=== PATIENT | female | born 1935 | race Caucasian/White ===

== ENCOUNTER 2016-11-17 12:45 | Day surgery (SDC) | payer MEDICARE, BC, OTHER ==
[2016-11-15 10:10] VITALS: BMI 23.4
[~2016-11-17 12:45] MED LIST: DEXAMETHASONE SOD PHOSPHATE 10 MG/ML 1 ML VIAL IV ONE; HYDROmorphone 1 MG/ML 1 ML SYRINGE IVP PRN; LACTATED RINGERS 1,000 ML IV SCH; MIDAZOLAM 2 MG/2 ML VIAL IV PRN; ONDANSETRON 4 MG/2 ML VIAL IVP ONE; Pre Op ABX Message 1 EACH MISC MISCELLANE ONE; SCOPOLAMINE 1.5MG/72HR PATCH TRANSDERM ONE
[2016-11-17] MEDS ORDERED: LIDOCAINE 1% 20 ML VIAL (10MG/ML) FOR IV START INTRADERMA ONE (13:21)
[2016-11-17] MEDS ORDERED: SODIUM CHLORIDE 0.9% 50 ML with ceFAZolin 2,000 MG IV ONE ×2 (14:01)
[2016-11-17] MEDS ORDERED: ROPIVACAINE 5 MG/ML 30 ML VIAL ONE (15:45)
[2016-11-17] MEDS ORDERED: fentaNYL (PF) 50 MCG/ML 2 ML AMP ONE (15:45)
[2016-11-17] MEDS ORDERED: LIDOCAINE 1% INJ 10MG/ML (20 ML MDV) ONE (15:45)
[2016-11-17] MEDS ORDERED: SUCCINYLCHOLINE CHLORIDE 100 MG/5 ML SYR IV ONE (15:45)
[2016-11-17] MEDS ORDERED: PROPOFOL 10 MG/ML 20 ML VIAL IV ONE (15:45)
[2016-11-17] MEDS ORDERED: MIDAZOLAM 2 MG/2 ML VIAL ONE (15:45)
[2016-11-17] MEDS ORDERED: LIDOCAINE 2%-EPI 1:100,000 20 ML VIAL ONE (15:45)
[2016-11-17] MEDS ORDERED: ePHEDrine 50 MG/ML 1 ML AMP ONE (15:45)
[2016-11-17] MEDS ORDERED: HYDROmorphone (PF) 1 MG/ML ONE (15:45)
[2016-11-17] MEDS ORDERED: EPINEPHrine 4 MG in SODIUM CHLORIDE 0.9% IRRIGATIO 3,000 ML IRRIGATION ONE ×6 (16:28→16:31)
[2016-11-17] MEDS ORDERED: LACTATED RINGERS 1,000 ML IV ONE (17:09)
[2016-11-17 17:37] VITALS: TEMP 96.8
[2016-11-17] MEDS ORDERED: fentaNYL (PF) 50 MCG/ML 2 ML AMP IV ONE (17:45)
--- NOTE | 2016-11-17 17:55 | P.OP ---
Date of Procedure: 11/17/16 Procedure(s) Performed: PREOPERATIVE DIAGNOSES: 1. Right shoulder rotator cuff tendinopathy. 2. Chronic impingement syndrome. 3. Acromioclavicular osteoarthritis. 4. Superior labral degenerative tear. POSTOPERATIVE DIAGNOSES: 1. Right shoulder rotator cuff tear (supraspinatus, U-shaped 1.5 cm). 2. Chronic impingement syndrome. 3. Acromioclavicular osteoarthritis. 4. Labral degenerative tear. 5. Adhesive capsulitis, mild. PROCEDURES PERFORMED: 1. Right shoulder arthroscopy with rotator cuff repair (1 anchor plus 2 margin convergent sutures) 2. Arthroscopic subacromial decompression 3. Arthroscopic debridement superior labral tear 4. Arthroscopic partial distal clavicle excision 5. Arthroscopic lysis of adhesions and manipulation under anesthesia ANESTHESIA: General. ESTIMATED BLOOD LOSS: Less than 25 mL TOURNIQUET: None [employer] PORTAL DEVELOPER: Chana Malave PA-C (assistance with: Patient positioning, retraction, arm positioning, repair, closure, dressing) COMPLICATIONS: None. DISPOSITION: To postanesthesia care unit INDICATIONS: Mrs. Allen is a 80 year old female who with a history of rotator cuff difficulties. MRI was suspicious for a tear, and the patient wishes to have it repaired. I have examined the patient in the office and proposed rotator cuff repair via an arthroscopic or mini-open approach, as well as other procedures to optimize the shoulder and outcome, such as decompression of spurs and debridement of loose or degenerated tissue. I have explained the risks of this surgery as being inclusive of, but not limited to: bleeding, infection, scarring, discomfort, blood vessel and/or nerve damage, need for further surgery , stiffness, persistence or worsening of problems, , and other risks. The consent form has been completed and signed. PROCEDURE: Appropriate consent was obtained from the patient. The patient was taken to the operating room and placed in the supine position. General anesthesia was initiated and after confirmation of adequate anesthesia, the patients right shoulder was examined. Initial range of motion showed flexion to 150, abduction to 150, external rotation to 50 and internal rotation to 50. Gentle manipulation was performed using Codmans paradox maneuver such that range of motion was improved to 170 flexion, 170 abduction, 75 external rotation and 75 internal rotation. The shoulder was stable. Next, the patient was rotated into the lateral decubitus position and stabilized to the table with a meza bag and padded straps. Care was taken to make sure that all pressure points were adequately padded. Bear-hugger was used along with bilateral leg sequential compression devices. Prepping and draping was completed in the usual aseptic fashion using ChloraPrep. The patient received intravenous antibiotics prior to incision. The shoulder was suspended from traction with 15 lbs. of weight in a position of 45 degrees abduction. Landmarks were outlined with a skin marking pen. A spinal needle was inserted into the glenohumeral joint and fluid was administered to distend the joint. Some pressure was noted after 100 mL was administered. A posterior portal was created using an 11 blade and the arthroscopic canula, over a dull trocar, was carefully inserted into the joint. Arthroscopy then commenced. An anterior portal was inserted in the rotator interval area using inside-out technique. Biceps tendon was normal. Infraspinatus, subscapularis, and teres minor attachments were normal. Hyaline cartilage of the glenoid showed degenerative changes typical for age. Supraspinatus attachment showed 1.5 cm tear which was full thickness. The humeral head had severe arthritic changes, grade 4. There was no evidence of unstable cartilage and therefore no significant debridement was necessary here. No loose bodies were noted in the joint. Superior labrum showed some degenerative tearing but was well-attached. Negative peel back sign. There was also evidence of minor degenerative labral tearing in the inferior area. Loose fibers of labrum in this area were debrided away back to stable labrum. Synovitis was noted superior to the superior labrum and within the rotator interval. This was debrided and removed where the capsule appeared inflamed, using an arthroscopic shaver. Attention was then directed to the subacromial space. The camera and instruments were redirected into the subacromial space and bursoscopy was performed. The patients bursa was inflamed and thickened, indicating chronic bursitis. A lateral portal was created using outside-in technique. The supraspinatus tendon was examined particularly closely. There was an approx1.5 cm full thickness tear. The loose fibers of the tear were debrided back to stable tissue and the defect in the tendon was repaired arthroscopically after careful preparation of the supraspinatus footprint with aaron and rasp to create a good bleeding surface of bone, see below. The undersurface of the acromion had frictional changes consistent with impingement syndrome. The underside of the acromion anteriorly was cleared of soft tissue using an arthroscopic radiofrequency ablator. The frictional changes of the rotator cuff matched exactly the location of the rotator cuff tear in the critical zone. A formal subacromial decompression was performed using a aaron. Approx4-5 millimeters of material was removed from the anterior- inferior corner of the acromion. This resection was beveled upwards laterally, and carried to the AC joint. The AC joint appeared arthritic with inferior spurring. This spurring was removed with a aaron, co-planing the resection with the acromial resection. The rotator cuff tear was then repaired as follows. 2 margin convergent sutures were used using the [employer] suture passing device and tied securely , diminishing the size of the U-shaped tear. A reverse mattress suture using Fiber Tape from [employer] was deployed into the torn supraspinatus edge. A 4.75 mm Swivelock anchor was then deployed at the greater tuberosity and the suture tension was adjusted so that there was complete reduction and coverage of the footprint. Suture tails were then cut, producing a knotless repair. It was noted that there was complete closure of the cuff defect. The repair was stable. Subsequently, 4-0 Monocryl was used to close the portal holes. Steri-strips were applied as well as sterile dressing. The shoulder was then placed into a sling and the patient was transferred to recovery room in stable condition. Sponge and needle counts were correct.
[2016-11-17] MEDS ORDERED: ROPIVACAINE 5 MG/ML 30 ML VIAL MISCELLANE ONE (17:59)
[2016-11-17] MEDS ORDERED: LIDOCAINE 2%-EPI 1:100,000 20 ML VIAL INTRAARTIC ONE (18:00)
[2016-11-17 18:35] VITALS: RESP 18
--- NOTE | 2016-11-17 19:19 | XR ---
EXAMINATION TYPE: XR chest 1V portable DATE OF EXAM: 11/17/2016 7:07 PM COMPARISON: 11/12/2012 HISTORY: Chest pain TECHNIQUE: Single frontal view of the chest is obtained. FINDINGS: Heart and mediastinum appear normal. There is elevated right diaphragm. There is no heart failure. There are no hilar masses. IMPRESSION: There is elevated right diaphragm that is new compared to old exam and could relate to p aralysis. No heart failure. Normal heart.
[2016-11-17] MEDS ORDERED: HYDROcodone/APAP 5-325MG 1 EACH TAB PO ONE ×2 (19:25→20:10)
[2016-11-17 20:27] VITALS: BP 123/71; PULSE 91
== END 2016-11-17 21:01 | disposition home or self-care (01) ==
LOC: OR 12:45
PROVIDERS: ATTEND Orthopaedic Surgery
DX: M75.101 Unspecified rotator cuff tear or rupture of right shoulder, not specified as traumatic (principal); M19.011 Primary osteoarthritis, right shoulder; M75.41 Impingement syndrome of right shoulder; S43.491A Other sprain of right shoulder joint, initial encounter; M65.811 Other synovitis and tenosynovitis, right shoulder; M75.01 Adhesive capsulitis of right shoulder; I10 Essential (primary) hypertension; E03.9 Hypothyroidism, unspecified; E78.5 Hyperlipidemia, unspecified; K21.9 Gastro-esophageal reflux disease without esophagitis; Z79.899 Other long term (current) drug therapy; Z87.891 Personal history of nicotine dependence
CPT/HCPCS: 64415; 71010; 29827; 29826; C1713 ×2; J0171; J2250; J1100; J2405; J2001; J3010; J1170; J0690; J2795; J0330; J2704

== ENCOUNTER 2018-03-18 10:16 | Inpatient (IN) | payer MEDICARE, BC, OTHER ==
[2018-03-18 10:55] LABS: Basophils % (A) 1 %; Eosinophils # (A) 0.2 k/uL (0-0.7); Eosinophils % (A) 3 %; HCT 43.5 % (34.0-46.0); HGB 14.1 gm/dL (11.4-16.0); Lymphocytes # (A) 1.3 k/uL (1.0-4.8); Lymphocytes % (A) 20 %; MCH 27.1 pg (25.0-35.0); MCHC 32.4 g/dL (31.0-37.0); MCV 83.8 fL (80.0-100.0); Mean Platelet Volume 6.8; Monocytes # (A) 0.4 k/uL (0-1.0); Monocytes % (A) 6 %; Neutrophils # (A) 4.1 k/uL (1.3-7.7); Neutrophils % (A) 66 %; Platelet Count 360 k/uL (150-450); RBC 5.18 m/uL (3.80-5.40); RDW 13.2 % (11.5-15.5); WBC 6.2 k/uL (3.8-10.6)
[2018-03-18 11:02] LABS: Albumin 4.5 g/dL (3.5-5.0); Calcium 9.3 mg/dL (8.4-10.2); Potassium 4.2 mmol/L (3.5-5.1); Total Bilirubin 0.5 mg/dL (0.2-1.3); Total Protein 7.5 g/dL (6.3-8.2)
--- NOTE | 2018-03-18 11:09 | ED ---
General Adult HPI - General Chief complaint: Chest Pain Stated complaint: chest pain, dizziness Time Seen by Provider: 03/18/18 10:23 Source: patient, family, RN notes reviewed, old records reviewed Mode of arrival: wheelchair Limitations: no limitations - History of Present Illness Initial comments: 82-year-old female presents for evaluation of left-sided chest pain. Pain is been intermittent over the past several weeks describes it as a heavy pressure on the left side of her chest. Patient has baseline dyspnea secondary to vocal cord paralysis. This is unchanged from baseline with her pain. No nausea vomiting. She states she did feel clammy and dizzy with these episodes. She has been somewhat lightheaded over the past several weeks as well. No history of CAD. She is a nonsmoker. Pain is nonradiating and resolved at the time of my evaluation. - Related Data Home Medications Medication Instructions Recorded Confirmed Levothyroxine Sodium [Synthroid] 50 mcg PO DAILY 04/05/14 03/18/18 Rosuvastatin [Crestor] 20 mg PO DAILY 04/05/14 03/18/18 amLODIPine [Norvasc] 5 mg PO DAILY 04/05/14 03/18/18 Aspirin EC [Ecotrin Low Dose] 81 mg PO DAILY 03/18/18 03/18/18 Allergies Allergy/AdvReac Type Severity Reaction Status Date / Time No Known Allergies Allergy Verified 03/18/18 11:07 Review of Systems ROS Statement: Those systems with pertinent positive or pertinent negative responses have been documented in the HPI. ROS Other: All systems not noted in ROS Statement are negative. Past Medical History Past Medical History: GERD/Reflux, Hyperlipidemia, Hypertension, Osteoarthritis (OA), Thyroid Disorder Additional Past Medical History / Comment(s): STATES AT 37 YRS OLD VOCAL CORD WAS SEVERED DURING REMOVAL OF THYROID (HX OF GOITER), MULTIPLE THROAT SURGERIES AFTERWARDS. SHE HAS TO INHALE AND BLOW OUT WHEN TALKING. STATES ALSO THAT ESOPHAGUS CLOSES PREMATURELY WHEN EATING AND CAUSES HER TO INHALE FOOD AND SALIVA CAUSING HER TO COUGH ., STRESS INCONTINENCE-WEARS PAD, TORN ROTATOR CUFF. History of Any Multi-Drug Resistant Organisms: None Reported Past Surgical History: Appendectomy, Hysterectomy, Orthopedic Surgery Additional Past Surgical History / Comment(s): TOTAL RIGHT HIP, CATARACTS, THYROID REMOVED WITH SEVERED VOCAL CORD AND MULTIPLE THROAT SURGERIES AFTERWARDS , right shoulder surgery Past Anesthesia/Blood Transfusion Reactions: No Reported Reaction Past Psychological History: No Psychological Hx Reported Smoking Status: Never smoker Past Alcohol Use History: Occasional Past Drug Use History: None Reported - Past Family History Daughter(s) Family Medical History: Cancer Additional Family Medical History / Comment(s): 2 DAUGHTERS- LEUKEMIA AND LUNG CANCER General Exam Limitations: no limitations General appearance: alert, in no apparent distress Head exam: Present: atraumatic, normocephalic Eye exam: Present: normal appearance, PERRL, EOMI ENT exam: Present: normal exam Neck exam: Present: normal inspection. Absent: tenderness, meningismus Respiratory exam: Present: normal lung sounds bilaterally. Absent: respiratory distress, wheezes, stridor Cardiovascular Exam: Present: regular rate, normal rhythm GI/Abdominal exam: Present: soft. Absent: distended, tenderness, guarding Extremities exam: Present: normal inspection, full ROM, normal capillary refill. Absent: pedal edema, calf tenderness Neurological exam: Present: alert, oriented X3, CN II-XII intact, other ( no ataxia). Absent: motor sensory deficit Psychiatric exam: Present: normal affect, normal mood Skin exam: Present: warm, dry, intact. Absent: cyanosis, diaphoretic Course Vital Signs 03/18/18 03/18/18 03/18/18 10:17 11:58 12:41 Temperature 97.9 F Pulse Rate 82 67 66 Respiratory 18 17 18 Rate Blood Pressure 183/80 153/72 155/74 O2 Sat by Pulse 95 99 100 Oximetry EKG Findings - EKG Comments: EKG Findings:: EKG: Normal sinus rhythm rate of 73, NM interval 190, QRS duration 72, QTC 425, there is Q waves in the inferior leads which were present on previous EKG obtained in October 2011. There is no ST segment elevation or depression. Medical Decision Making - Medical Decision Making 82-year-old female presenting with chest pressure and tightness on and off for the past 3 weeks. EKG shows Q waves in the inferior leads which appears unchanged from previous EKG. Workup reveals a CBC which is normal white blood cell count, stable hemoglobin, normal CMP and troponin is negative. Chest x- ray does show concern for trace effusion on the left. Lungs are clear on exam, there is no pulmonary edema or airspace disease on x-ray. Patient's pain is somewhat typical, she will be admitted for serial cardiac enzymes and cardiology consultation. Case discussed with Dr. Cotto who will accept admission - Lab Data Result diagrams: 03/18/18 10:45 03/18/18 10:45 Lab Results 03/18/18 03/18/18 03/18/18 Range/Units 10:45 10:45 10:45 WBC 6.2 (3.8-10.6) k/uL RBC 5.18 (3.80-5.40) m/uL Hgb 14.1 (11.4-16.0) gm/dL Hct 43.5 (34.0-46.0) % MCV 83.8 (80.0-100.0) fL MCH 27.1 (25.0-35.0) pg MCHC 32.4 (31.0-37.0) g/dL RDW 13.2 (11.5-15.5) % Plt Count 360 (150-450) k/uL Neutrophils % 66 % Lymphocytes % 20 % Monocytes % 6 % Eosinophils % 3 % Basophils % 1 % Neutrophils # 4.1 (1.3-7.7) k/uL Lymphocytes # 1.3 (1.0-4.8) k/uL Monocytes # 0.4 (0-1.0) k/uL Eosinophils # 0.2 (0-0.7) k/uL Basophils # 0.0 (0-0.2) k/uL PT (9.0-12.0) sec INR (<1.2) APTT (22.0-30.0) sec Sodium 141 (137-145) mmol/L Potassium 4.2 (3.5-5.1) mmol/L Chloride 101 (98-107) mmol/L Carbon Dioxide 29 (22-30) mmol/L Anion Gap 11 mmol/L BUN 13 (7-17) mg/dL Creatinine 0.75 (0.52-1.04) mg/dL Est GFR (CKD-EPI)AfAm 86 (>60 ml/min/1.73 sqM) Est GFR (CKD-EPI)NonAf 75 (>60 ml/min/1.73 sqM) Glucose 89 (74-99) mg/dL Calcium 9.3 (8.4-10.2) mg/dL Magnesium 2.0 (1.6-2.3) mg/dL Total Bilirubin 0.5 (0.2-1.3) mg/dL AST 28 (14-36) U/L ALT 34 (9-52) U/L Alkaline Phosphatase 87 (38-126) U/L Total Creatine Kinase 78 (30-135) U/L CK-MB (CK-2) 1.7 (0.0-2.4) ng/mL CK-MB (CK-2) Rel Index 2.2 Troponin I <0.012 (0.000-0.034) ng/mL NT-Pro-B Natriuret Pep pg/mL Total Protein 7.5 (6.3-8.2) g/dL Albumin 4.5 (3.5-5.0) g/dL 03/18/18 03/18/18 Range/Units 10:45 10:45 WBC (3.8-10.6) k/uL RBC (3.80-5.40) m/uL Hgb (11.4-16.0) gm/dL Hct (34.0-46.0) % MCV (80.0-100.0) fL MCH (25.0-35.0) pg MCHC (31.0-37.0) g/dL RDW (11.5-15.5) % Plt Count (150-450) k/uL Neutrophils % % Lymphocytes % % Monocytes % % Eosinophils % % Basophils % % Neutrophils # (1.3-7.7) k/uL Lymphocytes # (1.0-4.8) k/uL Monocytes # (0-1.0) k/uL Eosinophils # (0-0.7) k/uL Basophils # (0-0.2) k/uL PT 9.5 (9.0-12.0) sec INR 1.0 (<1.2) APTT 22.2 (22.0-30.0) sec Sodium (137-145) mmol/L Potassium (3.5-5.1) mmol/L Chloride (98-107) mmol/L Carbon Dioxide (22-30) mmol/L Anion Gap mmol/L BUN (7-17) mg/dL Creatinine (0.52-1.04) mg/dL Est GFR (CKD-EPI)AfAm (>60 ml/min/1.73 sqM) Est GFR (CKD-EPI)NonAf (>60 ml/min/1.73 sqM) Glucose (74-99) mg/dL Calcium (8.4-10.2) mg/dL Magnesium (1.6-2.3) mg/dL Total Bilirubin (0.2-1.3) mg/dL AST (14-36) U/L ALT (9-52) U/L Alkaline Phosphatase (38-126) U/L Total Creatine Kinase (30-135) U/L CK-MB (CK-2) (0.0-2.4) ng/mL CK-MB (CK-2) Rel Index Troponin I (0.000-0.034) ng/mL NT-Pro-B Natriuret Pep 184 pg/mL Total Protein (6.3-8.2) g/dL Albumin (3.5-5.0) g/dL Disposition Clinical Impression: Chest pain Disposition: ADMITTED IP TO THIS [facility] Condition: Stable Is patient prescribed a controlled substance at d/c from ED?: No Referrals: Rafat Duong DO [Primary Care Provider] - 1-2 days Decision to Admit Reason: Admit from EC Decision Date: 03/18/18 Decision Time: 12:47
[2018-03-18 11:10] LABS: Partial Thromboplastin Time 22.2 sec (22.0-30.0); Prothrombin Time 9.5 sec (9.0-12.0)
--- NOTE | 2018-03-18 11:10 | XR ---
EXAMINATION TYPE: XR chest 2V DATE OF EXAM: 03/18/2018 COMPARISON: 11/17/2016 HISTORY: 82-year-old female with chest pain TECHNIQUE: AP and lateral views FINDINGS: Heart normal size. Aorta and pulmonary vasculature within normal limits. Eventration anterior right h emidiaphragm. There is some minimal blunting of the posterior costophrenic angle on the left on the l ateral view. Remainder of the lungs appear clear. IMPRESSION: Minimal blunting left costophrenic angle could represent a trace effusion or some minimal atelectasis /infiltrate. Similar eventration right hemidiaphragm.
[2018-03-18 11:32] LABS: Creatine Kinase 78 U/L (30-135)
[2018-03-18 11:44] LABS: Creatine Kinase MB 1.7 ng/mL (0.0-2.4); Troponin I <0.012 ng/mL (0.000-0.034)
[2018-03-18] MEDS ORDERED: NALOXONE 0.4 MG/ML 1 ML VIAL IV PRN (12:48)
[2018-03-18] MEDS ORDERED: ASPIRIN 325 MG TAB PO STA (12:50)
[2018-03-18] MEDS ORDERED: FAMOTIDINE 20 MG/2 ML VIAL IV STA (14:35)
[2018-03-18 17:42] LABS: Creatine Kinase 63 U/L (30-135)
[2018-03-18 17:51] LABS: Creatine Kinase MB 1.4 ng/mL (0.0-2.4)
[2018-03-18 18:18] LABS: Troponin I <0.012 ng/mL (0.000-0.034)
--- NOTE | 2018-03-18 18:22 | CT ---
EXAMINATION TYPE: CT brain wo con DATE OF EXAM: 03/18/2018 COMPARISON: NONE HISTORY: Dizziness for [address] DLP: 1070 mGycm Automated exposure control for dose reduction was used. FINDINGS: Ventricles of normal size. There is no mass effect nor midline shift. There is no sign of intracrania l hemorrhage. There is mild cerebral cortical atrophy. The calvarium is intact. IMPRESSION: NEGATIVE CT SCAN OF THE BRAIN. MILD ATROPHY.
[2018-03-18] MEDS: ACETAMINOPHEN TAB 325 MG TAB PO PRN (20:03)
[2018-03-18 23:29] LABS: Creatine Kinase 57 U/L (30-135)
[2018-03-18 23:41] LABS: Creatine Kinase MB 1.1 ng/mL (0.0-2.4); Troponin I <0.012 ng/mL (0.000-0.034)
--- NOTE | 2018-03-18 23:46 | P.HPIM ---
History of Present Illness H&P Date: 03/18/18 Chief Complaint: Chest pain Patient is a 82-year-old female with known history of hypertension, hyperlipidemia and hypothyroidism and GERD came to the hospital with complaints of chest pain mainly in the left retrosternal area associated with dizziness and weakness and not feeling very well. Patient is also noted to have some left shoulder pain at the time. Chest pain is associated shortness of breath. Patient has been having intermittent chest pressure and heavy feeling for the past 2 weeks. Patient has baseline dyspnea secondary to vocal cord paralysis, was severed during removal of thyroid.. This is unchanged from baseline with her pain. No nausea vomiting. She states she did feel clammy and dizzy spells with these episodes. She has been somewhat lightheaded over the past several weeks as well. No history of CAD. She is a nonsmoker. Patient says that she does have exertional short of breath. Patient denied any fever or chills. No cough is from production. Denied any recent illnesses or sick contacts. Currently denied any complaints of chest pain or shortness of breath. Patient says that she had stress test about 7 years ago. Patient is supposed to follow with neurology in next 1-[address] head negative Chest x-ray showed minimal blunting of costophrenic angle could represent a trace effusion or minimal atelectasis/infiltrate Troponin 2 negative EKG showed normal sinus rhythm and undetermined age inferior wall CO BNP not elevated Review of Systems Constitutional: Patient denies any fever or chills . No generalized weakness or weight loss. Abdomen: Patient denied nausea vomiting and diarrhea and abdominal pain. Cardiovascular: Patient denies any chest pain or short of breath no palpitations. Respiratory: patient denied any cough is from production. No shortness of breath Neurologic: Patient denied any numbness or tingling headache. Musculoskeletal: Patient denies any complaints of joint swelling or deformity. Skin: Negative Psychiatric: Negative Endocrine: No heat or cold intolerance. No recent weight gain. Genitourinary: No dysuria or hematuria. All other 14 point ROS negative except the above Past Medical History Past Medical History: GERD/Reflux, Hyperlipidemia, Hypertension, Osteoarthritis (OA), Thyroid Disorder Additional Past Medical History / Comment(s): STATES AT 37 YRS OLD VOCAL CORD WAS SEVERED DURING REMOVAL OF THYROID (HX OF GOITER), MULTIPLE THROAT SURGERIES AFTERWARDS. SHE HAS TO INHALE AND BLOW OUT WHEN TALKING. STATES ALSO THAT ESOPHAGUS CLOSES PREMATURELY WHEN EATING AND CAUSES HER TO INHALE FOOD AND SALIVA CAUSING HER TO COUGH ., STRESS INCONTINENCE-WEARS PAD, TORN ROTATOR CUFF( sx), bridges. History of Any Multi-Drug Resistant Organisms: None Reported Past Surgical History: Appendectomy, Hysterectomy, Orthopedic Surgery Additional Past Surgical History / Comment(s): TOTAL RIGHT HIP, CATARACTS, THYROID REMOVED WITH SEVERED VOCAL CORD AND MULTIPLE THROAT SURGERIES AFTERWARDS , right shoulder surgery, rt rotator cuff repair Past Anesthesia/Blood Transfusion Reactions: No Reported Reaction Smoking Status: Former smoker - Past Family History Daughter(s) Family Medical History: Cancer Additional Family Medical History / Comment(s): 2 DAUGHTERS- LEUKEMIA AND LUNG CANCER Mother Family Medical History: COPD Additional Family Medical History / Comment(s): bronchits Father Family Medical History: Cancer Additional Family Medical History / Comment(s): leukemia Medications and Allergies Home Medications Medication Instructions Recorded Confirmed Type Levothyroxine Sodium [Synthroid] 50 mcg PO DAILY 04/05/14 03/18/18 History Rosuvastatin [Crestor] 20 mg PO DAILY 04/05/14 03/18/18 History amLODIPine [Norvasc] 5 mg PO DAILY 04/05/14 03/18/18 History Aspirin EC [Ecotrin Low Dose] 81 mg PO DAILY 03/18/18 03/18/18 History Allergies Allergy/AdvReac Type Severity Reaction Status Date / Time No Known Allergies Allergy Verified 03/18/18 11:07 Physical Exam Vitals: Vital Signs Temp Pulse Pulse Resp BP BP Pulse Ox 03/18/18 16:41 97.6 F 68 16 154/107 95 03/18/18 15:59 97 F L 68 16 157/70 99 03/18/18 13:27 70 18 156/73 99 03/18/18 12:41 66 18 155/74 100 03/18/18 11:58 67 17 153/72 99 03/18/18 10:17 97.9 F 82 18 183/80 95 Intake and Output 03/18/18 03/18/18 03/18/18 06:59 14:59 22:59 Other: Weight 54.431 kg 55.4 kg PHYSICAL EXAMINATION: Patient is lying in the bed comfortably, no acute distress, awake alert and oriented.. HEENT: Normocephalic. Neck is supple. Pupils reactive. Nostrils clear. Oral cavity is moist. Ears reveal no drainage. Neck reveals no JVD, carotid bruits, or thyromegaly. CHEST EXAMINATION: Trachea is central. Symmetrical expansion. Lung dominguez clear to auscultation and percussion. CARDIAC: Normal S1, S2 with no gallops. No murmurs ABDOMEN: Soft. Bowel sounds normal. No organomegaly. No abdominal bruits. Extremities: reveal no edema. No clubbing or cyanosis Neurologically awake, alert, oriented x3 with well-coordinated movements. No focal deficits noted Skin: No rash or skin lesions. Psychiatric: Coperative. Nonsuicidal Musculoskeletal: No joint swelling or deformity. Normal range of motion. Results CBC & Chem 7: 03/18/18 10:45 03/18/18 10:45 Thrombosis Risk Factor Assmnt - DVT/VTE Prophylaxis DVT/VTE Prophylaxis: Pharmacologic Prophylaxis ordered Assessment and Plan Assessment: Chest pain and dizzy spells Generalized weakness and not feeling well for the past 2 weeks. Hypertension Hyperlipidemia GERD Hypothyroidism Osteoarthritis of multiple joints Hoarseness due to vocal cords injury during removal of thyroid. Stress incontinence History of right rotator cuff repair Previous history of smoking Plan: Patient be continued on telemetry monitoring for any arrhythmias. Will check d- dimer. Serial troponins and cardiology was consulted. Further admissions based on the clinical course. Continue the home medications and follow up closely. Time with Patient: Greater than 30
[2018-03-19] MEDS: ACETAMINOPHEN TAB 325 MG TAB PO PRN (04:03)
[2018-03-19] MEDS: LEVOTHYROXINE 50 MCG TAB PO SCH (05:55)
[2018-03-19] MEDS ORDERED: AMINOPHYLLINE 500 MG/20 ML VIAL IV PRN (07:54)
[2018-03-19] MEDS ORDERED: REGADENOSON 0.4 MG/5 ML SYRINGE IV ONE (08:00)
[2018-03-19] MEDS ORDERED: ASPIRIN 81 MG PO SCH (09:00)
--- NOTE | 2018-03-19 10:38 | P.CRDCN ---
History of Present Illness History of present illness: Mrs. Allen is a pleasant 82-year-old female past medical history significant for hypertension, dyslipidemia, gastroesophageal reflux disease, hypothyroid s/p thyroidectomy, vocal cord injury and esophageal injury from thyroidectomy. She denies history of coronary artery disease. We have been asked to see her in consultation for chest pain. She states she has been suffering with dizziness lately and has followed with Dr. Naidu for evaluation of possible inner ear issues. He has told her these symptoms of dizziness are not vertigo. Yesterday she was going about her typical day when she again became very dizzy and felt confused. She then developed a burning/ tightness in her chest that was radiating down her left arm. The symptoms resolved on their own with no specific aggravating or alleviating factors. She also states she participated in a [employer] tournament in the end of December and bowled 15 games over the course of 5 days. Since that time is when all of her symptoms of dizziness and increased fatigue started. EKG reveals sinus mechanism with no acute ST or T-wave abnormalities. Telemetry tracings have been unremarkable. Chest x-ray shows minimal blunting of the left costophrenic angle which could represent a trace effusion or some minimal atelectasis versus an infiltrate. CT of the brain negative for an acute process with mild atrophy. Laboratory data reviewed, hemoglobin 14.1, platelets 360, d-dimer 0.43, sodium 141, potassium 4.2, magnesium 2.0, creatinine 0.75, cardiac enzymes negative 3 , TSH 1.33. Current cardiac medications include amlodipine 5 mg daily, rosuvastatin 20 mg daily and aspirin 81 mg daily. She also takes levothyroxine. Most recent stress test performed in the office in 2014 with a Lexiscan stress test which was negative for reversible cardiac ischemia. Review of Systems At the time of my exam: CONSTITUTIONAL: Denies fever. Denies chills. Complains of generalized fatigue. EYES: Denies blurred vision. Denies vision changes. Denies eye pain. EARS, NOSE, MOUTH & THROAT: Denies headache. Denies sore throat. Denies ear pain. CARDIOVASCULAR: Denies chest pain. Denies shortness of breath. Denies orthopnea. Denies PND. Denies palpitations. RESPIRATORY: Denies cough. GASTROINTESTINAL: Denies abdominal pain. Denies diarrhea. Denies constipation. Denies nausea. Denies vomiting. MUSCULOSKELETAL: Denies myalgias. INTEGUMENTARY: Denies pruitis. Denies rash. NEUROLOGIC: Denies numbness. Denies tingling. Denies weakness. PSYCHIATRIC: Denies anxiety. Denies depression. ENDOCRINE: Denies fatigue. Denies weight change. Denies polydipsia. Denies polyurina. GENITOURINARY: Denies burning, hematuria or urgency with micturation. HEMATOLOGIC: Denies history of anemia. Denies bleeding. Past Medical History Past Medical History: GERD/Reflux, Hyperlipidemia, Hypertension, Osteoarthritis (OA), Thyroid Disorder Additional Past Medical History / Comment(s): STATES AT 37 YRS OLD VOCAL CORD WAS SEVERED DURING REMOVAL OF THYROID (HX OF GOITER), MULTIPLE THROAT SURGERIES AFTERWARDS. SHE HAS TO INHALE AND BLOW OUT WHEN TALKING. STATES ALSO THAT ESOPHAGUS CLOSES PREMATURELY WHEN EATING AND CAUSES HER TO INHALE FOOD AND SALIVA CAUSING HER TO COUGH ., STRESS INCONTINENCE-WEARS PAD, TORN ROTATOR CUFF( sx), bridges. History of Any Multi-Drug Resistant Organisms: None Reported Past Surgical History: Appendectomy, Hysterectomy, Orthopedic Surgery Additional Past Surgical History / Comment(s): TOTAL RIGHT HIP, CATARACTS, THYROID REMOVED WITH SEVERED VOCAL CORD AND MULTIPLE THROAT SURGERIES AFTERWARDS , right shoulder surgery, rt rotator cuff repair Past Anesthesia/Blood Transfusion Reactions: No Reported Reaction Smoking Status: Former smoker - Past Family History Daughter(s) Family Medical History: Cancer Additional Family Medical History / Comment(s): 2 DAUGHTERS- LEUKEMIA AND LUNG CANCER Mother Family Medical History: COPD Additional Family Medical History / Comment(s): bronchits Father Family Medical History: Cancer Additional Family Medical History / Comment(s): leukemia Medications and Allergies Home Medications Medication Instructions Recorded Confirmed Type Levothyroxine Sodium [Synthroid] 50 mcg PO DAILY 04/05/14 03/18/18 History Rosuvastatin [Crestor] 20 mg PO DAILY 04/05/14 03/18/18 History amLODIPine [Norvasc] 5 mg PO DAILY 04/05/14 03/18/18 History Aspirin EC [Ecotrin Low Dose] 81 mg PO DAILY 03/18/18 03/18/18 History Allergies Allergy/AdvReac Type Severity Reaction Status Date / Time No Known Allergies Allergy Verified 03/18/18 11:07 Physical Exam Vitals: Vital Signs Temp Pulse Pulse Resp BP BP Pulse Ox 03/19/18 04:00 16 03/19/18 03:49 97.5 F L 69 16 126/68 93 L 03/19/18 00:00 16 03/18/18 23:27 97.9 F 71 16 136/68 97 03/18/18 20:00 97.5 F L 74 16 154/65 96 03/18/18 17:30 154/76 03/18/18 16:45 16 03/18/18 16:41 97.6 F 68 16 154/107 95 03/18/18 15:59 97 F L 68 16 157/70 99 03/18/18 13:27 70 18 156/73 99 03/18/18 12:41 66 18 155/74 100 03/18/18 11:58 67 17 153/72 99 03/18/18 10:17 97.9 F 82 18 183/80 95 Intake and Output 03/18/18 03/19/18 03/19/18 22:59 06:59 14:59 Intake Total 420 Balance 420 Intake: Oral 420 Other: Voiding Method Toilet Toilet # Voids 1 1 Weight 55.4 kg Blood pressure 148/66 heart rate 71 afebrile maintaining oxygen saturation on room air GENERAL: This is a 82-year-old occasion female in no apparent distress at the time of my examination. HEENT: Head is atraumatic, normocephalic. Pupils are equal, round. Sclerae anicteric. Conjunctivae are clear. Mucous membranes of the mouth are moist. Neck is supple. There is no jugular venous distention. No carotid bruit is heard. LUNGS: Clear to auscultation no wheezes, rales or rhonchi. No chest wall tenderness is noted on palpation or with deep breathing. HEART: Regular rate and rhythm without murmurs, rubs or gallops. S1 and S2 heard. ABDOMEN: Soft, nontender. Bowel sounds are heard. No organomegaly noted. EXTREMITIES: No evidence of peripheral edema and no calf tenderness noted. VASCULAR: Radial and dorsalis pedis pulses palpated, no evidence of clubbing. NEUROLOGIC: Patient is awake, alert and oriented x3. Results 03/18/18 10:45 03/18/18 10:45 Cardiac Enzymes 03/18/18 03/18/1818 Range/Units 10:45 10:45 16:54 AST 28 (14-36) U/L CK-MB (CK-2) 1.7 1.4 (0.0-2.4) ng/mL Troponin I <0.012 <0.012 (0.000-0.034) ng/mL 03/18/18 Range/Units 22:33 AST (14-36) U/L CK-MB (CK-2) 1.1 (0.0-2.4) ng/mL Troponin I <0.012 (0.000-0.034) ng/mL Coagulation 03/18/18 Range/Units 10:45 PT 9.5 (9.0-12.0) sec APTT 22.2 (22.0-30.0) sec CBC 03/18/18 Range/Units 10:45 WBC 6.2 (3.8-10.6) k/uL RBC 5.18 (3.80-5.40) m/uL Hgb 14.1 (11.4-16.0) gm/dL Hct 43.5 (34.0-46.0) % Plt Count 360 (150-450) k/uL Comprehensive Metabolic Panel 03/18/18 Range/Units 10:45 Sodium 141 (137-145) mmol/L Potassium 4.2 (3.5-5.1) mmol/L Chloride 101 (98-107) mmol/L Carbon Dioxide 29 (22-30) mmol/L BUN 13 (7-17) mg/dL Creatinine 0.75 (0.52-1.04) mg/dL Glucose 89 (74-99) mg/dL Calcium 9.3 (8.4-10.2) mg/dL AST 28 (14-36) U/L ALT 34 (9-52) U/L Alkaline Phosphatase 87 (38-126) U/L Total Protein 7.5 (6.3-8.2) g/dL Albumin 4.5 (3.5-5.0) g/dL Current Medications Generic Name Dose Route Start Last Admin Trade Name Freq PRN Reason Stop Dose Admin Acetaminophen 650 mg 03/18/18 12:48 03/19/18 04:03 Tylenol Tab PO 650 mg Q6HR PRN Administration Mild Pain or Fever > 100.5 Amlodipine Besylate 5 mg 03/19/18 09:00 Norvasc PO DAILY [facility] Aspirin 81 mg 03/19/18 09:00 Aspirin PO DAILY [facility] Atorvastatin Calcium 40 mg 03/19/18 09:00 Lipitor PO DAILY DEYVI Levothyroxine Sodium 50 mcg 03/19/18 06:30 03/19/18 05:55 Synthroid PO 50 mcg DAILY@0630 DEYVI Administration Naloxone HCl 0.2 mg 03/18/18 12:48 Narcan IV Q2M PRN Opioid Reversal Intake and Output 03/18/18 03/19/18 03/19/18 22:59 06:59 14:59 Intake Total 420 Balance 420 Intake: Oral 420 Other: Voiding Method Toilet Toilet # Voids 1 1 Weight 55.4 kg 03/18/18 10:45 03/18/18 10:45 Assessment and Plan Assessment: ASSESSMENT 1. Chest pain, atypical with dizziness. An acute coronary event has been ruled out with no EKG evidence of ischemia and negative cardiac enzymes. 2. Hypertension, well controlled on amlodipine 3. Dyslipidemia, takes rosuvastatin 4. Hypothyroid PLAN Obtain 2D echocardiogram and doppler study to assess cardiac structure and function. Obtain carotid duplex study. Perform Lexiscan stress test to assess for reversible cardiac ischemia. If above diagnostic testing is normal she is stable from a cardiac perspective. Thank you kindly for this consultation. Nurse Practitioner note has been reviewed, I agree with a documented findings and plan of care. Patient was seen and examined.
--- NOTE | 2018-03-19 11:17 | NM ---
EXAMINATION TYPE: NM stress lexiscan cardiolite DATE OF EXAM: 03/19/2018 COMPARISON: NONE HISTORY: Chest pain TECHNIQUE: After the intravenous administration of 10.33 mCi Tc 99m Sestamibi - Cardiolite resting S PECT images acquired 45 minutes post injection. The patient received 0.4mg Lexiscan, 25.9 mCi Tc 99m Sestamibi - Stress images obtained [address] injection FINDINGS: There is some diminished radiotracer accumulation along the inferior lateral wall in the mi d portion. This area has normal radiotracer accumulation on the resting images. Some stress-induced i schemic change which is reversible may be present at this location. The ejection fraction of 64% is normal. There is some dyskinesia of the inferior wall at the apex on the gated wall motion. IMPRESSION: 1. Suggestion of stress-induced ischemic change on polar maps and SPECT imaging at the midportion inf erior lateral wall. 2. Normal ejection fraction of 64%. 3. Some wall motion abnormality most notably at the apex along the inferior wall is present.
[2018-03-19] MEDS: ATORVASTATIN 40 MG TAB PO SCH (11:36)
[2018-03-19] MEDS: amLODIPine 5 MG TAB PO SCH (11:36)
--- NOTE | 2018-03-19 12:05 | ECHOF ---
Referral Reason: MEASUREMENTS -------- HEIGHT: 154.9 cm WEIGHT: 55.3 kg BP: IVSd: 1.0 cm (0.6 - 1.1) LVIDd: 3.6 cm (3.9 - 5.3) LVPWd: 1.0 cm (0.6 - 1.1) IVSs: 1.4 cm LVIDs: 1.8 cm LVPWs: 1.5 cm LAESV Index (A-L): 17.27 ml/m Ao Diam: 3.1 cm (2.0 - 3.7) AV Cusp: 2.1 cm (1.5 - 2.6) LA Diam: 3.2 cm (2.7 - 3.8) MV EXCURSION: 11.844 mm (> 18.000) MV EF SLOPE: 22 mm/s (70 - 150) EPSS: 0.1 cm MV E Joshua: 0.56 m/s MV DecT: 200 ms MV A Joshua: 1.40 m/s MV E/A Ratio: 0.40 AR PHT: 291 ms RAP: 5.00 mmHg RVSP: 14.95 mmHg FINDINGS -------- Sinus rhythm. This was a technically good study. The left ventricular size is normal. Left ventricular wall thickness is normal. Overall left vent ricular systolic function is normal with, an EF between 55 - 60 %. The right ventricle is normal in size and function. The left atrium is normal in size. The right atrium is normal in size. Trace amount of aortic regurgitation. The mitral valve leaflets are mildly thickened. Mild mitral annular calcification present. Mild m itral regurgitation is present. Mild tricuspid regurgitation present. The right ventricular systolic pressure, as measured by Doppl er, is 14.95mmHg. Pulmonic valve appears structurally normal. The aortic root size is normal. Normal inferior vena cava with normal inspiratory collapse consistent with estimated right atrial pre ssure of 5 mmHg. The pericardium is normal. CONCLUSIONS -------- 1. Sinus rhythm. 2. This was a technically good study. 3. The left ventricular size is normal. 4. Left ventricular wall thickness is normal. 5. Overall left ventricular systolic function is normal with, an EF between 55 - 60 %. 6. The right ventricle is normal in size and function. 7. The left atrium is normal in size. 8. The right atrium is normal in size. 9. Trace amount of aortic regurgitation. 10. The mitral valve leaflets are mildly thickened. 11. Mild mitral annular calcification present. 12. Mild mitral regurgitation is present. 13. Mild tricuspid regurgitation present. 14. The right ventricular systolic pressure, as measured by Doppler, is 14.95mmHg. 15. Pulmonic valve appears structurally normal. 16. The aortic root size is normal. 17. Normal inferior vena cava with normal inspiratory collapse consistent with estimated right atrial pressure of 5 mmHg. 18. The pericardium is normal. GREEN BUILDING ENERGY ENGINEER: Chana Mckeon RDCS
--- NOTE | 2018-03-19 12:54 | EST ---
EXERCISE STRESS DATE OF SERVICE: 03/19/2018 AGE: 82 SEX: F HT: 5'1' WT: 122 PROTOCOL: Lexiscan Cardiolite Study HEART RATE REST: 76 BLOOD PRESSURE REST: 116/44 MAXIMUM HEART RATE ACHIEVED: 103 MAXIMUM BLOOD PRESSURE: 137/85 INDICATIONS: Chest pain. CLINICAL INFORMATION: \Pretesting physical examination showed a heart rate of 76, pressure is 116/44 mmHg, baseline EKG showed sinus mechanism. 0.4 mg of Lexiscan was given to the patient over 15 seconds per protocol the max heart rate was 91 104 beats per minute and maximum pressure was 137/85 mmHg. Clinically, the patient did not have any symptoms of chest pain or discomfort and the EKG did not show any significant ST or T-wave abnormalities concerning for ischemia. CONCLUSION: 1. Nondiagnostic electrocardiogram stress testing in response to Lexiscan. 2. Please follow up on the Cardiolite portion on separate report from Radiology Department. MMODL / IJN: [id number] /
--- NOTE | 2018-03-19 13:48 | US ---
EXAMINATION TYPE: US carotid duplex BILAT DATE OF EXAM: 03/19/2018 COMPARISON: NONE CLINICAL HISTORY: dizziness. EXAM MEASUREMENTS: RIGHT: Peak Systolic Velocity (PSV) cm/sec ----- Right CCA: 47.9 ----- Right ICA: 63.3 ----- Right ECA: 63.3 ICA/CCA ratio: 1.3 RIGHT: End Diastole cm/sec ----- Right CCA: 12.1 ----- Right ICA: 25.8 ----- Right ECA: 25.8 LEFT: Peak Systolic Velocity (PSV) cm/sec ----- Left CCA: 50.7 ----- Left ICA: 65.0 ----- Left ECA: 55.8 ICA/CCA ratio: 1.3 LEFT: End Diastole cm/sec ----- Left CCA: 12.3 ----- Left ICA: 20.9 ----- Left ECA: 5.5 VERTEBRALS (direction of flow): Right Vertebral: Antegrade Left Vertebral: Antegrade Rhythm: Normal Mild atherosclerotic changes with no significant velocity increases seen bilaterally. Some mildly hard plaque is noted at the right carotid bulb and external carotid artery. Significant t urbulent flow was not identified. Some intimal thickening and small plaque is present on the left. IMPRESSION: 1. Atheromatous plaquing without significant flow-limiting stenosis. Criteria for Assigning % of Stenosis / Diameter reduction (Estimation based on the indirect measurements of the internal carotid artery velocities (ICA PSV). 1. Normal (no stenosis)=ICA PSV < 125 cm/s: ratio < 2.0: ICA EDV<40 cm/s. 2. Less than 50% stenosis=ICA PSV < 125 cm/s: ratio < 2.0: ICA EDV<40 cm/s. 3. 50 to 69% stenosis=ICA PSV of 125 to 230 cm/s: ration 2.0 ? 4.0: ICA EDV 40-100 cm/s. 4. Greater than 70% stenosis to near occlusion= ICA PSV > 230 cm/s: ratio > 4.0: ICA EDV > 100 cm/s. 5. Near occlusion= ICA PSV velocities may be low or undetectable: variable ratio and ICA EDV. 6. Total occlusion=unable to detect flow.
[2018-03-19] MEDS ORDERED: NITROGLYCERIN SL TABS 0.4 MG TAB SUBLINGUAL PRN (14:37)
[2018-03-19] MEDS ORDERED: ALPRAZolam 0.5 MG TAB PO PRN (14:37)
[2018-03-19] MEDS ORDERED: ALPRAZolam 0.25 MG TAB PO PRN (14:37)
[2018-03-19] MEDS ORDERED: SODIUM CHLORIDE 0.9% 1,000 ML in EMPTY BAG 1 BAG IV ONE (14:37)
--- NOTE | 2018-03-19 14:42 | P.PN ---
Progress Note - Text Lexiscan stress test reveals suggestion of stress-induced ischemic changes on polar neck and SPECT imaging at the midportion of the inferior lateral wall, somewhat motion abnormality most notably at the apex along the inferior wall present. We have recommended she proceed with cardiac catheterization to further assess coronary arteries. I have discussed the risks, benefits and alternative therapies for the above-mentioned procedure and for both sedation/ analgesia as well as necessary blood product administration, if indicated, as they pertain to this patient. The patient has indicated understanding and acceptance of the risks and procedures discussed. Questions have been answered appropriately to the patient and her daughter who is at the bedside during this conversation. She is agreeable to move forward with the above stated procedure. She will be nothing by mouth after midnight tonight. Case has been brought up with the Ribbon Cleaner for tomorrow.
--- NOTE | 2018-03-19 17:38 | PN ---
PROGRESS NOTE DATE OF SERVICE: 03/19/2018 This 82-year-old woman admitted with chest pain and abnormal stress test. At this time the patient is slated for cardiac cath by Cardiology tomorrow. No chest pain. No palpitations. No fever. The carotid Doppler has also been done that showed atheromatous plaquing without any stenosis. No chest pain. No palpitations. No fever. PHYSICAL EXAM: Alert and oriented times three. Pulse 71, blood pressure 150/80. Respirations 20. Temp is normal. Pulse ox 97% on room air. HEENT: Conjunctivae normal. Neck: No jugular venous distention. CARDIOVASCULAR: S1, S2 muffled. Respiratory: Breath sounds diminished in the bases. No rhonchi and no crackles. ABDOMEN: Soft, nontender. Legs: No edema. No swelling. Central nervous system : No focal deficits. LABS: Noted. ASSESSMENT: 1. Chest pain, dizziness with abnormal stress test, possible coronary artery disease. 2. Generalized weakness, not feeling well. 3. Hypertension. 4. Hyperlipidemia. 5. Gastroesophageal reflux disease. 6. Hypothyroidism. 7. Degenerative joint disease. 8. History of hoarseness. 9. History of vocal cord injury status post thyroid surgery. 11.History of right rotator cuff surgery. 12.Previous history of smoking. RECOMMENDATIONS AND DISCUSSION: Recommend to continue current medications, management and symptomatic treatment. Otherwise, closely follow with Cardiology. Guarded prognosis. Further recommendations to follow. MMODL / IJN: [id number] / MTDD
[2018-03-20] MEDS ORDERED: ASPIRIN 325 MG TAB PO ONE (06:00)
[2018-03-20] MEDS: LEVOTHYROXINE 50 MCG TAB PO SCH (06:39)
[2018-03-20] MEDS: ATORVASTATIN 40 MG TAB PO SCH (06:40)
[2018-03-20] MEDS: amLODIPine 5 MG TAB PO SCH (06:40)
[2018-03-20 07:06] LABS: Basophils # (A) 0.1 k/uL (0-0.2); Basophils % (A) 1 %; Eosinophils # (A) 0.2 k/uL (0-0.7); Eosinophils % (A) 5 %; HCT 39.3 % (34.0-46.0); HGB 12.8 gm/dL (11.4-16.0); Lymphocytes # (A) 1.3 k/uL (1.0-4.8); Lymphocytes % (A) 28 %; MCH 27.6 pg (25.0-35.0); MCHC 32.6 g/dL (31.0-37.0); MCV 84.7 fL (80.0-100.0); Mean Platelet Volume 6.9; Monocytes # (A) 0.3 k/uL (0-1.0); Monocytes % (A) 7 %; Neutrophils # (A) 2.5 k/uL (1.3-7.7); Neutrophils % (A) 55 %; Platelet Count 307 k/uL (150-450); RBC 4.64 m/uL (3.80-5.40); RDW 13.2 % (11.5-15.5); WBC 4.6 k/uL (3.8-10.6)
[2018-03-20 07:17] LABS: Calcium 8.9 mg/dL (8.4-10.2); Potassium 4.7 mmol/L (3.5-5.1)
[2018-03-20 08:05] VITALS: RESP 14
[2018-03-20] MEDS ORDERED: VERAPAMIL 2.5 MG/ML 2 ML AMP ONE (11:05)
[2018-03-20] MEDS ORDERED: MIDAZOLAM 2 MG/2 ML VIAL ONE (11:05)
[2018-03-20] MEDS ORDERED: HEPARIN SODIUM 1,000 UN/ML (10ML VL) ONE (11:05)
[2018-03-20] MEDS ORDERED: LIDOCAINE 2% INJ 20 MG/ML (20 ML MDV) ONE (11:05)
[2018-03-20] MEDS ORDERED: IV FLUID CONTINUATION 1,000 ML IV ONE (11:08)
[2018-03-20] MEDS ORDERED: MIDAZOLAM 2 MG/2 ML VIAL IV ONE (11:23)
[2018-03-20] MEDS ORDERED: LIDOCAINE 2% INJ 20 MG/ML SQ ONE (11:24)
[2018-03-20] MEDS: VERAPAMIL SYRINGE (5 MG/10 ML) INTRAARTER ONE ×2 (11:26→11:35)
[2018-03-20] MEDS ORDERED: IOPAMIDOL-370 125ML BTL INJ ONE (11:35)
[2018-03-20] MEDS ORDERED: RX INFO: IV CONTRAST WAS GIVEN 1 EACH MISC MISCELLANE PRN (11:40)
[2018-03-20] MEDS ORDERED: SODIUM CHLORIDE 0.9% 1,000 ML IV SCH (11:45)
--- NOTE | 2018-03-20 12:22 | CC ---
CARDIAC CATHETERIZATION REPORT DATE OF SERVICE: 03/20/2018 PERFORMING PHYSICIAN: Gavin Allen MD, diesel stationary engineer. PROCEDURE PERFORMED: Selective right and left coronary angiogram. INDICATION: This is a pleasant 82-year-old female patient who presented to the hospital with chest discomfort and underwent myocardial perfusion imaging stress test that revealed ischemia. In view of that, a heart catheterization was recommended. APPROACH: Right radial artery. COMPLICATION: None. LEVEL OF SEDATION: Moderate with sedation length of 14 minutes. PROCEDURE DESCRIPTION: After obtaining an informed consent, the patient was brought to the cardiac casting house laborer. The right radial was cannulated using micropuncture technique and a micropuncture wire passed easily then I placed a 6-Ukrainian sheath in the right radial artery. After that, I did selective right and left coronary angiogram using JR4 and JL3.5 catheters. The procedure was completed without any complication. SELECTIVE CORONARY ANGIOGRAM: 1. The RCA has an inferior takeoff. It is angiographically normal. It distally bifurcates into PDA and PLV branches, both are angiographically normal. 2. The left main is angiographically normal. It bifurcates into left circumflex and left anterior descending artery. 3. The left circumflex is a large caliber vessel. It is a nondominant vessel and it is angiographically normal. 4. The LAD is a large caliber vessel as well and is angiographically normal. CONCLUSION: Normal coronary angiogram. POSTPROCEDURE MANAGEMENT: Maximize medical treatment and follow up with the patient. MMODL / IJN: [id number] /
[2018-03-20] MEDS: ACETAMINOPHEN TAB 325 MG TAB PO PRN (14:35)
[2018-03-20 16:18] VITALS: BP 123/63; PULSE 80; TEMP 97.8
--- NOTE | 2018-03-20 20:07 | DS ---
DISCHARGE SUMMARY DATE OF SERVICE: 03/20/2018. FINAL DIAGNOSES: 1. Chest pain, dizziness with abnormal stress test, but normal coronaries on cardiac cath. 2. Generalized weakness, not feeling, improved. 3. Hypertension. 4. Hyperlipidemia. 5. Gastroesophageal reflux disease. 6. Hypothyroidism. 7. History of degenerative joint disease. 8. History of hoarseness secondary to vocal cord injury, status post thyroid surgery. 9. History of right rotator cuff surgery. DISCHARGE DISPOSITION: The patient is being discharged in stable condition with guarded prognosis. Cardiology cleared the patient for discharge. HISTORY OF PRESENT ILLNESS: This 82-year-old woman with a past medical history of multiple medical problems, admitted to the hospital with chest pain and multiple symptomatology. Patient treated symptomatically. Myocardial infarction ruled out. Stress test was abnormal, but however, cardiac cath showed normal coronary arteries. On exam, vitals are stable. Cardiovascular: S1, S2. Abdomen soft. Central nervous system: No focal deficits. Cardiology cleared the patient. DISCHARGE ADVICE AND MEDICATIONS: 1. Diet is cardiac. 2. Activity limited until follow up. 3. Follow up with a cardiology as advised. 4. Follow up with Dr. Duong primary in 2-3 days. MEDICATIONS: 1. Norvasc 5 mg p.o. daily. 2. Ecotrin 81 mg a day. 3. Synthroid 50 mcg p.o. 4. Crestor 20 mg p.o. daily. Once again, the patient discharged in stable condition with guarded prognosis. MMODL / IJN: [id number] /
== END 2018-03-20 16:42 | disposition home or self-care (01) | DRG 287 ==
LOC: EC 10:16 → 3OBS 12:48 → OBSVTOIN 03-19 15:44
PROVIDERS: ADMIT Internal Medicine; ATTEND Internal Medicine
PROC: B211YZZ Fluoroscopy of Multiple Coronary Arteries using Other Contrast (ICD-10-PCS; 2018-03-20)
PROC: 4A023N7 Measurement of Cardiac Sampling and Pressure, Left Heart, Percutaneous Approach (ICD-10-PCS; principal; 2018-03-20 11:00)
DX: R07.9 Chest pain, unspecified (principal); J38.00 Paralysis of vocal cords and larynx, unspecified; R53.1 Weakness; K21.9 Gastro-esophageal reflux disease without esophagitis; E78.5 Hyperlipidemia, unspecified; I10 Essential (primary) hypertension; M19.91 Primary osteoarthritis, unspecified site; E89.0 Postprocedural hypothyroidism; N39.3 Stress incontinence (female) (male); Z79.82 Long term (current) use of aspirin; Z79.890 Hormone replacement therapy; Z79.899 Other long term (current) drug therapy; Z90.710 Acquired absence of both cervix and uterus; Z90.49 Acquired absence of other specified parts of digestive tract; Z96.641 Presence of right artificial hip joint; Z87.891 Personal history of nicotine dependence; Z98.42 Cataract extraction status, left eye; Z98.41 Cataract extraction status, right eye; Z80.6 Family history of leukemia; Z80.1 Family history of malignant neoplasm of trachea, bronchus and lung; Z82.5 Family history of asthma and other chronic lower respiratory diseases
CPT/HCPCS: 36415; 70450; 71046; 78452; 80048; 80053; 82550; 82553; 83735; 83880; 84443; 84484; 85025; 85379; 85610; 85730; 93005; 93017; 93306; 93454; 93880; 94760; 96374; 99285

== ENCOUNTER 2018-06-15 11:38 | Emergency (ER) | payer MEDICARE, BC, OTHER ==
[2018-06-15 11:49] VITALS: RESP 18
[2018-06-15] MEDS ORDERED: SODIUM CHLORIDE 0.9% 1,000 ML IV STA (11:51)
--- NOTE | 2018-06-15 12:15 | ED ---
General Adult HPI - General Chief complaint: Syncope Stated complaint: Syncope Time Seen by Provider: 06/15/18 11:50 Source: patient, family, RN notes reviewed, old records reviewed Mode of arrival: wheelchair Limitations: no limitations - History of Present Illness Initial comments: This is a 82-year-old female the ER for evaluation. She is presenting today for evaluation regards to significant shortness of breath event that occurred yesterday and a fall. Patient is syncopal event hitting her head. She may have had a minor loss of consciousness either before or during fall. She is continued to complain of headache, no blood thinners. He states she was outside without her oxygen which she normally needs and wears. He is short of breath oxygen dropped and she was passed out, she did hit her head no other complaints of injury. - Related Data Home Medications Medication Instructions Recorded Confirmed Levothyroxine Sodium [Synthroid] 50 mcg PO DAILY 04/05/14 06/15/18 Rosuvastatin [Crestor] 20 mg PO DAILY 04/05/14 06/15/18 amLODIPine [Norvasc] 5 mg PO DAILY 04/05/14 06/15/18 Aspirin EC [Ecotrin Low Dose] 81 mg PO DAILY 03/18/18 06/15/18 Allergies Allergy/AdvReac Type Severity Reaction Status Date / Time No Known Allergies Allergy Verified 06/15/18 13:07 Review of Systems ROS Statement: Those systems with pertinent positive or pertinent negative responses have been documented in the HPI. ROS Other: All systems not noted in ROS Statement are negative. Past Medical History Past Medical History: GERD/Reflux, Hyperlipidemia, Hypertension, Osteoarthritis (OA), Thyroid Disorder Additional Past Medical History / Comment(s): STATES AT 37 YRS OLD VOCAL CORD WAS SEVERED DURING REMOVAL OF THYROID (HX OF GOITER), MULTIPLE THROAT SURGERIES AFTERWARDS. SHE HAS TO INHALE AND BLOW OUT WHEN TALKING. STATES ALSO THAT ESOPHAGUS CLOSES PREMATURELY WHEN EATING AND CAUSES HER TO INHALE FOOD AND SALIVA CAUSING HER TO COUGH ., STRESS INCONTINENCE-WEARS PAD, TORN ROTATOR CUFF( sx), bridges. History of Any Multi-Drug Resistant Organisms: None Reported Past Surgical History: Appendectomy, Hysterectomy, Orthopedic Surgery Additional Past Surgical History / Comment(s): TOTAL RIGHT HIP, CATARACTS, THYROID REMOVED WITH SEVERED VOCAL CORD AND MULTIPLE THROAT SURGERIES AFTERWARDS , right shoulder surgery, rt rotator cuff repair Past Anesthesia/Blood Transfusion Reactions: No Reported Reaction Past Psychological History: No Psychological Hx Reported Smoking Status: Former smoker Past Alcohol Use History: Occasional Past Drug Use History: None Reported - Past Family History Daughter(s) Family Medical History: Cancer Additional Family Medical History / Comment(s): 2 DAUGHTERS- LEUKEMIA AND LUNG CANCER Mother Family Medical History: COPD Additional Family Medical History / Comment(s): bronchits Father Family Medical History: Cancer Additional Family Medical History / Comment(s): leukemia General Exam Limitations: no limitations General appearance: alert, in no apparent distress Head exam: Present: normocephalic, normal inspection. Absent: atraumatic ( Bruising to right eye) Eye exam: Present: normal appearance, PERRL, EOMI. Absent: scleral icterus, conjunctival injection, periorbital swelling ENT exam: Present: normal exam, mucous membranes moist Neck exam: Present: normal inspection. Absent: tenderness, meningismus, lymphadenopathy Respiratory exam: Present: normal lung sounds bilaterally. Absent: respiratory distress, wheezes, rales, rhonchi, stridor Cardiovascular Exam: Present: regular rate, normal rhythm, normal heart sounds. Absent: systolic murmur, diastolic murmur, rubs, gallop, clicks GI/Abdominal exam: Present: soft, normal bowel sounds. Absent: distended, tenderness, guarding, rebound, rigid Extremities exam: Present: normal inspection, full ROM, normal capillary refill. Absent: tenderness, pedal edema, joint swelling, calf tenderness Back exam: Present: normal inspection Neurological exam: Present: alert, oriented X3, CN II-XII intact Psychiatric exam: Present: normal affect, normal mood Skin exam: Present: warm, dry, intact, normal color. Absent: rash Course Vital Signs 06/15/18 06/15/18 11:43 13:44 Temperature 97.4 F L Pulse Rate 79 71 Respiratory 18 18 Rate Blood Pressure 135/70 142/60 O2 Sat by Pulse 96 100 Oximetry - Reevaluation(s) Reevaluation #1: 06/15/18 14:05 Patient remains in no acute distress no shortness of breath here in the ER EKG Findings - EKG Comments: EKG Findings:: EKG shows sinus rhythm rate of 70, TN 188, QRS 70, QTc 421 Medical Decision Making - Medical Decision Making 82 female the ER with head injury status post fall. Patient a fall from standing with loss of consciousness. No injury noted on fall on CAT scan. Patient is no injury noted otherwise in emergency room on exam on exam or evaluation. Labwork is normal patient's breathing and appropriately denying headache chest pain shortness breath or abdominal pain. - Lab Data Result diagrams: 06/15/18 12:10 06/15/18 12:10 Lab Results 06/15/18 06/15/18 06/15/18 Range/Units 12:10 12:10 12:10 WBC 7.5 (3.8-10.6) k/uL RBC 4.89 (3.80-5.40) m/uL Hgb 13.7 (11.4-16.0) gm/dL Hct 41.2 (34.0-46.0) % MCV 84.2 (80.0-100.0) fL MCH 27.9 (25.0-35.0) pg MCHC 33.2 (31.0-37.0) g/dL RDW 13.6 (11.5-15.5) % Plt Count 328 (150-450) k/uL Neutrophils % 76 % Lymphocytes % 15 % Monocytes % 5 % Eosinophils % 2 % Basophils % 1 % Neutrophils # 5.7 (1.3-7.7) k/uL Lymphocytes # 1.1 (1.0-4.8) k/uL Monocytes # 0.4 (0-1.0) k/uL Eosinophils # 0.1 (0-0.7) k/uL Basophils # 0.0 (0-0.2) k/uL PT (9.0-12.0) sec INR (<1.2) APTT (22.0-30.0) sec Sodium 137 (137-145) mmol/L Potassium 4.1 (3.5-5.1) mmol/L Chloride 102 (98-107) mmol/L Carbon Dioxide 27 (22-30) mmol/L Anion Gap 8 mmol/L BUN 16 (7-17) mg/dL Creatinine 0.90 (0.52-1.04) mg/dL Est GFR (CKD-EPI)AfAm 69 (>60 ml/min/1.73 sqM) Est GFR (CKD-EPI)NonAf 60 (>60 ml/min/1.73 sqM) Glucose 124 H (74-99) mg/dL Plasma Lactic Acid Fritz (0.7-2.0) mmol/L Calcium 9.2 (8.4-10.2) mg/dL Phosphorus 4.3 (2.5-4.5) mg/dL Magnesium 1.9 (1.6-2.3) mg/dL Total Bilirubin 0.6 (0.2-1.3) mg/dL AST 31 (14-36) U/L ALT 31 (9-52) U/L Alkaline Phosphatase 85 (38-126) U/L Total Creatine Kinase 74 (30-135) U/L CK-MB (CK-2) 1.9 (0.0-2.4) ng/mL CK-MB (CK-2) Rel Index 2.6 Troponin I <0.012 (0.000-0.034) ng/mL Total Protein 7.3 (6.3-8.2) g/dL Albumin 4.1 (3.5-5.0) g/dL Urine Color Urine Appearance (Clear) Urine pH (5.0-8.0) Ur Specific [place] (1.001-1.035) Urine Protein (Negative) Urine Glucose (UA) (Negative) Urine Ketones (Negative) Urine Blood (Negative) Urine Nitrite (Negative) Urine Bilirubin (Negative) Urine Urobilinogen (<2.0) mg/dL Ur Leukocyte Esterase (Negative) 06/15/18 06/15/18 06/15/18 Range/Units 12:10 12:10 13:15 WBC (3.8-10.6) k/uL RBC (3.80-5.40) m/uL Hgb (11.4-16.0) gm/dL Hct (34.0-46.0) % MCV (80.0-100.0) fL MCH (25.0-35.0) pg MCHC (31.0-37.0) g/dL RDW (11.5-15.5) % Plt Count (150-450) k/uL Neutrophils % % Lymphocytes % % Monocytes % % Eosinophils % % Basophils % % Neutrophils # (1.3-7.7) k/uL Lymphocytes # (1.0-4.8) k/uL Monocytes # (0-1.0) k/uL Eosinophils # (0-0.7) k/uL Basophils # (0-0.2) k/uL PT 9.5 (9.0-12.0) sec INR 1.0 (<1.2) APTT 21.9 L (22.0-30.0) sec Sodium (137-145) mmol/L Potassium (3.5-5.1) mmol/L Chloride (98-107) mmol/L Carbon Dioxide (22-30) mmol/L Anion Gap mmol/L BUN (7-17) mg/dL Creatinine (0.52-1.04) mg/dL Est GFR (CKD-EPI)AfAm (>60 ml/min/1.73 sqM) Est GFR (CKD-EPI)NonAf (>60 ml/min/1.73 sqM) Glucose (74-99) mg/dL Plasma Lactic Acid Fritz 0.9 (0.7-2.0) mmol/L Calcium (8.4-10.2) mg/dL Phosphorus (2.5-4.5) mg/dL Magnesium (1.6-2.3) mg/dL Total Bilirubin (0.2-1.3) mg/dL AST (14-36) U/L ALT (9-52) U/L Alkaline Phosphatase (38-126) U/L Total Creatine Kinase (30-135) U/L CK-MB (CK-2) (0.0-2.4) ng/mL CK-MB (CK-2) Rel Index Troponin I (0.000-0.034) ng/mL Total Protein (6.3-8.2) g/dL Albumin (3.5-5.0) g/dL Urine Color Yellow Urine Appearance Clear (Clear) Urine pH 5.5 (5.0-8.0) Ur Specific [place] 1.007 (1.001-1.035) Urine Protein Negative (Negative) Urine Glucose (UA) Negative (Negative) Urine Ketones Negative (Negative) Urine Blood Negative (Negative) Urine Nitrite Negative (Negative) Urine Bilirubin Negative (Negative) Urine Urobilinogen <2.0 (<2.0) mg/dL Ur Leukocyte Esterase Negative (Negative) - Radiology Data Radiology results: report reviewed (CT brain C-spine chest x-ray are negative for acute disease), image reviewed Disposition Clinical Impression: Vasovagal syncope, Fall, Head injury Disposition: ADMITTED IP TO THIS HOSP Condition: Fair Instructions: Head Injury (ED) Is patient prescribed a controlled substance at d/c from ED?: No Referrals: Rafat Duong DO [Primary Care Provider] - 1-2 days
[2018-06-15 12:29] LABS: Basophils % (A) 1 %; Eosinophils # (A) 0.1 k/uL (0-0.7); Eosinophils % (A) 2 %; HCT 41.2 % (34.0-46.0); HGB 13.7 gm/dL (11.4-16.0); Lymphocytes # (A) 1.1 k/uL (1.0-4.8); Lymphocytes % (A) 15 %; MCH 27.9 pg (25.0-35.0); MCHC 33.2 g/dL (31.0-37.0); MCV 84.2 fL (80.0-100.0); Monocytes # (A) 0.4 k/uL (0-1.0); Monocytes % (A) 5 %; Neutrophils # (A) 5.7 k/uL (1.3-7.7); Neutrophils % (A) 76 %; Platelet Count 328 k/uL (150-450); RBC 4.89 m/uL (3.80-5.40); RDW 13.6 % (11.5-15.5); WBC 7.5 k/uL (3.8-10.6)
[2018-06-15 12:32] LABS: Albumin 4.1 g/dL (3.5-5.0); Calcium 9.2 mg/dL (8.4-10.2); Magnesium 1.9 mg/dL (1.6-2.3); Phosphorus 4.3 mg/dL (2.5-4.5); Potassium 4.1 mmol/L (3.5-5.1); Total Bilirubin 0.6 mg/dL (0.2-1.3); Total Protein 7.3 g/dL (6.3-8.2)
[2018-06-15 12:38] LABS: Prothrombin Time 9.5 sec (9.0-12.0)
[2018-06-15 12:42] LABS: Partial Thromboplastin Time 21.9 sec (22.0-30.0)
[2018-06-15 12:44] LABS: Creatine Kinase 74 U/L (30-135)
[2018-06-15 12:57] LABS: Creatine Kinase MB 1.9 ng/mL (0.0-2.4); Troponin I <0.012 ng/mL (0.000-0.034)
--- NOTE | 2018-06-15 13:10 | CT ---
EXAMINATION TYPE: CT brain jackieine gabriela con DATE OF EXAM: 06/15/2018 COMPARISON: Previous study dated 03/18/2018 HISTORY: syncope and fall CT DLP: 1279.3 mGycm Automated exposure control for dose reduction was used. TECHNIQUE: CT scan of the head and cervical spine are performed without contrast. FINDINGS: BRAIN: There are mild changes of sulcal prominence and ventriculomegaly, compatible with mild atrophi c change. There is diffuse periventricular white matter lucency, compatible with chronic white matter ischemic change. There is no acute focal lesion, mass effect or midline shift identified. I do not s ee evidence of intracranial blood. Visualized portions of the paranasal sinuses and mastoids are clear. The bony calvarium is intact. IMPRESSION: 1. NO ACUTE INTRACRANIAL ABNORMALITY. 2. MILD DEGENERATIVE CHANGE. THERE IS APICAL SCARRING PRESENT BILATERALLY. CERVICAL SPINE: Is an abnormal appearance to the thyroid cartilage fracture. Comment fracture. There is asymmetry in the laryngeal soft tissues in this location with prominence on the left. Prevertebral soft tissues are otherwise unremarkable. There is a mild reversal of the normal cervical lordosis. Vertebral body heights maintained. There is a grade 1 degenerative spondylolisthesis of C4 on C5. Alignment is otherwise normal. Atlantoaxial re lationships are normal. There is degenerative disc disease and hypertrophic spondylosis at C5-6 and C 6-7. There is uncovertebral joint disease at these levels. There is mild facet arthropathy at C3-4 an d to a greater extent C4-5 on the left no fractures are seen. IMPRESSION: 1. NO ACUTE OSSEOUS LESION. 2. DEGENERATIVE CHANGE. 3. ABNORMAL APPEARANCE OF THE LARYNGEAL SOFT TISSUES AND THE THYROID CARTILAGE. DIRECT VISUALIZATION OF THE LARYNX OF THE SUGGESTED.
--- NOTE | 2018-06-15 13:19 | XR ---
EXAMINATION TYPE: XR chest 2V DATE OF EXAM: 06/15/2018 HISTORY: Weakness. REFERENCE: Previous study dated 03/18/2018. FINDINGS: There is chronic, appearing elevation of the right hemidiaphragm. The lungs are clear. Pleural space are clear. The heart is not enlarged. IMPRESSION: NO ACTIVE INTRATHORACIC DISEASE.
[2018-06-15 13:30] LABS: Appearance,Urine Clear (Clear); Bilirubin,Urine Negative (Negative); Blood,Urine Negative (Negative); Color,Urine Yellow; Glucose,Urine (UA) Negative (Negative); Ketones,Urine Negative (Negative); Leukocyte Esterase,Urine Negative (Negative); Nitrite,Urine Negative (Negative); PH, Urine 5.5 (5.0-8.0); Protein,Urine Negative (Negative); Specific Gravity,Urine 1.007 (1.001-1.035); Urobilinogen,Urine <2.0 mg/dL (<2.0)
[2018-06-15] MEDS ORDERED: KETOROLAC 30 MG/ML 1 ML VIAL IVP STA (14:05)
[2018-06-15 14:46] VITALS: BP 169/76; PULSE 75; TEMP 97.1
== END 2018-06-15 14:51 | disposition other institution (70) ==
LOC: EC 11:38
DX: S00.11XA Contusion of right eyelid and periocular area, initial encounter (principal); S09.90XA Unspecified injury of head, initial encounter; R55 Syncope and collapse; R06.02 Shortness of breath; E78.5 Hyperlipidemia, unspecified; I10 Essential (primary) hypertension; E07.9 Disorder of thyroid, unspecified; Z87.891 Personal history of nicotine dependence; Z79.82 Long term (current) use of aspirin; Z79.899 Other long term (current) drug therapy; W18.00XA Striking against unspecified object with subsequent fall, initial encounter
CPT/HCPCS: 36415; 93005; 80053; 82550; 82553; 83605; 83735; 84100; 84484; 85025; 85610; 85730; 81003; 87086; 71046; 72125; 70450; 99285; 96374; 96361; J1885

== ENCOUNTER → 2018-08-20 | Outpatient (CLI) | payer MEDICARE, BC, OTHER ==
--- NOTE | 2018-08-22 07:12 | MR ---
EXAMINATION TYPE: MR angio head wo con, MR brain/cspine wo DATE OF EXAM: 08/20/2018 COMPARISON: NONE HISTORY: Vertigo, COLLINS (accession [id number]), Cervicalgia, Vertigo, COLLINS (accession [id number]) TECHNIQUE: Time of flight images focusing on the [place] of [place] were performed without contrast for the MRA portion of the examination. Multiplanar, multisequence imaging of the brain and cervical sp ine is performed without intravenous contrast. FINDINGS: MRA: Although the posterior to indicating arteries appear diminutive the [place] of [place] is intact. The vertebral arteries are patent with left-sided dominance. There is likely tortuosity of the cephal ad aspect of the cervical portion of the right internal carotid artery at the level of C1, however di ssection flap is considered much less likely although should be confirmed with MRI neck. This is isael ed on image 4 of the axial raw data. There is an early branching of the left middle cerebral artery. Major intracranial vasculature appear s patent. No focal outpouching or aneurysm is seen. No vascular malformation is appreciated. BRAIN: There is no evidence of restricted diffusion to indicate acute infarct. No vasogenic edema is appreciated. Scattered FLAIR/T2 hyperintense foci are seen within the periventricular and subcortical white matter with the largest in the right frontal lobe measuring 8 x 8 mm on FLAIR fat sat axial im age 22. Overall this is moderate burden given the patient's age. There is mild symmetric prominence o f the peripheral sulci and ventricular system compatible with mild age-related volume loss. The dural venous sinus flow voids are maintained. Paranasal sinuses and mastoid air cells are well aerated. There is no suspicious extra-axial fluid collection. Bone marrow is overall within normal limits of s ignal other than a benign-appearing T1 and T2 hyperintense vertebral body hemangioma of the left late ral margin of T1. Midline structures are unremarkable. Orbits and globes are symmetric. CERVICAL SPINE: The cervical spine vertebral bodies maintain normal vertebral body heights and alignm ent. Multilevel degenerative disc disease is seen. Bone marrow signal is within normal limits overall . Spinal cord of the cervical spine is also of unremarkable signal. C2-C3: Disc desiccation without herniation, spinal canal stenosis nor neural foraminal narrowing. C3-C4: Small posterior disc osteophyte complex, facet arthropathy and uncovertebral hypertrophy moder ately narrowing the right neural foramen and mildly narrowing the left neural foramen. No spinal kevin l stenosis. C4-C5: Small broad-based disc bulge and facet arthropathy with no significant neural foraminal narrow ing or spinal canal stenosis. C5-C6: Small right paracentral disc herniation extending into the right lateral recess creating mild to moderate right neural foraminal narrowing. Uncovertebral hypertrophy and facet arthropathy are als o seen without left neural foraminal narrowing. There is mild resultant spinal canal stenosis as ther e is effacement of the ventral subarachnoid space. C6-C7: There is a small broad-based disc bulge, uncovertebral hypertrophy and minimal facet arthropat hy without significant spinal canal stenosis or neural foraminal narrowing. C7-T1: No significant disc disease, spinal canal stenosis nor neural foraminal narrowing. IMPRESSION: 1. Redundant tortuosity of the cephalad aspect of the cervical portion of the right internal carotid artery. This could unlikely relate to possible small chronic dissection flap as there appears to be a ssociated atheromatous change. MRA neck could confirm. 2. Moderate burden nonspecific white matter change, most commonly on the basis of chronic microangiop athy and mild age-related cerebral volume loss. 3. Small right paracentral disc herniation at C5-C6 creating moderate right neural foraminal narrowin g and mild spinal canal stenosis. 4. Moderate multilevel degenerative disc disease of the cervical spine.
== END | disposition home or self-care (01) ==
LOC: RADMRIMAIN 11:21
PROVIDERS: ATTEND Family Medicine
DX: I67.9 Cerebrovascular disease, unspecified (principal); G31.1 Senile degeneration of brain, not elsewhere classified; M99.71 Connective tissue and disc stenosis of intervertebral foramina of cervical region; M48.02 Spinal stenosis, cervical region; M50.222 Other cervical disc displacement at C5-C6 level; M50.30 Other cervical disc degeneration, unspecified cervical region
CPT/HCPCS: 70544; 70551; 72141

== ENCOUNTER → 2018-09-05 | Outpatient (CLI) | payer MEDICARE, BC, OTHER ==
--- NOTE | 2018-09-06 02:43 | MR ---
MR scan of the liver. History follow-up liver lesions. Comparison none. TECHNIQUE: Multiplanar multiecho imaging of the abdomen was performed without and with IV contrast. The contrast was gadolinium 7.5 mL. FINDINGS: There is 1.5 cm lobulated high signal focus in the anterior left lobe of the liver on the T2 images. This is not enhancing. The gallbladder appears normal. The remainder of the liver has normal signal p attern. There is a large right renal pelvis. This is also present to some extent on the old CT scan o f May 30, 2008. Lesion in the left lobe of the liver is also present and slightly smaller than old CT scan. Spleen shows no focal defect. There is no evidence of pancreatic mass. Pancreatic duct is not dilated . Bile ducts are not dilated. There is no evidence of pleural effusion. There is no sign of ascites. There is no adrenal mass. The contrast images show satisfactory excretion of contrast in the kidneys but contrast in the ureters. There is no retroperitoneal adenopathy. The remainder of the exam is unr emarkable. I see no bony destructive process. IMPRESSION: Small cyst in the left lobe of the liver slightly increased in size compared to old CT scan. Mild rig ht-sided hydronephrosis but no evidence of obstruction. No renal atrophy.
== END | disposition home or self-care (01) ==
LOC: RADMRIMAIN 13:21
PROVIDERS: ATTEND Family Medicine
DX: K76.89 Other specified diseases of liver (principal)
CPT/HCPCS: 82565; 74183; 36415; A9585

== ENCOUNTER → 2018-09-18 | Outpatient (CLI) | payer MEDICARE, BC, OTHER ==
--- NOTE | 2018-09-18 16:56 | MR ---
EXAMINATION TYPE: MR angio neck wo/w con DATE OF EXAM: 09/18/2018 COMPARISON: HISTORY: Arteriosclerosis carotid artery, dissection CONTRAST: Performed utilizing 7.5 mL intravenous Gadavist gadolinium contrast. TECHNIQUE: Multiplanar multiecho imaging is performed through the carotid neck vessels. Reconstructed images are present. There is some slab artifact. FINDINGS: There is a three-vessel arch. No flow gaps are evident. Carotid bifurcations appear unremar kable. No suspicious changes to suggest dissection are evident. Vertebral arteries are codominant. Vertebral basilar artery is normal. Source images are reviewed and unremarkable. IMPRESSIONS: 1. Normal bilateral carotid arteries. No stenosis or dissection evident. 2. Vertebral arteries appear unremarkable.
== END ==
LOC: RADMRIMAIN 14:08
PROVIDERS: ATTEND Family Medicine
DX: I65.23 Occlusion and stenosis of bilateral carotid arteries (principal); I77.71 Dissection of carotid artery
CPT/HCPCS: 70549

== ENCOUNTER 2019-04-26 16:00 | Emergency (ER) | payer MEDICARE, BC, OTHER ==
[2019-04-26 16:17] VITALS: BP 156/82; PULSE 81; RESP 18; TEMP 97.8
--- NOTE | 2019-04-26 16:46 | ED ---
General Adult HPI - General Chief complaint: Shortness of Breath Stated complaint: Trach issues Time Seen by Provider: 04/26/19 16:23 Source: patient Mode of arrival: ambulatory Limitations: no limitations - History of Present Illness Initial comments: 83-year-old female with a history of vocal cord paralysis and recent tracheostomy placement on presenting with persistent dry cough. Patient states they followed up with Dr. Morales 3 weeks after the procedure who prescribed the patient Tessalon Perles and Augmentin for her cough. They state that she completed the course of antibiotics but is having persistent dry cough which is making it difficult to complete her daily activities. Eating or drinking exacerbates the cough, as well as leaning forward. She has tried suctioning herself to relieve the cough but states it is only temporary. She denies a large amount of secretions, fevers chills, constitutional symptoms. Denies any hemoptysis. They stated that their next appointment with Dr. Morales is on May 07. They called the on-call physician who suggested they come to the emergency department if she is having respiratory distress. Patient states she's tried Tessalon Perles, saline, nebulizers, Robitussin without relief. - Related Data Home Medications Medication Instructions Recorded Confirmed Levothyroxine Sodium [Synthroid] 50 mcg PO DAILY 04/05/14 06/15/18 Rosuvastatin [Crestor] 20 mg PO DAILY 04/05/14 06/15/18 amLODIPine [Norvasc] 5 mg PO DAILY 04/05/14 06/15/18 Aspirin EC [Ecotrin Low Dose] 81 mg PO DAILY 03/18/18 06/15/18 Previous Rx's Medication Instructions Recorded Codeine Phosphate/Guaifenesin 5 ml PO Q4H PRN 3 Days #90 ml 04/26/19 [Guaifen-Codeine 100-10 mg/5 ml] Polyethylene Glycol 3350 [Miralax] 17 gm PO DAILY #30 packet 04/26/19 Allergies Allergy/AdvReac Type Severity Reaction Status Date / Time No Known Allergies Allergy Verified 04/26/19 16:16 Review of Systems ROS Statement: Those systems with pertinent positive or pertinent negative responses have been documented in the HPI. Review of Systems Constitutional: Denies fever, chills Eyes: Denies change in vision, Denies pain Ears, nose, mouth, throat: Denies headaches, Denies sore throat Cardiovascular: Denies chest pain. Denies palpitations Respiratory: Positive shortness of breath, Positive cough Gastrointestinal: Denies abdominal pain. Denies nausea, vomiting, diarrhea. Genitourinary: Denies hematuria, Denies infections Musculoskeletal: Denies pain, Denies swelling Integumentary: Denies rash Neurological: Denies headache, focal weakness, focal numbness Psychiatric: Denies anxiety, Denies depression Hematologic/Lymphatic: Denies easy bleeding or bruising ROS Other: All systems not noted in ROS Statement are negative. Past Medical History Past Medical History: GERD/Reflux, Hyperlipidemia, Hypertension, Osteoarthritis (OA), Thyroid Disorder Additional Past Medical History / Comment(s): STATES AT 37 YRS OLD VOCAL CORD WAS SEVERED DURING REMOVAL OF THYROID (HX OF GOITER), MULTIPLE THROAT SURGERIES AFTERWARDS. SHE HAS TO INHALE AND BLOW OUT WHEN TALKING. STATES ALSO THAT ESOPHAGUS CLOSES PREMATURELY WHEN EATING AND CAUSES HER TO INHALE FOOD AND SALIVA CAUSING HER TO COUGH ., STRESS INCONTINENCE-WEARS PAD, TORN ROTATOR CUFF(sx), bridges. History of Any Multi-Drug Resistant Organisms: None Reported Past Surgical History: Appendectomy, Hysterectomy, Orthopedic Surgery Additional Past Surgical History / Comment(s): TOTAL RIGHT HIP, CATARACTS, THYROID REMOVED WITH SEVERED VOCAL CORD AND MULTIPLE THROAT SURGERIES AFTERWARDS, right shoulder surgery, rt rotator cuff repair, trach insertion Past Anesthesia/Blood Transfusion Reactions: No Reported Reaction Past Psychological History: No Psychological Hx Reported Smoking Status: Former smoker Past Alcohol Use History: Occasional Past Drug Use History: None Reported - Past Family History Daughter(s) Family Medical History: Cancer Additional Family Medical History / Comment(s): 2 DAUGHTERS- LEUKEMIA AND LUNG CANCER Mother Family Medical History: COPD Additional Family Medical History / Comment(s): bronchits Father Family Medical History: Cancer Additional Family Medical History / Comment(s): leukemia General Exam - General Exam Comments Initial Comments: General: Awake, alert, No acute Distress HENT: Normocephalic. Atraumatic Eyes: PERRL. EOMI. No scleral icterus. No injected conjunctiva Neck: Full ROM. Tracheostomy present. No drainage or foul smell from site. No erythema. Chest/Lungs: Clear to auscultation bilaterally. No wheezing, rhonchi, or rales Cardiac: Regular rate, rhythm. No murmurs or rubs Abdomen/GI: Soft, nontender, nondistended. No rebound, guarding, or rigidity. Musculoskeletal: Full ROM Skin: Warm, dry, intact Neurologic: A/Ox3. Moving all 4 extremities. no abnormal gait Limitations: no limitations Course Vital Signs 04/26/19 04/26/19 04/26/19 16:11 16:37 17:51 Temperature 97.8 F 97.8 F Pulse Rate 81 81 Respiratory 18 18 18 Rate Blood Pressure 156/82 156/82 O2 Sat by Pulse 98 98 Oximetry Medical Decision Making - Medical Decision Making 83-year-old female with recent trach placement presenting with persistent cough. Initial exam the patient is awake, alert, no acute distress. Her vital signs are stable. While in the room the patient has a persistent dry cough. She is nontoxic appearing and is not hypoxic. She is not describing symptoms consistent with a tracheitis. She has no chest pain or constitutional symptoms. I spoke with the on-call for physician for Dr. Morales. He agreed with trying Codeine for the cough and recommended the patient contact the office on Sunday for a sooner follow-up appointment. He did not thing at this time the patient required transfer for further evaluation, and I agree with that as these symptoms have been ongoing and she is in no-respiratory distress. I discussed this at length with the patient and her daughter who are agreeable with the plan. They're going home with the medication. I discussed with the patient using MiraLAX as codeine can cause constipation. They verbalized understanding. No further emergent workup indicated. The patient was given return to ED instructions. They were instructed to follow up with their primary care lalito Raya for discharge at this time. Disposition Clinical Impression: Cough Disposition: HOME SELF-CARE Condition: Good Instructions (If sedation given, give patient instructions): Chronic Cough (ED) Additional Instructions: Please call Dr. Tyler's office on Sunday Prescriptions: Codeine Phosphate/Guaifenesin [Guaifen-Codeine 100-10 mg/5 ml] 5 ml PO Q4H PRN 3 Days #90 ml PRN Reason: Cough Polyethylene Glycol 3350 [Miralax] 17 gm PO DAILY #30 packet Is patient prescribed a controlled substance at d/c from ED?: Yes Referrals: Rafat Duong DO [Primary Care Provider] - 1-2 days
--- NOTE | 2019-04-26 16:54 | XR ---
EXAMINATION TYPE: XR chest 2V DATE OF EXAM: 04/26/2019 COMPARISON: NONE HISTORY: Difficulty breathing TECHNIQUE: Frontal and lateral views of the chest are obtained. FINDINGS: Right hemidiaphragm elevation is unchanged. Deep sulcus on the right is only slightly more pronounced than the prior of 2018. No discrete pneumothorax is identified. Cardiomediastinal silhoue tte is within normal limits. Median tracheostomy is seen. No acute osseous pathology. Mild degenerati ve changes of the thoracic spine. IMPRESSION: No acute cardiopulmonary process.
[2019-04-26] MEDS ORDERED: guaiFENesin-Coden 100-10MG/5ML 10 ML CUP PO STA (17:18)
== END 2019-04-26 17:54 | disposition home or self-care (01) ==
LOC: EC 16:00
DX: R05 Cough (principal); R06.02 Shortness of breath; I10 Essential (primary) hypertension; E78.5 Hyperlipidemia, unspecified; E07.9 Disorder of thyroid, unspecified; Z93.0 Tracheostomy status; Z79.890 Hormone replacement therapy; Z79.899 Other long term (current) drug therapy; Z79.82 Long term (current) use of aspirin; Z87.891 Personal history of nicotine dependence
CPT/HCPCS: 71046; 99284

== ENCOUNTER 2019-09-06 12:39 | Emergency (ER) | payer MEDICARE, BC, OTHER ==
[2019-09-06 12:48] VITALS: TEMP 97.9
[2019-09-06] MEDS ORDERED: MECLIZINE 12.5 MG TAB PO STA (13:30)
[2019-09-06] MEDS ORDERED: SODIUM CHLORIDE 0.9% 1,000 ML IV ONE (13:36)
--- NOTE | 2019-09-06 14:04 | ED ---
General Adult HPI - General Chief complaint: Neuro Symptoms/Deficit Stated complaint: LEG NUMBNESS, HEADACHE, HYPERTENSION Time Seen by Provider: 09/06/19 12:45 Source: patient, family Mode of arrival: wheelchair Limitations: no limitations - History of Present Illness Initial comments: The patient is an 83-year-old female with past history of hypertension, hyperlipidemia and vocal cord paralysis with trach who presents to the emergency department for vertiginous symptoms, dizziness and headache. She states the symptoms have been progressively getting worse over the past several days. Has a history of these symptoms in the past previous to obtaining her trach in November. States it was likely due to her respiratory issues. States she has been improved over the past several months. She followed up with Dr. Morales who is her ENT out of [facility]. This past week he placed her on Cipro drops for her trach site because of the increasing sputum production and cough. He also placed her on gabapentin. States she isn't taking the gabapentin as directed and increasing her dose. She is taking 1 pill twice a day. States that since starting the medications she has had return of her vertiginous symptoms and headache. Also reports to mild blurred vision. Denies any lateralizing symptoms. No issues with confusion or slurred speech. No history of CVA. Denies any fevers or chills. No nausea or vomiting. No ataxia or difficult these with ambulation. Also admits to paresthesias in her bilateral upper and lower extremities. She does believe these symptoms are secondary to the medications. Denies any blunt head trauma. There are no alleviating, precipitating or modifying factors - Related Data Home Medications Medication Instructions Recorded Confirmed Levothyroxine Sodium [Synthroid] 50 mcg PO DAILY 04/05/14 06/15/18 Rosuvastatin [Crestor] 20 mg PO DAILY 04/05/14 06/15/18 amLODIPine [Norvasc] 5 mg PO DAILY 04/05/14 06/15/18 Aspirin EC [Ecotrin Low Dose] 81 mg PO DAILY 03/18/18 06/15/18 Previous Rx's Medication Instructions Recorded Codeine Phosphate/Guaifenesin 5 ml PO Q4H PRN 3 Days #90 ml 04/26/19 [Guaifen-Codeine 100-10 mg/5 ml] Polyethylene Glycol 3350 [Miralax] 17 gm PO DAILY #30 packet 04/26/19 Allergies Allergy/AdvReac Type Severity Reaction Status Date / Time No Known Allergies Allergy Verified 09/06/19 12:45 Review of Systems ROS Statement: Those systems with pertinent positive or pertinent negative responses have been documented in the HPI. ROS Other: All systems not noted in ROS Statement are negative. Past Medical History Past Medical History: GERD/Reflux, Hyperlipidemia, Hypertension, Osteoarthritis (OA), Thyroid Disorder Additional Past Medical History / Comment(s): STATES AT 37 YRS OLD VOCAL CORD WAS SEVERED DURING REMOVAL OF THYROID (HX OF GOITER), MULTIPLE THROAT SURGERIES AFTERWARDS. SHE HAS TO INHALE AND BLOW OUT WHEN TALKING. STATES ALSO THAT ESOPHAGUS CLOSES PREMATURELY WHEN EATING AND CAUSES HER TO INHALE FOOD AND SALIVA CAUSING HER TO COUGH ., STRESS INCONTINENCE-WEARS PAD, TORN ROTATOR CUFF(sx), bridges. History of Any Multi-Drug Resistant Organisms: None Reported Past Surgical History: Appendectomy, Hysterectomy, Orthopedic Surgery Additional Past Surgical History / Comment(s): TOTAL RIGHT HIP, CATARACTS, THYROID REMOVED WITH SEVERED VOCAL CORD AND MULTIPLE THROAT SURGERIES AFTERWARDS, right shoulder surgery, rt rotator cuff repair, trach insertion Past Anesthesia/Blood Transfusion Reactions: No Reported Reaction Past Psychological History: No Psychological Hx Reported Smoking Status: Former smoker Past Alcohol Use History: Occasional Past Drug Use History: None Reported - Past Family History Daughter(s) Family Medical History: Cancer Additional Family Medical History / Comment(s): 2 DAUGHTERS- LEUKEMIA AND LUNG CANCER Mother Family Medical History: COPD Additional Family Medical History / Comment(s): bronchits Father Family Medical History: Cancer Additional Family Medical History / Comment(s): leukemia General Exam Limitations: no limitations Course Vital Signs 09/06/19 09/06/19 09/06/19 12:45 14:24 15:00 Temperature 97.9 F Pulse Rate 84 73 74 Respiratory 18 16 18 Rate Blood Pressure 130/74 179/81 169/89 O2 Sat by Pulse 98 97 97 Oximetry 09/06/19 09/06/19 16:00 16:48 Temperature 97.9 F Pulse Rate 82 Respiratory 24 Rate Blood Pressure 148/89 O2 Sat by Pulse 98 Oximetry EKG Findings - EKG Comments: EKG Findings:: EKG demonstrates normal sinus rhythm with ventricular rate of 78. IA interval 182. QRS 22. QTC 426. Q waves in lead 3. No acute ST segment elevations or depressions concerning for ischemic changes. Medical Decision Making - Medical Decision Making Upon arrival the patient is placed in room 7. The rest of physical exam was performed. I did recommend laboratory studies, CT of the patient's brain, chest x-ray and a CT of the patient's abdomen and pelvis because of her reported numbness and tingling in her extremities. Respiratory studies are unremarkable. Sodium is 135. Glucose 100. Lactic acid is negative at 1.1. TSH within normal limits. Troponin is negative. Urinalysis is clean. CT angiography of the patient's abdomen tenderness with mild aphthous chronic vascular disease. No evidence of hemodynamic stenosis to extend the patient's lower extremity paresthesias. Chest x-ray demonstrates no active cardiopulmonary disease. Normal heart no change. CT brain demonstrates mild atrophy with no acute intracranial normality. I discussed these results with the patient. She did have her trach suctioned she did remain on a trach collar while she was hospitalized. I discussed diagnosis, differential treatment options. The patient is reassured. I did provide her with a liter bolus of normal saline because of her CTs and a dose of meclizine. She reports that she feels improved. The patient is able to ambulate to the bathroom without difficulty. I did instruct her that she should continue using the Cipro drops in her trach site. She may discontinue the gabapentin because reported side effects. She needs to call and discuss this with Dr. Morales inform him that he is going of this medication. She felt the primary care doctor in 2-4 days. The patient has any new or worsening symptoms she should return to the emergency room. Patient was in agreement treatment plan and discharged home in stable condition - Lab Data Result diagrams: 09/06/19 13:55 09/06/19 13:55 Lab Results 09/06/19 09/06/19 09/06/19 Range/Units 13:55 13:55 13:55 WBC 8.3 (3.8-10.6) k/uL RBC 4.84 (3.80-5.40) m/uL Hgb 13.6 (11.4-16.0) gm/dL Hct 41.1 (34.0-46.0) % MCV 85.0 (80.0-100.0) fL MCH 28.2 (25.0-35.0) pg MCHC 33.2 (31.0-37.0) g/dL RDW 13.5 (11.5-15.5) % Plt Count 327 (150-450) k/uL Neutrophils % 77 % Lymphocytes % 14 % Monocytes % 6 % Eosinophils % 1 % Basophils % 1 % Neutrophils # 6.4 (1.3-7.7) k/uL Lymphocytes # 1.1 (1.0-4.8) k/uL Monocytes # 0.5 (0-1.0) k/uL Eosinophils # 0.1 (0-0.7) k/uL Basophils # 0.1 (0-0.2) k/uL PT (9.0-12.0) sec INR (<1.2) Sodium 135 L (137-145) mmol/L Potassium 4.2 (3.5-5.1) mmol/L Chloride 100 (98-107) mmol/L Carbon Dioxide 26 (22-30) mmol/L Anion Gap 9 mmol/L BUN 17 (7-17) mg/dL Creatinine 0.94 (0.52-1.04) mg/dL Est GFR (CKD-EPI)AfAm 65 (>60 ml/min/1.73 sqM) Est GFR (CKD-EPI)NonAf 56 (>60 ml/min/1.73 sqM) Glucose 100 H (74-99) mg/dL Plasma Lactic Acid Fritz 1.1 (0.7-2.0) mmol/L Calcium 9.4 (8.4-10.2) mg/dL Magnesium 2.0 (1.6-2.3) mg/dL Total Bilirubin 0.6 (0.2-1.3) mg/dL AST 27 (14-36) U/L ALT 20 (9-52) U/L Alkaline Phosphatase 87 (38-126) U/L Creatine Kinase 58 (30-135) U/L Troponin I (0.000-0.034) ng/mL Total Protein 7.5 (6.3-8.2) g/dL Albumin 4.3 (3.5-5.0) g/dL TSH 1.970 (0.465-4.680) mIU/L Urine Color Urine Appearance (Clear) Urine pH (5.0-8.0) Ur Specific [place] (1.001-1.035) Urine Protein (Negative) Urine Glucose (UA) (Negative) Urine Ketones (Negative) Urine Blood (Negative) Urine Nitrite (Negative) Urine Bilirubin (Negative) Urine Urobilinogen (<2.0) mg/dL Ur Leukocyte Esterase (Negative) 09/06/19 09/06/19 09/06/19 Range/Units 13:55 13:55 14:35 WBC (3.8-10.6) k/uL RBC (3.80-5.40) m/uL Hgb (11.4-16.0) gm/dL Hct (34.0-46.0) % MCV (80.0-100.0) fL MCH (25.0-35.0) pg MCHC (31.0-37.0) g/dL RDW (11.5-15.5) % Plt Count (150-450) k/uL Neutrophils % % Lymphocytes % % Monocytes % % Eosinophils % % Basophils % % Neutrophils # (1.3-7.7) k/uL Lymphocytes # (1.0-4.8) k/uL Monocytes # (0-1.0) k/uL Eosinophils # (0-0.7) k/uL Basophils # (0-0.2) k/uL PT 9.5 (9.0-12.0) sec INR 0.9 (<1.2) Sodium (137-145) mmol/L Potassium (3.5-5.1) mmol/L Chloride (98-107) mmol/L Carbon Dioxide (22-30) mmol/L Anion Gap mmol/L BUN (7-17) mg/dL Creatinine (0.52-1.04) mg/dL Est GFR (CKD-EPI)AfAm (>60 ml/min/1.73 sqM) Est GFR (CKD-EPI)NonAf (>60 ml/min/1.73 sqM) Glucose (74-99) mg/dL Plasma Lactic Acid Fritz (0.7-2.0) mmol/L Calcium (8.4-10.2) mg/dL Magnesium (1.6-2.3) mg/dL Total Bilirubin (0.2-1.3) mg/dL AST (14-36) U/L ALT (9-52) U/L Alkaline Phosphatase (38-126) U/L Creatine Kinase (30-135) U/L Troponin I <0.012 (0.000-0.034) ng/mL Total Protein (6.3-8.2) g/dL Albumin (3.5-5.0) g/dL TSH (0.465-4.680) mIU/L Urine Color Light Yellow Urine Appearance Clear (Clear) Urine pH 7.0 (5.0-8.0) Ur Specific [place] 1.005 (1.001-1.035) Urine Protein Negative (Negative) Urine Glucose (UA) Negative (Negative) Urine Ketones Negative (Negative) Urine Blood Negative (Negative) Urine Nitrite Negative (Negative) Urine Bilirubin Negative (Negative) Urine Urobilinogen <2.0 (<2.0) mg/dL Ur Leukocyte Esterase Negative (Negative) Disposition Clinical Impression: Vertigo, Paresthesias Disposition: HOME SELF-CARE Condition: Stable Instructions (If sedation given, give patient instructions): Dizziness (ED) Additional Instructions: Please follow-up with your primary care doctor in 2-4 days. Stop taking the gabapentin. Make Dr. Morales aware. Return to the emergency room for any new or worsening symptoms Is patient prescribed a controlled substance at d/c from ED?: No Referrals: Rafat Duong DO [Primary Care Provider] - 1-2 days Time of Disposition: 16:31
[2019-09-06 14:19] LABS: Basophils # (A) 0.1 k/uL (0-0.2); Basophils % (A) 1 %; Eosinophils # (A) 0.1 k/uL (0-0.7); Eosinophils % (A) 1 %; HCT 41.1 % (34.0-46.0); HGB 13.6 gm/dL (11.4-16.0); Lymphocytes # (A) 1.1 k/uL (1.0-4.8); Lymphocytes % (A) 14 %; MCH 28.2 pg (25.0-35.0); MCHC 33.2 g/dL (31.0-37.0); Mean Platelet Volume 6.5; Monocytes # (A) 0.5 k/uL (0-1.0); Monocytes % (A) 6 %; Neutrophils # (A) 6.4 k/uL (1.3-7.7); Neutrophils % (A) 77 %; Platelet Count 327 k/uL (150-450); RBC 4.84 m/uL (3.80-5.40); RDW 13.5 % (11.5-15.5); WBC 8.3 k/uL (3.8-10.6)
[2019-09-06 14:26] LABS: Albumin 4.3 g/dL (3.5-5.0); Calcium 9.4 mg/dL (8.4-10.2); Potassium 4.2 mmol/L (3.5-5.1); Total Bilirubin 0.6 mg/dL (0.2-1.3); Total Protein 7.5 g/dL (6.3-8.2)
[2019-09-06 14:38] LABS: INR 0.9 (<1.2); Prothrombin Time 9.5 sec (9.0-12.0)
[2019-09-06 14:56] LABS: Appearance,Urine Clear (Clear); Bilirubin,Urine Negative (Negative); Blood,Urine Negative (Negative); Color,Urine Light Yellow; Glucose,Urine (UA) Negative (Negative); Ketones,Urine Negative (Negative); Leukocyte Esterase,Urine Negative (Negative); Nitrite,Urine Negative (Negative); Protein,Urine Negative (Negative); Specific Gravity,Urine 1.005 (1.001-1.035); Urobilinogen,Urine <2.0 mg/dL (<2.0)
--- NOTE | 2019-09-06 15:34 | CT ---
EXAMINATION TYPE: CT brain wo con DATE OF EXAM: 09/06/2019 COMPARISON: 06/15/2018 HISTORY: Vision changes. Vertigo CT DLP: 1017.4 mGycm Automated exposure control for dose reduction was used. FINDINGS: There is some cerebral cortical atrophy. There is no mass effect nor midline shift. There is no sign of intracranial hemorrhage. The calvarium is intact. There is no evidence of cortical infarct. IMPRESSION: MILD ATROPHY. NO ACUTE INTRACRANIAL ABNORMALITY.
--- NOTE | 2019-09-06 15:35 | XR ---
EXAMINATION TYPE: XR chest 2V DATE OF EXAM: 09/06/2019 COMPARISON: 04/26/2019 HISTORY: Dizziness. Headache. TECHNIQUE: Frontal and lateral views of the chest are obtained. FINDINGS: There is no heart failure nor confluent pneumonic infiltrate. There is tracheostomy tube n oted. There are chest leads. Bony thorax is intact. IMPRESSION: No active cardiopulmonary disease. Normal heart. No change.
--- NOTE | 2019-09-06 15:52 | CT ---
EXAMINATION TYPE: CT angio abd aorta w/Runoff DATE OF EXAM: 09/06/2019 HISTORY: Bilateral leg numbness CT DLP: 1627mGycm Automated Exposure Control for Dose Reduction was Utilized. CONTRAST: CT scan of the abdomen and pelvis is performed with IV Contrast, patient injected with 100 mL of Isov ue 370. COMPARISON: None FINDINGS: There are 3-D post processed images. There is some atheromatous change in the abdominal aorta. There is patency of the celiac artery and s uperior mesenteric artery. There is bilateral patency of the renal arteries. I see no evidence of hem odynamic stenosis. There is no evidence of abdominal aortic aneurysm. There is bilateral arterial flow in the iliac arteries. There is some plaque formation and 30% stenos is proximal left internal iliac artery. There is bilateral arterial flow in the internal and external iliac arteries. There is some metal artifact from right hip prosthesis. There is bilateral arterial flow in the femor al arteries and profunda femoris arteries. There is bilateral arterial flow in the popliteal arteries . There is minimal plaque formation in the femoral arteries less than 25%. There is bilateral tibial artery flow. There is patency of the tibial artery trifurcation. At the ankle there is bilateral anterior and posterior tibial artery flow. I see no evidence of hemod ynamic stenosis. Peroneal arteries are within normal limits. Bladder distends smoothly. There is no sign of a pelvic mass. There is no mesenteric edema. There is no ascites or free air. There is no sign of a bowel obstruction. Kidneys have normal size. There is n o hydronephrosis. There is no evidence of a renal mass. There is a calcification along the right psoa s muscle thought to be a phlebolith. There is no adrenal mass. Spleen appears intact. Gallbladder and pancreas appear intact. There is 1.5 cm r cyst anterior left lobe of the liver. There is minimal fib rotic change at the lung bases. IMPRESSION: Mild atherosclerotic vascular disease. No evidence of hemodynamic stenosis.
[2019-09-06 16:32] VITALS: BP 148/89; PULSE 82; RESP 24
== END 2019-09-06 16:47 | disposition home or self-care (01) ==
LOC: EC 12:39
DX: R42 Dizziness and giddiness (principal); R20.2 Paresthesia of skin; R20.0 Anesthesia of skin; R51 Headache; I99.9 Unspecified disorder of circulatory system; G31.9 Degenerative disease of nervous system, unspecified; J38.00 Paralysis of vocal cords and larynx, unspecified; E07.9 Disorder of thyroid, unspecified; K21.9 Gastro-esophageal reflux disease without esophagitis; I10 Essential (primary) hypertension; E78.5 Hyperlipidemia, unspecified; Z87.891 Personal history of nicotine dependence; Z79.890 Hormone replacement therapy; Z79.82 Long term (current) use of aspirin; Z79.899 Other long term (current) drug therapy
CPT/HCPCS: 36415; 93005; 80053; 84443; 82550; 83605; 83735; 84484; 85025; 85610; 81003; 71046; 70450; 75635; 99284; 96360; Q9967

== ENCOUNTER → 2020-07-23 | Outpatient (CLI) | payer MEDICARE, BC, OTHER | END | disposition home or self-care (01) | LOC: LABWHC1 13:18 | PROVIDERS: ATTEND Otolaryngology | DX: Z01.818 Encounter for other preprocedural examination (principal) ==

== ENCOUNTER 2020-09-20 01:20 | Observation (INO) | payer MEDICARE, BC, OTHER ==
[2020-09-20] MEDS ORDERED: methylPREDNISolone SOD SUCCI 125 MG/2 ML VIAL IV STA (01:22)
[2020-09-20] MEDS ORDERED: IPRATROPIUM-ALBUTEROL 3 ML NEB INHALATION STA (01:22)
[2020-09-20] MEDS ORDERED: SODIUM CHLORIDE 0.9% 1,000 ML IV STA (01:22)
[2020-09-20] MEDS ORDERED: MORPHINE SULFATE 4 MG/ML SYRINGE IVP STA (01:45)
--- NOTE | 2020-09-20 01:45 | ED ---
SOB HPI - General Chief Complaint: Shortness of Breath Stated Complaint: BRIAN Time Seen by Provider: 09/20/20 01:21 Source: patient, EMS, RN notes reviewed, old records reviewed Mode of arrival: EMS Limitations: no limitations - History of Present Illness Initial Comments: This is an 84-year-old male female who presents today for evaluation of cough and shortness of breath. Ocular was overloaded but oxygen was noted to be low by EMS arrival at patient's house patient has admitted to shortness of breath some blood in her trach, patient had thyroid surgery gone wrong has had multiple surgeries multiple corrections multiple complications. She's had a cough for about 2 years now with this is worse as his been. No fevers no pain MD Complaint: shortness of breath, cough -: hour(s) Severity: moderate Severity scale (1-10): 4 Quality: throbbing Consistency: constant Improves With: nothing Worsens With: nothing Known History Of: other (Patient has tracheostomy secondary to complications of surgery) Context: recent URI Associated Symptoms: denies other symptoms Treatments Prior to Arrival: none - Related Data Home Medications Medication Instructions Recorded Confirmed Levothyroxine Sodium [Synthroid] 50 mcg PO DAILY 04/05/14 06/15/18 Rosuvastatin [Crestor] 20 mg PO DAILY 04/05/14 06/15/18 amLODIPine [Norvasc] 5 mg PO DAILY 04/05/14 06/15/18 Aspirin EC [Ecotrin Low Dose] 81 mg PO DAILY 03/18/18 06/15/18 Previous Rx's Medication Instructions Recorded Codeine Phosphate/Guaifenesin 5 ml PO Q4H PRN 3 Days #90 ml 04/26/19 [Guaifen-Codeine 100-10 mg/5 ml] polyethylene glycoL 3350 [Miralax] 17 gm PO DAILY #30 packet 04/26/19 Allergies Allergy/AdvReac Type Severity Reaction Status Date / Time No Known Allergies Allergy Verified 09/20/20 01:39 Review of Systems ROS Statement: Those systems with pertinent positive or pertinent negative responses have been documented in the HPI. ROS Other: All systems not noted in ROS Statement are negative. Past Medical History Past Medical History: GERD/Reflux, Hyperlipidemia, Hypertension, Osteoarthritis (OA), Thyroid Disorder Additional Past Medical History / Comment(s): STATES AT 37 YRS OLD VOCAL CORD WAS SEVERED DURING REMOVAL OF THYROID (HX OF GOITER), MULTIPLE THROAT SURGERIES AFTERWARDS. SHE HAS TO INHALE AND BLOW OUT WHEN TALKING. STATES ALSO THAT ESOPHAGUS CLOSES PREMATURELY WHEN EATING AND CAUSES HER TO INHALE FOOD AND SALIVA CAUSING HER TO COUGH ., STRESS INCONTINENCE-WEARS PAD, TORN ROTATOR CUFF(sx), bridges. History of Any Multi-Drug Resistant Organisms: None Reported Past Surgical History: Appendectomy, Hysterectomy, Orthopedic Surgery Additional Past Surgical History / Comment(s): TOTAL RIGHT HIP, CATARACTS, THYROID REMOVED WITH SEVERED VOCAL CORD AND MULTIPLE THROAT SURGERIES AFTERWARDS, right shoulder surgery, rt rotator cuff repair, trach insertion Past Anesthesia/Blood Transfusion Reactions: No Reported Reaction Past Psychological History: No Psychological Hx Reported Smoking Status: Never smoker Past Alcohol Use History: Occasional Past Drug Use History: None Reported - Past Family History Daughter(s) Family Medical History: Cancer Additional Family Medical History / Comment(s): 2 DAUGHTERS- LEUKEMIA AND LUNG CANCER Mother Family Medical History: COPD Additional Family Medical History / Comment(s): bronchits Father Family Medical History: Cancer Additional Family Medical History / Comment(s): leukemia General Exam - General Exam Comments Initial Comments: Patient has tracheostomy Limitations: no limitations General appearance: alert, in no apparent distress Head exam: Present: atraumatic, normocephalic, normal inspection Eye exam: Present: normal appearance, PERRL, EOMI. Absent: scleral icterus, conjunctival injection, periorbital swelling ENT exam: Present: normal exam, mucous membranes moist Neck exam: Present: normal inspection. Absent: tenderness, meningismus, lymphadenopathy Respiratory exam: Present: normal lung sounds bilaterally. Absent: respiratory distress, wheezes, rales, rhonchi, stridor Cardiovascular Exam: Present: regular rate, normal rhythm, normal heart sounds. Absent: systolic murmur, diastolic murmur, rubs, gallop, clicks GI/Abdominal exam: Present: soft, normal bowel sounds. Absent: distended, tenderness, guarding, rebound, rigid Extremities exam: Present: normal inspection, full ROM, normal capillary refill. Absent: tenderness, pedal edema, joint swelling, calf tenderness Back exam: Present: normal inspection Neurological exam: Present: alert, oriented X3, CN II-XII intact Psychiatric exam: Present: normal affect, normal mood Skin exam: Present: warm, dry, intact, normal color. Absent: rash Course Vital Signs 11/23/20 11/23/20 11/23/20 01:34 01:56 02:04 Temperature 98.4 F Pulse Rate 76 76 88 Respiratory 26 H Rate Blood Pressure 148/84 O2 Sat by Pulse 98 Oximetry - Reevaluation(s) Reevaluation #1: 09/20/20 03:48 Medical record is reviewed Reevaluation #2: 09/20/20 03:48 Patient still shortness of breath Reevaluation #3: 09/20/20 03:48 Patient does have occasional cough and congestion here in the ER coughing fits it did resolve hypoxia Reevaluation #4: 09/20/20 03:48 Spoke with patient regarding findings would like to see Dr. Medina - Consultations Consultation #1: Spoke with PMH were agreeable to admit the patient Medical Decision Making - Medical Decision Making 84 female DF for evaluation coughing fits, shortness of breath and occasional hypoxia, patient will be admitted for observation to see her nose and throat physician, monitoring of pulse oximetry - Lab Data Result diagrams: 09/20/20 01:45 09/20/20 01:45 Lab Results 09/20/20 09/20/20 09/20/20 Range/Units 01:45 01:45 01:45 WBC 12.1 H (3.8-10.6) k/uL RBC 4.41 (3.80-5.40) m/uL Hgb 12.1 (11.4-16.0) gm/dL Hct 38.1 (34.0-46.0) % MCV 86.4 (80.0-100.0) fL MCH 27.3 (25.0-35.0) pg MCHC 31.6 (31.0-37.0) g/dL RDW 13.5 (11.5-15.5) % Plt Count 390 (150-450) k/uL MPV 7.0 Neutrophils % 64 % Lymphocytes % 27 % Monocytes % 5 % Eosinophils % 2 % Basophils % 0 % Neutrophils # 7.7 (1.3-7.7) k/uL Lymphocytes # 3.3 (1.0-4.8) k/uL Monocytes # 0.7 (0-1.0) k/uL Eosinophils # 0.3 (0-0.7) k/uL Basophils # 0.0 (0-0.2) k/uL PT 9.4 (9.0-12.0) sec INR 0.9 (<1.2) APTT 20.4 L (22.0-30.0) sec Sodium 133 L (137-145) mmol/L Potassium 4.1 (3.5-5.1) mmol/L Chloride 97 L (98-107) mmol/L Carbon Dioxide 30 (22-30) mmol/L Anion Gap 6 mmol/L BUN 26 H (7-17) mg/dL Creatinine 0.97 (0.52-1.04) mg/dL Est GFR (CKD-EPI)AfAm 62 (>60 ml/min/1.73 sqM) Est GFR (CKD-EPI)NonAf 54 (>60 ml/min/1.73 sqM) Glucose 94 (74-99) mg/dL Plasma Lactic Acid Fritz (0.7-2.0) mmol/L Calcium 9.2 (8.4-10.2) mg/dL Magnesium 2.3 (1.6-2.3) mg/dL Total Bilirubin 0.3 (0.2-1.3) mg/dL AST 24 (14-36) U/L ALT 22 (4-34) U/L Alkaline Phosphatase 98 (38-126) U/L Lactate Dehydrogenase 539 (313-618) U/L Troponin I (0.000-0.034) ng/mL C-Reactive Protein <5.0 (<10.0) mg/L NT-Pro-B Natriuret Pep pg/mL Total Protein 6.6 (6.3-8.2) g/dL Albumin 3.8 (3.5-5.0) g/dL 09/20/20 09/20/20 09/20/20 Range/Units 01:45 01:45 01:45 WBC (3.8-10.6) k/uL RBC (3.80-5.40) m/uL Hgb (11.4-16.0) gm/dL Hct (34.0-46.0) % MCV (80.0-100.0) fL MCH (25.0-35.0) pg MCHC (31.0-37.0) g/dL RDW (11.5-15.5) % Plt Count (150-450) k/uL MPV Neutrophils % % Lymphocytes % % Monocytes % % Eosinophils % % Basophils % % Neutrophils # (1.3-7.7) k/uL Lymphocytes # (1.0-4.8) k/uL Monocytes # (0-1.0) k/uL Eosinophils # (0-0.7) k/uL Basophils # (0-0.2) k/uL PT (9.0-12.0) sec INR (<1.2) APTT (22.0-30.0) sec Sodium (137-145) mmol/L Potassium (3.5-5.1) mmol/L Chloride (98-107) mmol/L Carbon Dioxide (22-30) mmol/L Anion Gap mmol/L BUN (7-17) mg/dL Creatinine (0.52-1.04) mg/dL Est GFR (CKD-EPI)AfAm (>60 ml/min/1.73 sqM) Est GFR (CKD-EPI)NonAf (>60 ml/min/1.73 sqM) Glucose (74-99) mg/dL Plasma Lactic Acid Fritz 1.1 (0.7-2.0) mmol/L Calcium (8.4-10.2) mg/dL Magnesium (1.6-2.3) mg/dL Total Bilirubin (0.2-1.3) mg/dL AST (14-36) U/L ALT (4-34) U/L Alkaline Phosphatase (38-126) U/L Lactate Dehydrogenase (313-618) U/L Troponin I <0.012 (0.000-0.034) ng/mL C-Reactive Protein (<10.0) mg/L NT-Pro-B Natriuret Pep 536 pg/mL Total Protein (6.3-8.2) g/dL Albumin (3.5-5.0) g/dL - EKG Data -: EKG Interpreted by Me (EKG shows sinus rhythm 76 OR 178 QRS 72 QTC 407) - Radiology Data Radiology results: report reviewed (Chest x-rays negative for acute disease), image reviewed Disposition Clinical Impression: Bronchospasm, Hemoptysis, Tracheostomy complication Disposition: ADMITTED IP TO THIS [facility] Condition: Good Is patient prescribed a controlled substance at d/c from ED?: No Referrals: Rafat Duong DO [Primary Care Provider] - 1-2 days
[2020-09-20 02:06] LABS: Basophils % (A) 0 %; Eosinophils # (A) 0.3 k/uL (0-0.7); Eosinophils % (A) 2 %; HCT 38.1 % (34.0-46.0); HGB 12.1 gm/dL (11.4-16.0); Lymphocytes # (A) 3.3 k/uL (1.0-4.8); Lymphocytes % (A) 27 %; MCH 27.3 pg (25.0-35.0); MCHC 31.6 g/dL (31.0-37.0); MCV 86.4 fL (80.0-100.0); Monocytes # (A) 0.7 k/uL (0-1.0); Monocytes % (A) 5 %; Neutrophils # (A) 7.7 k/uL (1.3-7.7); Neutrophils % (A) 64 %; Platelet Count 390 k/uL (150-450); RBC 4.41 m/uL (3.80-5.40); RDW 13.5 % (11.5-15.5); WBC 12.1 k/uL (3.8-10.6)
[2020-09-20 02:22] LABS: ALT 22 U/L (4-34); AST 24 U/L (14-36); African American GFR (CKD) 62 (>60 ml/min/1.73 sqM); Albumin 3.8 g/dL (3.5-5.0); Alkaline Phosphatase 98 U/L (38-126); Anion Gap 6 mmol/L; Blood Urea Nitrogen 26 mg/dL (7-17); C Reactive Protein <5.0 mg/L (<10.0); Calcium 9.2 mg/dL (8.4-10.2); Carbon Dioxide 30 mmol/L (22-30); Chloride 97 mmol/L (98-107); Glucose 94 mg/dL (74-99); INR 0.9 (<1.2); LDH 539 U/L (313-618); Magnesium 2.3 mg/dL (1.6-2.3); Non-African American GFR(CKD) 54 (>60 ml/min/1.73 sqM); Potassium 4.1 mmol/L (3.5-5.1); Prothrombin Time 9.4 sec (9.0-12.0); Sodium 133 mmol/L (137-145); Total Bilirubin 0.3 mg/dL (0.2-1.3); Total Protein 6.6 g/dL (6.3-8.2)
[2020-09-20 02:25] LABS: Partial Thromboplastin Time 20.4 sec (22.0-30.0)
--- NOTE | 2020-09-20 02:44 | XR ---
EXAM: XR Chest, 1 View CLINICAL HISTORY: ITS.REASON XR Reason: sob TECHNIQUE: Frontal view of the chest. COMPARISON: 09/06/19 FINDINGS: Lungs: Unremarkable. No consolidation. Pleural space: Unremarkable. No pneumothorax. Heart: Unremarkable. No cardiomegaly. Mediastinum: Unremarkable. Bones/joints: Unremarkable. Tubes, lines and devices: tracheostomy tube tip is about 6.6 cm above the chaya. Upper abdomen: Elevated right hemidiaphragm is again noted IMPRESSION: No acute findings or substantial change.
[2020-09-20] MEDS ORDERED: MORPHINE SULFATE 2 MG/ML SYRINGE IVP STA (03:49)
[2020-09-20] MEDS ORDERED: MORPHINE SULFATE 2 MG/ML SYRINGE IVP PRN (03:49)
[2020-09-20] MEDS: SODIUM CHLORIDE 0.9% 1,000 ML IV SCH ×2 (05:34→16:52)
[2020-09-20] MEDS: IPRATROPIUM-ALBUTEROL 3 ML NEB INHALATION PRN (12:50)
--- NOTE | 2020-09-20 13:21 | P.HPIM ---
History of Present Illness Patient is pleasant 84-year-old female came in with comments of shortness of breath cough. Patient doesn't have any COPD lungs are clear to auscultation patient does have a history of thyroid cancer and patient had history of vocal cord paralysis. After the thyroid surgery patient had issues with alcohol, or and patient had had a tracheostomy since then. Patient feels like patient is more congested and tracheostomy and does have feeling of fullness in the tracheostomy area and unable to breathe because of that reason. ENT was consulted patient was given breathing treatments after which her symptoms of shortness of breath improved a bit. Patient is on prednisone at home which is being continued. Patient feels like her throat is free with her saliva Review of Systems REVIEW OF SYSTEMS: CONSTITUTIONAL: No fever, no malaise, no fatigue. HEENT: No recent visual problems or hearing problems. Denied any sore throat. CARDIOVASCULAR: No chest pain, orthopnea, PND, no palpitations, no syncope. PULMONARY: no cough, no hemoptysis. GASTROINTESTINAL: No diarrhea, no nausea, no vomiting, no abdominal pain. NEUROLOGICAL: No headaches, no weakness, no numbness. HEMATOLOGICAL: Denies any bleeding or petechiae. GENITOURINARY: Denies any burning micturition, frequency, or urgency. MUSCULOSKELETAL/RHEUMATOLOGICAL: Denies any joint pain, swelling, or any muscle pain. ENDOCRINE: Denies any polyuria or polydipsia. The rest of the 14-point review of systems is negative. Past Medical History Past Medical History: GERD/Reflux, Hyperlipidemia, Hypertension, Osteoarthritis (OA), Thyroid Disorder Additional Past Medical History / Comment(s): STATES AT 37 YRS OLD VOCAL CORD WAS SEVERED DURING REMOVAL OF THYROID (HX OF GOITER), MULTIPLE THROAT SURGERIES AFTERWARDS. SHE HAS TO INHALE AND BLOW OUT WHEN TALKING. STATES ALSO THAT ESOPHAGUS CLOSES PREMATURELY WHEN EATING AND CAUSES HER TO INHALE FOOD AND SALIVA CAUSING HER TO COUGH ., STRESS INCONTINENCE-WEARS PAD, TORN ROTATOR CUFF(sx), bridges. History of Any Multi-Drug Resistant Organisms: None Reported Past Surgical History: Appendectomy, Hysterectomy, Orthopedic Surgery Additional Past Surgical History / Comment(s): TOTAL RIGHT HIP, CATARACTS, THYROID REMOVED WITH SEVERED VOCAL CORD AND MULTIPLE THROAT SURGERIES AFTERWARDS, right shoulder surgery, rt rotator cuff repair, trach insertion Past Anesthesia/Blood Transfusion Reactions: No Reported Reaction Past Psychological History: No Psychological Hx Reported Smoking Status: Never smoker Past Alcohol Use History: Occasional Additional Past Alcohol Use History / Comment(s): pt stated smoked briefly in her 20's then in her 40's then in her 60's none since Past Drug Use History: None Reported - Past Family History Daughter(s) Family Medical History: Cancer Additional Family Medical History / Comment(s): 2 DAUGHTERS- LEUKEMIA AND LUNG CANCER Mother Family Medical History: COPD Additional Family Medical History / Comment(s): bronchits Father Family Medical History: Cancer Additional Family Medical History / Comment(s): leukemia Medications and Allergies Home Medications Medication Instructions Recorded Confirmed Type Levothyroxine Sodium [Synthroid] 50 mcg PO DAILY 04/05/14 09/20/20 History amLODIPine [Norvasc] 5 mg PO DAILY 04/05/14 09/20/20 History Lactose-Reduced Food [Ensure Plus] 1 can PO BID 09/20/20 09/20/20 History predniSONE 10 mg PO TID 09/20/20 09/20/20 History traMADol HCL 25 mg PO Q12H 09/20/20 09/20/20 History Allergies Allergy/AdvReac Type Severity Reaction Status Date / Time No Known Allergies Allergy Verified 09/20/20 07:43 Physical Exam Vitals: Vital Signs Temp Pulse Pulse Resp BP BP Pulse Ox 09/20/20 13:02 84 09/20/20 12:50 84 09/20/20 07:00 97.7 F 87 19 168/78 92 L 09/20/20 04:45 97.7 F 86 25 H 158/73 96 09/20/20 04:07 97.6 F 88 22 121/65 95 09/20/20 02:04 88 09/20/20 01:56 76 09/20/20 01:34 98.4 F 76 26 H 148/84 98 Intake and Output 09/19/20 09/20/20 09/20/20 22:59 06:59 14:59 Other: # Voids 1 Weight 54.431 kg PHYSICAL EXAMINATION: GENERAL: The patient is alert and oriented x3, not in any acute distress. Well developed, well nourished. HEENT: Pupils are round and equally reacting to light. EOMI. No scleral icterus. No conjunctival pallor. Normocephalic, atraumatic. No pharyngeal erythema. No thyromegaly. CARDIOVASCULAR: S1 and S2 present. No murmurs, rubs, or gallops. PULMONARY: Chest is clear to auscultation, no wheezing or crackles. Patient has a tracheostomy with trach site clean without any infection no purulent drainage patient does have some dry secretions inside the tracheostomy. ABDOMEN: Soft, nontender, nondistended, normoactive bowel sounds. No palpable organomegaly. MUSCULOSKELETAL: No joint swelling or deformity. EXTREMITIES: No cyanosis, clubbing, or pedal edema. NEUROLOGICAL: Gross neurological examination did not reveal any focal deficits. SKIN: No rashes. Results CBC & Chem 7: 09/20/20 01:45 09/20/20 01:45 Labs: Abnormal Lab Results - Last 24 Hours (Table) 09/20/20 09/20/20 09/20/20 Range/Units 01:45 01:45 01:45 WBC 12.1 H (3.8-10.6) k/uL APTT 20.4 L (22.0-30.0) sec Sodium 133 L (137-145) mmol/L Chloride 97 L (98-107) mmol/L BUN 26 H (7-17) mg/dL Thrombosis Risk Factor Assmnt - Choose All That Apply Any of the Below Risk Factors Present?: No Each Risk Factor Represents 3 Points: Age 75 years or older Thrombosis Risk Factor Assessment Total Risk Factor Score: 3 Thrombosis Risk Factor Assessment Level: Moderate Risk Assessment and Plan Plan: -Shortness of breath: Secondary to obstruction at the level of tracheostomy / trachea. 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 -DVT prophylaxis Lovenox
[2020-09-20] MEDS: traMADol 50 MG TAB PO SCH ×2 (13:25→22:05)
[2020-09-20] MEDS ORDERED: NON FORMULARY DRUG (Lactose-Reduced Food [Ensure Plus] 237 ML Liquid) PO SCH (21:00)
[2020-09-21] MEDS: SODIUM CHLORIDE 0.9% 1,000 ML IV SCH (05:01)
[2020-09-21] MEDS: LEVOTHYROXINE 50 MCG TAB PO SCH (05:41)
[2020-09-21] MEDS: amLODIPine 5 MG TAB PO SCH (08:39)
[2020-09-21] MEDS: traMADol 50 MG TAB PO SCH ×2 (08:39→21:13)
[2020-09-21] MEDS: ENOXAPARIN 40 MG/0.4 ML SYRINGE SQ SCH (08:40)
[2020-09-21] MEDS ORDERED: DEXAMETHASONE ORAL 10 MG/ML (10 ML MDV) PO SCH (13:00)
[2020-09-21] MEDS: IPRATROPIUM-ALBUTEROL 3 ML NEB INHALATION PRN (13:06)
[2020-09-21] MEDS: FAMOTIDINE 20 MG TAB PO SCH (14:26)
[2020-09-21] MEDS: dexAMETHasone 2 MG TAB PO SCH ×3 (14:26→23:17)
--- NOTE | 2020-09-21 15:29 | P.PN ---
Subjective Progress Note Date: 09/21/20 Patient is pleasant 84-year-old female came in with comments of shortness of breath cough. Patient doesn't have any COPD lungs are clear to auscultation patient does have a history of thyroid cancer and patient had history of vocal cord paralysis. After the thyroid surgery patient had issues with alcohol, or and patient had had a tracheostomy since then. Patient feels like patient is more congested and tracheostomy and does have feeling of fullness in the tracheostomy area and unable to breathe because of that reason. ENT was consulted patient was given breathing treatments after which her symptoms of shortness of breath improved a bit. Patient is on prednisone at home which is being continued. Patient feels like her throat is free with her saliva 09/21/2020 Patient is seen and evaluated in follow-up with no acute overnight issues. Patient currently awaiting for ENT consult and is pending at this time. Patient does have a tracheostomy and manages her care alone. Patient continues to have a cough and raspy voice and has been having feelings of fullness and debris trapped in the tracheostomy. Patient states she has issues with severe acid reflux and Pepcid was ordered. Patient states she normally takes Nexium at home. Patient denies any worsening shortness of breath although during coughing spells becomes winded and feels anxious and short of breath. Review of systems: Constitutional: No reports of fatigue, fever, or chills Cardiovascular: No reports of chest pain or palpitations Respiratory: Reports intermittent shortness of breath with cough GI: No reports of nausea, vomiting, or diarrhea : No reports of dysuria or retention Neurovascular: No reports of weakness or numbness All medications have been reviewed Objective - Vital Signs Vital signs: Vital Signs Temp 97.3 F L 09/21/20 07:00 Pulse 92 09/21/20 07:00 Resp 18 09/21/20 07:00 BP 167/88 09/21/20 07:00 Pulse Ox 92 L 09/21/20 07:00 Intake & Output 09/20/20 09/21/20 09/21/20 18:59 06:59 18:59 Intake Total 800 Balance 800 Intake: Intake, IV Titration 800 Amount Sodium Chloride 0.9% 1, 800 000 ml @ 100 mls/hr IV . Q10H [facility] Rx#:[id number] Other: Voiding Method Toilet Toilet # Voids 7 1 # Bowel Movements 1 - Exam GENERAL: The patient is alert and oriented x3, not in any acute distress. Slightly anxious. Well developed, well nourished. HEENT: Pupils are round and equally reacting to light. EOMI. No scleral icterus. No conjunctival pallor. Normocephalic, atraumatic. No pharyngeal erythema. No t hyromegaly. CARDIOVASCULAR: S1 and S2 present. No murmurs, rubs, or gallops. PULMONARY: Chest is clear to auscultation, no wheezing or crackles. Patient has a tracheostomy with trach site clean without any infection no purulent drainage patient does have some dry secretions inside the tracheostomy. ABDOMEN: Soft, nontender, nondistended, normoactive bowel sounds. No palpable organomegaly. MUSCULOSKELETAL: No joint swelling or deformity. EXTREMITIES: No cyanosis, clubbing, or pedal edema. NEUROLOGICAL: Gross neurological examination did not reveal any focal deficits. SKIN: No rashes. - Labs CBC & Chem 7: 09/20/20 01:45 09/20/20 01:45 Labs: Microbiology - Last 24 Hours (Table) 09/20/20 01:45 Blood Culture - Preliminary Blood No Growth after 24 hours Assessment and Plan Assessment: -Shortness of breath: Secondary to obstruction at the level of tracheostomy / trachea. 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 -DVT prophylaxis Lovenox Plan: Patient was seen and evaluated by ENT and will continue on dexamethasone taper. To continue current medications. Patient will need to follow-up outpatient with her ENT. Anticipate discharge in 24 hours.
[2020-09-21 21:45] VITALS: RESP 18
[2020-09-22] MEDS: SODIUM CHLORIDE 0.9% 1,000 ML IV SCH ×2 (00:28→05:59)
--- NOTE | 2020-09-22 01:36 | CONS ---
CONSULTATION DATE OF CONSULTATION: 09/21/2020 REASON FOR CONSULTATION: Patient with tracheostomy has shortness of breath. HISTORY OF PRESENT ILLNESS: This is a very pleasant 84-year-old female who was admitted to [facility] via the emergency room for evaluation and treatment of shortness of breath. The patient states that approximately 40 years ago she underwent a total thyroidectomy because she had a goiter. Postoperatively, it was discovered that she had bilateral true vocal cord paralysis, most likely because the nerves were severed during the surgery. Initially, the patient had a tracheostomy for several weeks, but she was eventually successfully decannulated. After decannulation(removal of her tracheostomy tube)she did quite well for many years with regards to both her voice and her airway. However, beginning two years ago she states that she started having problems with shortness of breath. Approximately 2 years ago, she was seen by Dr. Gaytan, who referred her to the [facility] for a tracheostomy. At [facility], she underwent a tracheostomy and at that time, a #6 tracheostomy tube was inserted. The patient states that she was able to breathe much better, but her voice was quite breathy. In an effort to improve her voice, various surgical procedures were carried out. One of the procedures that she underwent involved Johnny injection of one or both true vocal cords. She states that every since this procedure was performed, her laryngeal airway/breathing has deteriorated. She was advised that the Johnny would gradually disintegrate and that her symptoms should improve. She was subsequently downsized from a #6 tracheostomy tube to a #4 tube. In both cases, the type of tracheostomy tube inserted was a metal Ash-type of tracheostomy tube. These tubes are commonly used in patients in which long-term tracheostomies are going to be present and also in certain total laryngectomy patients. The benefits of the metal tube as opposed to a plastic tracheostomy tube is that there is less problems with infections, they are easier to keep clean, and the inner cannula does not diminish the airway as much as it does with a plastic trach tube. The patient states that she has become very comfortable with the care of her tracheostomy tube and with the care of the inner cannula.In fact, she states she is able to take the entire tracheostomy tube out completely, clean it and replace it. This is quite unusual for a patient, although in my past experience, I have always tried to train patient's to both remove a tracheostomy tube and reinsert it just in case it accidentally comes out completely at home or when they are not around any type of medical facility. She states that she feels quite comfortable with the tracheostomy tube and with the care of the tracheostomy tube and it does not frighten her at all. She denies any recent upper or lower respiratory tract infection. She states that she also has episodes of choking since the tracheostomy tube was inserted. I advised that this is quite common and I will give her some tips to help her to alleviate this common complication of tracheostomy tubes. PAST MEDICAL HISTORY: Past medical history reveals that she has no allergies to medications. Her current home medications include tramadol, prednisone, Norvasc, and Synthroid. REVIEW OF SYSTEMS: Cardiovascular is positive for hypertension. Respiratory is negative. Gastrointestinal is negative. Metabolic endocrine is positive for hypothyroidism. Musculoskeletal is positive for osteoarthritis. The remainder of the review of systems is unremarkable. PHYSICAL EXAMINATION: This patient is a very pleasant 84-year-old female who is alert, cooperative and well oriented to time and place. She is in no acute distress at this time. Although her voice is quite breathy, her airway appears to be adequate. HEENT: Patient is normocephalic. Tympanic membranes are normal. Middle ear spaces are free of any fluid or infection. Pupils equal, round, react to light and accommodation. Extraocular movements within normal limits. Intranasal examination reveals moderate septal deviation to the left with bilateral compensatory hypertrophy of the inferior turbinates and a moderate amount of clear mucus on the mucous membranes and draining down the posterior pharynx. Examination of oropharynx is unremarkable. Palpation of neck is negative for any neck mass. Examination of the tracheostomy site reveals that she has a #4 Ash metal tracheostomy tube in place. The inner cannula was removed and on inspection it was found to be quite clean. There was no evidence of any granulation tissue or infection around the tracheostomy site. The remainder of the head and neck exam is essentially unremarkable. CHEST/CARDIOVASCULAR: Both lung dominguez are clear to percussion and auscultation. Patient is in regular sinus rhythm. S1, S2 are present without evidence of any murmurs, S3s or S4s. Peripheral pulses are bilaterally symmetrical. ABDOMEN: There is no evident masses, megaly or tenderness. The abdomen is soft. The remainder of physical exam is unremarkable. IMPRESSION: Shortness of breath, etiology? PLAN: I suspect part of this patient's ongoing issues with shortness of breath are related to the very small size #4 tracheostomy tube that she has in place. Generally you would like to put a minimum of a #6 tracheostomy tube in a female patient and a #8 in a male based upon average size of the trachea. If this were a very sedentary patient, then certainly she could probably get away with the #4 tracheostomy tube without too much problem, however, the patient states that she is quite active. She bowls and engages in other activities which would necessitate a larger size tracheostomy tube, hence a #6 would be the bare minimum to have in place for this patient. The patient states that she has a #6 at home and that she feels comfortable removing the #4 and putting in a #6 trach tube. I advised her that if she feels that she can do this at home without incurring any significant bleeding, then certainly she should try and put a #6 in herself at home. She originally had an appointment back at [facility] and this appointment was apparently put on hold temporarily. I have advised her to contact her daughter to have that appointment rescheduled so that she may return there and they may consider placement of a larger tracheostomy tube. I also advised her that I feel that she is probably going to have to have a tracheostomy the rest of the life and that she will have to compromise between having a breathy voice versus having a good airway. Because of her age, I do not think it is worth trying injections of Johnny or any other type of procedures to improve her voice. The most important thing is her airway. The patient agrees. She states that she is more than willing to accept a breathy voice if she could simply have a better airway. I do not think the patient is having any bronchospasm. I am going to give her a trial of dexamethasone 10 mg q.8 x2 doses followed by dexamethasone 5 mg q.8 x2 doses followed by dexamethasone 2 mg x1 dose, then stop. This may reduce any inflammation that has occurred around the tracheostomy tube in the trachea due to the patient's coughing spells. I gave the patient some simple hints with regards to swallowing food stuffs to avoid choking. Generally patients in this situation with bilateral true vocal cord paralysis with permanent tracheostomy tubes find that they have less choking issues when they ingest food stuff that has more thickness/body to it. Thin liquids tend very easily slide between the paralyzed cords and cause choking. In addition to this, I have advised her to try and clear her throat after each swallow, as best she can. She states that over the past several months she has been able to figure out which food stuffs cause her the most problems and she simply avoids these food stuffs. From an ENT standpoint, once the patient finishes the course of dexamethasone, I feel it is okay to discharge her to home. Again, I emphasized to her the importance of reestablishing that appointment with [facility], so that they may further evaluate her situation and they will probably scope her from above the tracheostomy site. I do not feel this is the type of problem that could be handled at a [facility]. Certainly, we do not have any Ash metal trach tubes available. I want to take this opportunity to thank you for allowing me to assist you in the care of your patient. If I can be of any further assistance, please feel free to call my office. MMALONDRAL / ROBBIN: [id number] / TE
[2020-09-22] MEDS: LEVOTHYROXINE 50 MCG TAB PO SCH (05:19)
[2020-09-22 05:56] VITALS: BP 151/81; PULSE 79; TEMP 98.4
[2020-09-22] MEDS: dexAMETHasone 2 MG TAB PO SCH (09:02)
[2020-09-22] MEDS: ENOXAPARIN 40 MG/0.4 ML SYRINGE SQ SCH (09:02)
[2020-09-22] MEDS: amLODIPine 5 MG TAB PO SCH (09:02)
[2020-09-22] MEDS: FAMOTIDINE 20 MG TAB PO SCH (09:02)
[2020-09-22] MEDS: traMADol 50 MG TAB PO SCH (09:03)
--- NOTE | 2020-09-24 09:08 | P.DS ---
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 -DVT prophylaxis Discharge disposition Patient is being discharged in a stable condition with guarded prognosis to home. She will continue with home care in the outpatient setting. Patient will follow-up with Dr. Duong in the outpatient setting upon discharge. Patient is to continue with dexamethasone 5 mg every 8 hours 2 doses and then 2 mg 1 dose and may discontinue. Patient also instructed to follow-up with her ENT specialist in the outpatient setting. Total time taken is greater than 35 minutes. History of present illness This is a 84-year-old female who was recently admitted with shortness of breath and cough and feeling of an obstruction at the level of the tracheostomy and was being closely monitored. She was seen and evaluated by ENT and started on dexamethasone 10 mg every 8 hours 2 doses then 5 mg every 8 hours 2 doses then 2 mg 1 dose. Patient instructed to follow-up with her senior nuclear medicine technologist in the outpatient setting. Patient also recommended to switch out tracheostomy tube tip #6-Portuguese she currently has a #4 inserted which is possibly causing the feeling of fullness and trapped debris of food in the tubing. She does have home care and will follow-up with home care in the outpatient setting. Patient continues to have a cough although feels much better and would like to go home today. Currently no reports of chest pain, shortness of breath, or palpitations. Patient is afebrile. No reports of nausea or vomiting and patient is tolerating diet. Patient will be going home today. On exam vital signs are stable. Temp is 98.4F, pulse is 79, respirations are 18, blood pressure is 151/81, oxygen saturation is 99% on room air. Cardio S1, S2 are muffled. Respiratory system shows diminished breath sounds at the bases with no wheezing or rhonchi noted. Abdomen is soft and nontender. Nervous system shows no focal deficits. Please refer to medication reconciliation sheet for a list of medications. Patient Condition at Discharge: Good Plan - Discharge Summary Discharge Rx Participant: No New Discharge Prescriptions: New dexAMETHasone [Hexadrol] 5 mg PO Q8HR #5 tab Continue amLODIPine [Norvasc] 5 mg PO DAILY Levothyroxine Sodium [Synthroid] 50 mcg PO DAILY traMADol HCL 25 mg PO Q12H Lactose-Reduced Food [Ensure Plus] 1 can PO BID Discontinued predniSONE 10 mg PO TID Discharge Medication List Levothyroxine Sodium [Synthroid] 50 mcg PO DAILY 04/05/14 [History] amLODIPine [Norvasc] 5 mg PO DAILY 04/05/14 [History] Lactose-Reduced Food [Ensure Plus] 1 can PO BID 09/20/20 [History] traMADol HCL 25 mg PO Q12H 09/20/20 [History] dexAMETHasone [Hexadrol] 5 mg PO Q8HR #5 tab 09/22/20 [Rx] Follow up Appointment(s)/Referral(s): Rafat Duong DO [Primary Care Provider] - 1-2 days [facility] Visiting Nurse, [NON-STAFF] - 1-2 Days Activity/Diet/Wound Care/Special Instructions: Activity Limited until follow-up Follow-up with primary care provider upon discharge Follow-up with ear nose throat specialist in the outpatient setting Continue with Decadron 5 mg every 8 hours 2 doses, then Decadron 2 mg 1 dose and then may discontinue Continue current diet As discussed with ENT may switch to 6-Portuguese tracheostomy Discharge Disposition: HOME WITH HOME HEALTH SERVICES
== END 2020-09-22 14:05 | disposition home health service (06) ==
LOC: EC 01:20 → 5NMEDONC 03:47 → INTOOBSV 03:47
PROVIDERS: ADMIT Hospitalist; ATTEND Hospitalist
DX: J95.03 Malfunction of tracheostomy stoma (principal); I10 Essential (primary) hypertension; K21.9 Gastro-esophageal reflux disease without esophagitis; E78.5 Hyperlipidemia, unspecified; E89.0 Postprocedural hypothyroidism; J38.02 Paralysis of vocal cords and larynx, bilateral; R05 Cough; M19.90 Unspecified osteoarthritis, unspecified site; N39.3 Stress incontinence (female) (male); R09.02 Hypoxemia; J98.01 Acute bronchospasm; J06.9 Acute upper respiratory infection, unspecified; Z79.890 Hormone replacement therapy; Z79.899 Other long term (current) drug therapy; Z79.82 Long term (current) use of aspirin; Z90.49 Acquired absence of other specified parts of digestive tract; Z90.710 Acquired absence of both cervix and uterus; Z85.850 Personal history of malignant neoplasm of thyroid; Z87.891 Personal history of nicotine dependence; Z20.828 Contact with and (suspected) exposure to other viral communicable diseases; Z80.6 Family history of leukemia; Z82.5 Family history of asthma and other chronic lower respiratory diseases; Z80.1 Family history of malignant neoplasm of trachea, bronchus and lung
CPT/HCPCS: 96376; 96372 ×2; 96361; 96374; 96375; 99285; 36415; 94640 ×3; 94760; 93005; 83880; 80053; 83605; 83615; 83735; 84484; 85025; 85610; 85730; 86140; 87040; 87635; 71045; G0378 ×3; J2270 ×2; J2930; J1650 ×2; J8540 ×2

== ENCOUNTER 2020-09-25 18:28 | Inpatient (IN) | payer MEDICARE, BC, OTHER ==
--- NOTE | 2020-09-25 18:45 | ED ---
General Adult HPI - General Chief complaint: Recheck/Abnormal Lab/Rx Stated complaint: Trach Issue Time Seen by Provider: 09/25/20 18:30 Source: patient, EMS Mode of arrival: EMS Limitations: no limitations - History of Present Illness Initial comments: Dictation was produced using Smart[employer] dictation software. please excuse any grammatical, word or spelling errors. This patient was cared for during a federal and state declared state of emergency secondary to Covid 19 Chief Complaint: 84-year-old female with tracheostomy presents with dyspnea History of Present Illness: Is an 84-year-old female she presents today with tracheostomy concerns. Patient states she's been having worsening dyspnea and chest congestion since yesterday. Patient initially had the trach place several months ago at [place]. She is at home. She states that she tried to suction her trach and change it however she does not really report any symptom im provement. She does feel cold however denies any fever, chills or night sweats. She denies any chest pain. EMS reports patient appeared stable while en route to the emergency department. Patient reports she did have some bleeding from her trach site that was mild. The ROS documented in this emergency department record has been reviewed and confirmed by me. Those systems with pertinent positive or negative responses have been documented in the HPI. All other systems are other negative and/or noncontributory. PHYSICAL EXAM: General Impression: Alert and oriented x3, mildly dyspneic HEENT: Normocephalic atraumatic, extra-ocular movements intact, pupils equal and reactive to light bilaterally, mucous membranes moist. Neck: Tracheostomy in place, skin around the trach site is clean dry intact without erythema. No exsanguinated bleeding at this time. Cardiovascular: Heart regular rate and rhythm Chest: Able to complete full sentences, no retractions, no tachypnea, mild diffuse wheezing worse on the left lateral posterior lung base Abdomen: abdomen soft, non-tender, non-distended, no organomegaly Musculoskeletal: Pulses present and equal in all extremities, no peripheral edema Motor: no focal deficits noted Neurological: CN II-XII grossly intact, no focal motor or sensory deficits noted Skin: Intact with no visualized rashes Psych: Normal affect and mood ED course: 84-year-old female presents with dyspnea. She has a history of tracheostomy vital signs upon arrival are within acceptable limits. Respiratory therapy was contacted. at bedside trach was removed and stoma was evaluated. There is no identifiable obstructions. Tracheostomy was clear of any debris. Case is discussed with Dr. Watts approximately 6:[address] Johnson is familiar with patient he rounded on her when she was here in emergency department [address] Watts is very familiar with patient's surgical history. Set patient be transferred to [facility] under the care of h er primary surgeon for airway scoping. History discussed in detail with Dr. Morales patient's primary surgeon at [facility] approximately 7:10 PM. He reports that he is very familiar with patient he just aren't office recently. He reports that patient has possible small airway disease i.e. asthma or COPD. After seeing her in the office recently referred to pulmonology and [place]. He recommends that patient be treated for asthma-type disease. Given patient's recent evaluation by the ENT doc does not feel patient meets criteria for transfer all the way to [facility] at this time. He reports that patient's clinical presentation to emergency department is similar to symptoms she is expressing some multiple occasions in the past. Considering Dr. Morales's and Dr. Watts's recommendation patient is ordered for albuterol, Atrovent and Decadron. Patient is here for breathing treatment. She was reevaluated at approximately 8:20 PM just says she completed her first breathing treatment. She states she feels no change. Patient however still continues to appear well-appearing. She is comfortable showing no signs of significant respiratory distress. At this point we'll have patient admitted to our hospital with consultation to pulmonology. - Related Data Home Medications Medication Instructions Recorded Confirmed Levothyroxine Sodium [Synthroid] 50 mcg PO DAILY 04/05/14 09/20/20 amLODIPine [Norvasc] 5 mg PO DAILY 04/05/14 09/20/20 Lactose-Reduced Food [Ensure Plus] 1 can PO BID 09/20/20 09/20/20 traMADol HCL 25 mg PO Q12H 09/20/20 09/20/20 Previous Rx's Medication Instructions Recorded dexAMETHasone [Hexadrol] 5 mg PO Q8HR #5 tab 09/22/20 Allergies Allergy/AdvReac Type Severity Reaction Status Date / Time No Known Allergies Allergy Verified 09/20/20 07:43 Review of Systems ROS Statement: Those systems with pertinent positive or pertinent negative responses have been documented in the HPI. ROS Other: All systems not noted in ROS Statement are negative. Past Medical History Past Medical History: GERD/Reflux, Hyperlipidemia, Hypertension, Osteoarthritis (OA), Thyroid Disorder Additional Past Medical History / Comment(s): STATES AT 37 YRS OLD VOCAL CORD WAS SEVERED DURING REMOVAL OF THYROID (HX OF GOITER), MULTIPLE THROAT SURGERIES AFTERWARDS. SHE HAS TO INHALE AND BLOW OUT WHEN TALKING. STATES ALSO THAT ESOPHAGUS CLOSES PREMATURELY WHEN EATING AND CAUSES HER TO INHALE FOOD AND SALIVA CAUSING HER TO COUGH ., STRESS INCONTINENCE-WEARS PAD, TORN ROTATOR CUFF(sx), bridges. History of Any Multi-Drug Resistant Organisms: None Reported Past Surgical History: Appendectomy, Hysterectomy, Orthopedic Surgery Additional Past Surgical History / Comment(s): TOTAL RIGHT HIP, CATARACTS, THYROID REMOVED WITH SEVERED VOCAL CORD AND MULTIPLE THROAT SURGERIES AFTERWARDS, right shoulder surgery, rt rotator cuff repair, trach insertion Past Anesthesia/Blood Transfusion Reactions: No Reported Reaction Past Psychological History: No Psychological Hx Reported Smoking Status: Never smoker Past Alcohol Use History: Occasional Past Drug Use History: None Reported - Past Family History Daughter(s) Family Medical History: Cancer Additional Family Medical History / Comment(s): 2 DAUGHTERS- LEUKEMIA AND LUNG CANCER Mother Family Medical History: COPD Additional Family Medical History / Comment(s): bronchits Father Family Medical History: Cancer Additional Family Medical History / Comment(s): leukemia General Exam Limitations: no limitations Course Vital Signs 09/25/20 09/25/20 09/25/20 18:29 18:41 18:43 Temperature 97.8 F Pulse Rate 85 80 Respiratory 22 22 20 Rate Blood Pressure 105/62 124/58 O2 Sat by Pulse 96 93 L Oximetry 09/25/20 09/25/20 09/25/20 19:30 19:38 19:45 Temperature Pulse Rate 77 82 75 Respiratory 20 22 16 Rate Blood Pressure 127/68 O2 Sat by Pulse 92 L 96 Oximetry Medical Decision Making - Lab Data Result diagrams: 09/25/20 19:01 09/25/20 19:01 Lab Results 09/25/20 09/25/20 09/25/20 Range/Units 19:01 19:01 19:01 WBC 15.5 H (3.8-10.6) k/uL RBC 4.39 (3.80-5.40) m/uL Hgb 12.6 (11.4-16.0) gm/dL Hct 37.0 (34.0-46.0) % MCV 84.4 (80.0-100.0) fL MCH 28.8 (25.0-35.0) pg MCHC 34.2 (31.0-37.0) g/dL RDW 13.3 (11.5-15.5) % Plt Count 345 (150-450) k/uL MPV 7.2 Neutrophils % 75 % Lymphocytes % 16 % Monocytes % 6 % Eosinophils % 1 % Basophils % 1 % Neutrophils # 11.7 H (1.3-7.7) k/uL Lymphocytes # 2.5 (1.0-4.8) k/uL Monocytes # 1.0 (0-1.0) k/uL Eosinophils # 0.1 (0-0.7) k/uL Basophils # 0.1 (0-0.2) k/uL PT 9.5 (9.0-12.0) sec INR 0.9 (<1.2) APTT 20.0 L (22.0-30.0) sec Sodium 131 L (137-145) mmol/L Potassium 4.3 (3.5-5.1) mmol/L Chloride 97 L (98-107) mmol/L Carbon Dioxide 29 (22-30) mmol/L Anion Gap 5 mmol/L BUN 28 H (7-17) mg/dL Creatinine 1.13 H (0.52-1.04) mg/dL Est GFR (CKD-EPI)AfAm 52 (>60 ml/min/1.73 sqM) Est GFR (CKD-EPI)NonAf 45 (>60 ml/min/1.73 sqM) Glucose 78 (74-99) mg/dL Calcium 8.2 L (8.4-10.2) mg/dL Disposition Clinical Impression: Dyspnea Disposition: ADMITTED IP TO THIS [facility] Condition: Fair Referrals: Rafat Duong DO [Primary Care Provider] - 1-2 days Decision Time: 20:27
[2020-09-25 19:11] LABS: Basophils # (A) 0.1 k/uL (0-0.2); Basophils % (A) 1 %; Eosinophils # (A) 0.1 k/uL (0-0.7); Eosinophils % (A) 1 %; HGB 12.6 gm/dL (11.4-16.0); Lymphocytes # (A) 2.5 k/uL (1.0-4.8); Lymphocytes % (A) 16 %; MCH 28.8 pg (25.0-35.0); MCHC 34.2 g/dL (31.0-37.0); MCV 84.4 fL (80.0-100.0); Mean Platelet Volume 7.2; Monocytes % (A) 6 %; Neutrophils # (A) 11.7 k/uL (1.3-7.7); Neutrophils % (A) 75 %; Platelet Count 345 k/uL (150-450); RBC 4.39 m/uL (3.80-5.40); RDW 13.3 % (11.5-15.5); WBC 15.5 k/uL (3.8-10.6)
[2020-09-25] MEDS ORDERED: IPRATROPIUM 0.5 MG/2.5 ML NEBU INHALATION STA (19:14)
[2020-09-25] MEDS ORDERED: DEXAMETHASONE SOD PHOSPHATE 10 MG/ML 1 ML VIAL IV STA (19:14)
[2020-09-25] MEDS ORDERED: ALBUTEROL NEBULIZED 2.5 MG/3 ML INHALATION STA (19:14)
[2020-09-25 19:17] LABS: Calcium 8.2 mg/dL (8.4-10.2); Potassium 4.3 mmol/L (3.5-5.1)
--- NOTE | 2020-09-25 19:18 | XR ---
EXAMINATION TYPE: XR chest 1V portable DATE OF EXAM: 09/25/2020 COMPARISON: 09/20/2020 HISTORY: Short of breath TECHNIQUE: FINDINGS: There is tracheostomy tube. There is elevated right diaphragm. There is no heart failure. T here are chest leads. Bony thorax is intact. IMPRESSION: Mild chronic elevation of the right diaphragm. Mild subsegmental atelectasis right lung b ase. No heart failure. Inspiration slightly worse than recent exam.
[2020-09-25 19:38] LABS: INR 0.9 (<1.2); Prothrombin Time 9.5 sec (9.0-12.0)
[2020-09-25] MEDS ORDERED: SODIUM CHLORIDE 0.9% 1,000 ML IV STA (20:19)
[2020-09-25] MEDS ORDERED: NALOXONE 0.4 MG/ML 1 ML VIAL IV PRN (20:23)
[2020-09-25] MEDS ORDERED: ONDANSETRON 4 MG/2 ML VIAL IVP PRN (20:23)
[2020-09-25] MEDS: ACETAMINOPHEN TAB 325 MG TAB PO PRN (21:12)
[2020-09-25] MEDS: SODIUM CHLORIDE 0.9% 1,000 ML IV SCH (21:12)
[2020-09-26] MEDS: IPRATROPIUM-ALBUTEROL 3 ML NEB INHALATION SCH ×6 (01:34→21:43)
[2020-09-26] MEDS: ACETAMINOPHEN TAB 325 MG TAB PO PRN ×2 (05:25→20:38)
--- NOTE | 2020-09-26 13:50 | P.HPIM ---
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 She was recently discharged from the hospital on 09/22/20, 4 days ago for shortness of breath related to her tracheostomy, ENT physician recommended dexamethasone 10 mg every 8 hours by 2 doses then 5 mg every 8 hours for 2 doses and then 2 mg for 1 dose. And they recommended to switch her tracheostomy tube from #6-Sinhala she currently has 2-Sinhala #4 Patient states that she has dyspnea on exertion since tracheostomy was placed for her about 2 years ago and she has SECRETIONS for several months however over the last 2 months she noticed there was some blood coming with the secretions and small pieces as well, also she says that at times this bout get dried and blocks her breathing which make her choking and anxious fearing she could not get enough air. When she came last week for the same think she states nothing Changed Vitals are stable and she is saturating 95% on 5 L via trach collar Labs showing mild leukocytosis at 15.5 but she was recently on dexamethasone. Creatinine 1.1, sodium 131 Coronal virus not chest x-ray: Mild chronic elevation of the right diaphragm. Mild subsegmental atelectasis right lung base. No heart failure. Review of Systems CONSTITUTIONAL: No fever, no malaise, no fatigue. HEENT: No recent visual problems or hearing problems. Denied any sore throat. CARDIOVASCULAR: No orthopnea, PND, no palpitations, no syncope. PULMONARY: No shortness of breath, no cough, no hemoptysis. GASTROINTESTINAL: No diarrhea, no nausea, no vomiting, no abdominal pain. Normoactive bowel sounds. NEUROLOGICAL: No headaches, no weakness, no numbness. HEMATOLOGICAL: Denies any bleeding or petechiae. GENITOURINARY: Denies any burning micturition, frequency, or urgency. MUSCULOSKELETAL/RHEUMATOLOGICAL: Denies any joint pain, swelling, or any muscle pain. ENDOCRINE: Denies any polyuria or polydipsia. Past Medical History Past Medical History: GERD/Reflux, Hyperlipidemia, Hypertension, Osteoarthritis (OA), Thyroid Disorder Additional Past Medical History / Comment(s): STATES AT 37 YRS OLD VOCAL CORD WAS SEVERED DURING REMOVAL OF THYROID (HX OF GOITER), MULTIPLE THROAT SURGERIES AFTERWARDS. SHE HAS TO INHALE AND BLOW OUT WHEN TALKING. STATES ALSO THAT ESOPHAGUS CLOSES PREMATURELY WHEN EATING AND CAUSES HER TO INHALE FOOD AND SALIVA CAUSING HER TO COUGH ., STRESS INCONTINENCE-WEARS PAD, TORN ROTATOR CUFF(sx), bridges. History of Any Multi-Drug Resistant Organisms: None Reported Past Surgical History: Appendectomy, Hysterectomy, Orthopedic Surgery Additional Past Surgical History / Comment(s): TOTAL RIGHT HIP, CATARACTS, THYROID REMOVED WITH SEVERED VOCAL CORD AND MULTIPLE THROAT SURGERIES AFTERWARDS, right shoulder surgery, rt rotator cuff repair, trach insertion Past Anesthesia/Blood Transfusion Reactions: No Reported Reaction Past Psychological History: No Psychological Hx Reported Smoking Status: Never smoker Past Alcohol Use History: Occasional Additional Past Alcohol Use History / Comment(s): pt stated smoked briefly in her 20's then in her 40's then in her 60's none since Past Drug Use History: None Reported - Past Family History Daughter(s) Family Medical History: Cancer Additional Family Medical History / Comment(s): 2 DAUGHTERS- LEUKEMIA AND LUNG CANCER Mother Family Medical History: COPD Additional Family Medical History / Comment(s): bronchits Father Family Medical History: Cancer Additional Family Medical History / Comment(s): leukemia Medications and Allergies Home Medications Medication Instructions Recorded Confirmed Type Levothyroxine Sodium [Synthroid] 50 mcg PO DAILY 04/05/14 09/25/20 History amLODIPine [Norvasc] 5 mg PO DAILY 04/05/14 09/25/20 History Lactose-Reduced Food [Ensure Plus] 1 can PO BID 09/20/20 09/25/20 History traMADol HCL 25 mg PO Q12H 09/20/20 09/25/20 History Allergies Allergy/AdvReac Type Severity Reaction Status Date / Time No Known Allergies Allergy Verified 09/20/20 07:43 Physical Exam Vitals: Vital Signs Temp Pulse Pulse Resp BP BP Pulse Ox 09/26/20 11:28 97.6 F 100 16 153/64 95 09/26/20 11:08 96 16 09/26/20 11:07 97.3 F L 96 16 149/70 94 L 09/26/20 09:40 75 09/26/20 03:00 97.9 F 96 18 124/72 96 09/26/20 02:09 75 09/26/20 01:58 75 09/25/20 23:11 97.9 F 90 18 124/72 09/25/20 22:04 97 20 139/63 96 09/25/20 21:00 104 H 22 128/59 96 09/25/20 20:00 101 H 22 130/57 97 09/25/20 19:45 75 16 09/25/20 19:38 82 22 96 09/25/20 19:30 77 20 127/68 92 L 09/25/20 18:43 80 20 124/58 93 L 09/25/20 18:41 22 09/25/20 18:29 97.8 F 85 22 105/62 96 Intake and Output 09/25/20 09/26/20 09/26/20 22:59 06:59 14:59 Intake Total 300 Balance 300 Intake: Oral 300 Other: Voiding Method Bedside Commode # Voids 0 Weight 54.431 kg 54.431 kg GENERAL: The patient is alert and oriented x3, not in any acute distress. Well developed, well nourished. -HEENT: Medical tracheostomy is in place, patient can talk by blocking the tracheostomy opening with her finger , Pupils are round and equally reacting to light. EOMI. No scleral icterus. No conjunctival pallor. Normocephalic, atraumatic. No pharyngeal erythema. No thyromegaly. CARDIOVASCULAR: S1 and S2 present. No murmurs, rubs, or gallops. PULMONARY: Chest is clear to auscultation, no wheezing or crackles. ABDOMEN: Soft, nontender, nondistended, normoactive bowel sounds. No palpable organomegaly. MUSCULOSKELETAL: No joint swelling or deformity. EXTREMITIES: No cyanosis, clubbing, or pedal edema. NEUROLOGICAL: Gross neurological examination did not reveal any focal deficits. SKIN: No rashes. No petechiae Results CBC & Chem 7: 09/25/20 19:01 09/25/20 19: Labs: Abnormal Lab Results - Last 24 Hours (Table) 09/25/20 09/25/20 09/25/20 Range/Units 19:01 19: 19: WBC 15.5 H (3.8-10.6) k/uL Neutrophils # 11.7 H (1.3-7.7) k/uL APTT 20.0 L (22.0-30.0) sec Sodium 131 L (137-145) mmol/L Chloride 97 L (98-107) mmol/L BUN 28 H (7-17) mg/dL Creatinine 1.13 H (0.52-1.04) mg/dL Calcium 8.2 L (8.4-10.2) mg/dL Thrombosis Risk Factor Assmnt - Choose All That Apply Each Risk Factor Represents 3 Points: Age 75 years or older Thrombosis Risk Factor Assessment Total Risk Factor Score: 3 Thrombosis Risk Factor Assessment Level: Moderate Risk Assessment and Plan Assessment: -Shortness of breath with secretion and sometimes bloody: Secondary to obstruction at the level of tracheostomy -Hypertension -Hyperlipidemia -Hypothyroidism -Gastroesophageal reflux disease -History of goiter status post removal of thyroid 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 -DVT prophylaxis Plan: This is a pleasant 84 years old female presents with tracheostomy narrowing causing shortness of breath. Continue with breathing treatment. Frequent suctioning. Follow-up pulmonary consult. We will do x-ray of the soft tissue of the neck Labs and medication were reviewed.. Continue same treatment. Continue with symptomatic treatment. Resume home medication. Monitor lytes and vitals. DVT and GI prophylaxis. Further recommendations depends on the clinical course of the patient DVT prophylaxis: Subcutaneous heparin GI Prophylaxis: Pepcid Prognosis is guarded
--- NOTE | 2020-09-26 14:41 | XR ---
EXAMINATION TYPE: XR soft tissue neck DATE OF EXAM: 09/26/2020 COMPARISON: NONE HISTORY: Tracheostomy. Narrowing. TECHNIQUE: 2 views FINDINGS: There is tracheostomy tube noted. Subglottic trachea appears intact. Epiglottis is normal. Prevertebral soft tissues are not enlarged. There is multilevel cervical spondylotic changes in the l ower cervical spine. IMPRESSION: Negative cervical soft tissue exam. Cervical spondylotic changes.
[2020-09-26] MEDS: SODIUM CHLORIDE 0.9% 1,000 ML IV SCH (21:43)
[2020-09-27] MEDS: IPRATROPIUM-ALBUTEROL 3 ML NEB INHALATION SCH ×4 (02:18→20:12)
[2020-09-27] MEDS: ACETAMINOPHEN TAB 325 MG TAB PO PRN (07:23)
--- NOTE | 2020-09-27 08:34 | XR ---
EXAMINATION TYPE: XR chest 1V portable DATE OF EXAM: 09/27/2020 Comparison: 09/25/2020 Clinical History: 84-year-old female short of breath Findings: Tracheostomy cannula. Heart normal size. Mild patchy left basilar opacity. Unchanged asymmetric eleva tion right hemidiaphragm. Upper and mid lungs appear clear. Impression: Mild patchy atelectasis versus early infiltrate at the left base. Otherwise, no acute process seen.
[2020-09-27 08:39] LABS: ABG Base Excess 4.9 mmol/L; ABG HCO3 26 mmol/L (21-25); ABG Oxygen Saturation 95.8 % (94-97); ABG PCO2 25 mmHg (35-45); ABG PO2 68 mmHg (83-108); ABG TCO2 27 mmol/L (19-24); Allen Test Performed? Yes
[2020-09-27] MEDS: traMADol 50 MG TAB PO SCH ×2 (08:46→21:47)
[2020-09-27] MEDS: amLODIPine 5 MG TAB PO SCH (08:46)
[2020-09-27 08:47] LABS: ABG PH 7.63 (7.35-7.45)
[2020-09-27] MEDS: LEVOTHYROXINE 50 MCG TAB PO SCH (08:47)
[2020-09-27] MEDS: SODIUM CHLORIDE 0.9% 1,000 ML IV SCH ×3 (08:47→21:50)
[2020-09-27] MEDS ORDERED: methylPREDNISolone SOD SUCCI 125 MG/2 ML VIAL IV SCH (09:00)
[2020-09-27] MEDS ORDERED: PANTOPRAZOLE 40 MG/10 ML VIAL IVP SCH (09:00)
[2020-09-27 09:24] LABS: Basophils % (A) 0 %; Eosinophils # (A) 0.2 k/uL (0-0.7); Eosinophils % (A) 1 %; HCT 36.2 % (34.0-46.0); Lymphocytes # (A) 1.9 k/uL (1.0-4.8); Lymphocytes % (A) 10 %; MCH 28.4 pg (25.0-35.0); Mean Platelet Volume 7.2; Monocytes # (A) 0.8 k/uL (0-1.0); Monocytes % (A) 4 %; Neutrophils # (A) 16.1 k/uL (1.3-7.7); Neutrophils % (A) 84 %; Platelet Count 339 k/uL (150-450); RBC 4.21 m/uL (3.80-5.40); RDW 13.5 % (11.5-15.5); WBC 19.1 k/uL (3.8-10.6)
[2020-09-27 09:39] LABS: African American GFR (CKD) 59 (>60 ml/min/1.73 sqM); Anion Gap 6 mmol/L; Blood Urea Nitrogen 22 mg/dL (7-17); Calcium 8.8 mg/dL (8.4-10.2); Carbon Dioxide 28 mmol/L (22-30); Chloride 99 mmol/L (98-107); Glucose 108 mg/dL (74-99); Non-African American GFR(CKD) 51 (>60 ml/min/1.73 sqM); Potassium 4.3 mmol/L (3.5-5.1); Sodium 133 mmol/L (137-145)
[2020-09-27] MEDS: CALCIUM CARBONATE 500 MG CHEWABLE PO PRN (09:42)
[2020-09-27] MEDS ORDERED: ALPRAZolam 0.25 MG TAB PO PRN (09:44)
[2020-09-27] MEDS ORDERED: DEXAMETHASONE SOD PHOSPHATE 10 MG/ML 1 ML VIAL IV ONE (10:00)
[2020-09-27] MEDS: ALPRAZolam 0.25 MG TAB PO SCH ×3 (10:51→21:49)
--- NOTE | 2020-09-27 12:09 | CONS ---
CONSULTATION DATE OF CONSULTATION: 09/27/2020 DATE OF ADMISSION: 09/25/2020 REASON FOR CONSULTATION: Shortness of breath, etiology? HISTORY OF PRESENT ILLNESS: The patient is a very pleasant 84-year-old female who was recently a patient at [facility] for similar symptoms of shortness of breath and air hunger. The patient was eventually discharged last week and did well. But once again while at home, she developed choking spells while eating and also she felt that she was having difficulty breathing. She therefore presented to the Emergency Room on 09/25/2020 and was seen by the ER physician. At that time, I was consulted by the emergency room physician who stated that he had attempted to change her trach tube, current trach tube was a #6 metal trach tube, to a larger plastic Shiley trach tube, which was not possible. At the time of the patient's last admission prior to her discharge, I advised her that if she was comfortable changing her own trach tube that she should replace the current #4 metal trach tube with a #6 trach tube, which she apparently did. I am not sure, but I suspect that the ER physician may have tried to put either a number a #8 Shiley, possibly a cuffed tube and was not able to do so. However, it is interesting to note that with her current tube that she presented to the emergency room with that her O2 saturation was well over 96% and there was no wheezing or abnormal lung sounds. I advised the ER physician that she should probably be transferred to the [facility] since she had an appointment to be evaluated for this problem in the past. 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 The thyroid surgery was over 40 years ago, but it was only recently in the last couple years that she developed problems with choking spells, difficulty breathing, etc. While at the [facility], she states that they injected a substance, most likely Johnny paste in the vocal cords and apparently did a surgical procedure to move one of the vocal cords. This may have been an attempt to lateralize the cord to give her a better airway. The patient states that she is not sure why she had the tracheostomy performed at [facility] and stated that since that time she has had nothing but problems. Unfortunately, if they did inject Johnny into the vocal cords, this may take several years before this material dissipates. She also stated that she has seen Dr. Haines at [facility], who had scoped her and felt that she really did not need a trach to begin with. Although her voice is quite raspy and breathy, she states that it is acceptable. I had previously had a long discussion with this patient advising her that it is more important that she be able to breathe than actually be able to have a normal voice. She has history of acid reflux and I am not sure whether or not she may actually be aspirating when she eats and this may be causing her to have choking spells. At the present time, she is not in any acute distress. At the time that I was called early this a.m., she was having difficulty breathing and I immediately proceeded to the hospital to evaluate her situation. PAST MEDICAL HISTORY: Reveals she has no known medical allergies. CURRENT MEDICATIONS: Include tramadol, prednisone, Norvasc, and Synthroid. REVIEW OF SYSTEMS: Positive with respect to the cardiovascular system for hypertension, metabolic endocrine system is positive for hypothyroidism. MUSCULOSKELETAL SYSTEM: Positive for osteoarthritis. The remainder of review of systems is unremarkable. PHYSICAL EXAMINATION: Patient is a very pleasant 84-year-old female who has history of bilateral true vocal cord paralysis and has a metal #[address] She is alert, cooperative and is in no acute distress at this time. HEENT: Patient is normocephalic. Tympanic membranes are normal. Middle ear space is free of any fluid or infection. Pupils equal, round, react to light and accommodation. Extraocular movements within normal limits. Intranasal examination reveals moderate to severe septal deviation with bilateral compensatory hypertrophy of inferior turbinates. Mucous membranes are dry. Examination of oropharynx is limited and unremarkable. Examination of tracheostomy site reveals it appears to be clean with no evidence of any infection for granulation tissue around the opening which appears to be patent and free of any obvious obstruction. In addition to this, I was able to have the patient pinch her nose, closed her mouth and breathe through the trach. Her air exchange through the trach tube was excellent. I demonstrated this to the patient and the nurse by having the patient put her hand in front of the trach and she noted the large volume of air that she was able to blow out through the trach and she also had effortless inspiration. During this time, auscultation of the chest revealed that both lung dominguez were clear to percussion and auscultation. The patient is in regular sinus rhythm, S1, S2 present, no murmurs. Abdomen, there is no evident masses, megaly or tenderness. The abdomen is soft. The remainder of physical exam is unremarkable. ASSESSMENT: Shortness of breath, air hunger, etiology? PLAN: This is an interesting and somewhat difficult patient. She has a long-standing history of bilateral true vocal cord paralysis, well over 40 years, following a total thyroidectomy for a goiter. She had seen Dr. Gaytan approximately 2 years ago and at that time, he felt that she needed a tracheostomy. She is not sure why it was recommend that she have a tracheostomy because at the time that she saw him, she was mainly concerned about her breathy voice and she states she was not actually having any difficulty breathing. She was referred to the [facility] and while there, she did in fact undergo a tracheostomy. In addition to this, she also underwent several procedures, one of which sounds as if she may have had Johnny paste injected into one of the vocal cords to improve her voice and she may have had one of the vocal cords lateralized. I am not sure at this time. I am not able to see the vocal cords currently and I am considering possibly taking the patient to surgery and under very light anesthesia scoping her nasally to get a view of the status of the vocal cords. I do not feel that she has any actual obstruction of the trachea and I feel that the trach tube size is more than adequate. I explained to the patient that unfortunately because she has both true vocal cords paralyzed, that most likely she has loss some of the sensory sensation at the level of the vocal cords/larynx and therefore she is not able to actually feel air exchanging over the vocal cords when she breathes. In addition to this, because of her acid reflux and because of the presence of the trach tube, this may cause her to aspirate certain types of food stuffs, especially liquids and cause her to have choking spells. Once a choking spell is initiated, I feel that the patient eventually develop a panic attack and actually feel that she is not able to breathe, when in fact she is able to breathe through the trach, but she may not be able to breathe adequately through her larynx. Again, this statement is made with respect to her larynx at this time, but I really have to get a visualization of the status of her paralyzed cords and whether or not there is an adequate airway up above. The loss of sensory function with respect to the larynx can be significant with respect to causing choking aspiration and choking spells, etc. Since we were not able to get her transferred to the [facility] because of the COVID issue, there is always a possibility of getting her transferred to [facility] for the evaluation. In the meantime, while she is here to the hospital, I am going to get a CT scan of the neck with contrast and this may give me some idea of the status of her vocal cords and her upper airway and in addition to that, I am considering taking her to surgery and under very light IV sedation, doing a nasopharyngoscopy with a scope just to get a look at the status of the vocal cords. In the meantime, I agree with the decision to keep her in the hospital because once she goes home, she will probably return to the hospital with the same symptoms. I am going to place her on dexamethasone regimen that I have outlined for the nurses and also we are going to give her 0.25 mg of Xanax t.i.d. in an effort to ease any anxiety that may be a issue . She is also going to be on trach collar with humidified air. If there are any issues with respect to concerns regarding her breathing or shortness of breath, then the easiest thing to do would be to remove the trach and simply put down a #6 or #4 endotracheal tube. I want to take this time to thank you for allowing me to assist in the care of your patient. If I can be any further assistance, please feel free to call my office. I will continue to follow this patient with you as long as she is in the hospital. MMODL / IJN: [id number] / TE
--- NOTE | 2020-09-27 12:49 | CT ---
EXAMINATION TYPE: CT neck chest w con DATE OF EXAM: 09/27/2020 COMPARISON: None HISTORY: neck eval / trach congestion CT DLP: 448.9 mGycm CONTRAST: Patient injected with 80 mL of Isovue 300. TECHNIQUE: Axial images at 3 mm thick sections. Reconstructed images in the coronal plane and sagitt al plane are reviewed. FINDINGS: Limited CT sections are obtained the lung apices. The lung apices appear clear. CT neck: The torus tubarius and fossa of Rosenmuller are normal. Box Worker spaces are normal. Para nasal sinuses and mastoid air cells are clear. Parotid glands appear normal and symmetrical. Submandibular glands, are normal. Parapharyngeal spac es are normal. No suspicious adenopathy is evident. The hypopharynx appears within normal limits. Vocal cord level appear symmetrical. There is a tracheostomy tube present with tip above the chaya. Thyroid as visualized is normal. Degenerative changes are within the cervical spine. Anterior vertebral body spurring is present. IMPRESSIONS: 1. Tracheostomy tube present with tip above the chaya.
--- NOTE | 2020-09-27 14:27 | P.EN ---
A Team Note Cause: Increased respirations, respiratory fatigue Patient seen and examined at bedside. She reports shortness of breath, chest pressure, anixety, and wheezing, She reports that she thinks that she is having trach problems. She reports that she was instilling saline in her trach at home. Respiratory at bedside. Patient had already removed her own inner cannula from the trach and she was feeling short of breath. He has been unable to pass a flexable catheter through the trach. Vital signs reviewed General: non toxic, no distress, appears at stated age Derm: warm, dry Head: atraumatic, normocephalic, symmetric Eyes: EOMI, no lid lag, anicteric sclera Neck: Metal trach in place Mouth: no lip lesion, mucus membranes dry Cardiovascular: S1S2 reg, no murmur, positive posterior tibial pulse bilateral, Lungs: Decreased breath sounds bilateral with decreased air movement, one word conversational dyspnea, sternal retractions Psych: Alert, oriented, appears anxious Assessment/Plan: 1. Shortness of breath suspect secondary to trach malfunction -respiratory was able to instill normal saline into the trach and finally passed the catheter through. Patient's respirations did seem to decreased slightly and she appeared more comfortable. However she continued to be taken at night and feel short of breath. -I feel that she may have tracheal narrowing or granulation tissue blocking her metal trach. -Chest x-ray obtained which did not show any acute pulmonary process, no foreign body noted. The trach cannula appeared to be in the trachea on chest x-ray. Soft tissue of the neck x-ray reviewed from the day prior without signficnat abnormalilty. - Abg reviewed and consistent with tachypnea. no hypoxia - Dr. Bowen contacted by [facility] [employer] [employer]INATOR and felt patient bes served by ENT - Spoke with Dr Watts who feels the patient is best served at a [facility] (formerly [facility]). I have asked him to come to bedside and eval the patient, we will contace the primary team and see if they can arange for transfer - Patient had already received 2 breathing treatement, add solumedrol for any reactive ariwy disease and given, - Nurse called Primary team for possible transfer - additional option if dyspnea worsens would be fiberoptic intubation to eval for granulation tissue/trach narrowing. - patient re-evaled and breathing rate slowed appears slightly more comfortbale. Disucssed with Dr. Rhodes who will be coordinating. A total of 35 minutes of critical care time was spent with this complex patient.
[2020-09-27] MEDS: DEXAMETHASONE SOD PHOSPHATE 10 MG/ML 1 ML VIAL IV SCH (15:54)
--- NOTE | 2020-09-27 21:19 | P.PN ---
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 She was recently discharged from the hospital on 09/22/20, 4 days ago for shortness of breath related to her tracheostomy, ENT physician recommended dexamethasone 10 mg every 8 hours by 2 doses then 5 mg every 8 hours for 2 doses and then 2 mg for 1 dose. And they recommended to switch her tracheostomy tube from #6-Amharic she currently has 2-Amharic #4 Patient states that she has dyspnea on exertion since tracheostomy was placed for her about 2 years ago and she has SECRETIONS for several months however over the last 2 months she noticed there was some blood coming with the secretions and small pieces as well, also she says that at times this bout get dried and blocks her breathing which make her choking and anxious fearing she could not get enough air. When she came last week for the same think she states nothing Changed Vitals are stable and she is saturating 95% on 5 L via trach collar Labs showing mild leukocytosis at 15.5 but she was recently on dexamethasone. Creatinine 1.1, sodium 131 Coronal virus not chest x-ray: Mild chronic elevation of the right diaphragm. Mild subsegmental atelectasis right lung base. No heart failure. 09/27/2020 Patient has significant episodes of choking this morning with a heart cath in her secretion of her tracheostomy opening. A team was called and patient were able to be managed with IV steroids , breathing treatment and some normal saline into the area to loosen the secretions. Currently when I saw the patient she was lying in bed breathing comfortably, patient she states that she's having these episodes more frequent. And that it happened to her before. Pulmonary team yesterday were consulted and they felt they could not upper margin and recommended ENT consult. ENT physician recommended to transfer the p atient from emergency room to her surgeon at [facility] however that's surgeon rejected the transfer stating that she has multiple admissions with the same complaints. Besides because of the covid pandemic situation then most of the hospital is tied [facility] and it takes 4 days currently for the patient to be transferred to [facility] Eventually ENT service are planning to look into the area so surgical procedure in 2 days and we'll discuss was the next step later on and whether to need to be transferred to [facility] or [facility]. Is a planning to do surgical evaluation of her vocal cord In the meantime he recommended Xanax for her panic attack which happens once she has periods that informed/liquids. Also recommended to continue with steroids. And the cold GI for a consult as reflux disease by contribute to her symptoms. CT of the neck: Tracheostomy tube is in place Review of Systems CONSTITUTIONAL: No fever, no malaise, no fatigue. HEENT: No recent visual problems or hearing problems. Denied any sore throat. CARDIOVASCULAR: No orthopnea, PND, no palpitations, no syncope. PULMONARY: No shortness of breath, no cough, no hemoptysis. GASTROINTESTINAL: No diarrhea, no nausea, no vomiting, no abdominal pain. Normoactive bowel sounds. NEUROLOGICAL: No headaches, no weakness, no numbness. Active Medications Generic Name Dose Route Start Last Admin Trade Name Freq PRN Reason Stop Dose Admin Acetaminophen 650 mg 09/25/20 20:23 09/27/20 07:23 Acetaminophen Tab 325 Mg Tab PO 650 mg Q6HR PRN Administration Mild Pain or Fever > 100.5 Albuterol/Ipratropium 3 ml 09/25/20 20:30 09/27/20 20:12 Ipratropium-Albuterol 3 Ml Neb INHALATION 3 ml RT-Q6H DEYVI Administration Alprazolam 0.25 mg 09/27/20 09:45 09/27/20 15:49 Alprazolam 0.25 Mg Tab PO Not Given TID DEYVI Alprazolam 0.25 mg 09/27/20 09:44 Alprazolam 0.25 Mg Tab PO TID PRN Anxiety Amlodipine Besylate 5 mg 09/27/20 09:00 09/27/20 08:46 Amlodipine 5 Mg Tab PO 5 mg DAILY DEYVI Administration Calcium Carbonate/Glycine 500 mg 09/27/20 09:34 09/27/20 09:42 Calcium Carbonate 500 Mg Chewable PO 500 mg TID PRN Administration Heartburn Dexamethasone Sodium Phosphate 10 mg 09/27/20 16:00 09/27/20 15:54 Dexamethasone Sod Phosphate 10 Mg/Ml 1 Ml Vial IV 09/28/20 00:01 10 mg Q8HR DEYVI Administration Dexamethasone Sodium Phosphate 5 mg 09/28/20 08:00 Dexamethasone Sod Phosphate 10 Mg/Ml 1 Ml Vial IV 09/29/20 00:01 Q8HR DEYVI Dexamethasone Sodium Phosphate 2 mg 09/29/20 08:00 Dexamethasone Sod Phosphate 4 Mg/Ml 1 Ml Vial IV 09/29/20 16:01 Q8HR DEYVI Sodium Chloride 1,000 mls @ 20 mls/hr 09/25/20 20:30 09/26/20 21:43 Saline 0.9% IV Not Given .Q24H DEYVI Sodium Chloride 1,000 mls @ 75 mls/hr 09/27/20 08:00 09/27/20 08:47 Saline 0.9% IV 75 mls/hr .[id number] DEYVI Administration Levothyroxine Sodium 50 mcg 09/27/20 09:00 09/27/20 08:47 Levothyroxine 50 Mcg Tab PO 50 mcg DAILY@0630 DEYVI Administration Naloxone HCl 0.2 mg 09/25/20 20:23 Naloxone 0.4 Mg/Ml 1 Ml Vial IV Q2M PRN Opioid Reversal Ondansetron HCl 4 mg 09/25/20 20:23 Ondansetron 4 Mg/2 Ml Vial IVP Q8HR PRN Nausea And Vomiting Pantoprazole Sodium 40 mg 09/28/20 09:00 Pantoprazole 40 Mg Tablet PO DAILY DEYVI Tramadol HCl 25 mg 09/27/20 08:00 09/27/20 08:46 Tramadol 50 Mg Tab PO 25 mg Q12H DEYVI Administration Objective - Vital Signs Vital signs: Vital Signs Temp 97.9 F 09/27/20 14:00 Pulse 113 H 09/27/20 14:00 Resp 18 09/27/20 14:00 BP 108/59 09/27/20 14:00 Pulse Ox 93 L 09/27/20 14:00 Intake & Output 09/27/20 09/27/20 09/28/20 06:59 18:59 06:59 Intake Total 100 732 Balance 100 732 Intake: Intake, IV Titration 100 Amount Sodium Chloride 0.9% 1, 100 000 ml @ 20 mls/hr IV . Q24H [facility] Rx#:[id number] Oral 732 Other: Voiding Method Toilet Toilet # Voids 1 3 - Exam GENERAL: The patient is alert and oriented x3, not in any acute distress. Well developed, well nourished. -HEENT: tracheostomy is in place, patient can talk by blocking the tracheostomy opening with her finger , Pupils are round and equally reacting to light. EOMI. No scleral icterus. No conjunctival pallor. Normocephalic, atraumatic. No pharyngeal erythema. No thyromegaly. CARDIOVASCULAR: S1 and S2 present. No murmurs, rubs, or gallops. PULMONARY: Chest is clear to auscultation, no wheezing or crackles. ABDOMEN: Soft, nontender, nondistended, normoactive bowel sounds. No palpable organomegaly. MUSCULOSKELETAL: No joint swelling or deformity. EXTREMITIES: No cyanosis, clubbing, or pedal edema. NEUROLOGICAL: Gross neurological examination did not reveal any focal deficits. SKIN: No rashes. No petechiae - Labs CBC & Chem 7: 09/27/20 08:56 09/27/20 08:56 Labs: Abnormal Lab Results - Last 24 Hours (Table) 09/27/20 09/27/20 09/27/20 Range/Units 08:19 08:56 08:56 WBC 19.1 H (3.8-10.6) k/uL Neutrophils # 16.1 H (1.3-7.7) k/uL ABG pH 7.63 H* (7.35-7.45) ABG pCO2 25 L (35-45) mmHg ABG pO2 68 L (83-108) mmHg ABG HCO3 26 H (21-25) mmol/L ABG Total CO2 27 H (19-24) mmol/L Sodium 133 L (137-145) mmol/L BUN 22 H (7-17) mg/dL Glucose 108 H (74-99) mg/dL Assessment and Plan Assessment: -Shortness of breath with secretion and sometimes bloody: Secondary to obstruction at the level of tracheostomy -Hypertension -Hyperlipidemia -Hypothyroidism -Gastroesophageal reflux disease -History of goiter status post removal of thyroid 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 -DVT prophylaxis Plan: This is a pleasant 84 years old female presents with tracheostomy narrowing causing shortness of breath. Continue with breathing treatment. Frequent suctioning. Follow-up ENT consult. We will do x-ray of the soft tissue of the neck Labs and medication were reviewed.. Continue same treatment. Continue with symptomatic treatment. Resume home medication. Monitor lytes and vitals. DVT and GI prophylaxis. Further recommendations depends on the clinical course of the patient DVT prophylaxis: Subcutaneous heparin GI Prophylaxis: Pepcid Prognosis is guarded
[2020-09-28] MEDS: DEXAMETHASONE SOD PHOSPHATE 10 MG/ML 1 ML VIAL IV SCH ×4 (00:43→22:23)
[2020-09-28] MEDS: IPRATROPIUM-ALBUTEROL 3 ML NEB INHALATION SCH ×4 (03:40→21:15)
[2020-09-28] MEDS: LEVOTHYROXINE 50 MCG TAB PO SCH (05:39)
[2020-09-28] MEDS: traMADol 50 MG TAB PO SCH ×2 (07:56→19:57)
[2020-09-28] MEDS: amLODIPine 5 MG TAB PO SCH (07:56)
[2020-09-28] MEDS ORDERED: PANTOPRAZOLE 40 MG TABLET PO SCH (09:00)
[2020-09-28] MEDS: ALPRAZolam 0.25 MG TAB PO SCH ×3 (09:37→22:23)
[2020-09-28] MEDS ORDERED: TEMAZEPAM 15 MG CAP PO PRN (11:36)
[2020-09-28] MEDS: PANTOPRAZOLE 40 MG TABLET PO SCH (16:37)
[2020-09-28] MEDS: SODIUM CHLORIDE 0.9% 1,000 ML IV SCH ×2 (16:38→22:16)
--- NOTE | 2020-09-28 18:13 | PN ---
PROGRESS NOTE DATE OF SERVICE: 09/28/2020. SUBJECTIVE: Vital signs are stable. The patient is alert and is in no acute distress at this time. The patient states that she seems to be able to breathe better, although she is still having difficulty with her acid reflux and with respect to what appears to be some choking spells and aspiration while eating certain food stuff. I again cautioned her that if the hospital kitchen sends her a meal that she knows will cause her problems, then she definitely should refuse to eat that meal regardless of what they send. We will try and make sure that she is on a soft or mechanical soft diet. OBJECTIVE: HEENT: Patient is normocephalic. Tympanic membranes normal. Examination of the tracheostomy site, the remainder of the physical exam, etc. is unchanged since her initial evaluation. ASSESSMENT: Shortness of breath, etiology ? PLAN: I spent approximately 20 minutes discussing with the patient my plan to take her to surgery on Sunday. At that time, she will undergo a suspension microlaryngoscopy during which I should be able to better evaluate the status of her vocal cords and her larynx. Specifically, I want to see what is the condition of her upper airway. That it to say, are both true vocal cords paralyzed, is one vocal cord paralyzed,and what surgical procedures are apparent that have been performed at the [facility] such as Johnny paste injection, etc. In addition to this, I have advised the patient that I would like to perform a bronchoscopy while she is asleep under general anesthetic in an effort to evaluate the status of the entire trachea both above the tracheostomy site and below the tracheostomy site. Finally, if possible, I will try and switch her tracheostomy tube to #6 fenestrated tracheostomy tube. This particular tube should allow more air to pass up through her larynx and may possibly improve her voice. Above all, I think she will find it easier to breathe with this type of tracheostomy tube. Some of her breathing will be done through the tracheostomy tube and the tracheostomy stoma at her neck and also some of her breathing will be through the fenestration in the trach tube. When the patient needs to speak, she can do as she has been doing with the metal tube, that is to say, she can place a finger over the tube, plug it and then she will be able to speak. I once again emphasized to the patient my concern is that she have an adequate airway and at this point, I am not particularly concerned with improving her voice with any type of surgical procedure. So far in the past, surgical procedures that have been done to improve her voice have actually made her worse and they have had a deleterious effect on her airway. I certainly wish to avoid any repeat of this. All of her questions were answered. I advised her that we will place her on the schedule for this coming Sunday the 10/01/2020, with the time to be announced. We will make her n.p.o. after midnight on . This procedure will be performed under a general anesthesia. TIFFANIL / ROBBIN: [id number] / TE
--- NOTE | 2020-09-28 22:30 | P.PN ---
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 She was recently discharged from the hospital on 09/22/20, 4 days ago for shortness of breath related to her tracheostomy, ENT physician recommended dexamethasone 10 mg every 8 hours by 2 doses then 5 mg every 8 hours for 2 doses and then 2 mg for 1 dose. And they recommended to switch her tracheostomy tube from #6-Maori she currently has 2-Maori #4 Patient states that she has dyspnea on exertion since tracheostomy was placed for her about 2 years ago and she has SECRETIONS for several months however over the last 2 months she noticed there was some blood coming with the secretions and small pieces as well, also she says that at times this bout get dried and blocks her breathing which make her choking and anxious fearing she could not get enough air. When she came last week for the same think she states nothing Changed Vitals are stable and she is saturating 95% on 5 L via trach collar Labs showing mild leukocytosis at 15.5 but she was recently on dexamethasone. Creatinine 1.1, sodium 131 Coronal virus not chest x-ray: Mild chronic elevation of the right diaphragm. Mild subsegmental atelectasis right lung base. No heart failure. 09/27/2020 Patient has significant episodes of choking this morning with a heart cath in her secretion of her tracheostomy opening. A team was called and patient were able to be managed with IV steroids , breathing treatment and some normal saline into the area to loosen the secretions. Currently when I saw the patient she was lying in bed breathing comfortably, patient she states that she's having these episodes more frequent. And that it happened to her before. Pulmonary team yesterday were consulted and they felt they could not upper margin and recommended ENT consult. ENT physician recommended to transfer the p atient from emergency room to her surgeon at [facility] however that's surgeon rejected the transfer stating that she has multiple admissions with the same complaints. Besides because of the covid pandemic situation then most of the hospital is tied in [facility] and it takes 4 days currently for the patient to be transferred to [facility] Eventually ENT service are planning to look into the area so surgical procedure in 2 days and we'll discuss was the next step later on and whether to need to be transferred to [facility] or [facility]. Is a planning to do surgical evaluation of her vocal cord In the meantime he recommended Xanax for her panic attack which happens once she has periods that informed/liquids. Also recommended to continue with steroids. And the cold GI for a consult as reflux disease by contribute to her symptoms. CT of the neck: Tracheostomy tube is in place 09/28/2020 Patient has another episode of choking this morning after this episode I saw the patient and she looks stable and breathing easily through her tracheostomy tube, she states that this episode happens immediately after she ate, it looks like Xanax doing some help. Surgery ENT team trying to do surgical evacuation tomorrow, as preop evaluation patient at some risk from this procedure tomorrow however benefits more than the risks. We will check labs tomorrow Review of Systems CONSTITUTIONAL: No fever, no malaise, no fatigue. HEENT: No recent visual problems or hearing problems. Denied any sore throat. CARDIOVASCULAR: No orthopnea, PND, no palpitations, no syncope. PULMONARY: No shortness of breath, no cough, no hemoptysis. GASTROINTESTINAL: No diarrhea, no nausea, no vomiting, no abdominal pain. Normoactive bowel sounds. NEUROLOGICAL: No headaches, no weakness, no numbness. Active Medications Generic Name Dose Route Start Last Admin Trade Name Freq PRN Reason Stop Dose Admin Acetaminophen 650 mg 09/25/20 20:23 09/27/20 07:23 Acetaminophen Tab 325 Mg Tab PO 650 mg Q6HR PRN Administration Mild Pain or Fever > 100.5 Albuterol/Ipratropium 3 ml 09/25/20 20:30 09/28/20 21:15 Ipratropium-Albuterol 3 Ml Neb INHALATION 3 ml RT-Q6H DEYVI Administration Alprazolam 0.25 mg 09/27/20 09:45 09/28/20 22:23 Alprazolam 0.25 Mg Tab PO 0.25 mg TID DEYVI Administration Alprazolam 0.25 mg 09/27/20 09:44 Alprazolam 0.25 Mg Tab PO TID PRN Anxiety Amlodipine Besylate 5 mg 09/27/20 09:00 09/28/20 07:56 Amlodipine 5 Mg Tab PO 5 mg DAILY DEYVI Administration Calcium Carbonate/Glycine 500 mg 09/27/20 09:34 09/27/20 09:42 Calcium Carbonate 500 Mg Chewable PO 500 mg TID PRN Administration Heartburn Dexamethasone Sodium Phosphate 5 mg 09/28/20 08:00 09/28/20 22:23 Dexamethasone Sod Phosphate 10 Mg/Ml 1 Ml Vial IV 09/29/20 00:01 5 mg Q8HR DEYVI Administration Dexamethasone Sodium Phosphate 2 mg 09/29/20 08:00 Dexamethasone Sod Phosphate 4 Mg/Ml 1 Ml Vial IV 09/29/20 16:01 Q8HR DEYVI Sodium Chloride 1,000 mls @ 20 mls/hr 09/25/20 20:30 09/28/20 22:16 Saline 0.9% IV Not Given .Q24H DEYVI Sodium Chloride 1,000 mls @ 75 mls/hr 09/27/20 08:00 09/28/20 16:38 Saline 0.9% IV 75 mls/hr .[id number] DEYVI Administration Levothyroxine Sodium 50 mcg 09/27/20 09:00 09/28/20 05:39 Levothyroxine 50 Mcg Tab PO 50 mcg DAILY@0630 DEYVI Administration Naloxone HCl 0.2 mg 09/25/20 20:23 Naloxone 0.4 Mg/Ml 1 Ml Vial IV Q2M PRN Opioid Reversal Ondansetron HCl 4 mg 09/25/20 20:23 Ondansetron 4 Mg/2 Ml Vial IVP Q8HR PRN Nausea And Vomiting Pantoprazole Sodium 40 mg 09/28/20 17:30 09/28/20 16:37 Pantoprazole 40 Mg Tablet PO 40 mg AC-BID DEYVI Administration Temazepam 15 mg 09/28/20 11:36 Temazepam 15 Mg Cap PO HS PRN Insomnia Tramadol HCl 25 mg 09/27/20 08:00 09/28/20 19:57 Tramadol 50 Mg Tab PO 25 mg Q12H DEYVI Administration Objective - Vital Signs Vital signs: Vital Signs Temp 97.8 F 09/28/20 14:00 Pulse 91 09/28/20 16:22 Resp 17 09/28/20 16:22 BP 142/81 09/28/20 16:22 Pulse Ox 93 L 09/28/20 16:43 Intake & Output 11/30/20 12/01/20 12/01/20 18:59 06:59 18:59 Intake Total 732 600 Balance 732 600 Intake: IV 600 Sodium Chloride 0.9% 1, 600 000 ml @ 75 mls/hr IV . [id number] [facility] Rx#:[id number] Oral 732 Other: Voiding Method Toilet Toilet Toilet # Voids 3 1 - Exam GENERAL: The patient is alert and oriented x3, not in any acute distress. Well developed, well nourished. -HEENT: tracheostomy is in place, patient can talk by blocking the tracheostomy opening with her finger , Pupils are round and equally reacting to light. EOMI. No scleral icterus. No conjunctival pallor. Normocephalic, atraumatic. No pharyngeal erythema. No thyromegaly. CARDIOVASCULAR: S1 and S2 present. No murmurs, rubs, or gallops. PULMONARY: Chest is clear to auscultation, no wheezing or crackles. ABDOMEN: Soft, nontender, nondistended, normoactive bowel sounds. No palpable organomegaly. MUSCULOSKELETAL: No joint swelling or deformity. EXTREMITIES: No cyanosis, clubbing, or pedal edema. NEUROLOGICAL: Gross neurological examination did not reveal any focal deficits. SKIN: No rashes. 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 -DVT prophylaxis Plan: This is a pleasant 84 years old female presents with tracheostomy narrowing causing shortness of breath. Continue with breathing treatment. Frequent suctioning. Follow-up ENT consult. We will do x-ray of the soft tissue of the neck Labs and medication were reviewed.. Continue same treatment. Continue with symptomatic treatment. Resume home medication. Monitor lytes and vitals. DVT and GI prophylaxis. Further recommendations depends on the clinical course of the patient DVT prophylaxis: Subcutaneous heparin GI Prophylaxis: Pepcid Prognosis is guarded
--- NOTE | 2020-09-28 23:20 | CONS ---
CONSULTATION DATE OF DICTATION: September 28, 2020. REASON FOR CONSULTATION: Severe GERD. HISTORY OF PRESENT ILLNESS: The patient is an 84-year-old pleasant white female shortness of breath with increased secretions of her tracheostomy and small bloody discharge. The patient has history of tracheostomy placement about 2 years ago for issues related to laryngeal/vocal cord paralysis following thyroidectomy 2 years ago. She has seen multiple ENT in the past and presently being evaluated by Dr. Moreno Watts who schedule her for laryngoscopy this Sunday. In the meantime, patient has been complaining of severe GERD for the last 2 years duration. Her symptoms have been progressively getting worse since the tracheostomy. She has daily acid reflux. She has been taking Nexium 40 mg daily. Still has passive regurgitation. The patient has choking episodes. She has some discomfort in the throat and burning in her throat area. She denies any abdominal pain. No nausea, no vomiting. PAST MEDICAL HISTORY: Significant for GERD, hypertension, hyperlipidemia, degenerative joint disease, hypothyroidism. PAST SURGICAL HISTORY: Tracheostomy 2 years ago, thyroidectomy, appendectomy, hysterectomy, bilateral cataract surgery, right hip replacement, multiple throat surgeries, rotator cuff repair. SOCIAL HISTORY: No smoking, no alcohol use. MEDICATIONS: Medications at home include Synthroid, Norvasc, Ensure, tramadol. FAMILY HISTORY: Daughter had leukemia and lung cancer. Mother had COPD. Father had leukemia. REVIEW OF SYSTEMS: CARDIOPULMONARY: No chest pain. She does complain of increased coughing with bloody secretions. NEUROLOGY: Unremarkable. PSYCHIATRIC: Unremarkable. ENT/VISION: Unremarkable. GI: As mentioned above. CONSTITUTIONAL: No recent weight loss. No fever, chills, night sweats. ENT: History of tracheostomy 2 years ago as mentioned above. ENDOCRINE: Unremarkable. PHYSICAL EXAMINATION: She appears comfortable. No apparent distress. VITAL SIGNS: Stable. Blood pressure is 146/80, pulse rate 106, temperature 97.8. HEENT: Examination unremarkable. Conjunctivae pink. Sclerae anicteric HEENT examination evidence of tracheostomy. HEART: Regular rate and rhythm. ABDOMEN: Soft. Bowel sounds are positive. Nontender, nondistended. EXTREMITIES: No pedal edema. SKIN: No rashes. NEUROLOGIC: Alert and oriented x3. No focal deficits. LABS: From yesterday, WBC 15.5, hemoglobin 12.6, platelets normal. Basic metabolic panel is within normal limits. PT, INR is normal. BUN 22, creatinine 1.02. Coronavirus PCR is negative. IMPRESSION: 1. History of tracheostomy 2 years ago for vocal cord paralysis following thyroidectomy, presently having increased secretions with blood-tinged. ENT following the patient closely. 2. Severe gastroesophageal reflux disease for the last 2 years, maintained on Nexium 40 mg daily despite which she continues to remain symptomatic with severe passive regurgitation, choking episodes, intermittent dysphagia to solids. 3. History of hypothyroidism. 4. History of hypertension. RECOMMENDATIONS: 1. Discontinue Nexium and start on Protonix 40 mg twice daily. 2. Anti-reflux measures. 3. Will proceed with an upper endoscopy as requested by the patient to rule out complicated reflux disease. She will be scheduled for EGD tomorrow. 4. Continue with symptomatic and supportive care. Thank you for this consultation. We will follow with you closely. LAUREN / ROBBIN: [id number] /
[2020-09-29] MEDS: IPRATROPIUM-ALBUTEROL 3 ML NEB INHALATION SCH ×4 (00:10→19:36)
[2020-09-29] MEDS: SODIUM CHLORIDE 0.9% 1,000 ML IV SCH ×3 (01:38→20:37)
[2020-09-29] MEDS: LEVOTHYROXINE 50 MCG TAB PO SCH (05:25)
[2020-09-29 06:13] LABS: Basophils % (A) 0 %; Eosinophils % (A) 0 %; HCT 35.8 % (34.0-46.0); HGB 11.6 gm/dL (11.4-16.0); Lymphocytes # (A) 0.5 k/uL (1.0-4.8); Lymphocytes % (A) 3 %; MCH 27.9 pg (25.0-35.0); MCHC 32.5 g/dL (31.0-37.0); MCV 85.7 fL (80.0-100.0); Mean Platelet Volume 7.5; Monocytes # (A) 0.4 k/uL (0-1.0); Monocytes % (A) 3 %; Neutrophils # (A) 15.3 k/uL (1.3-7.7); Neutrophils % (A) 94 %; Platelet Count 338 k/uL (150-450); RBC 4.18 m/uL (3.80-5.40); RDW 13.6 % (11.5-15.5); WBC 16.3 k/uL (3.8-10.6)
[2020-09-29] MEDS: ALPRAZolam 0.25 MG TAB PO SCH ×3 (07:31→20:33)
[2020-09-29] MEDS: PANTOPRAZOLE 40 MG TABLET PO SCH ×2 (07:31→16:44)
[2020-09-29] MEDS: amLODIPine 5 MG TAB PO SCH (07:31)
[2020-09-29] MEDS: traMADol 50 MG TAB PO SCH ×2 (07:32→20:33)
[2020-09-29] MEDS: DEXAMETHASONE SOD PHOSPHATE 4 MG/ML 1 ML VIAL IV SCH ×2 (07:34→16:44)
[2020-09-29 10:16] LABS: African American GFR (CKD) 53.4 (60.0-200.0); BUN/Creat Ratio 30.91 Ratio (12.00-20.00); Calcium 9.1 mg/dL (8.7-10.3); Non-African American GFR(CKD) 46.1 (60.0-200.0); Potassium 4.4 mmol/L (3.5-5.5)
[2020-09-29] MEDS ORDERED: PROPOFOL 10 MG/ML 20 ML VIAL IV ONE (12:49)
[2020-09-29] MEDS ORDERED: LIDOCAINE 1% INJ 10MG/ML (20 ML MDV) ONE (12:49)
[2020-09-29] MEDS ORDERED: IV FLUID CONTINUATION 1,000 ML IV ONE ×2 (12:52)
--- NOTE | 2020-09-29 12:59 | P.PCN ---
Date of Procedure: 09/29/20 Procedure(s) Performed: BRIEF HISTORY: Patient is a 84-year-old, pleasant, white female scheduled for an upper endoscopy as a part of evaluation of severe GERD for the last 2 years duration. She continues to have symptoms despite being on Nexium 40 mg daily. PROCEDURE PERFORMED: Esophagogastroduodenoscopy. PREOPERATIVE DIAGNOSIS: History of GERD for the last 2 years IV sedation per anesthesia. PROCEDURE: After informed consent was obtained, the patient was brought into the endoscopy unit. IV sedation was administered by Anesthesia under continuous monitoring. Initially the Olympus GIF-140 video endoscope was inserted into the mouth. Esophagus intubated without any difficulty. It was gradually advanced into the stomach and duodenum and carefully examined. The bulb and the second part of the duodenum appeared normal. The scope at this time was withdrawn to the stomach, adequately insufflated with air, and upon careful examination, mucosa of the antrum, a normal. There was large amount of retained food in the body and fundus of the stomach suggestive of gastroparesis. The visualized mucosa of the body, cardia and the fundus appeared normal. The scope was then withdrawn into the esophagus. moderate size hiatal hernia noted. The GE junction was located at 30 cm from the incisors. The esophagus appeared normal. There were no erosions or ulcerations seen and the patient tolerated the procedure well. IMPRESSION: 1. Moderate size hiatal hernia but no evidence of esophagitis or Coffman's esophagus 2. Large amount of retained solid food in the stomach suggestive of gastroparesis. RECOMMENDATIONS: The findings of this examination were discussed with the patient. At this time will continue with Protonix 40 mg twice daily, small frequent meals and was educated about antireflux measures.
--- NOTE | 2020-09-29 19:28 | P.PN ---
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 She was recently discharged from the hospital on 09/22/20, 4 days ago for shortness of breath related to her tracheostomy, ENT physician recommended dexamethasone 10 mg every 8 hours by 2 doses then 5 mg every 8 hours for 2 doses and then 2 mg for 1 dose. And they recommended to switch her tracheostomy tube from #6-English she currently has 2-English #4 Patient states that she has dyspnea on exertion since tracheostomy was placed for her about 2 years ago and she has SECRETIONS for several months however over the last 2 months she noticed there was some blood coming with the secretions and small pieces as well, also she says that at times this bout get dried and blocks her breathing which make her choking and anxious fearing she could not get enough air. When she came last week for the same think she states nothing Changed Vitals are stable and she is saturating 95% on 5 L via trach collar Labs showing mild leukocytosis at 15.5 but she was recently on dexamethasone. Creatinine 1.1, sodium 131 Coronal virus not chest x-ray: Mild chronic elevation of the right diaphragm. Mild subsegmental atelectasis right lung base. No heart failure. 09/27/2020 Patient has significant episodes of choking this morning with a heart cath in her secretion of her tracheostomy opening. A team was called and patient were able to be managed with IV steroids , breathing treatment and some normal saline into the area to loosen the secretions. Currently when I saw the patient she was lying in bed breathing comfortably, patient she states that she's having these episodes more frequent. And that it happened to her before. Pulmonary team yesterday were consulted and they felt they could not upper margin and recommended ENT consult. ENT physician recommended to transfer the p atient from emergency room to her surgeon at [facility] however that's surgeon rejected the transfer stating that she has multiple admissions with the same complaints. Besides because of the covid pandemic situation then most of the hospital is tied in [facility] and it takes 4 days currently for the patient to be transferred to [facility] Eventually ENT service are planning to look into the area so surgical procedure in 2 days and we'll discuss was the next step later on and whether to need to be transferred to [facility] or [facility]. Is a planning to do surgical evaluation of her vocal cord In the meantime he recommended Xanax for her panic attack which happens once she has periods that informed/liquids. Also recommended to continue with steroids. And the cold GI for a consult as reflux disease by contribute to her symptoms. CT of the neck: Tracheostomy tube is in place 09/28/2020 Patient has another episode of choking this morning after this episode I saw the patient and she looks stable and breathing easily through her tracheostomy tube, she states that this episode happens immediately after she ate, it looks like Xanax doing some help. Surgery ENT team trying to do surgical evacuation tomorrow, as preop evaluation patient at some risk from this procedure tomorrow however benefits more than the risks. We will check labs tomorrow 09/29/2020 Patient today underwent EGD showing no esophagitis or Coffman's esophagitis but she has retained food in the stomach suspicious of gastroparesis It is in time ENT input is appreciated, they are planning to take the patient for for evaluation under general anesthesia delivered into the vocal cords and the degree of paralysis and any previous procedures. Also the planning to do bronchoscopy for evaluation of the bronchial tree and also replacing her tracheostomy tube to restricted to #6 We'll keep following with the patient other than that she looks clinically stable but in guarded situation Review of Systems CONSTITUTIONAL: No fever, no malaise, no fatigue. HEENT: No recent visual problems or hearing problems. Denied any sore throat. CARDIOVASCULAR: No orthopnea, PND, no palpitations, no syncope. PULMONARY: No shortness of breath, no cough, no hemoptysis. GASTROINTESTINAL: No diarrhea, no nausea, no vomiting, no abdominal pain. Normoactive bowel sounds. NEUROLOGICAL: No headaches, no weakness, no numbness. Active Medications Generic Name Dose Route Start Last Admin Trade Name Freq PRN Reason Stop Dose Admin Acetaminophen 650 mg 09/25/20 20:23 09/27/20 07:23 Acetaminophen Tab 325 Mg Tab PO 650 mg Q6HR PRN Administration Mild Pain or Fever > 100.5 Albuterol/Ipratropium 3 ml 09/25/20 20:30 09/29/20 12:31 Ipratropium-Albuterol 3 Ml Neb INHALATION 3 ml RT-Q6H DEYVI Administration Alprazolam 0.25 mg 09/27/20 09:45 09/29/20 16:44 Alprazolam 0.25 Mg Tab PO 0.25 mg TID DEYVI Administration Alprazolam 0.25 mg 09/27/20 09:44 Alprazolam 0.25 Mg Tab PO TID PRN Anxiety Amlodipine Besylate 5 mg 09/27/20 09:00 09/29/20 07:31 Amlodipine 5 Mg Tab PO 5 mg DAILY DEYVI Administration Calcium Carbonate/Glycine 500 mg 09/27/20 09:34 09/27/20 09:42 Calcium Carbonate 500 Mg Chewable PO 500 mg TID PRN Administration Heartburn Sodium Chloride 1,000 mls @ 20 mls/hr 09/25/20 20:30 09/28/20 22:16 Saline 0.9% IV Not Given .Q24H DEYVI Sodium Chloride 1,000 mls @ 50 mls/hr 09/27/20 08:00 09/29/20 19:02 Saline 0.9% IV Not Given .Q20H DEYVI Levothyroxine Sodium 50 mcg 09/27/20 09:00 09/29/20 05:25 Levothyroxine 50 Mcg Tab PO Not Given DAILY@0630 DEYVI Naloxone HCl 0.2 mg 09/25/20 20:23 Naloxone 0.4 Mg/Ml 1 Ml Vial IV Q2M PRN Opioid Reversal Ondansetron HCl 4 mg 09/25/20 20:23 Ondansetron 4 Mg/2 Ml Vial IVP Q8HR PRN Nausea And Vomiting Pantoprazole Sodium 40 mg 09/28/20 17:30 09/29/20 16:44 Pantoprazole 40 Mg Tablet PO 40 mg AC-BID DEYVI Administration Temazepam 15 mg 09/28/20 11:36 Temazepam 15 Mg Cap PO HS PRN Insomnia Tramadol HCl 25 mg 09/27/20 08:00 09/29/20 07:32 Tramadol 50 Mg Tab PO 25 mg Q12H DEYVI Administration Objective - Vital Signs Vital signs: Vital Signs Temp 97.4 F L 09/29/20 18:25 Pulse 87 09/29/20 18:25 Resp 17 09/29/20 18:25 BP 133/67 09/29/20 18:25 Pulse Ox 94 L 09/29/20 18:25 Intake & Output 09/28/20 09/29/20 09/29/20 18:59 06:59 18:59 Intake Total 600 675 100 Balance 600 675 100 Intake: IV 600 675 100 Sodium Chloride 0.9% 1, 600 675 000 ml @ 75 mls/hr IV . [id number] [facility] Rx#:[id number] Other: Voiding Method Toilet Toilet Toilet - Exam GENERAL: The patient is alert and oriented x3, not in any acute distress. Well developed, well nourished. -HEENT: tracheostomy is in place, patient can talk by blocking the tracheostomy opening with her finger , Pupils are round and equally reacting to light. EOMI. No scleral icterus. No conjunctival pallor. Normocephalic, atraumatic. No pharyngeal erythema. No thyromegaly. CARDIOVASCULAR: S1 and S2 present. No murmurs, rubs, or gallops. PULMONARY: Chest is clear to auscultation, no wheezing or crackles. ABDOMEN: Soft, nontender, nondistended, normoactive bowel sounds. No palpable organomegaly. MUSCULOSKELETAL: No joint swelling or deformity. EXTREMITIES: No cyanosis, clubbing, or pedal edema. NEUROLOGICAL: Gross neurological examination did not reveal any focal deficits. SKIN: No rashes. No petechiae - Labs CBC & Chem 7: 09/29/20 05:30 09/29/20 05:30 Labs: Abnormal Lab Results - Last 24 Hours (Table) 09/29/20 09/29/20 Range/Units 05:30 05:30 WBC 16.3 H (3.8-10.6) k/uL Neutrophils # 15.3 H (1.3-7.7) k/uL Lymphocytes # 0.5 L (1.0-4.8) k/uL BUN 34.0 H (9.0-27.0) mg/dL Est GFR (CKD-EPI)AfAm 53.4 L (60.0-200.0) Est GFR (CKD-EPI)NonAf 46.1 L (60.0-200.0) BUN/Creatinine Ratio 30.91 H (12.00-20.00) Ratio Glucose 130 H (70-110) mg/dL Assessment and Plan Assessment: -Shortness of breath with secretion and sometimes bloody: Secondary to obstruction at the level of tracheostomy Gastroparesis- -Hypertension -Hyperlipidemia -Hypothyroidism -Gastroesophageal reflux disease -History of goiter status post removal of thyroid 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 -DVT prophylaxis Plan: This is a pleasant 84 years old female presents with tracheostomy narrowing causing shortness of breath. Continue with breathing treatment. Frequent suctioning. Follow-up ENT consult with plan for surgery tomorrow to look into the tracheostomy and to place the tube to a 1. Labs and medication were reviewed.. Continue same treatment. Continue with symptomatic treatment. Resume home medication. Monitor lytes and vitals. DVT and GI prophylaxis. Further recommendations depends on the clinical course of the patient DVT prophylaxis: Subcutaneous heparin GI Prophylaxis: Pepcid Prognosis is guarded
[2020-09-29] MEDS: CALCIUM CARBONATE 500 MG CHEWABLE PO PRN (21:48)
--- NOTE | 2020-09-30 00:25 | PN ---
PROGRESS NOTE DATE OF PROGRESS NOTE: 09/29/2000 SUBJECTIVE: Vital signs stable. The patient has no somatic complaints at this time. She states that she is breathing adequately and still occasionally has coughing/mild choking spells if she eats too fast. OBJECTIVE: HEENT: Patient is normocephalic. Tympanic membranes are normal. Tracheostomy site appears to be intact, clean and patent. The remainder of the exam is unremarkable. ASSESSMENT: Shortness of breath, etiology? PLAN: The patient is presently scheduled to be taken to surgery on 10/01/2020, at approximately 2 p.m. and at that time, she will undergo a suspension microlaryngoscopy, bronchoscopy, and possible change of #6 metal trach to a #6 Shiley fenestrated plastic trach tube under general anesthesia. MMODL / IJN: [id number] /
[2020-09-30] MEDS: IPRATROPIUM-ALBUTEROL 3 ML NEB INHALATION SCH ×4 (01:16→21:46)
[2020-09-30] MEDS: SODIUM CHLORIDE 0.9% 1,000 ML IV SCH ×3 (03:29→23:56)
[2020-09-30] MEDS: LEVOTHYROXINE 50 MCG TAB PO SCH (05:30)
[2020-09-30] MEDS: traMADol 50 MG TAB PO SCH ×2 (07:20→20:52)
[2020-09-30] MEDS: ALPRAZolam 0.25 MG TAB PO SCH ×3 (07:20→20:53)
[2020-09-30] MEDS: PANTOPRAZOLE 40 MG TABLET PO SCH ×2 (07:21→16:22)
[2020-09-30] MEDS: amLODIPine 5 MG TAB PO SCH (07:21)
--- NOTE | 2020-09-30 15:14 | P.PN ---
Subjective Progress Note Date: 09/30/20 Principal diagnosis: Shortness of breath, Severe GERD This is a pleasant 84-year-old white female patient who came in with complaints of shortness of breath with increased secretions from her tracheostomy with small bloody discharge. 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 She was also complaining of severe acid reflux, especially after drinking water. She states that she has been belching throughout the day. She denies any abdominal pain, nausea, or vomiting. She underwent an upper endoscopy yesterday which revealed a moderate sized hiatal h ernia but no evidence of esophagitis or Coffman's esophagus. She had a large amount of retained solid food in the stomach suggestive of gastroparesis. Objective - Vital Signs Vital signs: Vital Signs Temp 97.5 F L 09/30/20 07:17 Pulse 76 09/30/20 08:00 Resp 17 09/30/20 08:00 BP 161/72 09/30/20 07:17 Pulse Ox 95 09/30/20 07:17 Intake & Output 09/29/20 09/30/20 09/30/20 18:59 06:59 18:59 Intake Total 100 Balance 100 Intake: IV 100 Other: Voiding Method Toilet Toilet Toilet # Voids 2 5 - Exam General appearance: The patient is alert, oriented, in no acute distress. HET: Head is normocephalic and atraumatic. Conjunctiva pink. Sclera anicteric. Neck: Supple without lymphadenopathy. Tracheostomy present. Abdomen: Soft, nontender, nondistended with bowel sounds. No guarding or rigidity. Extremities: Normal skin color and turgor. No pedal edema Neurological: No focal deficits. Alert and oriented 3. - Labs CBC & Chem 7: 09/29/20 05:30 09/29/20 05:30 Assessment and Plan Assessment: 1. 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 ENT following the patient closely. 2. Severe gastroesophageal reflux disease for the last 2 years duration, maintained on Nexium 40 mg daily despite which continues to remain symptomatic with severe passive regurgitation, choking episodes, intermittent dysphagia to solids. Status post upper endoscopy revealed moderate size hiatal hernia but no evidence of esophagitis or Coffman's esophagus, there was a large amount of retained solid food in the stomach suggestive of gastroparesis. 3. History of hypothyroidism 4. History of hypertension Plan: 1. Continue Protonix 40 mg twice daily 2. Antireflux measures 3. Patient is status post upper endoscopy report as above 4. Discuss with patient to eat small frequent meals related to findings suggestive of gastroparesis 5. Patient is scheduled tomorrow with Dr. Watts for a suspension microlaryngoscopy, bronchoscopy, and possible change of trach tube 6. We will continue to follow closely Dr. Laina Myers I agree with the dictator's note, documented as a scribe by Chantel Mata.
--- NOTE | 2020-09-30 22:32 | PN ---
PROGRESS NOTE DATE OF SERVICE: 09/30/2020. SUBJECTIVE: Vital signs stable. The patient has no somatic complaints at this time. OBJECTIVE: HEENT: Patient is normocephalic. Tracheostomy site/stoma appears to be intact and patent. Remainder of the head and neck exam is unremarkable. ASSESSMENT: Shortness of breath, etiology? PLAN: The patient is scheduled to undergo a suspension microlaryngoscopy with bronchoscopy in the morning. She is also scheduled at the same time to undergo a possible change of her tracheostomy tube from the current #6 metal tracheostomy tube to a fenestrated Shiley #6 or #4 tracheostomy tube in the morning. Both procedures will be done under general anesthesia. The procedures were discussed with the patient and also with the patient's daughter via the telephone, and all of their questions were answered. The patient is tentatively scheduled for her procedures to be done at [facility] at approximately 1:30 p.m. on 10/01/2020. MMODL / ROBBIN: [id number] / MTDD
--- NOTE | 2020-09-30 23:46 | P.PN ---
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 She was recently discharged from the hospital on 09/22/20, 4 days ago for shortness of breath related to her tracheostomy, ENT physician recommended dexamethasone 10 mg every 8 hours by 2 doses then 5 mg every 8 hours for 2 doses and then 2 mg for 1 dose. And they recommended to switch her tracheostomy tube from #6-Nepali she currently has 2-Nepali #4 Patient states that she has dyspnea on exertion since tracheostomy was placed for her about 2 years ago and she has SECRETIONS for several months however over the last 2 months she noticed there was some blood coming with the secretions and small pieces as well, also she says that at times this bout get dried and blocks her breathing which make her choking and anxious fearing she could not get enough air. When she came last week for the same think she states nothing Changed Vitals are stable and she is saturating 95% on 5 L via trach collar Labs showing mild leukocytosis at 15.5 but she was recently on dexamethasone. Creatinine 1.1, sodium 131 Coronal virus not chest x-ray: Mild chronic elevation of the right diaphragm. Mild subsegmental atelectasis right lung base. No heart failure. 09/27/2020 Patient has significant episodes of choking this morning with a heart cath in her secretion of her tracheostomy opening. A team was called and patient were able to be managed with IV steroids , breathing treatment and some normal saline into the area to loosen the secretions. Currently when I saw the patient she was lying in bed breathing comfortably, patient she states that she's having these episodes more frequent. And that it happened to her before. Pulmonary team yesterday were consulted and they felt they could not upper margin and recommended ENT consult. ENT physician recommended to transfer the p atient from emergency room to her surgeon at [facility] however that's surgeon rejected the transfer stating that she has multiple admissions with the same complaints. Besides because of the covid pandemic situation then most of the hospital is tied in [facility] and it takes 4 days currently for the patient to be transferred to [facility] Eventually ENT service are planning to look into the area so surgical procedure in 2 days and we'll discuss was the next step later on and whether to need to be transferred to [facility] or [facility]. Is a planning to do surgical evaluation of her vocal cord In the meantime he recommended Xanax for her panic attack which happens once she has periods that informed/liquids. Also recommended to continue with steroids. And the cold GI for a consult as reflux disease by contribute to her symptoms. CT of the neck: Tracheostomy tube is in place 09/28/2020 Patient has another episode of choking this morning after this episode I saw the patient and she looks stable and breathing easily through her tracheostomy tube, she states that this episode happens immediately after she ate, it looks like Xanax doing some help. Surgery ENT team trying to do surgical evacuation tomorrow, as preop evaluation patient at some risk from this procedure tomorrow however benefits more than the risks. We will check labs tomorrow 09/29/2020 Patient today underwent EGD showing no esophagitis or Coffman's esophagitis but she has retained food in the stomach suspicious of gastroparesis It is in time ENT input is appreciated, they are planning to take the patient for for evaluation under general anesthesia delivered into the vocal cords and the degree of paralysis and any previous procedures. Also the planning to do bronchoscopy for evaluation of the bronchial tree and also replacing her tracheostomy tube to restricted to #6 We'll keep following with the patient other than that she looks clinically stable but in guarded situation 09/30/2020 Patient is going for surgical procedure tomorrow by ENT team to look into the tracheostomy site and vocal cords Currently patient is sitting in bed comfortable with no distress. Labs and vitals are stable GI and the team and they recommended a small frequent meals for her gas troparesis Objective - Vital Signs Vital signs: Vital Signs Temp 97.8 F 09/30/20 13:51 Pulse 85 09/30/20 13:51 Resp 18 09/30/20 13:51 BP 132/68 09/30/20 13:51 Pulse Ox 94 L 09/30/20 13:51 Intake & Output 09/29/20 09/30/20 09/30/20 18:59 06:59 18:59 Intake Total 100 Balance 100 Intake: IV 100 Other: Voiding Method Toilet Toilet Toilet # Voids 2 5 - Exam GENERAL: The patient is alert and oriented x3, not in any acute distress. Well d eveloped, well nourished. -HEENT: tracheostomy is in place, patient can talk by blocking the tracheostomy opening with her finger , Pupils are round and equally reacting to light. EOMI. No scleral icterus. No conjunctival pallor. Normocephalic, atraumatic. No pharyngeal erythema. No thyromegaly. CARDIOVASCULAR: S1 and S2 present. No murmurs, rubs, or gallops. PULMONARY: Chest is clear to auscultation, no wheezing or crackles. ABDOMEN: Soft, nontender, nondistended, normoactive bowel sounds. No palpable organomegaly. MUSCULOSKELETAL: No joint swelling or deformity. EXTREMITIES: No cyanosis, clubbing, or pedal edema. NEUROLOGICAL: Gross neurological examination did not reveal any focal deficits. SKIN: No rashes. No petechiae - Labs CBC & Chem 7: 09/29/20 05:30 09/29/20 05:30 Assessment and Plan Assessment: -Shortness of breath with secretion and sometimes bloody: Secondary to obstruction at the level of tracheostomy -Gastroparesis -Hypertension -Hyperlipidemia -Hypothyroidism -Gastroesophageal reflux disease -History of goiter status post removal of thyroid 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 -DVT prophylaxis Plan: This is a pleasant 84 years old female presents with tracheostomy narrowing causing shortness of breath. Continue with breathing treatment. Frequent suctioning. Follow-up ENT consult with plan for surgery tomorrow to look into the tracheostomy and to place the tube to a 1. Labs and medication were reviewed.. Continue same treatment. Continue with symptomatic treatment. Resume home medication. Monitor lytes and vitals. DVT and GI prophylaxis. Further recommendations depends on the clinical course of the patient DVT prophylaxis: Subcutaneous heparin GI Prophylaxis: Pepcid Prognosis is guarded
[2020-10-01] MEDS: IPRATROPIUM-ALBUTEROL 3 ML NEB INHALATION SCH ×4 (02:03→21:06)
[2020-10-01] MEDS: ACETAMINOPHEN TAB 325 MG TAB PO PRN (03:29)
[2020-10-01] MEDS ORDERED: LIDOCAINE 1% (10MG/ML) FOR IV START INTRADERMA PRN (05:00)
[2020-10-01] MEDS ORDERED: Pre Op ABX Message 1 EACH MISC MISCELLANE ONE (05:00)
[2020-10-01] MEDS ORDERED: DEXAMETHASONE SOD PHOSPHATE 4 MG/ML 1 ML VIAL IV ONE (05:00)
[2020-10-01] MEDS: LEVOTHYROXINE 50 MCG TAB PO SCH (05:42)
[2020-10-01] MEDS: ALPRAZolam 0.25 MG TAB PO SCH ×3 (08:55→22:25)
[2020-10-01] MEDS: PANTOPRAZOLE 40 MG TABLET PO SCH ×2 (08:57→17:54)
[2020-10-01] MEDS: traMADol 50 MG TAB PO SCH ×2 (08:58→22:25)
[2020-10-01] MEDS: amLODIPine 5 MG TAB PO SCH (08:58)
[2020-10-01] MEDS ORDERED: ACYCLOVIR SODIUM 500 MG in SODIUM CHLORIDE 0.9% 100 ML IVPB STA (11:58)
[2020-10-01] MEDS: GABAPENTIN 300 MG CAP PO SCH ×4 (12:06→22:25)
--- NOTE | 2020-10-01 12:31 | P.PN ---
Subjective Progress Note Date: 10/01/20 Principal diagnosis: Shortness of breath, Severe GERD This is a pleasant 84-year-old white female patient who came in with complaints of shortness of breath with increased secretions from her tracheostomy with small bloody discharge. 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 She was also complaining of severe acid reflux, especially after drinking water. He is nothing by mouth today as she is scheduled for suspension microlaryngoscopy with bronchoscopy,possible change trach tube. She denies any abdominal pain, nausea, or vomiting. She had to cheney ction through the night from her tracheostomy. She underwent an upper endoscopy this admission which revealed a moderate sized hiatal hernia but no evidence of esophagitis or Coffman's esophagus. She had a large amount of retained solid food in the stomach suggestive of gastroparesis. Objective - Vital Signs Vital signs: Vital Signs Temp 97.4 F L 10/01/20 07:00 Pulse 76 10/01/20 08:53 Resp 17 10/01/20 07:00 BP 151/79 10/01/20 07:00 Pulse Ox 94 L 10/01/20 07:00 Intake & Output 09/30/20 10/01/20 10/01/20 18:59 06:59 18:59 Intake Total 240 Balance 240 Intake: Intake, IV Titration 240 Amount Sodium Chloride 0.9% 1, 240 000 ml @ 20 mls/hr IV . Q24H [facility] Rx#:[id number] Other: Voiding Method Toilet Toilet # Voids 2 - Exam General appearance: The patient is alert, oriented, in no acute distress. HET: Head is normocephalic and atraumatic. Conjunctiva pink. Sclera anicteric. Neck: Supple without lymphadenopathy. Tracheostomy present. Abdomen: Soft, nontender, nondistended with bowel sounds. No guarding or rigidity. Extremities: Normal skin color and turgor. No pedal edema Neurological: No focal deficits. Alert and oriented 3. - Labs CBC & Chem 7: 09/29/20 05:30 09/29/20 05:30 Assessment and Plan Assessment: 1. 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 ENT following the patient closely. 2. Severe gastroesophageal reflux disease for the last 2 years duration, albaro floresined on Nexium 40 mg daily despite which continues to remain symptomatic with severe passive regurgitation, choking episodes, intermittent dysphagia to solids. Status post upper endoscopy revealed moderate size hiatal hernia but no evidence of esophagitis or Coffman's esophagus, there was a large amount of retained solid food in the stomach suggestive of gastroparesis. 3. History of hypothyroidism 4. History of hypertension Plan: 1. Continue Protonix 40 mg twice daily 2. Antireflux measures 3. Patient is status post upper endoscopy report as above 4. Discuss with patient to eat small frequent meals related to findings suggestive of gastroparesis 5. Patient is scheduled tomorrow with Dr. Watts for a suspension microlaryngoscopy, bronchoscopy, and possible change of trach tube 6. We will continue to follow closely Dr. Laina Myers I agree with the dictator's note, documented as a scribe by Chantel Mata.
[2020-10-01] MEDS ORDERED: IV FLUID CONTINUATION 1,000 ML IV ONE (12:45)
[2020-10-01] MEDS ORDERED: ONDANSETRON 4 MG/2 ML VIAL IVP ONE (12:53)
[2020-10-01] MEDS ORDERED: PROPOFOL 10 MG/ML 20 ML VIAL IV ONE (14:02)
[2020-10-01] MEDS ORDERED: MIDAZOLAM 2 MG/2 ML VIAL ONE (14:02)
[2020-10-01] MEDS ORDERED: PHENYLEPHRINE 10 MG/ML VIAL ONE (14:02)
[2020-10-01] MEDS ORDERED: LIDOCAINE 1% INJ 10MG/ML (20 ML MDV) ONE (14:02)
[2020-10-01] MEDS ORDERED: HYDROmorphone 0.5 MG/0.5 ML SYRINGE IVP ONE ×2 (15:20→15:43)
[2020-10-01] MEDS ORDERED: SODIUM CHLORIDE 0.9% 1,000 ML IV ONE (16:00)
[2020-10-01] MEDS: LACTATED RINGERS 1,000 ML IV SCH (16:06)
[2020-10-01] MEDS ORDERED: ACETAMINOPHEN IV (For NPO) 1,000 MG in EMPTY BAG 1 BAG IVPB ONE (16:15)
[2020-10-01] MEDS: SODIUM CHLORIDE 0.9% 1,000 ML IV SCH ×2 (16:30→22:33)
[2020-10-01] MEDS ORDERED: ACYCLOVIR 200 MG CAP PO SCH (20:00)
[2020-10-01] MEDS ORDERED: ACYCLOVIR 400 MG/10 ML CUP PO SCH (20:00)
[2020-10-01] MEDS ORDERED: DEXAMETHASONE SOD PHOSPHATE 10 MG/ML 1 ML VIAL IV STA (22:34)
[2020-10-02] MEDS: LACTATED RINGERS 1,000 ML IV SCH (04:55)
[2020-10-02] MEDS: IPRATROPIUM-ALBUTEROL 3 ML NEB INHALATION SCH ×4 (05:36→20:05)
[2020-10-02] MEDS: LEVOTHYROXINE 50 MCG TAB PO SCH (05:50)
[2020-10-02] MEDS: ACETAMINOPHEN TAB 325 MG TAB PO PRN (05:53)
--- NOTE | 2020-10-02 08:08 | OP ---
OPERATIVE REPORT DATE OF SERVICE: 10/01/2020 PREOPERATIVE DIAGNOSIS: Shortness of breath, possible bilateral true vocal cord paralysis. POSTOPERATIVE DIAGNOSIS: Shortness of breath, left true vocal cord paralysis only. ANESTHESIA: General. OPERATIVE PROCEDURES: 1. Suspension microlaryngoscopy. 2. Rigid diagnostic bronchoscopy. 3. Change of #6 metal tracheostomy tube to a #6 fenestrated Shiley tracheostomy tube. OPERATING SURGEON: Dr. Watts. COMPLICATIONS: None. PROCEDURE: This patient was placed on the operating table in the supine position. The metal tracheostomy tube was removed and with very light IV sedation, a #6 endotracheal tube was inserted without much difficulty. The patient was administered general anesthesia without any complications. Next, once the patient was sedated, the patient was draped in usual and customary fashion following which, the laryngoscope was introduced into the patient's oropharynx and the entire oropharynx including the base of tongue, right and left piriform sinuses, vallecula, etc. were all inspected and found to be free of any suspicious lesions. Next, the tip of the laryngoscope was presented at the laryngeal introitus. Immediately, one could notice that there was a compromised laryngeal airway present. Because of the patient's numerous laryngeal surgeries, it was difficult to ascertain exactly what procedures had been performed. However, it was obvious that this patient's airway was quite narrowed, with the glottic chink (opening) was approximately 5 or 6 mm at the most. There appeared to be some atrophy of the left true vocal cord and the right true vocal cord appeared to be much larger than expected. It is possible that it was the right true vocal cord that was injected with Johnny paste instead of the left true vocal cord. Normally, you would want to inject the paralyzed true vocal cord,in this case the left true vocal cord in order to "beef" it up . In addition to this, the false vocal cords appeared to also be contributing to the patient's upper airway obstruction. The patient was anesthetized without using any type of paralytic agents in an effort to better assess the movement of the vocal cords. However, despite this measure, palpation of the cords and stimulation of the subglottic area, which generally will produce a vigorous cough reflex(even in an anesthetized patient). However, palpation of laryngeal structures elicited very little response, although there appeared to be slight movement of the right vocal cord, but this was not definitive. At this point, this portion of procedure was terminated and attention was directed towards the bronchoscopy. The medium Ash rigid bronchoscope was introduced into the oropharynx and was presented at the laryngeal introitus. It was passed through the vocal cords down to the level of the patient's endotracheal tube, which could be readily seen. As the recorder helper gravity prospecting gradually withdrew the endotracheal tube, the bronchoscope was advanced. Once the endotracheal tube was completely out, the bronchoscope was easily advanced down to the level of the patient's chaya. No evidence of any subglottic obstruction such as web, granulation tissue or any areas of bleeding were noted. The bronchoscope was subsequently withdrawn and the patient was once again reintubated easily by the Anesthesia Department through the patient's tracheostomy stoma. Finally, the tracheostomy tube was changed and that was accomplished by inserting a fenestrated #6 Shiley tracheostomy tube through the tracheostomy opening without any difficulty or bleeding. The appropriate inner cannula were put in place so that the patient could be ventilated while she was still asleep. The Anesthesia Department, once the patient was awake, would change the current cannula to the fenestrated cannula postoperatively. At this point, the procedure was terminated. There were no intraoperative complications. Unfortunately, it is difficult to truly assess the status of the patient's vocal cords at this point. I feel that the patient has only 1true vocal cord paralyzed(the left true vocal cord), but because of all of the surgical procedures that she has had performed on her larynx, at this point is very difficult to determine. The patient tolerated the procedure well and was returned to the recovery room in satisfactory condition. MMODTania / IJN: [id number] / TE
[2020-10-02 08:56] LABS: Basophils % (A) 0 %; Eosinophils # (A) 0.1 k/uL (0-0.7); Eosinophils % (A) 1 %; HCT 38.2 % (34.0-46.0); HGB 12.5 gm/dL (11.4-16.0); Lymphocytes # (A) 1.1 k/uL (1.0-4.8); Lymphocytes % (A) 9 %; MCH 28.5 pg (25.0-35.0); MCHC 32.6 g/dL (31.0-37.0); MCV 87.4 fL (80.0-100.0); Mean Platelet Volume 7.2; Monocytes # (A) 0.5 k/uL (0-1.0); Monocytes % (A) 4 %; Neutrophils # (A) 11.2 k/uL (1.3-7.7); Neutrophils % (A) 86 %; Platelet Count 261 k/uL (150-450); RBC 4.38 m/uL (3.80-5.40); RDW 13.6 % (11.5-15.5)
[2020-10-02 09:08] LABS: African American GFR (CKD) 61 (>60 ml/min/1.73 sqM); Anion Gap 5 mmol/L; Blood Urea Nitrogen 20 mg/dL (7-17); Calcium 7.6 mg/dL (8.4-10.2); Carbon Dioxide 26 mmol/L (22-30); Chloride 99 mmol/L (98-107); Glucose 59 mg/dL (74-99); Magnesium 1.8 mg/dL (1.6-2.3); Non-African American GFR(CKD) 53 (>60 ml/min/1.73 sqM); Potassium 3.9 mmol/L (3.5-5.1); Sodium 130 mmol/L (137-145)
--- NOTE | 2020-10-02 09:51 | P.PN ---
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 She was recently discharged from the hospital on 09/22/20, 4 days ago for shortness of breath related to her tracheostomy, ENT physician recommended dexamethasone 10 mg every 8 hours by 2 doses then 5 mg every 8 hours for 2 doses and then 2 mg for 1 dose. And they recommended to switch her tracheostomy tube from #6-Kazakh she currently has 2-Kazakh #4 Patient states that she has dyspnea on exertion since tracheostomy was placed for her about 2 years ago and she has SECRETIONS for several months however over the last 2 months she noticed there was some blood coming with the secretions and small pieces as well, also she says that at times this bout get dried and blocks her breathing which make her choking and anxious fearing she could not get enough air. When she came last week for the same think she states nothing Changed Vitals are stable and she is saturating 95% on 5 L via trach collar Labs showing mild leukocytosis at 15.5 but she was recently on dexamethasone. Creatinine 1.1, sodium 131 Coronal virus not chest x-ray: Mild chronic elevation of the right diaphragm. Mild subsegmental atelectasis right lung base. No heart failure. 09/27/2020 Patient has significant episodes of choking this morning with a heart cath in her secretion of her tracheostomy opening. A team was called and patient were able to be managed with IV steroids , breathing treatment and some normal saline into the area to loosen the secretions. Currently when I saw the patient she was lying in bed breathing comfortably, patient she states that she's having these episodes more frequent. And that it happened to her before. Pulmonary team yesterday were consulted and they felt they could not upper margin and recommended ENT consult. ENT physician recommended to transfer the p atient from emergency room to her surgeon at [facility] however that's surgeon rejected the transfer stating that she has multiple admissions with the same complaints. Besides because of the covid pandemic situation then most of the hospital is tied in [facility] and it takes 4 days currently for the patient to be transferred to [facility] Eventually ENT service are planning to look into the area so surgical procedure in 2 days and we'll discuss was the next step later on and whether to need to be transferred to [facility] or [facility]. Is a planning to do surgical evaluation of her vocal cord In the meantime he recommended Xanax for her panic attack which happens once she has periods that informed/liquids. Also recommended to continue with steroids. And the cold GI for a consult as reflux disease by contribute to her symptoms. CT of the neck: Tracheostomy tube is in place 09/28/2020 Patient has another episode of choking this morning after this episode I saw the patient and she looks stable and breathing easily through her tracheostomy tube, she states that this episode happens immediately after she ate, it looks like Xanax doing some help. Surgery ENT team trying to do surgical evacuation tomorrow, as preop evaluation patient at some risk from this procedure tomorrow however benefits more than the risks. We will check labs tomorrow 09/29/2020 Patient today underwent EGD showing no esophagitis or Coffman's esophagitis but she has retained food in the stomach suspicious of gastroparesis It is in time ENT input is appreciated, they are planning to take the patient for for evaluation under general anesthesia delivered into the vocal cords and the degree of paralysis and any previous procedures. Also the planning to do bronchoscopy for evaluation of the bronchial tree and also replacing her tracheostomy tube to restricted to #6 We'll keep following with the patient other than that she looks clinically stable but in guarded situation 09/30/2020 Patient is going for surgical procedure tomorrow by ENT team to look into the tracheostomy site and vocal cords Currently patient is sitting in bed comfortable with no distress. Labs and vitals are stable GI and the team and they recommended a small frequent meals for her gas troparesis 10/01/2020, patient is seen and examined by me on 10/01/2020 as below Patient presents with episodic shortness of breath related to #1 at the tracheostomy level of laryngeal level, treated with frequent suctioning and bronchodilator with gnosticist of visual breathing pattern. Her original surgeon is at [facility], due to difficulty of transferring the patient due to Covid pandemic, patient has agreed to stay, patient evaluated by ENT surgery team. Status post surgical procedure microlaryngoscopy and bronchoscopy by Dr. Watts on 10/01, her metal tracheostomy tube was replaced with #6 endotracheal tube. As per report there was compromise of laryngeal airway because of the patient numerous laryngeal surgeries, with narrowed airways which is 5-6 mm at most. Bronchoscopy was unremarkable. on 09/29 she is status post EGD showing no esophagitis or Coffman's esophagitis but she has retained food in the stomach suspicious of gastroparesis . GI team recommended small frequent meals yesterday for the first time she complained from rash in her right buttock which she states is been there for 4 days, it looks vesicular rash of herpes with burning pain. Patient was started on acyclovir with gabapentin. Review of systems CONSTITUTIONAL: No fever, no malaise, no fatigue. HEENT: No recent visual problems or hearing problems. Denied any sore throat. CARDIOVASCULAR: No orthopnea, PND, no palpitations, no syncope. PULMONARY: No shortness of breath, no cough, no hemoptysis. GASTROINTESTINAL: No diarrhea, no nausea, no vomiting, no abdominal pain. Normoactive bowel sounds. NEUROLOGICAL: No headaches, no weakness, no numbness. Active Medications Generic Name Dose Route Start Last Admin Trade Name Freq PRN Reason Stop Dose Admin Acetaminophen 650 mg 09/25/20 20:23 10/02/20 05:53 Acetaminophen Tab 325 Mg Tab PO 650 mg Q6HR PRN Administration Mild Pain or Fever > 100.5 Albuterol/Ipratropium 3 ml 09/25/20 20:30 10/02/20 05:36 Ipratropium-Albuterol 3 Ml Neb INHALATION Not Given RT-Q6H DEYVI Alprazolam 0.25 mg 09/27/20 09:45 10/01/20 22:25 Alprazolam 0.25 Mg Tab PO 0.25 mg TID DEYVI Administration Alprazolam 0.25 mg 09/27/20 09:44 Alprazolam 0.25 Mg Tab PO TID PRN Anxiety Amlodipine Besylate 5 mg 09/27/20 09:00 10/01/20 08:58 Amlodipine 5 Mg Tab PO 5 mg DAILY DEYVI Administration Calcium Carbonate/Glycine 500 mg 09/27/20 09:34 09/29/20 21:48 Calcium Carbonate 500 Mg Chewable PO 500 mg TID PRN Administration Heartburn Gabapentin 300 mg 10/01/20 08:00 10/01/20 22:25 Gabapentin 300 Mg Cap PO 300 mg TID DEYVI Administration Sodium Chloride 1,000 mls @ 20 mls/hr 09/25/20 20:30 10/01/20 22:33 Saline 0.9% IV 20 mls/hr .Q24H DEYVI Administration Sodium Chloride 1,000 mls @ 50 mls/hr 09/27/20 08:00 10/01/20 16:30 Saline 0.9% IV Not Given .Q20H DEYVI Lactated Ringer's 1,000 mls @ 20 mls/hr 10/01/20 05:00 10/02/20 04:55 Lactated Ringers IV Not Given .Q24H DEYVI Acyclovir Sodium 500 mg/ 110 mls @ 100 mls/hr 10/02/20 10:00 Sodium Chloride IVPB Q8H DEYVI Levothyroxine Sodium 50 mcg 09/27/20 09:00 10/02/20 05:50 Levothyroxine 50 Mcg Tab PO 50 mcg DAILY@0630 DEYVI Administration Lidocaine HCl 0.1 ml 10/01/20 05:00 Lidocaine 1% (10mg/Ml) For Iv Start INTRADERMA PER PROTOCOL PRN IV Start Naloxone HCl 0.2 mg 09/25/20 20:23 Naloxone 0.4 Mg/Ml 1 Ml Vial IV Q2M PRN Opioid Reversal Ondansetron HCl 4 mg 09/25/20 20:23 Ondansetron 4 Mg/2 Ml Vial IVP Q8HR PRN Nausea And Vomiting Pantoprazole Sodium 40 mg 09/28/20 17:30 10/01/20 17:54 Pantoprazole 40 Mg Tablet PO 40 mg AC-BID DEYVI Administration Temazepam 15 mg 09/28/20 11:36 Temazepam 15 Mg Cap PO HS PRN Insomnia Tramadol HCl 25 mg 09/27/20 08:00 10/01/20 22:25 Tramadol 50 Mg Tab PO 25 mg Q12H DEYVI Administration Objective - Vital Signs Vital signs: Vital Signs Temp 98.4 F 10/02/20 08:00 Pulse 90 10/02/20 08:00 Resp 17 10/02/20 08:00 BP 101/64 10/02/20 08:00 Pulse Ox 91 L 10/02/20 08:00 Intake & Output 10/01/20 10/02/20 10/02/20 18:59 06:59 18:59 Intake Total 1000 Output Total 0 Balance 1000 Weight 54.431 kg Intake: IV 1000 Output: Estimated Blood Loss 0 Other: # Voids 1 1 - Exam GENERAL: The patient is alert and oriented x3, not in any acute distress. Well developed, well nourished. -HEENT: tracheostomy is in place, patient can talk by blocking the tracheostomy opening with her finger , Pupils are round and equally reacting to light. EOMI. No scleral icterus. No conjunctival pallor. Normocephalic, atraumatic. No pharyngeal erythema. No thyromegaly. CARDIOVASCULAR: S1 and S2 present. No murmurs, rubs, or gallops. PULMONARY: Chest is clear to auscultation, no wheezing or crackles. ABDOMEN: Soft, nontender, nondistended, normoactive bowel sounds. No palpable organomegaly. MUSCULOSKELETAL: No joint swelling or deformity. EXTREMITIES: No cyanosis, clubbing, or pedal edema. NEUROLOGICAL: Gross neurological examination did not reveal any focal deficits. -SKIN: Patient has right upper buttock rashe, about 5-8 opened vesicles across the dermatome. 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 -DVT prophylaxis Plan: This is a pleasant 84 years old female presents with tracheostomy site narrowing causing shortness of breath. She is a status post cardiac extremity tube changed. Continue with breathing treatment. Frequent suctioning. Follow-up ENT recommendations. Continue with small frequent meals. Start acyclovir and gabapentin. Labs and medication were reviewed.. Continue same treatment. Continue with symptomatic treatment. Resume home medication. Monitor lytes and vitals. DVT and GI prophylaxis. Further recommendations depends on the clinical course of the patient DVT prophylaxis: Subcutaneous heparin GI Prophylaxis: Pepcid Prognosis is guarded
--- NOTE | 2020-10-02 09:58 | PN ---
PROGRESS NOTE DATE OF SERVICE: 10/02/2020 INTERVAL HISTORY: Patient is an 84-year-old pleasant white female admitted to the hospital with increased output from the patient's tracheostomy with some bloody discharge for which she underwent a bronchoscopy and endoscopy yesterday by Dr. Watts. She is doing much better today. She also underwent an upper endoscopy 3 days ago, which revealed reflux esophagitis, presently on Protonix 40 mg twice daily. She still continues to have some chronic cough, but her heartburn has significantly improved. She reports no abdominal pain. No nausea, no vomiting. PHYSICAL EXAMINATION: Appears comfortable. No apparent distress. VITAL SIGNS: Stable. Blood pressure 101/64, pulse 90, temperature 98.4. HEENT: Examination unremarkable. Conjunctivae are pink. Sclerae anicteric. Oral cavity no lesions. NECK: New trach in place. CHEST: Clear to auscultation. HEART: Regular rate and rhythm. ABDOMEN: Soft. Bowel sounds are positive. No organomegaly. EXTREMITIES: No pedal edema. NEUROLOGIC: Alert and oriented x3. No focal deficits. LABS: From today WBC 13, hemoglobin 12.5, platelets normal. Rest of the labs are within normal limits. IMPRESSION: 1. Severe gastroesophageal reflux symptoms. Presently on Protonix 40 mg twice daily, gradually improving. 2. History of tracheostomy done 2 years ago. She had replacement done yesterday and underwent laryngoscopy as well as bronchoscopy by Dr. Watts. 3. Shortness of breath, improving. 4. History of hypertension and hyperlipidemia. RECOMMENDATIONS: 1. Continue with Protonix 40 mg twice daily. 2. Small frequent meals. 3. Anti-reflux measures. 4. We will follow with you closely. Thank you for this consultation. MMODL / IJN: [id number] /
[2020-10-02 10:41] LABS: Glucose,Whole Blood 150 mg/dL (75-99)
[2020-10-02] MEDS: ALPRAZolam 0.25 MG TAB PO SCH ×3 (13:47→21:01)
[2020-10-02] MEDS: traMADol 50 MG TAB PO SCH ×2 (13:47→21:01)
[2020-10-02] MEDS: PANTOPRAZOLE 40 MG TABLET PO SCH ×2 (13:47→16:58)
[2020-10-02] MEDS: GABAPENTIN 300 MG CAP PO SCH ×3 (13:48→21:01)
[2020-10-02] MEDS: ACYCLOVIR SODIUM 500 MG in SODIUM CHLORIDE 0.9% 100 ML IVPB SCH ×2 (13:48→18:18)
[2020-10-02] MEDS: amLODIPine 5 MG TAB PO SCH (13:48)
[2020-10-02] MEDS: SODIUM CHLORIDE 0.9% 1,000 ML IV SCH ×2 (18:17→21:01)
[2020-10-03] MEDS: IPRATROPIUM-ALBUTEROL 3 ML NEB INHALATION SCH ×4 (00:20→20:04)
[2020-10-03] MEDS: ACYCLOVIR SODIUM 500 MG in SODIUM CHLORIDE 0.9% 100 ML IVPB SCH ×3 (01:10→17:30)
--- NOTE | 2020-10-03 01:24 | P.PN ---
Subjective Progress Note Date: 10/02/20 Principal diagnosis: Obstructed tracheostomy tube Ms. 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 ENT was consulted and the patient had surgical procedure microlaryngoscopy and bronchoscopy by Dr. Watts on 10/01. She had her metal tracheostomy tube replaced with #6 endotracheal tube. The patient was seen and examined on general medical floors today. Patient states that after the procedure she feels much better and that she does not have reflux symptoms. Patient denies having any fevers chills or rigors. On reviewing the vitals temperature of 99.4, heart rate 99, blood pressure 106/69, saturating at 91% with trach collar. Labs show white count of 13, hemoglobin 12.5, platelets 261. Electrolytes sodium 130, potassium 3.9, BUN 20, creatinine 0.99. Active Medications Acetaminophen (Acetaminophen Tab 325 Mg Tab) 650 mg PO Q6HR PRN PRN Reason: Mild Pain or Fever > 100.5 Last Admin: 10/02/20 05:53 Dose: 650 mg Documented by: Albuterol/Ipratropium (Ipratropium-Albuterol 3 Ml Neb) 3 ml INHALATION RT-Q6H [facility] Last Admin: 10/02/20 11:42 Dose: 3 ml Documented by: Alprazolam (Alprazolam 0.25 Mg Tab) 0.25 mg PO TID [facility] Last Admin: 10/01/20 22:25 Dose: 0.25 mg Documented by: Alprazolam (Alprazolam 0.25 Mg Tab) 0.25 mg PO TID PRN PRN Reason: Anxiety Amlodipine Besylate (Amlodipine 5 Mg Tab) 5 mg PO DAILY [facility] Last Admin: 10/01/20 08:58 Dose: 5 mg Documented by: Calcium Carbonate/Glycine (Calcium Carbonate 500 Mg Chewable) 500 mg PO TID PRN PRN Reason: Heartburn Last Admin: 09/29/20 21:48 Dose: 500 mg Documented by: Gabapentin (Gabapentin 300 Mg Cap) 300 mg PO TID [facility] Last Admin: 10/01/20 22:25 Dose: 300 mg Documented by: Sodium Chloride (Saline 0.9%) 1,000 mls @ 20 mls/hr IV .Q24H [facility] Last Admin: 10/01/20 22:33 Dose: 20 mls/hr Documented by: Sodium Chloride (Saline 0.9%) 1,000 mls @ 50 mls/hr IV .Q20H [facility] Last Admin: 10/01/20 16:30 Dose: Not Given Documented by: Lactated Ringer's (Lactated Ringers) 1,000 mls @ 20 mls/hr IV .Q24H [facility] Last Admin: 10/02/20 04:55 Dose: Not Given Documented by: Acyclovir Sodium 500 mg/ (Sodium Chloride) 110 mls @ 100 mls/hr IVPB Q8H [facility] Levothyroxine Sodium (Levothyroxine 50 Mcg Tab) 50 mcg PO DAILY@0630 [facility] Last Admin: 10/02/20 05:50 Dose: 50 mcg Documented by: Lidocaine HCl (Lidocaine 1% (10mg/Ml) For Iv Start) 0.1 ml INTRADERMA PER PROTOCOL PRN PRN Reason: IV Start Naloxone HCl (Naloxone 0.4 Mg/Ml 1 Ml Vial) 0.2 mg IV Q2M PRN PRN Reason: Opioid Reversal Ondansetron HCl (Ondansetron 4 Mg/2 Ml Vial) 4 mg IVP Q8HR PRN PRN Reason: Nausea And Vomiting Pantoprazole Sodium (Pantoprazole 40 Mg Tablet) 40 mg PO AC-BID [facility] Last Admin: 10/01/20 17:54 Dose: 40 mg Documented by: Temazepam (Temazepam 15 Mg Cap) 15 mg PO HS PRN PRN Reason: Insomnia Tramadol HCl (Tramadol 50 Mg Tab) 25 mg PO Q12H [facility] Last Admin: 10/01/20 22:25 Dose: 25 mg Documented by: Objective - Vital Signs Vital signs: Vital Signs Temp 98.4 F 10/02/20 08:00 Pulse 72 10/02/20 11:56 Resp 17 10/02/20 08:00 BP 101/64 10/02/20 08:00 Pulse Ox 91 L 10/02/20 08:00 Intake & Output 10/01/20 10/02/20 10/02/20 18:59 06:59 18:59 Intake Total 1000 Output Total 0 Balance 1000 Weight 54.431 kg Intake: IV 1000 Output: Estimated Blood Loss 0 Other: # Voids 1 1 - Exam GENERAL: The patient is alert and oriented x3, not in any acute distress. Well developed, well nourished. -HEENT: tracheostomy is in place, patient can talk by blocking the tracheostomy opening with her finger , Pupils are round and equally reacting to light. CARDIOVASCULAR: S1 and S2 present. No murmurs, rubs, or gallops. PULMONARY: Chest is clear to auscultation, no wheezing or crackles. ABDOMEN: Soft, nontender, nondistended, normoactive bowel sounds. No palpable organomegaly. MUSCULOSKELETAL: No joint swelling or deformity. EXTREMITIES: No cyanosis, clubbing, or pedal edema. NEUROLOGICAL: Gross neurological examination did not reveal any focal deficits. -SKIN: Patient has right upper buttock rashe, about 5-8 opened vesicles across the dermatome. - Labs CBC & Chem 7: 10/02/20 07:50 10/02/20 07:50 Labs: Abnormal Lab Results - Last 24 Hours (Table) 10/02/20 10/02/20 10/02/20 Range/Units 07:50 07:50 10:38 WBC 13.0 H (3.8-10.6) k/uL Neutrophils # 11.2 H (1.3-7.7) k/uL Sodium 130 L (137-145) mmol/L BUN 20 H (7-17) mg/dL Glucose 59 L (74-99) mg/dL POC Glucose (mg/dL) 150 H (75-99) mg/dL Calcium 7.6 L (8.4-10.2) mg/dL Assessment and Plan Assessment: Assessment: -Shortness of breath - Secondary to obstruction at the level of tracheostomy - s/p exchange done on 10/01 -Right buttock shingles -Gastroparesis -Hypertension -Hyperlipidemia -Hypothyroidism -Gastroesophageal reflux disease -History of goiter status post removal of thyroid 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 -DVT prophylaxis Plan: This is a pleasant 84 years old female presents with tracheostomy site narrowing causing shortness of breath. She is a status post tracheostomy tube changed. Continue with breathing treatment. Frequent suctioning. Follow-up ENT recommendations. Continue with small frequent meals. Continue with acyclovir and gabapentin. Resume home medication. Monitor lytes and vitals. DVT and GI prophylaxis. Further recommendations depends on the clinical course of the pa tient DVT prophylaxis: Subcutaneous heparin GI Prophylaxis: Pepcid Prognosis is guarded.
[2020-10-03] MEDS: LACTATED RINGERS 1,000 ML IV SCH (02:41)
[2020-10-03] MEDS: LEVOTHYROXINE 50 MCG TAB PO SCH (05:35)
[2020-10-03 07:58] LABS: Basophils % (A) 0 %; Eosinophils # (A) 0.1 k/uL (0-0.7); Eosinophils % (A) 1 %; HCT 36.2 % (34.0-46.0); HGB 12.2 gm/dL (11.4-16.0); Lymphocytes # (A) 1.1 k/uL (1.0-4.8); Lymphocytes % (A) 8 %; MCH 28.9 pg (25.0-35.0); MCHC 33.7 g/dL (31.0-37.0); MCV 85.9 fL (80.0-100.0); Monocytes # (A) 0.6 k/uL (0-1.0); Monocytes % (A) 4 %; Neutrophils # (A) 11.3 k/uL (1.3-7.7); Neutrophils % (A) 85 %; Platelet Count 271 k/uL (150-450); RBC 4.22 m/uL (3.80-5.40); RDW 13.6 % (11.5-15.5); WBC 13.3 k/uL (3.8-10.6)
[2020-10-03] MEDS: PANTOPRAZOLE 40 MG TABLET PO SCH ×2 (08:24→17:30)
[2020-10-03] MEDS: amLODIPine 5 MG TAB PO SCH (08:24)
[2020-10-03] MEDS: ALPRAZolam 0.25 MG TAB PO SCH ×2 (08:24→17:30)
[2020-10-03] MEDS: traMADol 50 MG TAB PO SCH ×2 (08:24→21:18)
[2020-10-03] MEDS: GABAPENTIN 300 MG CAP PO SCH ×3 (08:24→21:18)
--- NOTE | 2020-10-03 10:21 | PN ---
PROGRESS NOTE DATE OF SERVICE: October 03, 2020 Patient is an 84-year-old pleasant white female admitted to the hospital with increased tracheostomy secretions which were black for which she underwent laryngoscopy and bronchoscopy by Dr. Watts 2 days ago. She had a tracheostomy tube replacement done. She is feeling much better since then, we are seeing her for acid reflux. On Protonix 40 mg twice daily, doing much better. Denies any heartburn. Reports no dysphagia or odynophagia. She had an upper endoscopy done 3 days ago that showed no complicated reflux disease. PHYSICAL EXAMINATION: Appears comfortable. Vital signs are stable. Blood pressure 130/72, pulse rate 78, temperature 98.4. HEENT examination unremarkable. Conjunctivae pink. Sclerae anicteric. Oral cavity no lesions. Neck: Tracheostomy in place. LUNGS: Clear to auscultation. HEART: Regular rate and rhythm. ABDOMEN: Soft. Bowel sounds are positive. EXTREMITIES: No pedal edema. Neuro she is alert and oriented x3. No focal deficits. LABS: From today: WBC 13.3, hemoglobin 12.4. Platelets normal. IMPRESSION: 1. Longstanding history of gastroesophageal reflux disease. Presently on Protonix 40 mg twice daily, doing much better. Recent upper endoscopy done 4 days ago showed no evidence of complicated reflux disease. 2. History of tracheostomy 2 years ago, status post bronchoscopy and laryngoscopy by Dr. Watts 2 days ago. 3. History of hypertension. RECOMMENDATIONS: 1. Continue with Protonix 40 mg twice daily. 2. Educate the patient about diet modification and anti-reflux measures. 3. Small frequent meals. 4. The patient was advised to follow up in office in 2 weeks following discharge from the hospital. Thank you for this consultation. MMODL / IJN: [id number] /
[2020-10-03 12:39] LABS: African American GFR (CKD) 53.4 (60.0-200.0); Anion Gap 5.8 mmol/L (4.00-12.00); BUN/Creat Ratio 16.36 Ratio (12.00-20.00); Calcium 7.8 mg/dL (8.7-10.3); Carbon Dioxide 31.2 mmol/L (21.6-31.8); Non-African American GFR(CKD) 46.1 (60.0-200.0)
[2020-10-03] MEDS: SODIUM CHLORIDE 0.9% 1,000 ML IV SCH ×2 (17:29→21:25)
[2020-10-03] MEDS ORDERED: SODIUM CHLORIDE 0.9% 1,000 ML with MVI, ADULT NO.4 WITH VIT K 10 ML, THIAMINE 100 MG, F... IV ONE ×4 (20:23)
[2020-10-04] MEDS: ACYCLOVIR SODIUM 500 MG in SODIUM CHLORIDE 0.9% 100 ML IVPB SCH ×2 (01:03→09:04)
--- NOTE | 2020-10-04 01:15 | P.PN ---
Subjective Progress Note Date: 10/03/20 Principal diagnosis: Obstructed tracheostomy tube Ms. 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 ENT was consulted and the patient had surgical procedure microlaryngoscopy and bronchoscopy by Dr. Watts on 10/01. She had her metal tracheostomy tube replaced with #6 endotracheal tube. The patient was seen and examined on general medical floors today. Patient states that after the procedure she feels much better and that she does not have reflux symptoms. Patient denies having any fevers chills or rigors. On reviewing the vitals temperature of 99.4, heart rate 99, blood pressure 106/69, saturating at 91% with trach collar. Labs show white count of 13, hemoglobin 12.5, platelets 261. Electrolytes sodium 130, potassium 3.9, BUN 20, creatinine 0.99. On 10/03/2020 -patient was seen and examined. She is comfortably resting in bed appears to be no acute distress. No acute events reported by nursing staff. Patient has been tolerating diet without any reflux symptoms. She denies any chest pain or palpitations. No other active complaints. On reviewing the vitals blood pressure 117 x 69, heart rate 89, respiratory rate 16, temperature 98.1 and saturating at 91% on trach collar. Labs from this morning showing white count of 13.3, hemoglobin 12, platelets 271. Electrolytes within normal limits. Active Medications Acetaminophen (Acetaminophen Tab 325 Mg Tab) 650 mg PO Q6HR PRN PRN Reason: Mild Pain or Fever > 100.5 Last Admin: 10/02/20 05:53 Dose: 650 mg Documented by: Albuterol/Ipratropium (Ipratropium-Albuterol 3 Ml Neb) 3 ml INHALATION RT-Q6H DEYVI Last Admin: 10/03/20 20:04 Dose: 3 ml Documented by: Alprazolam (Alprazolam 0.25 Mg Tab) 0.25 mg PO TID PRN PRN Reason: Anxiety Amlodipine Besylate (Amlodipine 5 Mg Tab) 5 mg PO DAILY [facility] Last Admin: 10/03/20 08:24 Dose: 5 mg Documented by: Calcium Carbonate/Glycine (Calcium Carbonate 500 Mg Chewable) 500 mg PO TID PRN PRN Reason: Heartburn Last Admin: 09/29/20 21:48 Dose: 500 mg Documented by: Gabapentin (Gabapentin 300 Mg Cap) 300 mg PO TID [facility] Last Admin: 10/03/20 21:18 Dose: 300 mg Documented by: Sodium Chloride (Saline 0.9%) 1,000 mls @ 20 mls/hr IV .Q24H [facility] Last Admin: 10/03/20 21:25 Dose: Not Given Documented by: Sodium Chloride (Saline 0.9%) 1,000 mls @ 50 mls/hr IV .Q20H [facility] Last Admin: 10/03/20 17:29 Dose: 50 mls/hr Documented by: Lactated Ringer's (Lactated Ringers) 1,000 mls @ 20 mls/hr IV .Q24H [facility] Last Admin: 10/03/20 02:41 Dose: Not Given Documented by: Acyclovir Sodium 500 mg/ (Sodium Chloride) 110 mls @ 100 mls/hr IVPB Q8H [facility] Last Admin: 10/03/20 17:30 Dose: 100 mls/hr Documented by: Parenteral Vitamin Supplement 10 ml/ Thiamine HCl 100 mg/Folic Acid 1 mg/ Sodium Chloride 1,011.2 mls @ 100 mls/hr IV .Q10H7M ONE Stop: 10/04/20 06:29 Last Admin: 10/03/20 21:18 Dose: 100 mls/hr Documented by: Levothyroxine Sodium (Levothyroxine 50 Mcg Tab) 50 mcg PO DAILY@0630 [facility] Last Admin: 10/03/20 05:35 Dose: 50 mcg Documented by: Lidocaine HCl (Lidocaine 1% (10mg/Ml) For Iv Start) 0.1 ml INTRADERMA PER PROTOCOL PRN PRN Reason: IV Start Naloxone HCl (Naloxone 0.4 Mg/Ml 1 Ml Vial) 0.2 mg IV Q2M PRN PRN Reason: Opioid Reversal Ondansetron HCl (Ondansetron 4 Mg/2 Ml Vial) 4 mg IVP Q8HR PRN PRN Reason: Nausea And Vomiting Pantoprazole Sodium (Pantoprazole 40 Mg Tablet) 40 mg PO AC-BID [facility] Last Admin: 10/03/20 17:30 Dose: 40 mg Documented by: Temazepam (Temazepam 15 Mg Cap) 15 mg PO HS PRN PRN Reason: Insomnia Tramadol HCl (Tramadol 50 Mg Tab) 25 mg PO Q12H [facility] Last Admin: 10/03/20 21:18 Dose: 25 mg Documented by: Objective - Vital Signs Vital signs: Vital Signs Temp 98.4 F 10/03/20 14:00 Pulse 63 10/03/20 14:00 Resp 16 10/03/20 14:00 BP 146/90 10/03/20 14:00 Pulse Ox 96 10/03/20 14:00 Intake & Output 10/02/20 10/03/20 10/03/20 18:59 06:59 18:59 Intake Total 540 Balance 540 Intake: Oral 540 Other: Voiding Method Toilet # Voids 2 - Exam GENERAL: The patient is alert and oriented x3, not in any acute distress. Well developed, well nourished. -HEENT: tracheostomy is in place, patient can talk by blocking the tracheostomy opening with her finger , Pupils are round and equally reacting to light. CARDIOVASCULAR: S1 and S2 present. No murmurs, rubs, or gallops. PULMONARY: Chest is clear to auscultation, no wheezing or crackles. ABDOMEN: Soft, nontender, nondistended, normoactive bowel sounds. No palpable organomegaly. MUSCULOSKELETAL: No joint swelling or deformity. EXTREMITIES: No cyanosis, clubbing, or pedal edema. NEUROLOGICAL: Gross neurological examination did not reveal any focal deficits. -SKIN: Patient has right upper buttock rash, about 5-8 opened vesicles across the dermatome. - Labs CBC & Chem 7: 10/03/20 07:28 10/03/20 07:28 Labs: Abnormal Lab Results - Last 24 Hours (Table) 10/03/20 10/03/20 Range/Units 07:28 07:28 WBC 13.3 H (3.8-10.6) k/uL Neutrophils # 11.3 H (1.3-7.7) k/uL Est GFR (CKD-EPI)AfAm 53.4 L (60.0-200.0) Est GFR (CKD-EPI)NonAf 46.1 L (60.0-200.0) Calcium 7.8 L (8.7-10.3) mg/dL Assessment and Plan Assessment: Assessment: -Shortness of breath - Secondary to obstruction at the level of tracheostomy - s/p exchange done on 10/01 -Right buttock shingles -Gastroparesis -Hypertension -Hyperlipidemia -Hypothyroidism -Gastroesophageal reflux disease -History of goiter status post removal of thyroid 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 -DVT prophylaxis Plan: This is a pleasant 84 years old female presents with tracheostomy site narrowing causing shortness of breath. She is a status post tracheostomy tube changed. Continue with breathing treatment. Frequent suctioning. Follow-up ENT recommendations. Continue with small frequent meals. Continue with acyclovir and gabapentin. Resume home medication. Monitor lytes and vitals. DVT and GI prophylaxis. Further recommendations depends on the clinical course of the patient DVT prophylaxis: Subcutaneous heparin GI Prophylaxis: Pepcid Prognosis is guarded.
[2020-10-04] MEDS: IPRATROPIUM-ALBUTEROL 3 ML NEB INHALATION SCH ×3 (02:27→17:39)
[2020-10-04] MEDS: LACTATED RINGERS 1,000 ML IV SCH (05:21)
[2020-10-04] MEDS: LEVOTHYROXINE 50 MCG TAB PO SCH (05:33)
[2020-10-04] MEDS: SODIUM CHLORIDE 0.9% 1,000 ML IV SCH (05:41)
--- NOTE | 2020-10-04 05:46 | PN ---
PROGRESS NOTE DATE OF SERVICE: 10/02/2020 SUBJECTIVE: Vital signs stable. The patient is resting comfortably and breathing much better. She feels quite comfortable with the present Shiley trach tube and is able to be performed in the routine maintenance procedures such as suctioning and cleaning , just as she was able to do with the metal tracheostomy tube. OBJECTIVE: Clinical examination of the tracheostomy site reveals it is dry, intact and no evidence any bleeding or infection. The inner cannula is clean. ASSESSMENT: Status post suspension microlaryngoscopy with bronchoscopy and change of tracheostomy tube to a #6 Shiley fenestrated tube. PLAN: We will continue to monitor this patient with you and if she continues to improve and do well, I would expect that she will most likely be able to go home on Sunday10/04/2020. Prior to going home, we will make sure that the respiratory therapy department provides with the necessary tracheostomy care supplies. MMANGEL / SHANTA: [id number] / MTDD
--- NOTE | 2020-10-04 05:55 | PN ---
PROGRESS NOTE DATE OF SERVICE: 10/03/2020 SUBJECTIVE: Vital signs stable. Patient resting comfortably and breathing without difficulty. OBJECTIVE: Clinical examination of the #6 Shiley tracheostomy tube reveals it to be intact, clean, and free of any infection. ASSESSMENT: Status post suspension microlaryngoscopy with bronchoscopy and change to a #6 fenestrated Shiley tracheostomy tube. PLAN: The patient is doing so well,and I think it would be okay from an ENT standpoint to discharge her to home. I discussed with the patient that I would like to see her in the office in approximately I week and at that time, we will formulate a plan for her further evaluation/treatment. Please make sure that the respiratory therapy department provided the patient with the necessary tracheostomy supplies. The patient is extremely adept at taking care of her tracheostomy tube including cleaning, changing the inner cannula, and actually removing the tracheostomy tube and replacing it if necessary. I want to take this opportunity to thank you for allowing me to participate in the care of this very nice patient. If I can be of any further assistance, please feel free to call my office. In addition, once I see the patient in the office, I am going to have the patient sign a medical record release note for the [facility], so that I may obtain the records there to see what in fact procedure was performed at the [facility] during her original surgeries. LAUREN / ROBBIN: [id number] / MTDD
[2020-10-04 08:09] VITALS: RESP 20
[2020-10-04] MEDS: GABAPENTIN 300 MG CAP PO SCH ×2 (08:53→15:40)
[2020-10-04] MEDS: traMADol 50 MG TAB PO SCH (08:54)
[2020-10-04] MEDS: amLODIPine 5 MG TAB PO SCH (08:54)
[2020-10-04] MEDS: PANTOPRAZOLE 40 MG TABLET PO SCH (08:54)
[2020-10-04 09:46] VITALS: BMI 22.6
[2020-10-04 14:52] VITALS: BP 134/77; PULSE 97; TEMP 98.8
--- NOTE | 2020-10-04 15:17 | P.DS ---
Providers Date of admission: 09/27/20 12:45 Expected date of discharge: 10/04/20 Attending physician: Gene Spann Consults: 09/26/20 10:58 Consult Physician Routine Consulting Provider: Moreno Watts Consult Reason/Comments: Trach evaluation Do you want consulting provider notified?: Yes Primary care physician: [facility] Hospital Course: Ms. 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 She was recently discharged from the hospital on 09/22/20, 4 days ago for shortness of breath related to her tracheostomy, ENT physician recommended dexamethasone 10 mg every 8 hours by 2 doses then 5 mg every 8 hours for 2 doses and then 2 mg for 1 dose. And they recommended to switch her tracheostomy tube from #6-Spanish she currently has 2-Spanish #4 Patient states that she has dyspnea on exertion since tracheostomy was placed for her about 2 years ago and she has SECRETIONS for several months however over the last 2 months she noticed there was some blood coming with the secretions and small pieces as well, also she says that at times this bout get dried and blocks her breathing which make her choking and anxious fearing she could not get enough air. When she came last week for the same think she states nothing has changed. Hospital course - ENT was consulted and the patient had surgical procedure microlaryngoscopy and bronchoscopy by Dr. Watts on 10/01. She had her metal tracheostomy tube replaced with #6 endotracheal tube. Patient's symptoms improved significantly and she is back to her baseline. GI Dr. Myers also evaluated the patient and started on Protonix for GERD symptoms. Today the patient is lying comfortably in bed and appears to be no acute distress. She does not have any active complaints. She has been cleared by ENT to be discharged home. Patient is advised to continue taking Protonix twice a day for GERD symptoms. She is being discharged home. Vital Signs - 8 hr 10/04/20 10/04/20 10/04/20 07:55 08:00 08:13 Temperature 97.6 F Pulse Rate 84 80 Pulse Rate [ 79 Pulse Oximetery ] Respiratory 20 Rate Blood Pressure 130/72 [Right Arm] O2 Sat by Pulse 93 L Oximetry 10/04/20 14:00 Temperature 98.8 F Pulse Rate Pulse Rate [ 97 Pulse Oximetery ] Respiratory 20 Rate Blood Pressure 134/77 [Right Arm] O2 Sat by Pulse 91 L Oximetry GENERAL: The patient is alert and oriented x3, not in any acute distress. Well developed, well nourished. -HEENT: tracheostomy is in place, patient can talk by blocking the tracheostomy opening with her finger , Pupils are round and equally reacting to light. CARDIOVASCULAR: S1 and S2 present. No murmurs, rubs, or gallops. PULMONARY: Chest is clear to auscultation, no wheezing or crackles. ABDOMEN: Soft, nontender, nondistended, normoactive bowel sounds. No palpable organomegaly. MUSCULOSKELETAL: No joint swelling or deformity. EXTREMITIES: No cyanosis, clubbing, or pedal edema. NEUROLOGICAL: Gross neurological examination did not reveal any focal deficits. -SKIN: Patient has right upper buttock rash, about 5-8 opened vesicles across the dermatome. 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 Follow-up: Patient is advised to follow-up with GI Dr. Myers, ENT Dr. Watts and her primary care physician in one week. More than 35 minutes spent towards the discharge of the patient. Patient Condition at Discharge: Fair Plan - Discharge Summary Discharge Rx Participant: No New Discharge Prescriptions: New Acyclovir 800 mg PO 5XD 20 Days #20 tablet Pantoprazole [Protonix] 40 mg PO AC-BID 15 Days #30 tablet. Continue amLODIPine [Norvasc] 5 mg PO DAILY Levothyroxine Sodium [Synthroid] 50 mcg PO DAILY traMADol HCL 25 mg PO Q12H Lactose-Reduced Food [Ensure Plus] 1 can PO BID Discharge Medication List Levothyroxine Sodium [Synthroid] 50 mcg PO DAILY 04/05/14 [History] amLODIPine [Norvasc] 5 mg PO DAILY 04/05/14 [History] Lactose-Reduced Food [Ensure Plus] 1 can PO BID 09/20/20 [History] traMADol HCL 25 mg PO Q12H 09/20/20 [History] Acyclovir 800 mg PO 5XD 20 Days #20 tablet 10/04/20 [Rx] Pantoprazole [Protonix] 40 mg PO AC-BID 15 Days #30 tablet. 10/04/20 [Rx] Follow up Appointment(s)/Referral(s): Lilia Myers MD [STAFF PHYSICIAN] - 10/19/20 2:00 pm Moreno Watts MD [STAFF PHYSICIAN] - 10/07/20 11:00 am Rafat Duong DO [Primary Care Provider] - 10/11/20 2:00 pm Patient Instructions/Handouts: Dyspnea (DC) Discharge Disposition: HOME SELF-CARE
== END 2020-10-04 17:39 | disposition home or self-care (01) | DRG 206 ==
LOC: EC 18:28 → 1SOBS 20:25 → 6NMEDSUR 09-26 01:46 → 4SSUR 09-26 09:56 → OBSVTOIN 09-27 12:45 → 4SSUR 10-02 20:30
PROVIDERS: ADMIT Hospitalist; ATTEND Hospitalist
PROC: 0DJ08ZZ Inspection of Upper Intestinal Tract, Via Natural or Artificial Opening Endoscopic (ICD-10-PCS; 2020-09-29)
PROC: 0B21XFZ Change Tracheostomy Device in Trachea, External Approach (ICD-10-PCS; principal; 2020-10-01 13:30)
PROC: 0BJ08ZZ Inspection of Tracheobronchial Tree, Via Natural or Artificial Opening Endoscopic (ICD-10-PCS; principal; 2020-10-01 13:30)
PROC: 0BJ18ZZ Inspection of Trachea, Via Natural or Artificial Opening Endoscopic (ICD-10-PCS; principal; 2020-10-01 13:30)
DX: J95.03 Malfunction of tracheostomy stoma (principal); J98.11 Atelectasis; J38.02 Paralysis of vocal cords and larynx, bilateral; F41.0 Panic disorder [episodic paroxysmal anxiety]; E89.0 Postprocedural hypothyroidism; K31.84 Gastroparesis; R13.10 Dysphagia, unspecified; K44.9 Diaphragmatic hernia without obstruction or gangrene; E78.5 Hyperlipidemia, unspecified; Z20.828 Contact with and (suspected) exposure to other viral communicable diseases; I10 Essential (primary) hypertension; B02.9 Zoster without complications; K21.9 Gastro-esophageal reflux disease without esophagitis; N39.3 Stress incontinence (female) (male); M19.90 Unspecified osteoarthritis, unspecified site; Z98.890 Other specified postprocedural states; Z90.710 Acquired absence of both cervix and uterus; Z96.641 Presence of right artificial hip joint; Z98.49 Cataract extraction status, unspecified eye; Z79.890 Hormone replacement therapy; Z79.899 Other long term (current) drug therapy; Z82.5 Family history of asthma and other chronic lower respiratory diseases; Z80.6 Family history of leukemia; Z80.1 Family history of malignant neoplasm of trachea, bronchus and lung; Z90.49 Acquired absence of other specified parts of digestive tract
CPT/HCPCS: 36415; 36600; 43235; 70360; 70491; 71045; 71260; 80048; 82805; 83735; 85025; 85610; 85730; 87635; 94640; 96361; 96374; 99285

== ENCOUNTER 2020-12-03 22:55 | Inpatient (IN) | payer MEDICARE, BC, OTHER ==
[2020-12-03 23:01] LABS: Glucose,Whole Blood 82 mg/dL (75-99)
[2020-12-03] MEDS ORDERED: MORPHINE SULFATE 4 MG/ML SYRINGE IVP STA (23:05)
[2020-12-03 23:33] LABS: Basophils # (A) 0.2 k/uL (0-0.2); Basophils % (A) 2 %; Eosinophils # (A) 0.4 k/uL (0-0.7); Eosinophils % (A) 2 %; HCT 39.4 % (34.0-46.0); HGB 13.1 gm/dL (11.4-16.0); Lymphocytes # (A) 3.6 k/uL (1.0-4.8); Lymphocytes % (A) 24 %; MCH 28.1 pg (25.0-35.0); MCHC 33.4 g/dL (31.0-37.0); MCV 84.4 fL (80.0-100.0); Mean Platelet Volume 7.9; Monocytes # (A) 1.2 k/uL (0-1.0); Monocytes % (A) 8 %; Neutrophils # (A) 9.3 k/uL (1.3-7.7); Neutrophils % (A) 63 %; Platelet Count 367 k/uL (150-450); RBC 4.67 m/uL (3.80-5.40); RDW 13.6 % (11.5-15.5); WBC 14.9 k/uL (3.8-10.6)
--- NOTE | 2020-12-03 23:44 | CT ---
EXAMINATION TYPE: CT brain asad wo con DATE OF EXAM: 12/03/2020 COMPARISON: 06/15/2018 HISTORY: fall/stroke CT DLP: 1246.8 mGycm Automated exposure control for dose reduction was used. Exam performed without contrast. There is cerebral cortical atrophy. There is no mass effect nor midline shift. There is no sign of in tracranial hemorrhage. There is mild patchy hypodensity in the periventricular white matter. The calv arium is intact. Cervical vertebra have normal alignment. There is degenerative disc space narrowing at C5-6 and C6-7 with spur formation. Facet joints are intact. There is multilevel cervical facet arthropathy. There i s normal aeration of the mastoid sinuses. Occipital bone is intact. Skull base is intact. IMPRESSION: Cerebral atrophy and chronic small vessel ischemia. No acute intracranial abnormality. Overall no sig nificant change compared to old exam. Cervical spondylotic changes mainly at C5-6 and C6-7. No fracture. No change.
[2020-12-03 23:45] LABS: ALT 35 U/L (4-34); African American GFR (CKD) 72 (>60 ml/min/1.73 sqM); Alcohol <10 mg/dL; Anion Gap 4 mmol/L; Blood Urea Nitrogen 30 mg/dL (7-17); Calcium 8.2 mg/dL (8.4-10.2); Carbon Dioxide 30 mmol/L (22-30); Chloride 100 mmol/L (98-107); Non-African American GFR(CKD) 63 (>60 ml/min/1.73 sqM); Sodium 134 mmol/L (137-145)
--- NOTE | 2020-12-03 23:48 | XR ---
EXAMINATION TYPE: XR pelvis AP view DATE OF EXAM: 12/03/2020 COMPARISON: NONE HISTORY: Fall. Pain. TECHNIQUE: Single view FINDINGS: The pelvic ring appears intact. There is right hip prosthesis. Components appear intact. Sa croiliac joints appear intact. Proximal left femur is intact. IMPRESSION: No acute abnormality of the pelvis.
[2020-12-03 23:54] LABS: AST 59 U/L (14-36); Albumin 3.6 g/dL (3.5-5.0); Alkaline Phosphatase 90 U/L (38-126); Glucose 79 mg/dL (74-99); Potassium 5.4 mmol/L (3.5-5.1); Total Bilirubin 1.2 mg/dL (0.2-1.3); Total Protein 6.8 g/dL (6.3-8.2)
--- NOTE | 2020-12-03 23:55 | XR ---
EXAMINATION TYPE: XR chest 1V portable DATE OF EXAM: 12/03/2020 COMPARISON: 09/27/2020 HISTORY: Trauma TECHNIQUE: Single view FINDINGS: Heart and mediastinum are within normal limits. There is tracheostomy tube. There is slight elevated right diaphragm. There are chest leads. There is no pleural effusion. IMPRESSION: No active cardiopulmonary disease. Mild chronic elevation of the right diaphragm. No sign ificant change.
[2020-12-03 23:56] LABS: INR 0.9 (<1.2); Prothrombin Time 10.2 sec (9.0-12.0)
[2020-12-04] MEDS ORDERED: LABETALOL 5 MG/ML VIAL MDV IVP ONE
--- NOTE | 2020-12-04 00:12 | CT ---
EXAMINATION TYPE: CT angio head neck DATE OF EXAM: 12/03/2020 COMPARISON: None HISTORY: stroke CT DLP: 384.3 mGycm Automated exposure control for dose reduction was used. CONTRAST: Performed with IV Contrast, patient injected with 65ml mL of Isovue 370. Images obtained with 3-D post processed images from the aortic arch to the vertex of the brain. There is tracheostomy tube noted. There is normal branching pattern of the great vessels on the aortic arch. There is arterial flow in both subclavian arteries. There is arterial flow in the common internal and external carotid arteries bilaterally. There is tortuous proximal left internal carotid artery. There is approximate 50% narro wing at the origin of the left internal carotid artery close to the bifurcation. There is no evidence of carotid or vertebral artery aneurysm or dissection. There is arterial flow in both vertebral kasie ca. There is arterial flow in the vertebrobasilar artery system. There is arterial flow in the anterior middle and posterior cerebral arteries. There is no mass effec t. There is bulbous appearance of the tip of the basilar artery with 6 x 4 mm aneurysm. There is no e vidence of intracranial arterial stenosis. There is normal enhancement of the venous sinuses. There is no intracranial mass effect. IMPRESSION: Tortuous proximal left internal carotid artery with 50% luminal narrowing. 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 No evidence of intracranial arterial stenosis. 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
[2020-12-04] MEDS ORDERED: Alteplase PER PHARMACY Stroke 1 EACH MISC MISCELLANE PRN (00:13)
--- NOTE | 2020-12-04 00:13 | ED ---
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 She is brought by ambulance to have evaluation after she had fallen at home and her tracheostomy tube had become dislodged. Most of the history initially from EMS that reports the patient usually is ambulatory and able to communicate though voices usually horse due to laryngeal nerve injury. Today the patient not able to communicate, appearing to have expressive aphasia. In addition, the medical record is reviewed and no evidence of previous stroke or other neurologic issue. 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 Allergies Allergy/AdvReac Type Severity Reaction Status Date / Time No Known Allergies Allergy Verified 12/03/20 23:57 Review of Systems ROS Statement: Those systems with pertinent positive or pertinent negative responses have been documented in the HPI. ROS Other: All systems not noted in ROS Statement are negative. Limitations: ROS unobtainable due to patients medical condition (Expressive aphasia) Past Medical History Past Medical History: GERD/Reflux, Hyperlipidemia, Hypertension, Osteoarthritis (OA), Thyroid Disorder Additional Past Medical History / Comment(s): STATES AT 37 YRS OLD VOCAL CORD WAS SEVERED DURING REMOVAL OF THYROID (HX OF GOITER), MULTIPLE THROAT SURGERIES AFTERWARDS. SHE HAS TO INHALE AND BLOW OUT WHEN TALKING. STATES ALSO THAT ESOPHAGUS CLOSES PREMATURELY WHEN EATING AND CAUSES HER TO INHALE FOOD AND SALIVA CAUSING HER TO COUGH ., STRESS INCONTINENCE-WEARS PAD, TORN ROTATOR CUFF(sx), bridges. History of Any Multi-Drug Resistant Organisms: None Reported Past Surgical History: Appendectomy, Hysterectomy, Orthopedic Surgery Additional Past Surgical History / Comment(s): TOTAL RIGHT HIP, CATARACTS, THYROID REMOVED WITH SEVERED VOCAL CORD AND MULTIPLE THROAT SURGERIES AFTERWARDS, right shoulder surgery, rt rotator cuff repair, trach insertion Past Anesthesia/Blood Transfusion Reactions: No Reported Reaction Past Psychological History: No Psychological Hx Reported Smoking Status: Never smoker Past Alcohol Use History: Occasional Past Drug Use History: None Reported - Past Family History Daughter(s) Family Medical History: Cancer Additional Family Medical History / Comment(s): 2 DAUGHTERS- LEUKEMIA AND LUNG CANCER Mother Family Medical History: COPD Additional Family Medical History / Comment(s): bronchits Father Family Medical History: Cancer Additional Family Medical History / Comment(s): leukemia General Exam Limitations: altered mental status General appearance: alert, in no apparent distress Head exam: Present: atraumatic, normocephalic Eye exam: Present: normal appearance, PERRL, EOMI. Absent: scleral icterus, conjunctival injection, nystagmus ENT exam: Present: normal oropharynx Neck exam: Present: full ROM, other (There is a healed tracheostomy without any tracheostomy tube). Absent: tenderness, meningismus Respiratory exam: Present: stridor (Mild stridor). Absent: respiratory distress, wheezes, rales, rhonchi, chest wall tenderness Cardiovascular Exam: Present: regular rate, normal rhythm, normal heart sounds. Absent: systolic murmur, diastolic murmur, rubs, gallop GI/Abdominal exam: Present: soft. Absent: distended, tenderness, guarding, re bound, rigid, mass Extremities exam: Present: normal inspection, normal capillary refill. Absent: pedal edema, calf tenderness Back exam: Present: normal inspection. Absent: CVA tenderness (R), CVA tenderness (L), vertebral tenderness Neurological exam: Present: alert, CN II-XII intact, other. Absent: motor sensory deficit Expanded Neurological exam: Present: expressive aphasia, protecting the airway. Absent: inattentive, ataxia, receptive aphasia, tremor Speech: Present: expressive aphasia Cranial nerves: EOM's Intact: Normal, Gag Reflex: Normal Cerebellar function: Finger to Nose: Abnormal Left Sensory exam: Upper Extremity Light Touch: Normal, Lower Extremity Light Touch: Normal Motor strength exam: RUE: 5, LUE: 0, RLE: 5, LLE: 2/1 Eye Response: (4) open spontaneously Motor Response: (6) obeys commands Verbal Response: (1) no verbal response Kenyatta Total: 11 Course Vital Signs 12/03/20 12/03/20 12/03/20 22:56 23:15 23:45 Temperature 98.4 F Pulse Rate 104 H 103 H 97 Respiratory 22 18 18 Rate Blood Pressure 181/124 143/75 184/98 O2 Sat by Pulse 100 95 95 Oximetry 12/04/20 12/04/20 12/04/20 00:00 00:15 00:30 Temperature 97.8 F Pulse Rate 85 79 84 Respiratory 18 16 18 Rate Blood Pressure 166/82 166/86 172/86 O2 Sat by Pulse 96 95 Oximetry Medical Decision Making - Medical Decision Making This patient is an 84-year-old woman brought by ambulance after she had a ground-level fall dislodging her tracheostomy tube. The patient is having new onset of expressive aphasia and left-sided hemiparesis. It appears that the patient is probably having acute ischemic stroke which led to the fall bring her here. There is no traumatic injury identified. The patient is worked up as code stroke. The patient has been reviewed with Dr. Goode, he has evaluated the patient with stroke or about, patient will be administered tPA. Small dose of labetalol for hypertension. His other treatment recommendations are incorporated. Patient be admitted under city call with neurology consultation. - Lab Data Result diagrams: 12/03/20 23:18 12/03/20 23:18 Lab Results 12/03/20 12/03/20 12/03/20 Range/Units 23:00 23:18 23:18 WBC 14.9 H (3.8-10.6) k/uL RBC 4.67 (3.80-5.40) m/uL Hgb 13.1 (11.4-16.0) gm/dL Hct 39.4 (34.0-46.0) % MCV 84.4 (80.0-100.0) fL MCH 28.1 (25.0-35.0) pg MCHC 33.4 (31.0-37.0) g/dL RDW 13.6 (11.5-15.5) % Plt Count 367 (150-450) k/uL MPV 7.9 Neutrophils % 63 % Lymphocytes % 24 % Monocytes % 8 % Eosinophils % 2 % Basophils % 2 % Neutrophils # 9.3 H (1.3-7.7) k/uL Lymphocytes # 3.6 (1.0-4.8) k/uL Monocytes # 1.2 H (0-1.0) k/uL Eosinophils # 0.4 (0-0.7) k/uL Basophils # 0.2 (0-0.2) k/uL PT 10.2 (9.0-12.0) sec INR 0.9 (<1.2) APTT 20.5 L (22.0-30.0) sec Sodium (137-145) mmol/L Potassium (3.5-5.1) mmol/L Chloride (98-107) mmol/L Carbon Dioxide (22-30) mmol/L Anion Gap mmol/L BUN (7-17) mg/dL Creatinine (0.52-1.04) mg/dL Est GFR (CKD-EPI)AfAm (>60 ml/min/1.73 sqM) Est GFR (CKD-EPI)NonAf (>60 ml/min/1.73 sqM) Glucose (74-99) mg/dL POC Glucose (mg/dL) 82 (75-99) mg/dL POC Glu Alpine Patroller ID Shaq, Elinor Plasma Lactic Acid Fritz (0.7-2.0) mmol/L Calcium (8.4-10.2) mg/dL Total Bilirubin (0.2-1.3) mg/dL AST (14-36) U/L ALT (4-34) U/L Alkaline Phosphatase (38-126) U/L Troponin I (0.000-0.034) ng/mL Total Protein (6.3-8.2) g/dL Albumin (3.5-5.0) g/dL Serum Alcohol mg/dL Blood Type Blood Type Recheck Bld Type Recheck Status Antibody Screen Spec Expiration Date 12/03/20 12/03/20 12/03/20 Range/Units 23:18 23:18 23:18 WBC (3.8-10.6) k/uL RBC (3.80-5.40) m/uL Hgb (11.4-16.0) gm/dL Hct (34.0-46.0) % MCV (80.0-100.0) fL MCH (25.0-35.0) pg MCHC (31.0-37.0) g/dL RDW (11.5-15.5) % Plt Count (150-450) k/uL MPV Neutrophils % % Lymphocytes % % Monocytes % % Eosinophils % % Basophils % % Neutrophils # (1.3-7.7) k/uL Lymphocytes # (1.0-4.8) k/uL Monocytes # (0-1.0) k/uL Eosinophils # (0-0.7) k/uL Basophils # (0-0.2) k/uL PT (9.0-12.0) sec INR (<1.2) APTT (22.0-30.0) sec Sodium 134 L (137-145) mmol/L Potassium 5.4 H (3.5-5.1) mmol/L Chloride 100 (98-107) mmol/L Carbon Dioxide 30 (22-30) mmol/L Anion Gap 4 mmol/L BUN 30 H (7-17) mg/dL Creatinine 0.86 (0.52-1.04) mg/dL Est GFR (CKD-EPI)AfAm 72 (>60 ml/min/1.73 sqM) Est GFR (CKD-EPI)NonAf 63 (>60 ml/min/1.73 sqM) Glucose 79 (74-99) mg/dL POC Glucose (mg/dL) (75-99) mg/dL POC Glu Alpine Patroller ID Plasma Lactic Acid Fritz 1.6 (0.7-2.0) mmol/L Calcium 8.2 L (8.4-10.2) mg/dL Total Bilirubin 1.2 (0.2-1.3) mg/dL AST 59 H (14-36) U/L ALT 35 H (4-34) U/L Alkaline Phosphatase 90 (38-126) U/L Troponin I 0.033 (0.000-0.034) ng/mL Total Protein 6.8 (6.3-8.2) g/dL Albumin 3.6 (3.5-5.0) g/dL Serum Alcohol <10 mg/dL Blood Type Blood Type Recheck Bld Type Recheck Status Antibody Screen Spec Expiration Date 12/03/20 Range/Units 23:18 WBC (3.8-10.6) k/uL RBC (3.80-5.40) m/uL Hgb (11.4-16.0) gm/dL Hct (34.0-46.0) % MCV (80.0-100.0) fL MCH (25.0-35.0) pg MCHC (31.0-37.0) g/dL RDW (11.5-15.5) % Plt Count (150-450) k/uL MPV Neutrophils % % Lymphocytes % % Monocytes % % Eosinophils % % Basophils % % Neutrophils # (1.3-7.7) k/uL Lymphocytes # (1.0-4.8) k/uL Monocytes # (0-1.0) k/uL Eosinophils # (0-0.7) k/uL Basophils # (0-0.2) k/uL PT (9.0-12.0) sec INR (<1.2) APTT (22.0-30.0) sec Sodium (137-145) mmol/L Potassium (3.5-5.1) mmol/L Chloride (98-107) mmol/L Carbon Dioxide (22-30) mmol/L Anion Gap mmol/L BUN (7-17) mg/dL Creatinine (0.52-1.04) mg/dL Est GFR (CKD-EPI)AfAm (>60 ml/min/1.73 sqM) Est GFR (CKD-EPI)NonAf (>60 ml/min/1.73 sqM) Glucose (74-99) mg/dL POC Glucose (mg/dL) (75-99) mg/dL POC Glu Alpine Patroller ID Plasma Lactic Acid Fritz (0.7-2.0) mmol/L Calcium (8.4-10.2) mg/dL Total Bilirubin (0.2-1.3) mg/dL AST (14-36) U/L ALT (4-34) U/L Alkaline Phosphatase (38-126) U/L Troponin I (0.000-0.034) ng/mL Total Protein (6.3-8.2) g/dL Albumin (3.5-5.0) g/dL Serum Alcohol mg/dL Blood Type O Negative Blood Type Recheck O Neg Bld Type Recheck Status No Antibody Screen NEGATIVE Spec Expiration Date 12/06/20202317 - EKG Data -: EKG Interpreted by Me EKG shows normal: sinus rhythm, axis (Normal), intervals (Normal), ST-T waves (Normal) Rate: normal (Rate 86 bpm) Interpretation: other (Possible old septal infarct.) Disposition Clinical Impression: Tracheostomy complication, Acute ischemic stroke, Left hemiparesis, Expressive aphasia, Hypertension Disposition: ADMITTED IP TO THIS HOSP Condition: Serious Is patient prescribed a controlled substance at d/c from ED?: No Referrals: Rafat Duong DO [Primary Care Provider] - 1-2 days
[2020-12-04 00:16] LABS: Partial Thromboplastin Time 20.5 sec (22.0-30.0)
[2020-12-04] MEDS ORDERED: ALTEPLASE 47 MG in EMPTY BAG 1 BAG IV STA (00:18)
[2020-12-04] MEDS ORDERED: ALTEPLASE BOLUS 5 MG in EMPTY SYRINGE 1 SYR IV STA (00:18)
[2020-12-04 01:54] LABS: Appearance,Urine Clear (Clear); Bilirubin,Urine Negative (Negative); Blood,Urine Negative (Negative); Color,Urine Colorless; Glucose,Urine (UA) Negative (Negative); Ketones,Urine Negative (Negative); Leukocyte Esterase,Urine Negative (Negative); Nitrite,Urine Negative (Negative); PH, Urine 7.5 (5.0-8.0); Protein,Urine Negative (Negative); Specific Gravity,Urine 1.017 (1.001-1.035); Urobilinogen,Urine <2.0 mg/dL (<2.0)
[2020-12-04 02:06] LABS: Amphetamine Screen,Urine Not Detected (NotDetected); Barbiturate Screen,Urine Not Detected (NotDetected); Benzodiazepines Screen,Urine Not Detected (NotDetected); Cocaine Screen,Urine Not Detected (NotDetected); Methadone Screen, Urine Not Detected (NotDetected); Opiate Screen,Urine Detected (NotDetected); Oxycodone Screen, Urine Not Detected (NotDetected); Phencyclidine Screen,Urine Not Detected (NotDetected); Tricyclic Antidepressant,Urine Not Detected (NotDetected); Urn Cannabinoid Scrn Not Detected (NotDetected)
[2020-12-04 02:20] LABS: Glucose,Whole Blood 106 mg/dL (75-99)
[2020-12-04] MEDS: LABETALOL 5 MG/ML VIAL MDV IVP PRN ×2 (02:41→16:11)
[2020-12-04] MEDS ORDERED: NALOXONE 0.4 MG/ML 1 ML VIAL IV PRN (03:13)
[2020-12-04] MEDS ORDERED: hydrALAZINE HCL 20 MG/ML 1 ML VIAL IVP PRN (03:28)
[2020-12-04] MEDS ORDERED: ACETAMINOPHEN SUPPOSITORY 650 MG SUPP RECTAL PRN (03:28)
[2020-12-04] MEDS ORDERED: SODIUM CHLORIDE 0.9% 1,000 ML IV SCH (03:30)
[2020-12-04] MEDS: traMADol 50 MG TAB PO SCH ×2 (03:31→09:36)
[2020-12-04] MEDS: MORPHINE SULFATE 2 MG/ML SYRINGE IVP PRN ×4 (03:54→16:05)
[2020-12-04] MEDS ORDERED: ATORVASTATIN 40 MG TAB PO STA (04:19)
[2020-12-04 06:10] LABS: Basophils # (A) 0.1 k/uL (0-0.2); Basophils % (A) 0 %; Eosinophils # (A) 0.2 k/uL (0-0.7); Eosinophils % (A) 1 %; HCT 40.3 % (34.0-46.0); HGB 13.4 gm/dL (11.4-16.0); Lymphocytes # (A) 1.9 k/uL (1.0-4.8); Lymphocytes % (A) 8 %; MCH 28.3 pg (25.0-35.0); MCHC 33.2 g/dL (31.0-37.0); MCV 85.2 fL (80.0-100.0); Mean Platelet Volume 7.1; Monocytes # (A) 1.3 k/uL (0-1.0); Monocytes % (A) 6 %; Neutrophils # (A) 19.6 k/uL (1.3-7.7); Neutrophils % (A) 85 %; Platelet Count 353 k/uL (150-450); RBC 4.73 m/uL (3.80-5.40); RDW 13.5 % (11.5-15.5); WBC 23.2 k/uL (3.8-10.6)
[2020-12-04 06:25] LABS: Calcium 8.3 mg/dL (8.4-10.2)
[2020-12-04 06:26] LABS: Potassium 3.8 mmol/L (3.5-5.1)
[2020-12-04] MEDS ORDERED: LEVOTHYROXINE 50 MCG TAB PO SCH (06:30)
[2020-12-04] MEDS ORDERED: PANTOPRAZOLE 40 MG TABLET PO SCH (07:30)
[2020-12-04] MEDS ORDERED: ATORVASTATIN 40 MG TAB PO SCH ×2 (09:00→09:30)
[2020-12-04] MEDS ORDERED: amLODIPine 5 MG TAB PO SCH (09:00)
[2020-12-04] MEDS ORDERED: NON FORMULARY DRUG (Lactose-Reduced Food [Ensure Plus] 237 ML Liquid) PO SCH (09:00)
[2020-12-04] MEDS ORDERED: ATORVASTATIN 80 MG TAB PO SCH (09:00)
[2020-12-04] MEDS ORDERED: FAMOTIDINE 20 MG/2 ML VIAL IV SCH (09:00)
--- NOTE | 2020-12-04 10:27 | P.CNNES ---
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 She presented with the left sided hemiparesis and new onset expressive aphasia. History is obtained from the patient's daughter daughter (Anai) via phone (since patient could not provide history. Per the patient's daughter the patient resides with her at home. She was last seen normal at 7:30 on 12/03/2020 and went to sleep and then around 10:30 PM that same night the daughter heard a fall noise from the bathroom. When she noticed that that patient had left-sided weakness at. Patient daughter stated that the patient does not have any focal deficits at baseline and the she usually talks normal except she is hypophonic as a result of the trach otherwise has a normal jannet guage. She doesn't use any walkers or any canes to ambulate. Per the patient daughter patient does not have any history of strokes, TIAs. She is on any antiplatelets and no history of atrial fibrillation. She was on the Crestor in the past but had some joint pain and hasn't taken it and a couple weeks. She does have history of lower back pain with the numbness intermittent in the left lower extremity. She also has hip issues. Workup in the hospital consisted of: Initial vital signs blood pressure of 181/124, heart rate of 104, temperature of 98 point fours Fahrenheit oral, respiratory of 22 and pulse ox of 100 on 15 L During the hospital stay the patient's blood pressure was fluctuating between the systolic 120s and a got as high as 190s diastolic is been in the range of 70s to 90s predominantly it did the she did have a couple episodes of low 100 diastolic. Going back to systolic predominantly it's in the range of 140s to 180s but in the last couple hours had the systolic blood pressure has been 120s to 150s CT of the head is reported as cerebral atrophy and chronic small vessel ischemia. No acute intracranial abnormality. Overall no significant change compared to old exam which was on 06/15/2018. CT cervical was reported as cervical spondylitic changes mainly at C5-C6 and C6- C7. No fracture. No change. CT angiography of the head and neck was reported as tortuous proximal left internal carotid artery with 50% luminal narrowing. 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 No evidence of intracranial artery stenosis. Basilar aneurysm appears new or increased in size compared to old computed tomography scan of 09/16/2019. EKG is reported as normal sinus rhythm. Possible left atrial enlargement. Septal infarct, age undetermined. Abnormal EKG. Her NIH in the hospital per patient's nurse was 17. Dr. Goode from stroke team evaluated the patient and it was decided to go ahead with IV tpa. She received labetalol for hypertension. She received IV tpa (documented at 00:29 and completed tpa bag at 1:32 and was transfered to ICU. Review of Systems Is limited because of the patient's condition but pertitent positive and negative as per HPI. Past Medical History Past Medical History: GERD/Reflux, Hyperlipidemia, Hypertension, Osteoarthritis (OA), Thyroid Disorder Additional Past Medical History / Comment(s): STATES AT 37 YRS OLD VOCAL CORD WAS SEVERED DURING REMOVAL OF THYROID (HX OF GOITER), MULTIPLE THROAT SURGERIES AFTERWARDS. SHE HAS TO INHALE AND BLOW OUT WHEN TALKING. STATES ALSO THAT ESOPHAGUS CLOSES PREMATURELY WHEN EATING AND CAUSES HER TO INHALE FOOD AND SALIVA CAUSING HER TO COUGH ., STRESS INCONTINENCE-WEARS PAD, TORN ROTATOR CUFF(sx), bridges. History of Any Multi-Drug Resistant Organisms: None Reported Past Surgical History: Appendectomy, Hysterectomy, Orthopedic Surgery Additional Past Surgical History / Comment(s): TOTAL RIGHT HIP, CATARACTS, THYROID REMOVED WITH SEVERED VOCAL CORD AND MULTIPLE THROAT SURGERIES AFTERWARDS, right shoulder surgery, rt rotator cuff repair, trach insertion Past Anesthesia/Blood Transfusion Reactions: No Reported Reaction Past Psychological History: No Psychological Hx Reported Smoking Status: Former smoker Past Alcohol Use History: Occasional Additional Past Alcohol Use History / Comment(s): pt stated smoked briefly in her 20's then in her 40's then in her 60's none since Past Drug Use History: None Reported - Past Family History Daughter(s) Family Medical History: Cancer Additional Family Medical History / Comment(s): 2 DAUGHTERS- LEUKEMIA AND LUNG CANCER Mother Family Medical History: COPD Additional Family Medical History / Comment(s): bronchits Father Family Medical History: Cancer Additional Family Medical History / Comment(s): leukemia Medications and Allergies Home Medications Medication Instructions Recorded Confirmed Type Levothyroxine Sodium [Synthroid] 50 mcg PO DAILY 04/05/14 12/04/20 History amLODIPine [Norvasc] 5 mg PO DAILY 04/05/14 12/04/20 History Lactose-Reduced Food [Ensure Plus] 1 can PO BID 09/20/20 12/04/20 History traMADol HCL 25 mg PO Q12H 09/20/20 12/04/20 History Triamcinolone 0.1% Cream [Kenalog 1 applicatio TOPICAL BID PRN 12/04/20 12/04/20 History 0.1% Cream] Allergies Allergy/AdvReac Type Severity Reaction Status Date / Time No Known Allergies Allergy Verified 12/04/20 08:53 Physical Examination - Vital Signs Vital Signs: Vital Signs Temp Pulse Resp BP Pulse Ox 12/04/20 07:00 96 14 155/79 92 L 12/04/20 06:45 96 13 155/79 92 L 12/04/20 06:30 100 14 142/82 93 L 12/04/20 06:15 99 13 142/82 93 L 12/04/20 06:00 96 13 145/80 93 L 12/04/20 05:45 96 13 147/75 93 L 12/04/20 05:30 94 14 143/78 92 L 12/04/20 05:15 99 14 143/78 92 L 12/04/20 05:00 100 13 128/73 92 L 12/04/20 04:45 98 13 128/73 91 L 12/04/20 04:30 99 14 140/79 92 L 12/04/20 04:15 100 14 140/79 91 L 12/04/20 04:00 101 H 23 182/97 89 L 12/04/20 03:45 99 17 182/97 93 L 12/04/20 03:30 86 14 192/108 88 L 12/04/20 03:15 86 14 192/108 89 L 12/04/20 03:00 99.8 F H 86 10 L 176/88 94 L 12/04/20 02:45 98 F 80 14 176/88 93 L 12/04/20 02:30 98.2 F 84 12 187/94 90 L 12/04/20 02:22 26 H 12/04/20 01:30 97.9 F 98 16 177/88 96 12/04/20 01:15 92 16 124/76 97 12/04/20 01:00 92 16 158/88 97 12/04/20 00:45 86 16 158/88 95 12/04/20 00:30 97.8 F 84 18 172/86 95 12/04/20 00:15 79 16 166/86 12/04/20 00:00 85 18 166/82 96 12/03/20 23:45 97 18 184/98 95 12/03/20 23:15 103 H 18 143/75 95 12/03/20 22:56 98.4 F 104 H 22 181/124 100 Intake and Output 12/03/20 12/04/20 12/04/20 22:59 06:59 14:59 Intake Total 190 Output Total 780 Balance -590 Intake: IV 90 Sodium Chloride 0.9% 1, 90 000 ml @ 10 mls/hr IV . Q24H [facility] Rx#:[id number] Amount of Fluid Infused ( 100 ml) Output: Urine 780 Other: Voiding Method Indwelling Catheter Weight 58.2 kg 58.2 kg GENERAL: The patient is lying in bed and is not in acute distress. CHEST: The heart rate is regular rate rhythm. No murmurs to auscultation. No carotid bruit bilaterally. LUNG: Clear to auscultation bilaterally no wheezing noted throughout. Not labored breathing. ABDOMEN/GI: Bowel sounds present in all 4 quadrants. No tenderness to palpation throughout. NEUROLOGICAL: Higher mental function: The patient is awake, alert, oriented to self, place and time. Patient is following simple commands. She is able to name objects such as pen, watch and cup. Language is limited but has no paraphrasic errors or preservations. She was neglecting the left side. Cranial nerves: The pupils are round, equal and reactive to light. She was perfering her right side and stated above neglecting the left side. Visual dominguez could not be assessed because of condition. Extraocular: Preference of the right side and not looking to left. Facial sensation could not be assesse d. The facial strength is left lower facial weakness. Hypophonia. Otherwise rest of cranial nerves could not be assessed because of cooperation. Motor: Gait is deferred. The strength is able to lift right upper and lower extremity above gravity while left is 0/5. Could not assess right sided individual strength because of lack of cooperation. Normal bulk. Seem to have increase tone over the left. Cerebellum: Could not assess. Sensation: Could not assess light touch but to painful stimuli she seems to be intact throughout. Reflexes (right/left): 2+ throughout. Plantars are downgoing bilaterally. Results Coagulation study: PT of 10.2, INR 0.9 and PTT of 20.5. Initial white blood cells 14.9 and a repeat is 23.2. Predominantly neutrophilic. Initial potassium was 5.4 and a repeated is 3.8. Initial AST is 59 and ALT is 35. Initial POC glucose is 82. Urine analysis is negative for urinary tract infection Patient basic urine drugs and is positive for opiates. Serum alcohol was less than 10. Patient berkowitz virus PCR was not detected. The last troponin is 0.038. - Laboratory Findings CBC and BMP: 12/04/20 05:44 12/04/20 05:44 Abnormal Lab Findings: Abnormal Labs 12/03/20 12/03/20 12/03/20 23:18 23:18 23:18 WBC 14.9 H Neutrophils # 9.3 H Monocytes # 1.2 H APTT 20.5 L Sodium 134 L Potassium 5.4 H Chloride BUN 30 H Glucose POC Glucose (mg/dL) Calcium 8.2 L AST 59 H ALT 35 H Troponin I Urine Opiates Screen 12/04/20 12/04/20 12/04/20 01:42 02:19 05:44 WBC Neutrophils # Monocytes # APTT Sodium Potassium Chloride BUN Glucose POC Glucose (mg/dL) 106 H Calcium AST ALT Troponin I 0.038 H* Urine Opiates Screen Detected H 12/04/20 12/04/20 05:44 05:44 WBC 23.2 H Neutrophils # 19.6 H Monocytes # 1.3 H APTT Sodium 133 L Potassium Chloride 96 L BUN 22 H Glucose 107 H POC Glucose (mg/dL) Calcium 8.3 L AST ALT Troponin I Urine Opiates Screen Assessment and Plan Assessment: This is an 84-year-old woman that presented to emergency department on the 12/03/2020 at around 22:55 after a fall at home and her tracheostomy tube has become dislodged. She presented with acute left sided hempiparesis and new onset aphasia. NIH 17. She received IV tpa. 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 No acute intracranial abnormality. Overall no significant change compared to old exam which was on 06/15/2018. CT cervical was reported as cervical spondylitic changes mainly at C5-C6 and C6- C7. No fracture. No change. CT angiography of the head and neck was reported as tortuous proximal left internal carotid artery with 50% luminal narrowing. 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 No evidence of intracranial artery stenosis. Basilar aneurysm appears new or increased in size compared to old computed tomography scan of 09/16/2019. MRI the brain is ordered by the ED team about 20-24 hours post-IV TPA. Lipid panel is ordered. I ordered 2-D echo and TSH. The ED team placed an order for aspirin 325mg and Plavix 75mg starting 12/05/2020 . I will discontinue it until we get repeat image from today. I ordered CT head at midnight and if negative for hemorrhage then will start patient on ASA 81mg and Plavix 75mg daily. Patient is on the Lipitor 40 mg total daily (She had joint pain per daughter to Crestor. If has side-effect to lipitor 40mg will decrease it to 20mg qhs). Please avoid systolic blood pressure >185 and diastolic blood pressure >110. Can use IV labetalol PRN. Please avoid Hydralazine. We'll defer the management to the primary team and ICU team. Continue neuro checks per IV TPA protocol. Occupation therapy, physical therapy and speech therapy are consulted. Because of the basilar artery aneurysm I would recommend that the patient to be transferred to [facility] further management (cerebral diagnostic angiogram and further management if needed). Will defer the rest of the the workup to the primary team. Plan was discussed with the patient daughter and I notified her that the like her to be transferred to [facility]. The daughter stated that she is in agreement. Thank you for the consultation. Vasquez Bowen MD Neuro-Hospitalist Time with Patient: Greater than 30
--- NOTE | 2020-12-04 11:13 | P.CNPUL ---
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 She also has a history of hypothyroidism, hyperlipidemia, hypertension. Last evening she had sustained a fall and her tracheostomy tube had become dislodged. She was brought in by EMS. She was found to have expressive aphasia that was new for her. She had also developed left-sided otto-paresis. Computed tomography scan of the brain and C-spine revealed cerebral atrophy and chronic small vessel ischemia. No acute intracranial abnormality. No cervical fractures. CT angiogram of the head and neck revealed tortuous proximal left internal carotid artery with 50% luminal narrowing. 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 Basilar aneurysm appears new or increased in size compared to CT of 2018. She was evaluated by the stroke team. She was given TPA approximate 12:30 this morning. She is seen in consultation in the intensive care unit. She is currently resting in bed. Maintaining O2 saturation in the 90s on room air. Regular rhythm. She does have a left-sided facial droop, left-sided hemiparesis. Tracheostomy tube secured in place. White count 23.2. Hemoglobin 13.4. Sodium 133. Potassium 3.8. Creatinine 0.73. Glucose 107. TSH 1.82. Troponin 0.033, 0.038. Urine is clear. Urine drug screen positive for opiates. Alcohol less than 10. Pena virus not detected. Review of Systems Unable to obtain due to expressive aphasia Past Medical History Past Medical History: GERD/Reflux, Hyperlipidemia, Hypertension, Osteoarthritis (OA), Thyroid Disorder Additional Past Medical History / Comment(s): STATES AT 37 YRS OLD VOCAL CORD WAS SEVERED DURING REMOVAL OF THYROID (HX OF GOITER), MULTIPLE THROAT SURGERIES AFTERWARDS. SHE HAS TO INHALE AND BLOW OUT WHEN TALKING. STATES ALSO THAT ESOPHAGUS CLOSES PREMATURELY WHEN EATING AND CAUSES HER TO INHALE FOOD AND SALIVA CAUSING HER TO COUGH ., STRESS INCONTINENCE-WEARS PAD, TORN ROTATOR CUFF(sx), bridges. History of Any Multi-Drug Resistant Organisms: None Reported Past Surgical History: Appendectomy, Hysterectomy, Orthopedic Surgery Additional Past Surgical History / Comment(s): TOTAL RIGHT HIP, CATARACTS, THYROID REMOVED WITH SEVERED VOCAL CORD AND MULTIPLE THROAT SURGERIES AF TERWARDS, right shoulder surgery, rt rotator cuff repair, trach insertion Past Anesthesia/Blood Transfusion Reactions: No Reported Reaction Past Psychological History: No Psychological Hx Reported Smoking Status: Former smoker Past Alcohol Use History: Occasional Additional Past Alcohol Use History / Comment(s): pt stated smoked briefly in her 20's then in her 40's then in her 60's none since Past Drug Use History: None Reported - Past Family History Daughter(s) Family Medical History: Cancer Additional Family Medical History / Comment(s): 2 DAUGHTERS- LEUKEMIA AND LUNG CANCER Mother Family Medical History: COPD Additional Family Medical History / Comment(s): bronchits Father Family Medical History: Cancer Additional Family Medical History / Comment(s): leukemia Medications and Allergies Home Medications Medication Instructions Recorded Confirmed Type Levothyroxine Sodium [Synthroid] 50 mcg PO DAILY 04/05/14 12/04/20 History amLODIPine [Norvasc] 5 mg PO DAILY 04/05/14 12/04/20 History Lactose-Reduced Food [Ensure Plus] 1 can PO BID 09/20/20 12/04/20 History traMADol HCL 25 mg PO Q12H 09/20/20 12/04/20 History Triamcinolone 0.1% Cream [Kenalog 1 applicatio TOPICAL BID PRN 12/04/20 12/04/20 History 0.1% Cream] Allergies Allergy/AdvReac Type Severity Reaction Status Date / Time No Known Allergies Allergy Verified 12/04/20 08:53 Physical Exam Vitals: Vital Signs Temp Pulse Resp BP Pulse Ox 12/04/20 10:00 90 16 140/87 93 L 12/04/20 09:00 102 H 16 153/82 93 L 12/04/20 08:00 99.4 F 100 14 157/83 92 L 12/04/20 07:00 96 14 155/79 92 L 12/04/20 06:45 96 13 155/79 92 L 12/04/20 06:30 100 14 142/82 93 L 12/04/20 06:15 99 13 142/82 93 L 12/04/20 06:00 96 13 145/80 93 L 12/04/20 05:45 96 13 147/75 93 L 12/04/20 05:30 94 14 143/78 92 L 12/04/20 05:15 99 14 143/78 92 L 12/04/20 05:00 100 13 128/73 92 L 12/04/20 04:45 98 13 128/73 91 L 12/04/20 04:30 99 14 140/79 92 L 12/04/20 04:15 100 14 140/79 91 L 12/04/20 04:00 101 H 23 182/97 89 L 12/04/20 03:45 99 17 182/97 93 L 12/04/20 03:30 86 14 192/108 88 L 12/04/20 03:15 86 14 192/108 89 L 12/04/20 03:00 99.8 F H 86 10 L 176/88 94 L 12/04/20 02:45 98 F 80 14 176/88 93 L 12/04/20 02:30 98.2 F 84 12 187/94 90 L 12/04/20 02:22 26 H 12/04/20 01:30 97.9 F 98 16 177/88 96 12/04/20 01:15 92 16 124/76 97 12/04/20 01:00 92 16 158/88 97 12/04/20 00:45 86 16 158/88 95 12/04/20 00:30 97.8 F 84 18 172/86 95 12/04/20 00:15 79 16 166/86 12/04/20 00:00 85 18 166/82 96 12/03/20 23:45 97 18 184/98 95 12/03/20 23:15 103 H 18 143/75 95 12/03/20 22:56 98.4 F 104 H 22 181/124 100 Intake and Output 12/03/20 12/04/20 12/04/20 22:59 06:59 14:59 Intake Total 190 30 Output Total 780 445 Balance -590 415 Intake: IV 90 30 Sodium Chloride 0.9% 1, 90 30 000 ml @ 10 mls/hr IV . Q24H [facility] Rx#:[id number] Amount of Fluid Infused ( 100 ml) Output: Urine 780 445 Other: Voiding Method Indwelling Catheter Indwelling Catheter Weight 58.2 kg 58.2 kg GENERAL EXAM: Alert, 84-year-old female patient, expressive aphasia, on room air, comfortable in no apparent distress. HEAD: Normocephalic. Left-sided facial droop. EYES: Normal reaction of pupils, equal size. NOSE: Clear with pink turbinates. THROAT: No erythema or exudates. NECK: No masses, no JVD. CHEST: No chest wall deformity. LUNGS: Equal air entry with no crackles, wheeze, rhonchi or dullness. CVS: S1 and S2 normal with no audible murmur, regular rhythm. ABDOMEN: No hepatosplenomegaly, normal bowel sounds, no guarding or rigidity. SPINE: No scoliosis or deformity SKIN: No rashes CENTRAL NERVOUS SYSTEM: Expressive aphasia, left-sided hemiparesis. EXTREMITIES: Left-sided hemiparesis. There is no peripheral edema. No clubbing, no cyanosis. Peripheral pulses are intact. Results - Laboratory Findings CBC and BMP: 12/04/20 05:44 12/04/20 05:44 PT/INR, D-dimer PT 10.2 sec (9.0-12.0) 12/03/20 23:18 INR 0.9 (<1.2) 12/03/20 23:18 Abnormal lab findings: Abnormal Labs 12/03/20 12/03/20 12/03/20 23:18 23:18 23:18 WBC 14.9 H Neutrophils # 9.3 H Monocytes # 1.2 H APTT 20.5 L Sodium 134 L Potassium 5.4 H Chloride BUN 30 H Glucose POC Glucose (mg/dL) Calcium 8.2 L AST 59 H ALT 35 H Troponin I Urine Opiates Screen 12/04/20 12/04/20 12/04/20 01:42 02:19 05:44 WBC Neutrophils # Monocytes # APTT Sodium Potassium Chloride BUN Glucose POC Glucose (mg/dL) 106 H Calcium AST ALT Troponin I 0.038 H* Urine Opiates Screen Detected H 12/04/20 12/04/20 05:44 05:44 WBC 23.2 H Neutrophils # 19.6 H Monocytes # 1.3 H APTT Sodium 133 L Potassium Chloride 96 L BUN 22 H Glucose 107 H POC Glucose (mg/dL) Calcium 8.3 L AST ALT Troponin I Urine Opiates Screen - Diagnostic Findings Chest x-ray: image reviewed Assessment and Plan Assessment: 1 Acute ischemic stroke, left hemiplegia, left-sided facial droop, expressive aphasia. Suspect right MCA territory stroke. Status post TPA. 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 7 Gastroesophageal reflux disease 8 Former smoker Plan: The patient was seen and evaluated by Dr. Bowen The patient did receive TPA Follow-up computed tomography scan is pending Statins, Plavix, aspirin per neurology Labetalol IV when necessary for hypertension Neurology recommending transfer to [facility] regarding aneurysm of the basilar artery tip In the interim, we'll continue to follow and make further recommendations based on her clinical status I, the cosigning physician, performed a history & physical examination of the patient. Lungs sounds are clear. Maintaining good O2 saturations in the 90s on room air. I discussed the assessment and plan of care with my nurse practitioner, Carmen Viramontes. I attest to the above consultation as dictated by her. Time with Patient: Greater than 30
[2020-12-04 12:53] LABS: Glucose,Whole Blood 121 mg/dL (75-99)
[2020-12-04 15:15] VITALS: PULSE 89
[2020-12-04 16:13] VITALS: RESP 18; TEMP 98.7
--- NOTE | 2020-12-04 16:26 | P.DS ---
Providers Date of admission: 12/04/20 00:48 Attending physician: Gene Spann Consults: 12/04/20 00:45 Consult Physician Urgent Consulting Provider: Vasquez Bowen Consult Reason/Comments: Acute ischemic stroke Do you want consulting provider notified?: Already Contacted 12/04/20 00:59 Consult Physician Routine Consulting Provider: Tuan Bowen Reason/Comments: Post-tPA administration Do you want consulting provider notified?: Already Contacted Primary care physician: [facility] [facility] Course: 84-year-old woman with history of hypertension, hyperlipidemia, goiter, previous tracheostomy secondary due to laryngeal nerve injury during thyroid resection presented emergency department on the 12/03/2020 at around 22:55 via EMS after she has fallen at home and her tracheostomy tube has become dislodged. She presented with the left sided hemiparesis and new onset expressive aphasia. Workup in the hospital consisted of: Initial vital signs blood pressure of 181/124, heart rate of 104, temperature of 98 point fours Fahrenheit oral, respiratory of 22 and pulse ox of 100 on 15 L During the hospital stay the patient's blood pressure was fluctuating between the systolic 120s and a got as high as 190s diastolic is been in the range of 70s to 90s predominantly it did the she did have a couple episodes of low 100 diastolic. Going back to systolic predominantly it's in the range of 140s to 180s but in the last couple hours had the systolic blood pressure has been 120s to 150s CT of the head is reported as cerebral atrophy and chronic small vessel ischemia. No acute intracranial abnormality. Overall no significant change compared to old exam which was on 06/15/2018. CT cervical was reported as cervical spondylitic changes mainly at C5-C6 and C6- C7. No fracture. No change. CT angiography of the head and neck was reported as tortuous proximal left internal carotid artery with 50% luminal narrowing. 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 No evidence of intracranial artery stenosis. Basilar aneurysm appears new or increased in size compared to old computed tomography scan of 09/16/2019. EKG is reported as normal sinus rhythm. Possible left atrial enlargement. Septal infarct, age undetermined. Abnormal EKG. Coagulation study: PT of 10.2, INR 0.9 and PTT of 20.5. Initial white blood cells 14.9 and a repeat is 23.2. Predominantly neutrophilic. Initial potassium was 5.4 and a repeated is 3.8. Initial AST is 59 and ALT is 35. Initial POC glucose is 82. Urine analysis is negative for urinary tract infection Patient basic urine drugs and is positive for opiates. Serum alcohol was less than 10. Patient berkowitz virus PCR was not detected. The last troponin is 0.038. Her NIH in the hospital was 17. She received IV tpa. Patient was started on aspirin 325 mg daily and Plavix 75 mg daily starting 12/05/2020; neurology evaluated patient and recommended as repeat CT at midnight and recommendation to start patient on aspirin and Plavix as indicated if negative for hemorrhage; patient is to continue Lipitor 40 mg daily; blood pressure is recommended to be kept less than 185 or diastolic under 110; IV labetalol ordered to be used when necessary; neurology recommended to avoid hydralazine Because of the basilar artery aneurysm neurology recommended that the patient to be transferred to a tertiary center for further management (cerebral diagnostic angiogram and further management if needed). [facility] was contacted and patient was accepted by ICU team and is being transferred to [facility] under care of Dr. Noriega for further management of aneurysm Patient Condition at Discharge: Serious Plan - Discharge Summary Discharge Rx Participant: Yes New Discharge Prescriptions: No Action amLODIPine [Norvasc] 5 mg PO DAILY Levothyroxine Sodium [Synthroid] 50 mcg PO DAILY traMADol HCL 25 mg PO Q12H Lactose-Reduced Food [Ensure Plus] 1 can PO BID Triamcinolone 0.1% Cream [Kenalog 0.1% Cream] 1 applicatio TOPICAL BID PRN PRN Reason: Itching Discharge Medication List Levothyroxine Sodium [Synthroid] 50 mcg PO DAILY 04/05/14 [History] amLODIPine [Norvasc] 5 mg PO DAILY 04/05/14 [History] Lactose-Reduced Food [Ensure Plus] 1 can PO BID 09/20/20 [History] traMADol HCL 25 mg PO Q12H 09/20/20 [History] Triamcinolone 0.1% Cream [Kenalog 0.1% Cream] 1 applicatio TOPICAL BID PRN 12/04/20 [History] Follow up Appointment(s)/Referral(s): Rafat Duong DO [Primary Care Provider] - 1-2 days
--- NOTE | 2020-12-04 16:34 | P.HPIM ---
History of Present Illness H&P Date: 12/04/20 Chief Complaint: Fall/shortness of breath/aphasia 84-year-old woman with history of previous tracheostomy secondary to laryngeal nerve injury during thyroid resection. She is brought by ambulance to have evaluation after she had fallen at home and her tracheostomy tube had become dislodged. Most of the history initially from EMS that reports the patient usually is ambulatory and able to communicate though voices usually horse due to laryngeal nerve injury. Today the patient not able to communicate, appearing to have expressive aphasia. In addition, the medical record is reviewed and no evidence of previous stroke or other neurologic issue. Initial vital signs blood pressure of 181/124, heart rate of 104, temperature of 98, respiratory of 22 and pulse ox of [address] of the head is reported as cerebral atrophy and chronic small vessel ischemia. No acute intracranial abnormality. Overall no significant change compared to old exam which was on 06/15/2018. CT cervical was reported as cervical spondylitic changes mainly at C5-C6 and C6- C7. No fracture. No change. CT angiography of the head and neck was reported as tortuous proximal left internal carotid artery with 50% luminal narrowing. 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 No evidence of intracranial artery stenosis. Basilar aneurysm appears new or increased in size compared to old computed tomography scan of 09/16/2019. EKG is reported as normal sinus rhythm. Possible left atrial enlargement. Septal infarct, age undetermined. Abnormal EKG. Coagulation study: PT of 10.2, INR 0.9 and PTT of 20.5. Initial white blood cells 14.9 and a repeat is 23.2. Predominantly neutrophilic. Initial potassium was 5.4 and a repeated is 3.8. Initial AST is 59 and ALT is 35. Initial POC glucose is 82. Urine analysis is negative for urinary tract infection Patient basic urine drugs and is positive for opiates. Serum alcohol was less than 10. Patient berkowitz virus PCR was not detected. The last troponin is 0.038. Her NIH in the hospital was 17. Review of Systems REVIEW OF SYSTEMS: CONSTITUTIONAL: No fever, no malaise, no fatigue. HEENT: No recent visual problems or hearing problems. Denied any sore throat. CARDIOVASCULAR: No chest pain, orthopnea, PND, no palpitations, no syncope. PULMONARY: No shortness of breath, no cough, no hemoptysis. GASTROINTESTINAL: No diarrhea, no nausea, no vomiting, no abdominal pain. NEUROLOGICAL: Left-sided weakness and aphasia. HEMATOLOGICAL: Denies any bleeding or petechiae. GENITOURINARY: Denies any burning micturition, frequency, or urgency. MUSCULOSKELETAL/RHEUMATOLOGICAL: Denies any joint pain, swelling, or any muscle pain. ENDOCRINE: Denies any polyuria or polydipsia. The rest of the 14-point review of systems is negative. Past Medical History Past Medical History: GERD/Reflux, Hyperlipidemia, Hypertension, Osteoarthritis (OA), Thyroid Disorder Additional Past Medical History / Comment(s): STATES AT 37 YRS OLD VOCAL CORD WAS SEVERED DURING REMOVAL OF THYROID (HX OF GOITER), MULTIPLE THROAT SURGERIES AFTERWARDS. SHE HAS TO INHALE AND BLOW OUT WHEN TALKING. STATES ALSO THAT ESOPHAGUS CLOSES PREMATURELY WHEN EATING AND CAUSES HER TO INHALE FOOD AND SALIVA CAUSING HER TO COUGH ., STRESS INCONTINENCE-WEARS PAD, TORN ROTATOR CUFF(sx), bridges. History of Any Multi-Drug Resistant Organisms: None Reported Past Surgical History: Appendectomy, Hysterectomy, Orthopedic Surgery Additional Past Surgical History / Comment(s): TOTAL RIGHT HIP, CATARACTS, THYROID REMOVED WITH SEVERED VOCAL CORD AND MULTIPLE THROAT SURGERIES AFTERWARDS, right shoulder surgery, rt rotator cuff repair, trach insertion Past Anesthesia/Blood Transfusion Reactions: No Reported Reaction Past Psychological History: No Psychological Hx Reported Smoking Status: Former smoker Past Alcohol Use History: Occasional Additional Past Alcohol Use History / Comment(s): pt stated smoked briefly in h er 20's then in her 40's then in her 60's none since Past Drug Use History: None Reported - Past Family History Daughter(s) Family Medical History: Cancer Additional Family Medical History / Comment(s): 2 DAUGHTERS- LEUKEMIA AND LUNG CANCER Mother Family Medical History: COPD Additional Family Medical History / Comment(s): bronchits Father Family Medical History: Cancer Additional Family Medical History / Comment(s): leukemia Medications and Allergies Home Medications Medication Instructions Recorded Confirmed Type Levothyroxine Sodium [Synthroid] 50 mcg PO DAILY 04/05/14 12/04/20 History amLODIPine [Norvasc] 5 mg PO DAILY 04/05/14 12/04/20 History Lactose-Reduced Food [Ensure Plus] 1 can PO BID 09/20/20 12/04/20 History traMADol HCL 25 mg PO Q12H 09/20/20 12/04/20 History Triamcinolone 0.1% Cream [Kenalog 1 applicatio TOPICAL BID PRN 12/04/20 12/04/20 History 0.1% Cream] Allergies Allergy/AdvReac Type Severity Reaction Status Date / Time No Known Allergies Allergy Verified 12/04/20 08:53 Physical Exam Vitals: Vital Signs Temp Pulse Resp BP Pulse Ox 12/04/20 13:00 93 15 178/90 92 L 12/04/20 12:00 99.2 F 86 12 159/82 92 L 12/04/20 11:00 90 18 153/79 92 L 12/04/20 10:00 90 16 140/87 93 L 12/04/20 09:00 102 H 16 153/82 93 L 12/04/20 08:00 99.4 F 100 14 157/83 92 L 12/04/20 07:00 96 14 155/79 92 L 12/04/20 06:45 96 13 155/79 92 L 12/04/20 06:30 100 14 142/82 93 L 12/04/20 06:15 99 13 142/82 93 L 12/04/20 06:00 96 13 145/80 93 L 12/04/20 05:45 96 13 147/75 93 L 12/04/20 05:30 94 14 143/78 92 L 12/04/20 05:15 99 14 143/78 92 L 12/04/20 05:00 100 13 128/73 92 L 12/04/20 04:45 98 13 128/73 91 L 12/04/20 04:30 99 14 140/79 92 L 12/04/20 04:15 100 14 140/79 91 L 12/04/20 04:00 101 H 23 182/97 89 L 12/04/20 03:45 99 17 182/97 93 L 12/04/20 03:30 86 14 192/108 88 L 12/04/20 03:15 86 14 192/108 89 L 12/04/20 03:00 99.8 F H 86 10 L 176/88 94 L 12/04/20 02:45 98 F 80 14 176/88 93 L 12/04/20 02:30 98.2 F 84 12 187/94 90 L 12/04/20 02:22 26 H 12/04/20 01:30 97.9 F 98 16 177/88 96 12/04/20 01:15 92 16 124/76 97 12/04/20 01:00 92 16 158/88 97 12/04/20 00:45 86 16 158/88 95 12/04/20 00:30 97.8 F 84 18 172/86 95 12/04/20 00:15 79 16 166/86 12/04/20 00:00 85 18 166/82 96 12/03/20 23:45 97 18 184/98 95 12/03/20 23:15 103 H 18 143/75 95 12/03/20 22:56 98.4 F 104 H 22 181/124 100 Intake and Output 12/03/20 12/04/20 12/04/20 22:59 06:59 14:59 Intake Total 190 120 Output Total 780 745 Balance -590 -625 Intake: IV 90 120 Sodium Chloride 0.9% 1, 90 120 000 ml @ 10 mls/hr IV . Q24H [facility] Rx#:[id number] Amount of Fluid Infused ( 100 ml) Output: Urine 780 745 Other: Voiding Method Indwelling Catheter Indwelling Catheter Weight 58.2 kg 58.2 kg - Constitutional General appearance: Present: average body habitus, cooperative, no acute distress - EENT Eyes: Present: anicteric sclerae, EOMI, PERRLA, normal appearance ENT: Present: hearing grossly normal, normal oropharynx Ears: bilateral: normal - Neck Neck: Present: normal ROM. Absent: lymphadenopathy, rigidity, thyromegaly Carotids: negative: bruit present Thyroid: bilateral: normal size, negative: enlarged, nodule - Respiratory Respiratory: bilateral: CTA, negative: rales, rhonchi, wheezing - Cardiovascular Rhythm: regular Heart sounds: normal: S1, S2 Abnormal Heart Sounds: Absent: systolic murmur, diastolic murmur - Gastrointestinal General gastrointestinal: Present: normal bowel sounds, soft. Absent: distended, organomegaly, tenderness - Genitourinary Genitourinary Comment(s): deferred - Integumentary Integumentary: Present: normal turgor. Absent: jaundiced, rash, ulcer - Neurologic Neurologic: Present: CNII-XII intact. Left hemiparesis with muscle strength of 4/5 on right upper and lower extremity and 0/5 on left side - Musculoskeletal Musculoskeletal: Present: gait normal, strength equal bilaterally - Psychiatric Psychiatric: Present: A&O x's 3, appropriate affect, intact judgment & insight Results CBC & Chem 7: 12/04/20 05:44 12/04/20 05:44 Labs: Abnormal Lab Results - Last 24 Hours (Table) 12/03/20 12/03/20 12/03/20 Range/Units 23:18 23:18 23:18 WBC 14.9 H (3.8-10.6) k/uL Neutrophils # 9.3 H (1.3-7.7) k/uL Monocytes # 1.2 H (0-1.0) k/uL APTT 20.5 L (22.0-30.0) sec Sodium 134 L (137-145) mmol/L Potassium 5.4 H (3.5-5.1) mmol/L Chloride (98-107) mmol/L BUN 30 H (7-17) mg/dL Glucose (74-99) mg/dL POC Glucose (mg/dL) (75-99) mg/dL Calcium 8.2 L (8.4-10.2) mg/dL AST 59 H (14-36) U/L ALT 35 H (4-34) U/L Troponin I (0.000-0.034) ng/mL Urine Opiates Screen (NotDetected) 12/04/20 12/04/20 12/04/20 Range/Units 01:42 02:19 05:44 WBC (3.8-10.6) k/uL Neutrophils # (1.3-7.7) k/uL Monocytes # (0-1.0) k/uL APTT (22.0-30.0) sec Sodium (137-145) mmol/L Potassium (3.5-5.1) mmol/L Chloride (98-107) mmol/L BUN (7-17) mg/dL Glucose (74-99) mg/dL POC Glucose (mg/dL) 106 H (75-99) mg/dL Calcium (8.4-10.2) mg/dL AST (14-36) U/L ALT (4-34) U/L Troponin I 0.038 H* (0.000-0.034) ng/mL Urine Opiates Screen Detected H (NotDetected) 12/04/20 12/04/20 12/04/20 Range/Units 05:44 05:44 12:52 WBC 23.2 H (3.8-10.6) k/uL Neutrophils # 19.6 H (1.3-7.7) k/uL Monocytes # 1.3 H (0-1.0) k/uL APTT (22.0-30.0) sec Sodium 133 L (137-145) mmol/L Potassium (3.5-5.1) mmol/L Chloride 96 L (98-107) mmol/L BUN 22 H (7-17) mg/dL Glucose 107 H (74-99) mg/dL POC Glucose (mg/dL) 121 H (75-99) mg/dL Calcium 8.3 L (8.4-10.2) mg/dL AST (14-36) U/L ALT (4-34) U/L Troponin I (0.000-0.034) ng/mL Urine Opiates Screen (NotDetected) Thrombosis Risk Factor Assmnt - Choose All That Apply Other Risk Factors: Yes Each Risk Factor Represents 3 Points: Age 75 years or older Each Risk Factor Represents 5 Points: Stroke (< 1 month) Thrombosis Risk Factor Assessment Total Risk Factor Score: 8 Thrombosis Risk Factor Assessment Level: High Risk Assessment and Plan Assessment: 1. Acute ischemic stroke (left hemiplegia, left facial weakness and broca aphasia; possibly Right MCA territory stroke s/p IV tpa - Patient is recommended to start Plavix 75 mg daily and aspirin 325 mg daily on 12/04/2020 - Continue with Lipitor 40 mg by mouth daily at bedtime - Patient to have repeat CT of the head done at midnight and if negative for hemorrhage then will be started on aspirin and Plavix - Avoid systolic blood pressure greater than 185 and diastolic blood pressure greater than 110; IV labetalol to be used when necessary; avoid hydralazine - Continue with neuro checks per TPA protocol - PT/OT/speech therapy was consulted 2. Aneurysm of the basilar artery tip (new); neurology is recommending for patient to be transferred to tertiary care center; social work specialist consulted 3. Cervical spondylosis (C5-C6 and C6-C7); asymptomatic 4. Mild transaminitis; monitor liver enzymes closely and possibly order ultrasound of liver if continues to have a protracted 5. Elevated troponin; we will continue to trend troponin; possibly secondary to acute CVA 6. Hypertension; chronic disease as indicated above 7. Hyperlipidemia; Lipitor 40 mg by mouth daily at bedtime 8. History of goiter with previous tracheostomy secondary due to laryngeal nerve injury during thyroid resection DVT prophylaxis; SCDs/subcu Lovenox possibly next 24-48 hours CODE STATUS; full code
[2020-12-04 16:37] VITALS: BP 113/55
[2020-12-05] MEDS ORDERED: CLOPIDOGREL 75 MG TAB PO SCH (00:46)
[2020-12-05] MEDS ORDERED: ASPIRIN 325 MG TAB PO SCH (00:46)
--- NOTE | 2020-12-05 15:00 | ECHOF ---
Referral Reason:stroke MEASUREMENTS -------- HEIGHT: 154.9 cm WEIGHT: 58.1 kg BP: IVSd: 1.5 cm (0.6 - 1.1) LVIDd: 2.3 cm (3.9 - 5.3) LVPWd: 1.5 cm (0.6 - 1.1) IVSs: 1.5 cm LVIDs: 1.5 cm LVPWs: 1.7 cm RVIDd: 2.5 cm (< 3.3) LAESV Index (A-L): 15.01 ml/m Ao Diam: 3.0 cm (2.0 - 3.7) LA Diam: 2.8 cm (2.7 - 3.8) AV Cusp: 1.6 cm (1.5 - 2.6) EPSS: 0.5 cm MV E Joshua: 0.62 m/s MV DecT: 180 ms MV A Joshua: 1.62 m/s MV E/A Ratio: 0.38 RAP: 5.00 mmHg RVSP: 14.41 mmHg MV EF SLOPE: 33.19 mm/s (70 - 150) MV EXCURSION: 6.83 mm (> 18.000) FINDINGS -------- This was a technically difficult study with suboptimal views. The left ventricular size is normal. There is moderate concentric left ventricular hypertrophy. O verall left ventricular systolic function is normal with, an EF between 60 - 65 %. Normal LAP Grade 1 Diastolic Dysfunction. The right ventricle is normal in size. The left atrial size is normal. Normal LA size by volume 22+/-6 ml/m2. The right atrial size is normal. Lumason used The aortic valve is trileaflet and appears structurally normal. The mitral valve is normal. There is trace mitral regurgitation. The tricuspid valve appears structurally normal. Mild tricuspid regurgitation present. Right vent ricular systolic pressure is normal at < 35 mmHg. There is no pulmonic regurgitation present. The aortic root size is normal. Normal inferior vena cava with normal inspiratory collapse consistent with estimated right atrial pre ssure of 5 mmHg. There is no pericardial effusion. CONCLUSIONS -------- 1. The left ventricular size is normal. 2. There is moderate concentric left ventricular hypertrophy. 3. Overall left ventricular systolic function is normal with, an EF between 60 - 65 %. 4. Normal LAP Grade 1 Diastolic Dysfunction. 5. There is trace mitral regurgitation. 6. Mild tricuspid regurgitation present. 7. There is no pericardial effusion. WAREHOUSE ORDER SELECTOR: Chana Mckeon RDCS
== END 2020-12-04 16:49 | disposition short-term general hospital (02) | DRG 62 ==
LOC: EC 22:55 → 2SICU 12-04 00:48
PROVIDERS: ADMIT Hospitalist; ATTEND Hospitalist
DX: I63.511 Cerebral infarction due to unspecified occlusion or stenosis of right middle cerebral artery (principal); J95.03 Malfunction of tracheostomy stoma; G81.94 Hemiplegia, unspecified affecting left nondominant side; E78.5 Hyperlipidemia, unspecified; E03.9 Hypothyroidism, unspecified; I10 Essential (primary) hypertension; I67.1 Cerebral aneurysm, nonruptured; K21.9 Gastro-esophageal reflux disease without esophagitis; Z20.822 Contact with and (suspected) exposure to COVID-19; M47.812 Spondylosis without myelopathy or radiculopathy, cervical region; R47.01 Aphasia; R29.810 Facial weakness; W18.30XA Fall on same level, unspecified, initial encounter; Y92.009 Unspecified place in unspecified non-institutional (private) residence as the place of occurrence of the external cause; Z79.82 Long term (current) use of aspirin; Z79.890 Hormone replacement therapy; Z79.899 Other long term (current) drug therapy; Z80.6 Family history of leukemia; Z82.5 Family history of asthma and other chronic lower respiratory diseases; Z87.891 Personal history of nicotine dependence; Z90.710 Acquired absence of both cervix and uterus
CPT/HCPCS: 36415; 70450; 70496; 70498; 71045; 72125; 72170; 80048; 80053; 80306; 80320; 81003; 83605; 84443; 84484; 85025; 85610; 85730; 86850; 86900; 86901; 87635; 93005; 93306; 96365; 96375; 99285

== ENCOUNTER 2021-01-03 13:38 | Inpatient (IN) | payer MEDICARE, BC, OTHER ==
[2021-01-03 14:02] LABS: Glucose,Whole Blood 166 mg/dL (75-99)
[2021-01-03] MEDS ORDERED: SODIUM CHLORIDE 0.9% 500 ML 500 ML IV ONE (14:24)
[2021-01-03 14:36] LABS: Albumin 3.2 g/dL (3.5-5.0); Calcium 8.6 mg/dL (8.4-10.2); Potassium 3.5 mmol/L (3.5-5.1); Total Protein 6.1 g/dL (6.3-8.2)
--- NOTE | 2021-01-03 14:48 | ED ---
General Adult HPI - General Chief complaint: Neuro Symptoms/Deficit Stated complaint: Poss TIA Time Seen by Provider: 01/03/21 13:40 Source: patient, EMS, RN notes reviewed, old records reviewed Mode of arrival: EMS Limitations: language barrier - History of Present Illness Initial comments: This is an 85-year-old female presents emergency Department with a past medical history significant for CVA with left-sided paralysis. Patient was sent to the emergency department because the patient had an episode of unresponsiveness at the facility. At the arrival of the patient the patient was back to her baseline EMS states that the patient was always at this baseline since they saw the patient. According to EMS they got no report on when this occurred or the duration the patient was unresponsive. Patient is unable to speak at her baseline so taking history is more difficult. Patient denies any chest pain denies any difficulty breathing denies any recent fever chills denies any abdominal pain denies nausea or vomiting. Patient states she might feel a little bit lightheaded. At this time there is no further history that I can obtain. - Related Data Home Medications Medication Instructions Recorded Confirmed Levothyroxine Sodium [Synthroid] 50 mcg PO DAILY 04/05/14 01/03/21 amLODIPine [Norvasc] 5 mg PO DAILY 04/05/14 01/03/21 Lactose-Reduced Food [Ensure Plus] 1 can PO BID 09/20/20 01/03/21 traMADol HCL 50 - 100 mg PO TID PRN 09/20/20 01/03/21 Triamcinolone 0.1% Cream [Kenalog 1 applicatio TOPICAL BID PRN 12/04/20 01/03/21 0.1% Cream] Allergies Allergy/AdvReac Type Severity Reaction Status Date / Time No Known Allergies Allergy Verified 01/03/21 14:10 Review of Systems ROS Statement: Those systems with pertinent positive or pertinent negative responses have been documented in the HPI. ROS Other: All systems not noted in ROS Statement are negative. Past Medical History Past Medical History: CVA/TIA, Diabetes Mellitus, GERD/Reflux, Hyperlipidemia, Hypertension, Osteoarthritis (OA), Thyroid Disorder Additional Past Medical History / Comment(s): STATES AT 37 YRS OLD VOCAL CORD WAS SEVERED DURING REMOVAL OF THYROID (HX OF GOITER), MULTIPLE THROAT SURGERIES AFTERWARDS. SHE HAS TO INHALE AND BLOW OUT WHEN TALKING. STATES ALSO THAT ESOPHAGUS CLOSES PREMATURELY WHEN EATING AND CAUSES HER TO INHALE FOOD AND S ALIVA CAUSING HER TO COUGH ., STRESS INCONTINENCE-WEARS PAD, TORN ROTATOR CUFF(sx), bridges. History of Any Multi-Drug Resistant Organisms: None Reported Past Surgical History: Appendectomy, Hysterectomy, Orthopedic Surgery Additional Past Surgical History / Comment(s): TOTAL RIGHT HIP, CATARACTS, THYROID REMOVED WITH SEVERED VOCAL CORD AND MULTIPLE THROAT SURGERIES AFTERWARDS, right shoulder surgery, rt rotator cuff repair, trach insertion Past Anesthesia/Blood Transfusion Reactions: No Reported Reaction Past Psychological History: Anxiety Smoking Status: Never smoker Past Alcohol Use History: Occasional Past Drug Use History: None Reported - Past Family History Daughter(s) Family Medical History: Cancer Additional Family Medical History / Comment(s): 2 DAUGHTERS- LEUKEMIA AND LUNG CANCER Mother Family Medical History: COPD Additional Family Medical History / Comment(s): bronchits Father Family Medical History: Cancer Additional Family Medical History / Comment(s): leukemia General Exam - General Exam Comments Initial Comments: GENERAL: Patient is well-developed and well-nourished. Patient is nontoxic and well- hydrated and is in no acute distress. ENT: Neck is soft and supple. No significant lymphadenopathy is noted. Oropharynx is clear. Moist mucous membranes. Neck has full range of motion without eliciting any pain. EYES: The sclera were anicteric and conjunctiva were pink and moist. Extraocular movements were intact and pupils were equal round and reactive to light. Eyelids were unremarkable. PULMONARY: Unlabored respirations. Good breath sounds bilaterally. No audible rales rhonchi or wheezing was noted. CARDIOVASCULAR: There is a regular rate and rhythm without any murmurs gallops or rubs. ABDOMEN: Soft and nontender with normal bowel sounds. No palpable organomegaly was noted. There is no palpable pulsatile mass. SKIN: Skin is clear with no lesions or rashes and otherwise unremarkable. NEUROLOGIC: Patient is alert and oriented x3. Cranial nerves II through XII are grossly intact. Patient has no movement of the left side of her body for arm and leg. Patient is unable to speak. All of these symptoms are baseline per EMS and her daughter. Symmetrical smile. MUSCULOSKELETAL: Right side of her body has normal strength of the upper and lower extremity. No lower extremity swelling or edema. No calf tenderness. LYMPHATICS: No significant lymphadenopathy is noted PSYCHIATRIC: Normal psychiatric evaluation. Limitations: no limitations Course Vital Signs 01/03/21 01/03/21 13:43 16:41 Temperature 97.7 F Pulse Rate 85 75 Respiratory 17 16 Rate Blood Pressure 106/52 92/52 O2 Sat by Pulse 94 L Oximetry Medical Decision Making - Medical Decision Making EKG shows normal sinus rhythm at 85 bpm ME interval 192 QRS is 72 QT interval 32 QTC is 454. Patient's EKG shows no elevation or depression CAT scan shows a acute versus subacute right frontal infarct. According to the son the patient shows no neurologic deficit that is different than the baseline. - Lab Data Result diagrams: 01/03/21 13:50 01/03/21 13:50 Lab Results 01/03/21 01/03/21 01/03/21 Range/Units 13:50 13:50 13:50 WBC 10.6 (3.8-10.6) k/uL RBC 4.27 (3.80-5.40) m/uL Hgb 12.3 (11.4-16.0) gm/dL Hct 37.0 (34.0-46.0) % MCV 86.7 (80.0-100.0) fL MCH 28.8 (25.0-35.0) pg MCHC 33.3 (31.0-37.0) g/dL RDW 14.9 (11.5-15.5) % Plt Count 295 (150-450) k/uL MPV 7.7 Neutrophils % 79 % Lymphocytes % 13 % Monocytes % 4 % Eosinophils % 3 % Basophils % 1 % Neutrophils # 8.4 H (1.3-7.7) k/uL Lymphocytes # 1.3 (1.0-4.8) k/uL Monocytes # 0.5 (0-1.0) k/uL Eosinophils # 0.3 (0-0.7) k/uL Basophils # 0.1 (0-0.2) k/uL PT 10.2 (9.0-12.0) sec INR 0.9 (<1.2) APTT 21.5 L (22.0-30.0) sec Sodium 135 L (137-145) mmol/L Potassium 3.5 (3.5-5.1) mmol/L Chloride 97 L (98-107) mmol/L Carbon Dioxide 32 H (22-30) mmol/L Anion Gap 6 mmol/L BUN 21 H (7-17) mg/dL Creatinine 1.11 H (0.52-1.04) mg/dL Est GFR (CKD-EPI)AfAm 53 (>60 ml/min/1.73 sqM) Est GFR (CKD-EPI)NonAf 46 (>60 ml/min/1.73 sqM) Glucose 178 H (74-99) mg/dL POC Glucose (mg/dL) (75-99) mg/dL POC Glu Electronic Sensing Equipment Assembler ID Calcium 8.6 (8.4-10.2) mg/dL Total Bilirubin 1.0 (0.2-1.3) mg/dL AST 35 (14-36) U/L ALT 27 (4-34) U/L Alkaline Phosphatase 86 (38-126) U/L Troponin I (0.000-0.034) ng/mL Total Protein 6.1 L (6.3-8.2) g/dL Albumin 3.2 L (3.5-5.0) g/dL Urine Color Urine Appearance (Clear) Urine pH (5.0-8.0) Ur Specific Tyler (1.001-1.035) Urine Protein (Negative) Urine Glucose (UA) (Negative) Urine Ketones (Negative) Urine Blood (Negative) Urine Nitrite (Negative) Urine Bilirubin (Negative) Urine Urobilinogen (<2.0) mg/dL Ur Leukocyte Esterase (Negative) Urine Opiates Screen (NotDetected) Ur Oxycodone Screen (NotDetected) Urine Methadone Screen (NotDetected) Ur Propoxyphene Screen (NotDetected) Ur Barbiturates Screen (NotDetected) U Tricyclic Antidepress (NotDetected) Ur Phencyclidine Scrn (NotDetected) Ur Amphetamines Screen (NotDetected) U Methamphetamines Scrn (NotDetected) U Benzodiazepines Scrn (NotDetected) Urine Cocaine Screen (NotDetected) U Marijuana (THC) Screen (NotDetected) 01/03/21 01/03/21 01/03/21 Range/Units 13:50 13:52 16:02 WBC (3.8-10.6) k/uL RBC (3.80-5.40) m/uL Hgb (11.4-16.0) gm/dL Hct (34.0-46.0) % MCV (80.0-100.0) fL MCH (25.0-35.0) pg MCHC (31.0-37.0) g/dL RDW (11.5-15.5) % Plt Count (150-450) k/uL MPV Neutrophils % % Lymphocytes % % Monocytes % % Eosinophils % % Basophils % % Neutrophils # (1.3-7.7) k/uL Lymphocytes # (1.0-4.8) k/uL Monocytes # (0-1.0) k/uL Eosinophils # (0-0.7) k/uL Basophils # (0-0.2) k/uL PT (9.0-12.0) sec INR (<1.2) APTT (22.0-30.0) sec Sodium (137-145) mmol/L Potassium (3.5-5.1) mmol/L Chloride (98-107) mmol/L Carbon Dioxide (22-30) mmol/L Anion Gap mmol/L BUN (7-17) mg/dL Creatinine (0.52-1.04) mg/dL Est GFR (CKD-EPI)AfAm (>60 ml/min/1.73 sqM) Est GFR (CKD-EPI)NonAf (>60 ml/min/1.73 sqM) Glucose (74-99) mg/dL POC Glucose (mg/dL) 166 H (75-99) mg/dL POC Glu Electronic Sensing Equipment Assembler ID [id number] Calcium (8.4-10.2) mg/dL Total Bilirubin (0.2-1.3) mg/dL AST (14-36) U/L ALT (4-34) U/L Alkaline Phosphatase (38-126) U/L Troponin I 0.019 (0.000-0.034) ng/mL Total Protein (6.3-8.2) g/dL Albumin (3.5-5.0) g/dL Urine Color Yellow Urine Appearance Clear (Clear) Urine pH 6.5 (5.0-8.0) Ur Specific Tyler 1.012 (1.001-1.035) Urine Protein Negative (Negative) Urine Glucose (UA) Negative (Negative) Urine Ketones Negative (Negative) Urine Blood Negative (Negative) Urine Nitrite Negative (Negative) Urine Bilirubin Negative (Negative) Urine Urobilinogen 3.0 (<2.0) mg/dL Ur Leukocyte Esterase Negative (Negative) Urine Opiates Screen Not Detected (NotDetected) Ur Oxycodone Screen Not Detected (NotDetected) Urine Methadone Screen Not Detected (NotDetected) Ur Propoxyphene Screen Not Detected (NotDetected) Ur Barbiturates Screen Not Detected (NotDetected) U Tricyclic Antidepress Not Detected (NotDetected) Ur Phencyclidine Scrn Not Detected (NotDetected) Ur Amphetamines Screen Not Detected (NotDetected) U Methamphetamines Scrn Not Detected (NotDetected) U Benzodiazepines Scrn Detected H (NotDetected) Urine Cocaine Screen Not Detected (NotDetected) U Marijuana (THC) Screen Not Detected (NotDetected) Disposition Clinical Impression: Unresponsive episode, CVA (cerebral vascular accident) Disposition: ADMITTED IP TO THIS [facility] Referrals: Nonstaff,Physician [Primary Care Provider] - 1-2 days Time of Disposition: 16:55
[2021-01-03 14:50] LABS: INR 0.9 (<1.2); Prothrombin Time 10.2 sec (9.0-12.0)
--- NOTE | 2021-01-03 14:57 | XR ---
EXAMINATION TYPE: XR chest 2V DATE OF EXAM: 01/03/2021 COMPARISON: Chest x-ray December 03, 2020. CT chest September 27, 2020 HISTORY: Altered mental status. TECHNIQUE: Frontal and lateral views of the chest are obtained. FINDINGS: Elevated right hemidiaphragm and tracheostomy tube redemonstrated. There is mild chronic pa renchymal change without suspicious focal air space opacity, pleural effusion, or pneumothorax seen. The cardiac silhouette size is stable and within normal limits. The osseous structures are intact. IMPRESSION: No acute process. No significant change from most recent prior studies.
--- NOTE | 2021-01-03 14:59 | CT ---
EXAMINATION TYPE: CT brain wo con DATE OF EXAM: 01/03/2021 HISTORY: altered mental status CT DLP: 1098.4 mGycm. Automated Exposure Control for Dose Reduction was Utilized. TECHNIQUE: CT scan of the head is performed without contrast. COMPARISON: CT brain December 03, 2020. FINDINGS: There is no acute intracranial hemorrhage or midline shift identified. There is mild-to-m oderate diffuse ventricular and sulcal prominence consistent with diffuse age-related cerebral atroph y. There is moderate low-attenuation in the periventricular white matter consistent with chronic sma ll vessel ischemic change. New area of hypodensity right frontal region axial image 30 from most rec ent CT The globes are intact and the visualized sinuses remain clear. IMPRESSION: No acute intracranial hemorrhage or midline shift. There is mild to moderate diffuse ag e-related cerebral atrophy and moderate chronic small vessel ischemic change redemonstrated. Evolvin g acute/subacute infarct high right frontal lobe noted. Correlate clinically.
[2021-01-03 15:18] LABS: Partial Thromboplastin Time 21.5 sec (22.0-30.0)
[2021-01-03 15:27] LABS: Basophils # (A) 0.1 k/uL (0-0.2); Basophils % (A) 1 %; Eosinophils # (A) 0.3 k/uL (0-0.7); Eosinophils % (A) 3 %; HGB 12.3 gm/dL (11.4-16.0); Lymphocytes # (A) 1.3 k/uL (1.0-4.8); Lymphocytes % (A) 13 %; MCH 28.8 pg (25.0-35.0); MCHC 33.3 g/dL (31.0-37.0); MCV 86.7 fL (80.0-100.0); Mean Platelet Volume 7.7; Monocytes # (A) 0.5 k/uL (0-1.0); Monocytes % (A) 4 %; Neutrophils # (A) 8.4 k/uL (1.3-7.7); Neutrophils % (A) 79 %; Platelet Count 295 k/uL (150-450); RBC 4.27 m/uL (3.80-5.40); RDW 14.9 % (11.5-15.5); WBC 10.6 k/uL (3.8-10.6)
[2021-01-03 16:08] LABS: Appearance,Urine Clear (Clear); Bilirubin,Urine Negative (Negative); Blood,Urine Negative (Negative); Color,Urine Yellow; Glucose,Urine (UA) Negative (Negative); Ketones,Urine Negative (Negative); Leukocyte Esterase,Urine Negative (Negative); Nitrite,Urine Negative (Negative); PH, Urine 6.5 (5.0-8.0); Protein,Urine Negative (Negative); Specific Gravity,Urine 1.012 (1.001-1.035)
[2021-01-03 16:16] LABS: Amphetamine Screen,Urine Not Detected (NotDetected); Barbiturate Screen,Urine Not Detected (NotDetected); Benzodiazepines Screen,Urine Detected (NotDetected); Cocaine Screen,Urine Not Detected (NotDetected); Methadone Screen, Urine Not Detected (NotDetected); Opiate Screen,Urine Not Detected (NotDetected); Oxycodone Screen, Urine Not Detected (NotDetected); Phencyclidine Screen,Urine Not Detected (NotDetected); Tricyclic Antidepressant,Urine Not Detected (NotDetected); Urn Cannabinoid Scrn Not Detected (NotDetected)
[2021-01-03] MEDS ORDERED: ASPIRIN 325 MG TAB PO STA (16:56)
--- NOTE | 2021-01-03 21:15 | HP ---
HISTORY AND PHYSICAL DATE OF SERVICE: 01/13/2021. CHIEF COMPLAINT: possible stroke. HISTORY OF PRESENT ILLNESS: This 85-year-old woman with a past medical history of multiple medical problems, history of previous stroke involving the left side of the body, history of CVA, TIA, diabetes mellitus, GERD, hypertension, hyperlipidemia, is being followed in the [facility] at this time. 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 It is unclear whether any intervention has been done there. However, currently in the facility, the patient became nonresponsive apparently. Patient was taken to [facility] and was admitted to the hospital for further evaluation and treatment. Patient also apparently had some more numbness on the on the left side also. 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 The patient is unable to communicate by writing in a note at this time. There is no history of any fever, rigors or chills. No history of trauma at this time. PAST MEDICAL HISTORY: History of CVA, TIA, diabetes mellitus, GERD, hypertension, DJD, history of tracheostomy, history of anxiety. MEDICATIONS: Prior to admission include home medications are: Ultram, Kenalog, Synthroid, Ensure, Norvasc. Doses are reviewed. ALLERGIES: None. FAMILY HISTORY: History of cancer, leukemia, lung cancer. SOCIAL HISTORY: Previous history of smoking. No history of current alcohol intake. REVIEW OF SYSTEMS: ENT: As mentioned earlier. CARDIOVASCULAR: No angina. RESPIRATORY: As mentioned earlier. GI: As mentioned earlier. : No dysuria. NERVOUS SYSTEM: As mentioned earlier. ALLERGY/IMMUNOLOGY: No asthma or hayfever. MUSCULOSKELETAL as mentioned earlier. HEMATOLOGY/ONCOLOGY: No history of anemia. ENDOCRINE: No history of anemia. ENDOCRINE: No history of diabetes or hypothyroidism. CONSTITUTIONAL: As mentioned earlier. DERMATOLOGY: Negative. RHEUMATOLOGY: Negative. PSYCHIATRY as mentioned earlier. PHYSICAL EXAMINATION: Alert and oriented times two. Pulse is 74. Blood pressure 122/60, respirations 17. Temperature 97.7, pulse ox 98% on 2 L. HEENT: Conjunctivae normal. Oral mucosa moist. NECK is tracheostomy. CARDIOVASCULAR system: S1, S2 muffled. RESPIRATION: Breath sounds diminished in the bases. A few scattered rhonchi and crackles. ABDOMEN: Soft, nontender. LEGS: No edema. No swelling. NERVOUS SYSTEM: Diffusely weak. Flaccid weakness with some contractures also on the left side present. Sensory abnormalities also present. SKIN: No ulcer, rash or bleeding. JOINTS: No active deforming arthropathy. LYMPHATICS: No lymph nodes palpable in the neck, axillae or groin. LABS: CBC within normal limits. Sodium 135, creatinine is 1.11. The baseline creatinine was normal. ASSESSMENT: 1. Unresponsive numbness of the left side possible acute stroke. 2. Previous acute stroke involving the left side of the body. 3. Increased creatinine with dehydration, acute renal failure, acute tubular necrosis. 4. Hyponatremia. 5. Gait dysfunction. 6. Change in mental status, metabolic encephalopathy. 7. Diabetes mellitus type 2. 8. Gastroesophageal reflux disease. 9. Hypertension. 10.Hyperlipidemia. 11.History of degenerative joint disease. 12.Hypothyroidism. 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 14.History of multiple throat surgeries. 16.Appendectomy. 17.Anxiety. RECOMMENDATIONS AND DISCUSSION: In this 85-year-old woman who presented with multiple complex medical issues, we will monitor the patient closely. Continue the current medications, symptomatic treatment. Otherwise, home medications. Other than that, neurology consultation. Neurovascular workup. Neuro checks. The prognosis guarded because of multiple complex medical issues. A CT scan of the brain was done which was reported as showing mild diffuse age- related atrophy and chronic small-vessel ischemic changes also noted. Evolving or acute and subacute infarct in the right frontal lobe was also noted. I would recommend neurology consultation and the CT findings could indicate either a small finding or evolving new finding also. Prognosis extremely guarded, in this elderly individual, which I discussed at length with the family who understands and agrees. Further recommendations to follow. MMODL / IJN: [id number] / MTDD
[2021-01-04 03:07] LABS: Cholesterol 160 mg/dL (<200); HDL Cholesterol 61 mg/dL (40-60); LDL Cholesterol,Calculated 72 mg/dL (0-99); Triglycerides 137 mg/dL (<150)
[2021-01-04] MEDS: ASPIRIN 325 MG TAB PO SCH (08:13)
[2021-01-04] MEDS ORDERED: ALPRAZolam 0.25 MG TAB PO STA (11:14)
[2021-01-04] MEDS ORDERED: TRIAMCINOLONE 0.1% CREAM 80 GM TUBE TOPICAL PRN (13:46)
[2021-01-04] MEDS ORDERED: traMADol 50 MG TAB PO PRN (13:46)
--- NOTE | 2021-01-04 14:37 | PN ---
PROGRESS NOTE DATE OF SERVICE: 01/04/2021 This 85-year-old woman was admitted with unresponsiveness and numbness was considered to have a new stroke. Neurology is following the patient closely. The CAT scan of the brain showed mild to moderate diffuse age-related cerebral atrophy and as well as evolving acute subacute infarct in the high right frontal lobe was also noted. The patient is being closely monitored at this time. The patient is able to communicate with writing on a paper. PAST MEDICAL HISTORY: Reviewed. REVIEW OF SYSTEMS: Could not be taken. CURRENT MEDICATIONS: Current medications are aspirin. ALLERGIES: Allergies are noted. PHYSICAL EXAMINATION: Patient is alert and oriented x3. Pulse 82, blood pressure 160/71, respiration 18, temperature 97.5, pulse ox 94% on room air. HEENT: Conjunctivae normal. NECK: No jugular venous distention. CARDIOVASCULAR: S1, S2 muffled. RESPIRATORY: Breath sounds diminished at the bases. A few scattered rhonchi. ABDOMEN: Soft, nontender. LEGS: No edema, no swelling. NERVOUS SYSTEM: Left hemiplegia. LABS: CBC within normal. Sodium 135. Creatinine is 1.11. ASSESSMENT: 1. Unresponsive, numbness of the left side, possible acute stroke involving the right hemisphere and frontal lobe. 2. Previous acute stroke involving the left side of the body, possibly right hemispheric lesion. 3. Increased creatinine with dehydration with acute renal failure, acute tubular necrosis. 4. Hyponatremia. 5. Gait dysfunction. 6. Change in mental status, acute metabolic encephalopathy. 7. Diabetes mellitus type 2. 8. Gastroesophageal reflux disease. 9. Hypertension. 10.Hyperlipidemia. 11.History of degenerative joint disease. 12.History of hypothyroidism. 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 14.History of multiple throat surgeries. 15.Appendectomy. 16.Anxiety. RECOMMENDATIONS AND DISCUSSION: Recommend to continue current medications, continue with monitoring and symptomatic treatment. Otherwise at this time I recommend continue with antiplatelet agents. Neurology consultation. Otherwise, DVT prophylaxis. Resume the home medications. Guarded prognosis because of multiple complex medical issues. Further recommendations to follow. MMODL / IJN: [id number] /
--- NOTE | 2021-01-04 14:55 | P.CNNES ---
History of Present Illness Consult date: 01/04/21 Requesting physician: Gm Grossman Reason for Consult: Subacute CVA History of Present Illness: Patient is a 85-year-old female with past medical history of CVA with left-sided paralysis, came to the ER yesterday at 1:38 PM by ambulance for episode of unresponsiveness. 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 Patient has some expressive dysphasia as a result. She usually communicate by writing, but her comprehension is perfect. According to EMS flow sheet they were called for unresponsive person. When they came in, patient was sitting up in the bed in care of nursing staff. Patient was conscious but not alert. It was reported patient had a recent stroke and left-sided deficits. Staff mentioned that patient is not acting right. Patient is nonverbal and uses a writing pad to communicate, patient is usually able to write clearly, but is having trouble writing legibly at this time. Patient also had a blank stare. Patient became more communicative, by writing clearly and was back to baseline while she was being transferred to the hospital. Stroke scale was negative. Patient's blood pressure was 119/55, pulse rate 82, respiration 14 saturation 95% and blood glucose 165. Patient was in sinus rhythm. Vital signs on arrival blood pressure 106/52, pulse rate 85, temperature 97.7. CT head showed no acute intracranial hemorrhage or midline shift. There is mild to moderate diffuse age-related cerebral atrophy and moderate chronic small vessel ischemic change redemonstrated. Evolving acute/subacute infarct high right frontal lobe noted. Correlate clinically. This appears subacute to chronic in nature, but definitely new since computed tomography scan of the head from 12/03/2020. EKG shows normal sinus rhythm. Inferior infarct, age undetermined. Chest x-ray showed no acute process. Patient CTA of head and neck from 12/03/2020 shows tortuous proximal left ICA with 50% luminal narrowing. 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 No evidence of intracranial arterial stenosis. Basilar aneurysm appears new or increased in size compared to old computed tomography scan of 09/16/2019. Patient at home has been on amlodipine 5 mg, tramadol, levothyroxine. Her home medication list does not mention about antiplatelet medication. 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 Patient had presented on 12/03/2020 with left-sided hemiparesis and new onset expressive aphasia. She received IV TPA at that time. Patient was diagnosed with aneurysm of the basilar artery tip. She was transferred to [facility]. I spoke to patient's daughter aJki about details of hospitalization, who does not know, as because of hospital restrictions from COVID pandemic, she was not allowed to visit the patient or speak to the doctor's. She states that she stayed there for a week. They did MRI, did not do any intervention. She was discharged after 7 days to [facility] for rehab. At present she is in a re hab facility in [place]. Patient daughter confirms that she does have left hemiplegia since the stroke in November 2020. Telemetry monitoring showing sinus rhythm in 70s and 80s. Review of Systems Patient denies any headache, any new numbness tingling or weakness. She writes very legibly and able to express herself. Denies any chest pain shortness of breath or double vision. Past Medical History Past Medical History: CVA/TIA, GERD/Reflux, Hyperlipidemia, Hypertension, Osteoarthritis (OA), Thyroid Disorder Additional Past Medical History / Comment(s): STATES AT 37 YRS OLD VOCAL CORD WAS SEVERED DURING REMOVAL OF THYROID (HX OF GOITER), MULTIPLE THROAT SURGERIES AFTERWARDS. SHE HAS TO INHALE AND BLOW OUT WHEN TALKING. STATES ALSO THAT ESOPHAGUS CLOSES PREMATURELY WHEN EATING AND CAUSES HER TO INHALE FOOD AND SALIVA CAUSING HER TO COUGH ., STRESS INCONTINENCE-WEARS PAD, TORN ROTATOR CUFF(sx), bridges. History of Any Multi-Drug Resistant Organisms: None Reported Past Surgical History: Appendectomy, Hysterectomy, Orthopedic Surgery Additional Past Surgical History / Comment(s): TOTAL RIGHT HIP, CATARACTS, THYROID REMOVED WITH SEVERED VOCAL CORD AND MULTIPLE THROAT SURGERIES AFTERWARDS, right shoulder surgery, rt rotator cuff repair, trach insertion Past Anesthesia/Blood Transfusion Reactions: No Reported Reaction Past Psychological History: Anxiety Smoking Status: Never smoker Past Alcohol Use History: Occasional Additional Past Alcohol Use History / Comment(s): pt stated smoked briefly in her 20's then in her 40's then in her 60's none since Past Drug Use History: None Reported - Past Family History Daughter(s) Family Medical History: Cancer Additional Family Medical History / Comment(s): 2 DAUGHTERS- LEUKEMIA AND LUNG CANCER Mother Family Medical History: COPD Additional Family Medical History / Comment(s): bronchits Father Family Medical History: Cancer Additional Family Medical History / Comment(s): leukemia Medications and Allergies Home Medications Medication Instructions Recorded Confirmed Type Levothyroxine Sodium [Synthroid] 50 mcg PO DAILY 04/05/14 01/03/21 History amLODIPine [Norvasc] 5 mg PO DAILY 04/05/14 01/03/21 History Lactose-Reduced Food [Ensure Plus] 1 can PO BID 09/20/20 01/03/21 History traMADol HCL 50 - 100 mg PO TID PRN 09/20/20 01/03/21 History Triamcinolone 0.1% Cream [Kenalog 1 applicatio TOPICAL BID PRN 12/04/20 01/03/21 History 0.1% Cream] Allergies Allergy/AdvReac Type Severity Reaction Status Date / Time No Known Allergies Allergy Verified 01/03/21 14:10 Physical Examination - Vital Signs Vital Signs: Vital Signs Temp Pulse Pulse Resp BP BP Pulse Ox 01/04/21 08:00 97.5 F L 83 18 118/90 94 L 01/04/21 03:35 97.7 F 74 16 118/75 95 01/03/21 22:55 98 F 81 19 127/61 93 L 01/03/21 21:28 96 01/03/21 21:10 98.1 F 76 19 131/72 95 01/03/21 19:23 74 17 122/62 96 01/03/21 16:41 75 16 92/52 01/03/21 13:43 97.7 F 85 17 106/52 94 L Intake and Output 01/03/21 01/04/21 01/04/21 22:59 06:59 14:59 Intake Total 240 Balance 240 Intake: Oral 240 Other: Voiding Method Diaper Diaper Weight 48.081 kg 58.5 kg On examination patient is an elderly female, very pleasant, in no acute distress. He is alert and awake. She knows current month and the year, but does not know the date. She thinks this Sunday. She knows that she is in [facility] in [place]. Patient has tracheostomy. She usually communicates by writing. However what ever she tries to speak is very clear. She has severe hypophonia because of tracheostomy. Patient can name and repeat very well. Patient can follow commands, and comprehension is perfect. No right left confusion. She could point to the window, to the door and the ceiling without any issue. On cranial examination pupils are round and reactive to light, visual dominguez are full on confrontation, extraocular muscles are intact with no nystagmus. Patient has left facial weakness, central type. Tongue protrudes slightly to the left. Palatal elevation and sensation normal, hearing is normal, shoulder shrug normal, facial sensations normal. On muscle strength testing patient is completely hemiplegic on the left side involving face arm and leg. The strength is normal on the right side. Reflexes are somewhat brisk and patient has Babinski only on the left side. Sensory touch is equal with no neglect. No ataxia for [id number] testing on the right, cannot perform on the left. Gait deferred. On general examination there is no carotid bruit or murmur, peripheral pulses present. Abdomen is soft nontender. Chest is clear. Results - Laboratory Findings CBC and BMP: 01/03/21 13:50 01/03/21 13:50 Abnormal Lab Findings: Abnormal Labs 01/03/21 01/03/21 01/03/21 13:50 13:50 13:50 Neutrophils # 8.4 H APTT 21.5 L Sodium 135 L Chloride 97 L Carbon Dioxide 32 H BUN 21 H Creatinine 1.11 H Glucose 178 H POC Glucose (mg/dL) Total Protein 6.1 L Albumin 3.2 L HDL Cholesterol U Benzodiazepines Scrn 01/03/21 01/03/21 01/03/21 13:50 13:52 16:02 Neutrophils # APTT Sodium Chloride Carbon Dioxide BUN Creatinine Glucose POC Glucose (mg/dL) 166 H Total Protein Albumin HDL Cholesterol 61 H U Benzodiazepines Scrn Detected H Assessment and Plan Assessment: * 85-year-old female, who recently suffered from a right frontal CVA on 12/03/2020, with subsequent residual left hemiplegia, was brought to the hospital for an episode of unresponsiveness. At present patient's mentation, and level of functioning is back to baseline. Differential diagnosis is between TIA versus focal seizure from CVA. Computed tomography scan of head revealed subacute to chronic stroke involving the right frontal region, likely due to the CVA that occurred on 12/03/2020, but now showing up clearly on current CT. Patient's examination is completely stable. * Basilar tip aneurysm * Hypertension for attention * History of tracheostomy for laryngeal nerve injury occurred as a result of complication of thyroid surgery. Plan: * Patient will undergo an EEG to evaluate for any epileptiform activity. We will consider stopping tramadol, as tramadol can lower seizure threshold. * Patient will be started on aspirin 325 mg daily for stroke prevention. * Continue Lipitor 40 mg. Patient's lipid panel shows cholesterol 160, LDL 72, HDL 61 and triglycerides 137. * We will check hemoglobin A1c. * Telemetry monitoring only showing sinus rhythm with a heart rate 70-80. * Patient's 2-D echo from 12/04/2020 showed normal left-ventricular size, moderate concentric LVH, EF is 60-65%. Trace MR, mild TR. * Discussed with patient's daughter in detail.
[2021-01-04] MEDS ORDERED: guaiFENesin SYRUP 100MG/5ML 200 MG/10 ML CUP PO PRN (15:21)
[2021-01-04] MEDS: HEPARIN SODIUM,PORCINE 5,000 UNIT/ML 1 ML VIAL SQ SCH ×2 (15:36→19:56)
[2021-01-04 15:40] LABS: Basophils % (A) 0 %; Eosinophils # (A) 0.2 k/uL (0-0.7); Eosinophils % (A) 2 %; HCT 34.1 % (34.0-46.0); HGB 11.4 gm/dL (11.4-16.0); Lymphocytes # (A) 1.5 k/uL (1.0-4.8); Lymphocytes % (A) 15 %; MCH 29.3 pg (25.0-35.0); MCHC 33.3 g/dL (31.0-37.0); MCV 88.1 fL (80.0-100.0); Mean Platelet Volume 7.4; Monocytes # (A) 0.5 k/uL (0-1.0); Monocytes % (A) 5 %; Neutrophils # (A) 7.7 k/uL (1.3-7.7); Neutrophils % (A) 77 %; Platelet Count 293 k/uL (150-450); RBC 3.87 m/uL (3.80-5.40); RDW 14.5 % (11.5-15.5); WBC 10.1 k/uL (3.8-10.6)
[2021-01-04 15:45] LABS: Albumin 3.1 g/dL (3.5-5.0); Calcium 8.6 mg/dL (8.4-10.2); Potassium 3.6 mmol/L (3.5-5.1); Total Bilirubin 0.6 mg/dL (0.2-1.3); Total Protein 5.8 g/dL (6.3-8.2)
[2021-01-04] MEDS: ALBUTEROL NEBULIZED 2.5 MG/3 ML INHALATION SCH ×2 (16:50→19:50)
--- NOTE | 2021-01-04 17:03 | EEG ---
ELECTROENCEPHALOGRAM REPORT DATE OF SERVICE: 01/04/2021 PREAMBLE: This is an 85-year-old female with a history of recent CVA who came to the hospital for episode of unresponsiveness. This study is performed to evaluate for any epileptiform activity. EEG FINDINGS: This is a 21-channel routine EEG recording in a patient utilizing 10/20 international system with referential and bipolar montages. Background consists of well-developed, well-regulated, moderate-voltage activity in 8-10 hertz alpha. Background is posterior- dominant and reactive to eye opening and closing. Intermittent right hemispheric focal slowing in delta activity was seen. Some drowsiness was seen with appearance of bilaterally symmetric theta frequency. Some stage II sleep was attained with the presence of sleep spindles. Deeper stages of sleep were not seen. No definitive focal or generalized epileptiform activity was seen. A lot of myogenic activity was seen during the study. IMPRESSION: This is a mildly abnormal EEG due to intermittent slowing in the right hemispheric region. This is suggestive of focal cortical neural dysfunction. It may suggest underlying structural abnormality. No definitive epileptiform activity was seen. MMODL / IJN: [id number] /
[2021-01-04] MEDS: ALPRAZolam 0.25 MG TAB PO PRN (19:57)
[2021-01-04] MEDS ORDERED: NON FORMULARY DRUG (Lactose-Reduced Food [Ensure Plus] 237 ML Liquid) PO SCH (21:00)
[2021-01-04] MEDS ORDERED: ATORVASTATIN 40 MG TAB PO SCH (21:00)
[2021-01-05 04:34] VITALS: RESP 18
[2021-01-05] MEDS ORDERED: LEVOTHYROXINE 50 MCG TAB PO SCH (06:30)
[2021-01-05] MEDS: ALBUTEROL NEBULIZED 2.5 MG/3 ML INHALATION SCH ×3 (07:13→15:29)
[2021-01-05] MEDS ORDERED: PANTOPRAZOLE 40 MG TABLET PO SCH (07:30)
[2021-01-05 08:11] LABS: Basophils # (A) 0.1 k/uL (0-0.2); Basophils % (A) 0 %; Eosinophils # (A) 0.3 k/uL (0-0.7); Eosinophils % (A) 2 %; HCT 32.5 % (34.0-46.0); HGB 10.4 gm/dL (11.4-16.0); Lymphocytes # (A) 1.5 k/uL (1.0-4.8); Lymphocytes % (A) 11 %; MCH 28.2 pg (25.0-35.0); MCHC 32.1 g/dL (31.0-37.0); MCV 87.9 fL (80.0-100.0); Mean Platelet Volume 7.4; Monocytes # (A) 0.6 k/uL (0-1.0); Monocytes % (A) 4 %; Neutrophils % (A) 81 %; Platelet Count 290 k/uL (150-450); RDW 14.7 % (11.5-15.5); WBC 13.5 k/uL (3.8-10.6)
[2021-01-05] MEDS: HEPARIN SODIUM,PORCINE 5,000 UNIT/ML 1 ML VIAL SQ SCH (08:16)
[2021-01-05] MEDS: ASPIRIN 325 MG TAB PO SCH (08:16)
[2021-01-05] MEDS: ALPRAZolam 0.25 MG TAB PO PRN (08:16)
[2021-01-05 08:25] LABS: Calcium 8.7 mg/dL (8.4-10.2)
[2021-01-05 08:29] VITALS: TEMP 98.5
[2021-01-05] MEDS ORDERED: amLODIPine 5 MG TAB PO SCH (09:00)
[2021-01-05 12:11] VITALS: BP 139/66
--- NOTE | 2021-01-05 12:39 | P.DS ---
Providers Date of admission: 01/03/21 16:58 Attending physician: Robbie Perez Consults: 01/03/21 17:00 Consult Physician Routine Consulting Provider: Junior Swenson Consult Reason/Comments: Subacute CVA Do you want consulting provider notified?: Yes Primary care physician: Physician Nonstaff Hospital Course: 85-year-old female, who recently suffered from a right frontal CVA on 12/03/2020, with subsequent residual left hemiplegia, was brought to the hospital for an episode of unresponsiveness. At present patient's mentation, and level of functioning is back to baseline. Differential diagnosis is between TIA versus focal seizure from CVA. Computed tomography scan of head revealed subacute to chronic stroke involving the right frontal region, likely due to the CVA that occurred on 12/03/2020, but now showing up clearly on current CT. Patient's examination is completely stable. All the workup is essentially negative EKG did not show any epileptiform activity. Cardiogram did not show any interval ventricular thrombus no significant wall abnormalities except for mild MR and TR * Basilar tip aneurysm * Hypertension for attention * History of tracheostomy for laryngeal nerve injury occurred as a result of complication of thyroid surgery. * * Neurology is recommending to discontinue tramadol. Patient will be started on 325 mg of aspirin. Patient apparently has a cerebral aneurysm for which patient will need to follow up with interventional neurologist as an outpatient. [facility] and [facility] PHYSICAL EXAMINATION: GENERAL: The patient is alert and oriented x3, not in any acute distress. Well developed, well nourished. HEENT: Pupils are round and equally reacting to light. EOMI. No scleral icterus. No conjunctival pallor. Normocephalic, atraumatic. No pharyngeal erythema. No thyromegaly. Is a tracheostomy in place CARDIOVASCULAR: S1 and S2 present. No murmurs, rubs, or gallops. PULMONARY: Chest is clear to auscultation, no wheezing or crackles. ABDOMEN: Soft, nontender, nondistended, normoactive bowel sounds. No palpable organomegaly. MUSCULOSKELETAL: No joint swelling or deformity. EXTREMITIES: No cyanosis, clubbing, or pedal edema. NEUROLOGICAL: Patient has residual left-sided weakness SKIN: No rashes. -Episode of unresponsiveness etiology is not clear patient's workup for the syncope as well as a seizures swallow all the workup is negative possibility of TIA cannot be completely ruled out patient is being discharged on 325 of aspirin along with the Lipitor. -Recent several vascular accident resulting in left-sided weakness patient still has residual weakness from that -Cerebral aneurysm -Acute renal failure. 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 vocal cord paralysis and tracheostomy Plan - Discharge Summary Discharge Rx Participant: No New Discharge Prescriptions: New Aspirin 325 mg PO DAILY tab Atorvastatin [Lipitor] 40 mg PO HS tab guaiFENesin SYRUP 100MG/5ML [Robitussin] 200 mg PO Q6H PRN ml PRN Reason: Cough Continue amLODIPine [Norvasc] 5 mg PO DAILY Levothyroxine Sodium [Synthroid] 50 mcg PO DAILY Lactose-Reduced Food [Ensure Plus] 1 can PO BID Triamcinolone 0.1% Cream [Kenalog 0.1% Cream] 1 applicatio TOPICAL BID PRN PRN Reason: Itching Discontinued traMADol HCL 50 - 100 mg PO TID PRN PRN Reason: Pain Discharge Medication List Levothyroxine Sodium [Synthroid] 50 mcg PO DAILY 04/05/14 [History] amLODIPine [Norvasc] 5 mg PO DAILY 04/05/14 [History] Lactose-Reduced Food [Ensure Plus] 1 can PO BID 09/20/20 [History] Triamcinolone 0.1% Cream [Kenalog 0.1% Cream] 1 applicatio TOPICAL BID PRN 12/04/20 [History] Aspirin 325 mg PO DAILY tab 01/05/21 [Rx] Atorvastatin [Lipitor] 40 mg PO HS tab 01/05/21 [Rx] guaiFENesin SYRUP 100MG/5ML [Robitussin] 200 mg PO Q6H PRN ml 01/05/21 [Rx] Follow up Appointment(s)/Referral(s): Nonstaff,Physician [Primary Care Provider] - 1-2 days
--- NOTE | 2021-01-05 14:06 | FL ---
EXAMINATION TYPE: FL barium swallow w video DATE OF EXAM: 01/05/2021 MODIFIED SWALLOW / DEGLUTITION STUDY CLINICAL HISTORY: Dysphagia. Rule out aspiration. TECHNIQUE: Deglutition study is performed utilizing thin liquid barium, barium thick applesauce, and barium coated cracker. 1 minute 48 seconds of fluoro time and 0 images obtained. COMPARISON: None. FINDINGS: The oral and pharyngeal phases show satisfactory initiation. Slightly diminished epiglottis inversion. Normal mastication is seen with solid modalities tested. There is no evidence of penetr ation or aspiration with any modality tested. No significant pharyngeal residue was appreciated. Not e is made of tracheostomy tube. Note is made of multilevel spondylolisthesis mid cervical spine and m oderate to degenerative changes lower cervical spine. IMPRESSION: No penetration or aspiration observed. Please refer to speech therapist notes for furthe r details if necessary.
[2021-01-05 15:40] VITALS: PULSE 78
--- NOTE | 2021-01-05 15:52 | P.PN ---
Subjective Progress Note Date: 01/05/21 Patient's daughter was also present today. Per daughter, patient is back to baseline. Her mentation, level of functioning, motor everything is back to normal. Objective - Vital Signs Vital signs: Vital Signs Temp 98.5 F 01/05/21 08:00 Pulse 78 01/05/21 15:39 Resp 18 01/05/21 12:00 BP 139/66 01/05/21 12:00 Pulse Ox 98 01/05/21 12:00 Intake & Output 01/04/21 01/05/21 01/05/21 18:59 06:59 18:59 Intake Total 1380 236 Output Total 540 Balance 840 236 Weight 59 kg Intake: Oral 1380 236 Output: Urine 540 Other: Voiding Method Diaper Diaper Diaper # Voids 3 2 # Bowel Movements 1 1 - Exam Unchanged. - Labs CBC & Chem 7: 01/05/21 07:31 01/05/21 07:31 Labs: Abnormal Lab Results - Last 24 Hours (Table) 01/04/21 01/05/21 01/05/21 Range/Units 15:22 07:31 07:31 WBC 13.5 H (3.8-10.6) k/uL RBC 3.70 L (3.80-5.40) m/uL Hgb 10.4 L (11.4-16.0) gm/dL Hct 32.5 L (34.0-46.0) % Neutrophils # 11.0 H (1.3-7.7) k/uL Sodium 135 L 135 L (137-145) mmol/L Chloride 97 L (98-107) mmol/L Carbon Dioxide 34 H (22-30) mmol/L BUN 20 H (7-17) mg/dL Glucose 116 H 110 H (74-99) mg/dL Total Protein 5.8 L (6.3-8.2) g/dL Albumin 3.1 L (3.5-5.0) g/dL Assessment and Plan Assessment: * 85-year-old female, who recently suffered from a right frontal CVA on 12/03/2020, with subsequent residual left hemiplegia, was brought to the hospital for an episode of unresponsiveness. At present patient's mentation, and level of functioning is back to baseline. Differential diagnosis is between TIA versus focal seizure from CVA. Computed tomography scan of head revealed subacute to chronic stroke involving the right frontal region, likely due to the CVA that occurred on 12/03/2020, but now showing up clearly on current CT. Patient's examination is completely stable. * Basilar tip aneurysm * Hypertension for attention * History of tracheostomy for laryngeal nerve injury occurred as a result of complication of thyroid surgery. Plan: * Revealed mildly abnormal EEG due to intermittent slowing in the right hemispheric region. This is suggestive of focal cortical neuronal dysfunction. We suggest underlying structural abnormality. No definitive epileptiform activity was seen. No indication for AED at this time. We will stop tramadol, as tramadol can lower seizure threshold. * I spoke to patient's daughter. She had the list of medications from skilled nursing. Patient has been on aspirin 325 mg. Patient will be continued on aspirin 325 mg daily for stroke prevention. Would avoid dual antiplatelets because of aneurysm. * Continue Lipitor 40 mg. Patient's lipid panel shows cholesterol 160, LDL 72, HDL 61 and triglycerides 137. * Hemoglobin A1c 5.8. * Patient's 2-D echo from 12/04/2020 showed normal left-ventricular size, moderate concentric LVH, EF is 60-65%. Trace MR, mild TR. * Suggest patient follow up with neuro intervention for basilar tip aneurysm. * Discussed with patient's daughter in detail. * Neurologically clear for discharge.
== END 2021-01-05 15:46 | DRG 56 ==
LOC: EC 13:38 → 3SCARD 16:58
PROVIDERS: ADMIT Internal Medicine; ATTEND Internal Medicine
DX: I69.398 Other sequelae of cerebral infarction (principal); N17.0 Acute kidney failure with tubular necrosis; G93.41 Metabolic encephalopathy; G45.9 Transient cerebral ischemic attack, unspecified; I69.354 Hemiplegia and hemiparesis following cerebral infarction affecting left non-dominant side; E87.1 Hypo-osmolality and hyponatremia; E11.9 Type 2 diabetes mellitus without complications; E78.5 Hyperlipidemia, unspecified; K21.9 Gastro-esophageal reflux disease without esophagitis; M19.90 Unspecified osteoarthritis, unspecified site; Z80.6 Family history of leukemia; Z80.1 Family history of malignant neoplasm of trachea, bronchus and lung; Z90.710 Acquired absence of both cervix and uterus; Z93.0 Tracheostomy status; Z87.891 Personal history of nicotine dependence; Z82.5 Family history of asthma and other chronic lower respiratory diseases; E03.9 Hypothyroidism, unspecified; E86.0 Dehydration; F41.9 Anxiety disorder, unspecified; Z90.49 Acquired absence of other specified parts of digestive tract; I10 Essential (primary) hypertension; I67.1 Cerebral aneurysm, nonruptured; Z79.890 Hormone replacement therapy; R47.02 Dysphasia; J38.00 Paralysis of vocal cords and larynx, unspecified; Z20.828 Contact with and (suspected) exposure to other viral communicable diseases; R56.9 Unspecified convulsions
CPT/HCPCS: 36415; 70450; 71046; 74230; 80048; 80053; 80061; 80306; 81003; 83036; 84484; 85025; 85610; 85730; 87635; 93005; 94640; 94760; 95816; 96360; 96361; 99285

== ENCOUNTER 2021-01-25 21:20 | Emergency (ER) | payer MEDICARE, BC, OTHER ==
[2021-01-25] MEDS ORDERED: KETOROLAC 15 MG/ML 1 ML VIAL IVP STA (21:30)
[2021-01-25] MEDS ORDERED: SODIUM CHLORIDE 0.9% 1,000 ML IV STA ×2 (21:30)
[2021-01-25] MEDS ORDERED: ALBUTEROL HFA INHALER INHALATION STA (21:30)
[2021-01-25] MEDS ORDERED: ACETAMINOPHEN TAB 500 MG TAB PO STA (21:30)
[2021-01-25] MEDS ORDERED: ALBUTEROL HFA INHALER INHALATION PRN (21:30)
--- NOTE | 2021-01-25 21:31 | ED ---
Fever HPI - General Stated Complaint: SOB, Fever Time Seen by Provider: 01/25/21 21:24 Source: RN notes reviewed, old records reviewed Mode of arrival: EMS Limitations: altered mental status - History of Present Illness Initial Comments: This is an 85-year-old female DF for evaluation. Patient presents today to the ER for evaluation regards to low pulse ox difficulty with trach collar. Patient does have a trach collar here in the emergency department. Presented for severe shortness of breath or patient is a poor historian secondary to clinical and physical condition. MD Complaint: weakness, other (Shortness of breath) -: hour(s) Context: sick contacts, recent antibiotic use Associated Symptoms: sore throat, cough, confusion Treatments Prior to Arrival: none - Related Data Home Medications Medication Instructions Recorded Confirmed amLODIPine [Norvasc] 5 mg PO DAILY@0600 04/05/14 01/25/21 Lactose-Reduced Food [Ensure Plus] 1 can PO BID@0900,1700 09/20/20 01/25/21 ALPRAZolam [Xanax] 0.25 mg PO BID@0900,209901/25/21 01/25/21 Acetaminophen Tab [Tylenol] 650 mg PO Q4H PRN 01/25/21 01/25/21 Aspirin 325 mg PO DAILY@0900 01/25/21 01/25/21 Carvedilol [Coreg] 3.125 mg PO BID@0800,209901/25/21 01/25/21 Hydrogen Peroxide [Hydrogen 1 applic TOPICAL Q1H 01/25/21 01/25/21 Peroxide 3%] Ipratropium-Albuterol Nebulize 3 ml INHALATION RT-Q6H 01/25/21 01/25/21 [Duoneb 0.5 mg-3 mg/3 ml Soln] Levothyroxine Sodium 25 mcg PO DAILY@0600 01/25/21 01/25/21 Lidocaine 5% Cream 1 applic TOPICAL Q6H PRN 01/25/21 01/25/21 Mirtazapine 15 mg PO HS 01/25/21 01/25/21 Multivitamins, Thera [Multivitamin 1 tab PO DAILY@0900 01/25/21 01/25/21 (formulary)] Omeprazole 20 mg PO DAILY@0600 01/25/21 01/25/21 Ondansetron [Zofran] 4 mg PO Q6H PRN 01/25/21 01/25/21 Polyethylene Glycol 3350 [Miralax] 17 gm PO DAILY@0900 01/25/21 01/25/21 Sennosides [Senna] 8.6 mg PO BID@0900,2100 01/25/21 01/25/21 lisinopriL 30 mg PO DAILY@0900 01/25/21 01/25/21 rOPINIRole HCL [Requip] 0.25 mg PO HS 01/25/21 01/25/21 Previous Rx's Medication Instructions Recorded Atorvastatin [Lipitor] 40 mg PO HS tab 01/05/21 Allergies Allergy/AdvReac Type Severity Reaction Status Date / Time No Known Allergies Allergy Verified 01/25/21 22:16 Review of Systems ROS Statement: Those systems with pertinent positive or pertinent negative responses have been documented in the HPI. ROS Other: All systems not noted in ROS Statement are negative. Past Medical History Past Medical History: CVA/TIA, GERD/Reflux, Hyperlipidemia, Hypertension, Osteoarthritis (OA), Thyroid Disorder Additional Past Medical History / Comment(s): STATES AT 37 YRS OLD VOCAL CORD WAS SEVERED DURING REMOVAL OF THYROID (HX OF GOITER), MULTIPLE THROAT SURGERIES AFTERWARDS. SHE HAS TO INHALE AND BLOW OUT WHEN TALKING. STATES ALSO THAT ESOPHAGUS CLOSES PREMATURELY WHEN EATING AND CAUSES HER TO INHALE FOOD AND SALIVA CAUSING HER TO COUGH ., STRESS INCONTINENCE-WEARS PAD, TORN ROTATOR CUFF(sx), bridges. History of Any Multi-Drug Resistant Organisms: None Reported Past Surgical History: Appendectomy, Hysterectomy, Orthopedic Surgery Additional Past Surgical History / Comment(s): TOTAL RIGHT HIP, CATARACTS, THYROID REMOVED WITH SEVERED VOCAL CORD AND MULTIPLE THROAT SURGERIES AFTERWARDS, right shoulder surgery, rt rotator cuff repair, trach insertion Past Anesthesia/Blood Transfusion Reactions: No Reported Reaction Past Psychological History: No Psychological Hx Reported - Past Family History Daughter(s) Family Medical History: Cancer Additional Family Medical History / Comment(s): 2 DAUGHTERS- LEUKEMIA AND LUNG CANCER Mother Family Medical History: COPD Additional Family Medical History / Comment(s): bronchits Father Family Medical History: Cancer Additional Family Medical History / Comment(s): leukemia General Exam General appearance: alert, in no apparent distress Head exam: Present: atraumatic, normocephalic, normal inspection Eye exam: Present: normal appearance, PERRL, EOMI. Absent: scleral icterus, conjunctival injection, periorbital swelling ENT exam: Present: normal exam, mucous membranes moist Neck exam: Present: normal inspection. Absent: tenderness, meningismus, lymphadenopathy Respiratory exam: Present: normal lung sounds bilaterally. Absent: respiratory distress, wheezes, rales, rhonchi, stridor Cardiovascular Exam: Present: regular rate, normal rhythm, normal heart sounds. Absent: systolic murmur, diastolic murmur, rubs, gallop, clicks GI/Abdominal exam: Present: soft, normal bowel sounds. Absent: distended, tenderness, guarding, rebound, rigid Extremities exam: Present: normal inspection, full ROM, normal capillary refill. Absent: tenderness, pedal edema, joint swelling, calf tenderness Back exam: Present: normal inspection Neurological exam: Present: alert, oriented X3, CN II-XII intact Psychiatric exam: Present: normal affect, normal mood Skin exam: Present: warm, dry, intact, normal color. Absent: rash Course Vital Signs 01/25/21 21:28 Temperature 99.4 F Pulse Rate 100 Respiratory 20 Rate Blood Pressure 134/70 O2 Sat by Pulse 97 Oximetry - Reevaluation(s) Reevaluation #1: 01/25/21 22:25 Medical record is reviewed Reevaluation #2: 01/25/21 22:25 Patient's trach collar suctioned here and placed on supplemental O2, symptoms improved Reevaluation #3: 01/26/21 00:05 Spoke patient, patient prefers discharged home Medical Decision Making - Medical Decision Making 85 female patient has failure of some musc her supplemental le O2. Patient is on a trach, Patient symptoms and trachea are cleaned here in the ER she can be discharged home - Lab Data Result diagrams: 01/25/21 22:26 01/25/21 22:26 Lab Results 01/25/21 01/25/21 01/25/21 Range/Units 22:26 22:26 22:26 WBC 13.0 H (3.8-10.6) k/uL RBC 4.46 (3.80-5.40) m/uL Hgb 12.8 (11.4-16.0) gm/dL Hct 37.5 (34.0-46.0) % MCV 84.0 (80.0-100.0) fL MCH 28.7 (25.0-35.0) pg MCHC 34.2 (31.0-37.0) g/dL RDW 13.8 (11.5-15.5) % Plt Count 359 (150-450) k/uL MPV 7.1 Neutrophils % 84 % Lymphocytes % 9 % Monocytes % 4 % Eosinophils % 3 % Basophils % 0 % Neutrophils # 10.9 H (1.3-7.7) k/uL Lymphocytes # 1.2 (1.0-4.8) k/uL Monocytes # 0.5 (0-1.0) k/uL Eosinophils # 0.4 (0-0.7) k/uL Basophils # 0.0 (0-0.2) k/uL PT 9.7 (9.0-12.0) sec INR 0.9 (<1.2) APTT 22.0 (22.0-30.0) sec D-Dimer 3.02 H (<0.60) mg/L FEU Sodium 132 L (137-145) mmol/L Potassium 4.8 (3.5-5.1) mmol/L Chloride 96 L (98-107) mmol/L Carbon Dioxide 29 (22-30) mmol/L Anion Gap 7 mmol/L BUN 22 H (7-17) mg/dL Creatinine 1.37 H (0.52-1.04) mg/dL Est GFR (CKD-EPI)AfAm 41 (>60 ml/min/1.73 sqM) Est GFR (CKD-EPI)NonAf 35 (>60 ml/min/1.73 sqM) Glucose 92 (74-99) mg/dL Plasma Lactic Acid Fritz (0.7-2.0) mmol/L Calcium 9.4 (8.4-10.2) mg/dL Magnesium 1.8 (1.6-2.3) mg/dL Total Bilirubin 0.9 (0.2-1.3) mg/dL AST 30 (14-36) U/L ALT 16 (4-34) U/L Alkaline Phosphatase 108 (38-126) U/L Lactate Dehydrogenase 616 (313-618) U/L C-Reactive Protein 14.3 H (<10.0) mg/L Total Protein 7.0 (6.3-8.2) g/dL Albumin 3.8 (3.5-5.0) g/dL 01/25/21 Range/Units 22:26 WBC (3.8-10.6) k/uL RBC (3.80-5.40) m/uL Hgb (11.4-16.0) gm/dL Hct (34.0-46.0) % MCV (80.0-100.0) fL MCH (25.0-35.0) pg MCHC (31.0-37.0) g/dL RDW (11.5-15.5) % Plt Count (150-450) k/uL MPV Neutrophils % % Lymphocytes % % Monocytes % % Eosinophils % % Basophils % % Neutrophils # (1.3-7.7) k/uL Lymphocytes # (1.0-4.8) k/uL Monocytes # (0-1.0) k/uL Eosinophils # (0-0.7) k/uL Basophils # (0-0.2) k/uL PT (9.0-12.0) sec INR (<1.2) APTT (22.0-30.0) sec D-Dimer (<0.60) mg/L FEU Sodium (137-145) mmol/L Potassium (3.5-5.1) mmol/L Chloride (98-107) mmol/L Carbon Dioxide (22-30) mmol/L Anion Gap mmol/L BUN (7-17) mg/dL Creatinine (0.52-1.04) mg/dL Est GFR (CKD-EPI)AfAm (>60 ml/min/1.73 sqM) Est GFR (CKD-EPI)NonAf (>60 ml/min/1.73 sqM) Glucose (74-99) mg/dL Plasma Lactic Acid Fritz 1.2 (0.7-2.0) mmol/L Calcium (8.4-10.2) mg/dL Magnesium (1.6-2.3) mg/dL Total Bilirubin (0.2-1.3) mg/dL AST (14-36) U/L ALT (4-34) U/L Alkaline Phosphatase (38-126) U/L Lactate Dehydrogenase (313-618) U/L C-Reactive Protein (<10.0) mg/L Total Protein (6.3-8.2) g/dL Albumin (3.5-5.0) g/dL - EKG Data -: EKG Interpreted by Me (EKG is normal sinus rhythm 98, QRS 70, QTC 340) - Radiology Data Radiology results: report reviewed (Chest x-rays negative for acute disease), i mage reviewed Disposition Clinical Impression: Tracheostomy complication, Dyspnea Disposition: HOME SELF-CARE Condition: Good Instructions (If sedation given, give patient instructions): Tracheostomy Care (ED) Is patient prescribed a controlled substance at d/c from ED?: No Referrals: Tuan Shafer DO [Primary Care Provider] - 1-2 days
[2021-01-25 21:36] VITALS: BP 134/70; PULSE 100; RESP 20; TEMP 99.4
--- NOTE | 2021-01-25 22:15 | XR ---
EXAMINATION TYPE: XR chest 1V portable DATE OF EXAM: 01/25/2021 COMPARISON: 01/03/2021 HISTORY: Altered mental status pneumonia. Short of breath. TECHNIQUE: FINDINGS: There is mild elevation of the right diaphragm. There is some atelectasis right lung base. There is no heart failure. There is tracheostomy tube. No pulmonary consolidation. Bony thorax is int act. IMPRESSION: There is some mild atelectasis right lung base that is similar to old exam. No heart fail ure.
[2021-01-25 22:35] LABS: Basophils % (A) 0 %; Eosinophils # (A) 0.4 k/uL (0-0.7); Eosinophils % (A) 3 %; HCT 37.5 % (34.0-46.0); HGB 12.8 gm/dL (11.4-16.0); Lymphocytes # (A) 1.2 k/uL (1.0-4.8); Lymphocytes % (A) 9 %; MCH 28.7 pg (25.0-35.0); MCHC 34.2 g/dL (31.0-37.0); Mean Platelet Volume 7.1; Monocytes # (A) 0.5 k/uL (0-1.0); Monocytes % (A) 4 %; Neutrophils # (A) 10.9 k/uL (1.3-7.7); Neutrophils % (A) 84 %; Platelet Count 359 k/uL (150-450); RBC 4.46 m/uL (3.80-5.40); RDW 13.8 % (11.5-15.5)
[2021-01-25 22:48] LABS: Albumin 3.8 g/dL (3.5-5.0); C Reactive Protein 14.3 mg/L (<10.0); Calcium 9.4 mg/dL (8.4-10.2); Magnesium 1.8 mg/dL (1.6-2.3); Potassium 4.8 mmol/L (3.5-5.1); Total Bilirubin 0.9 mg/dL (0.2-1.3)
[2021-01-25 22:58] LABS: INR 0.9 (<1.2); Prothrombin Time 9.7 sec (9.0-12.0)
[2021-01-25 23:11] LABS: D-Dimer 3.02 mg/L FEU (<0.60)
== END 2021-01-26 01:15 | disposition home or self-care (01) ==
LOC: EC 21:20
DX: J95.00 Unspecified tracheostomy complication (principal); R06.00 Dyspnea, unspecified; I10 Essential (primary) hypertension; K21.9 Gastro-esophageal reflux disease without esophagitis; E07.9 Disorder of thyroid, unspecified; M19.90 Unspecified osteoarthritis, unspecified site; Z79.899 Other long term (current) drug therapy; Z79.890 Hormone replacement therapy; Z79.82 Long term (current) use of aspirin; Z86.73 Personal history of transient ischemic attack (TIA), and cerebral infarction without residual deficits
CPT/HCPCS: 36415; 93005; 85379; 80053; 83605; 83615; 83735; 85025; 85610; 85730; 86140; 87040; 71045; 99285; 96374; 96361; J1885

== ENCOUNTER 2021-07-23 04:14 | Emergency (ER) | payer MEDICARE, BC, OTHER ==
[2021-07-23 04:24] VITALS: RESP 18
[2021-07-23] MEDS ORDERED: BENZOCAINE SPRAY 1 CAN MUCOUS MEM STA (05:04)
--- NOTE | 2021-07-23 05:43 | CT ---
EXAMINATION TYPE: CT mastoid wo con DATE OF EXAM: 07/23/2021 COMPARISON: None HISTORY: ear pain CT DLP: 252.9 mGycm Automated exposure control for dose reduction was used. Images obtained from the skull base to the third ventricle without contrast. There is fairly normal development and aeration of the mastoid sinuses. The external auditory canals appear normal. There is normal aeration of the epitympanic recess bilaterally. Middle ear cavities ap pear normal. Temporomandibular joints appear intact. There is some arthritic change in the right temp oromandibular joint. I see no focal bone destruction. There are no erosions. There is normal appearan ce of the semicircular canals. 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 Otherwise negative CT scan of the tempo ral bones.
--- NOTE | 2021-07-23 06:01 | ED ---
ENT HPI - General Chief complaint: ENT Stated complaint: Difficulty Swallowing Time Seen by Provider: 07/23/21 04:47 Source: patient, EMS Mode of arrival: EMS Limitations: physical limitation - History of Present Illness Initial comments: 's patient is an 85-year-old woman who states she believes she is having a recurrence of thrush. She states she had this previously and is having same symptoms now. There is a burning to her throat and dryness. She states that it feels like it's going to the right throat and right ear. Patient denies loss of hearing but states she occasionally has a popping on the right side. No difficulty in breathing. MD complaint: sore throat, ear pain -: days(s) Location: R ear, throat Severity: moderate Quality: burning Consistency: intermittent Improves with: none Worsens with: swallowing Context-Epistaxis: history of similar - Related Data Home Medications Medication Instructions Recorded Confirmed amLODIPine [Norvasc] 5 mg PO DAILY@0600 04/05/14 01/25/21 Lactose-Reduced Food [Ensure Plus] 1 can PO BID@0900,1700 09/20/20 01/25/21 ALPRAZolam [Xanax] 0.25 mg PO BID@0900,209901/25/21 01/25/21 Acetaminophen Tab [Tylenol] 650 mg PO Q4H PRN 01/25/21 01/25/21 Aspirin 325 mg PO DAILY@0901/25/21 01/25/21 Carvedilol [Coreg] 3.125 mg PO BID@0800,2100 01/25/21 01/25/21 Hydrogen Peroxide [Hydrogen 1 applic TOPICAL Q1H 01/25/21 01/25/21 Peroxide 3%] Ipratropium-Albuterol Nebulize 3 ml INHALATION RT-Q6H 01/25/21 01/25/21 [Duoneb 0.5 mg-3 mg/3 ml Soln] Levothyroxine Sodium 25 mcg PO DAILY@0601/25/21 01/25/21 Lidocaine 5% Cream 1 applic TOPICAL Q6H PRN 01/25/21 01/25/21 Mirtazapine 15 mg PO HS 01/25/21 01/25/21 Multivitamins, Thera [Multivitamin 1 tab PO DAILY@0901/25/21 01/25/21 (formulary)] Omeprazole 20 mg PO DAILY@0600 01/25/21 01/25/21 Ondansetron [Zofran] 4 mg PO Q6H PRN 01/25/21 01/25/21 Polyethylene Glycol 3350 [Miralax] 17 gm PO DAILY@0900 01/25/21 01/25/21 Sennosides [Senna] 8.6 mg PO BID@0900,2100 01/25/21 01/25/21 lisinopriL 30 mg PO DAILY@0900 01/25/21 01/25/21 rOPINIRole HCL [Requip] 0.25 mg PO HS 01/25/21 01/25/21 Previous Rx's Medication Instructions Recorded Atorvastatin [Lipitor] 40 mg PO HS tab 01/05/21 Azithromycin [Zithromax Z-pack (6 250 mg PO DIRECTED #6 tab 07/23/21 tabs)] Allergies Allergy/AdvReac Type Severity Reaction Status Date / Time No Known Allergies Allergy Verified 01/25/21 22:16 Review of Systems ROS Statement: Those systems with pertinent positive or pertinent negative responses have been documented in the HPI. ROS Other: All systems not noted in ROS Statement are negative. Constitutional: Denies: fever, chills, weakness Eyes: Denies: eye pain, vision change ENT: Reports: as per HPI, ear pain, throat pain. Denies: dental pain, hearing loss, congestion Respiratory: Denies: cough, dyspnea Cardiovascular: Denies: chest pain Gastrointestinal: Denies: vomiting Neurological: Denies: headache Past Medical History Past Medical History: CVA/TIA, GERD/Reflux, Hyperlipidemia, Hypertension, Osteoarthritis (OA), Thyroid Disorder Additional Past Medical History / Comment(s): STATES AT 37 YRS OLD VOCAL CORD WAS SEVERED DURING REMOVAL OF THYROID (HX OF GOITER), MULTIPLE THROAT SURGERIES AFTERWARDS. SHE HAS TO INHALE AND BLOW OUT WHEN TALKING. STATES ALSO THAT ESOPHAGUS CLOSES PREMATURELY WHEN EATING AND CAUSES HER TO INHALE FOOD AND SALIVA CAUSING HER TO COUGH ., STRESS INCONTINENCE-WEARS PAD, TORN ROTATOR CUFF(sx), bridges. History of Any Multi-Drug Resistant Organisms: None Reported Past Surgical History: Appendectomy, Hysterectomy, Orthopedic Surgery Additional Past Surgical History / Comment(s): TOTAL RIGHT HIP, CATARACTS, THYROID REMOVED WITH SEVERED VOCAL CORD AND MULTIPLE THROAT SURGERIES AFTERWARDS, right shoulder surgery, rt rotator cuff repair, trach insertion, trach removal and closure, Past Anesthesia/Blood Transfusion Reactions: No Reported Reaction Past Psychological History: No Psychological Hx Reported Smoking Status: Never smoker Past Alcohol Use History: Occasional Past Drug Use History: None Reported - Past Family History Daughter(s) Family Medical History: Cancer Additional Family Medical History / Comment(s): 2 DAUGHTERS- LEUKEMIA AND LUNG CANCER Mother Family Medical History: COPD Additional Family Medical History / Comment(s): bronchits Father Family Medical History: Cancer Additional Family Medical History / Comment(s): leukemia General Exam Limitations: physical limitation General appearance: alert, in no apparent distress Head exam: Present: atraumatic, normocephalic ENT exam: Present: mucous membranes dry, TM's normal bilaterally, normal external ear exam, other (There may be some whitish discharge to the posterior portion of the tongue.) Neck exam: Present: normal inspection, full ROM. Absent: tenderness, lymphadenopathy Respiratory exam: Present: normal lung sounds bilaterally. Absent: respiratory distress, wheezes, rales, rhonchi, stridor Cardiovascular Exam: Present: regular rate, normal rhythm, normal heart sounds. Absent: systolic murmur, diastolic murmur, rubs, gallop GI/Abdominal exam: Present: soft. Absent: tenderness Course Vital Signs 07/23/21 07/23/21 07/23/21 04:16 05:53 06:24 Temperature 97.7 F Pulse Rate 78 78 78 Respiratory 18 18 18 Rate Blood Pressure 148/75 148/72 144/70 O2 Sat by Pulse 99 97 97 Oximetry 07/23/21 06:40 Temperature 98.6 F Pulse Rate 72 Respiratory 18 Rate Blood Pressure 149/76 O2 Sat by Pulse 97 Oximetry Medical Decision Making - Medical Decision Making Patient is a 85-year-old woman in from assisted with what she believes is recurrence of thrush. Given that she maintain symptoms are identical and I am not finding other evident pathology, will try course of treatment and patient to be reevaluated by her assisted staff. They are also to contact their assisted doctor. If there is any change or worsening the patient's complaint. Disposition Clinical Impression: Otalgia of right ear Disposition: HOME SELF-CARE Condition: Good Instructions (If sedation given, give patient instructions): Earache (ED) Prescriptions: Azithromycin [Zithromax Z-pack (6 tabs)] 250 mg PO DIRECTED #6 tab Is patient prescribed a controlled substance at d/c from ED?: No Referrals: Rafat Duong DO [Primary Care Provider] - 1-2 days
[2021-07-23] MEDS ORDERED: AZITHROMYCIN 500 MG TAB PO STA (06:02)
[2021-07-23 06:43] VITALS: BP 149/76; PULSE 72; TEMP 98.6
== END 2021-07-23 06:40 | disposition home or self-care (01) ==
LOC: EC 04:14
DX: H92.01 Otalgia, right ear (principal); I10 Essential (primary) hypertension; E78.5 Hyperlipidemia, unspecified; E07.9 Disorder of thyroid, unspecified; K21.9 Gastro-esophageal reflux disease without esophagitis; M19.90 Unspecified osteoarthritis, unspecified site; Z79.82 Long term (current) use of aspirin; Z86.73 Personal history of transient ischemic attack (TIA), and cerebral infarction without residual deficits; Z90.49 Acquired absence of other specified parts of digestive tract; Z90.710 Acquired absence of both cervix and uterus; Z96.641 Presence of right artificial hip joint
CPT/HCPCS: 70486; 99283

== ENCOUNTER 2021-12-15 15:45 | Emergency (ER) | payer MEDICARE, BC, OTHER ==
[2021-12-15 15:57] VITALS: RESP 20
--- NOTE | 2021-12-15 18:18 | CT ---
EXAMINATION TYPE: CT brain cspine wo con CT DLP: 1227 mGycm, Automated exposure control for dose reduction was used. DATE OF EXAM: 12/15/2021 5:27 PM COMPARISON: None.. CLINICAL INDICATION:Female, 85 years old with history of fall; TECHNIQUE: Brain: Multiple axial CT images of the brain were obtained without IV contrast. Cspine: Axial CT images from the skull base to the inferior aspect of T2 we obtained without intraven ous contrast. Coronal and sagittal reformatted images were also reviewed. FINDINGS: Brain: Extra-axial spaces: No abnormal extra-axial fluid collections. Ventricular system: Dilatation in proportion to cerebral atrophy and expected dilatation secondary to right MCA territory remote injury. 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 No acute intraparenchy mal hemorrhage or mass effect. The nguyen-white junction is well differentiated. Scattered hypoattenua ting areas are seen within the white matter. Cerebellum: Unremarkable. Mass effect: No evidence of midline shift. Intracranial vasculature: unremarkable Soft tissues: Normal. Calvarium/osseous structures: No depressed skull fracture. Paranasal sinuses and mastoid air cells: Clear. Visualized orbits: Orbital contents are intact. Cervical spine: Fracture: None. Osseous structures: Multilevel degenerative disc disease changes with endplate spurring and disc oste ophyte complex's. Vertebral alignment: Within normal limits. Spinal canal/Neural Foramina: No evidence of significant spinal canal narrowing. No evidence of signi ficant neural foramina narrowing. Neck soft tissues: Prevertebral soft tissues are within normal limits. Other: The airway is patent. The lung apices are clear. IMPRESSION: 1. No acute intracranial process. 2. 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 3. Nonspecific white matter changes, likely secondary to chronic small vessel ischemic disease. 4. No evidence of cervical spine fracture. 5. Mild multilevel degenerative disc disease.
--- NOTE | 2021-12-15 18:20 | XR ---
EXAMINATION TYPE: XR shoulder limited LT DATE OF EXAM: 12/15/2021 5:16 PM INDICATION: Patient age:Female; 85 years old; Reason for study: fall; COMPARISON: 01/25/2021 TECHNIQUE: The left shoulder was examined in AP, internally rotated and axillary projections. FINDINGS: Lucency through the proximal left humerus may represent nondisplaced fracture. Mild degenerative cornejo ges of the left acromioclavicular joint. The remaining portions of the visualized chest are unremarka ble. IMPRESSION: Subtle lucency to the proximal left humerus suspicious for nondisplaced fracture. Consider dedicated CT left shoulder.
--- NOTE | 2021-12-15 18:47 | ED ---
General Adult HPI - General Chief complaint: Fall Stated complaint: Fall Time Seen by Provider: 12/15/21 16:51 Source: patient, EMS, RN notes reviewed, old records reviewed Mode of arrival: EMS Limitations: no limitations - History of Present Illness Initial comments: 85-year-old female presents with suspected left shoulder injury. 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 She did fall onto the left shoulder. The exact details of the fall are not known and the patient is a poor historian. She recently had tracheostomy reversal as well in her speech is somewhat limited. She has no pain complaints. - Related Data Home Medications Medication Instructions Recorded Confirmed amLODIPine [Norvasc] 5 mg PO DAILY@0600 04/05/01/25/21 Lactose-Reduced Food [Ensure Plus] 1 can PO BID@0900,1700 09/20/20 01/25/21 ALPRAZolam [Xanax] 0.25 mg PO BID@0900,209901/25/21 01/25/21 Acetaminophen Tab [Tylenol] 650 mg PO Q4H PRN 01/25/21 01/25/21 Aspirin 325 mg PO DAILY@0900 01/25/21 01/25/21 Carvedilol [Coreg] 3.125 mg PO BID@0800,209901/25/21 01/25/21 Hydrogen Peroxide [Hydrogen 1 applic TOPICAL Q1H 01/25/21 01/25/21 Peroxide 3%] Ipratropium-Albuterol Nebulize 3 ml INHALATION RT-Q6H 01/25/21 01/25/21 [Duoneb 0.5 mg-3 mg/3 ml Soln] Levothyroxine Sodium 25 mcg PO DAILY@0600 01/25/21 01/25/21 Lidocaine 5% Cream 1 applic TOPICAL Q6H PRN 01/25/21 01/25/21 Mirtazapine 15 mg PO HS 01/25/21 01/25/21 Multivitamins, Thera [Multivitamin 1 tab PO DAILY@0900 01/25/21 01/25/21 (formulary)] Omeprazole 20 mg PO DAILY@0600 01/25/21 01/25/21 Ondansetron [Zofran] 4 mg PO Q6H PRN 01/25/21 01/25/21 Polyethylene Glycol 3350 [Miralax] 17 gm PO DAILY@0900 01/25/21 01/25/21 Sennosides [Senna] 8.6 mg PO BID@0900,2100 01/25/21 01/25/21 lisinopriL 30 mg PO DAILY@0900 01/25/21 01/25/21 rOPINIRole HCL [Requip] 0.25 mg PO HS 01/25/21 01/25/21 Previous Rx's Medication Instructions Recorded Atorvastatin [Lipitor] 40 mg PO HS tab 01/05/21 Azithromycin [Zithromax Z-pack (6 250 mg PO DIRECTED #6 tab 07/23/21 tabs)] Allergies Allergy/AdvReac Type Severity Reaction Status Date / Time No Known Allergies Allergy Verified 12/15/21 15:54 Review of Systems ROS Statement: Those systems with pertinent positive or pertinent negative responses have been documented in the HPI. ROS Other: All systems not noted in ROS Statement are negative. Past Medical History Past Medical History: CVA/TIA, GERD/Reflux, Hyperlipidemia, Hypertension, Osteoarthritis (OA), Thyroid Disorder Additional Past Medical History / Comment(s): STATES AT 37 YRS OLD VOCAL CORD WAS SEVERED DURING REMOVAL OF THYROID (HX OF GOITER), MULTIPLE THROAT SURGERIES AFTERWARDS. SHE HAS TO INHALE AND BLOW OUT WHEN TALKING. STATES ALSO THAT ESOPHAGUS CLOSES PREMATURELY WHEN EATING AND CAUSES HER TO INHALE FOOD AND SALIVA CAUSING HER TO COUGH ., STRESS INCONTINENCE-WEARS PAD, TORN ROTATOR CUFF(sx), bridges. History of Any Multi-Drug Resistant Organisms: None Reported Past Surgical History: Appendectomy, Hysterectomy, Orthopedic Surgery Additional Past Surgical History / Comment(s): TOTAL RIGHT HIP, CATARACTS, THYROID REMOVED WITH SEVERED VOCAL CORD AND MULTIPLE THROAT SURGERIES AFTERWARDS, right shoulder surgery, rt rotator cuff repair, trach insertion, trach removal and closure, Past Anesthesia/Blood Transfusion Reactions: No Reported Reaction Past Psychological History: No Psychological Hx Reported Smoking Status: Never smoker Past Alcohol Use History: Occasional Past Drug Use History: None Reported - Past Family History Daughter(s) Family Medical History: Cancer Additional Family Medical History / Comment(s): 2 DAUGHTERS- LEUKEMIA AND LUNG CANCER Mother Family Medical History: COPD Additional Family Medical History / Comment(s): bronchits Father Family Medical History: Cancer Additional Family Medical History / Comment(s): leukemia General Exam Limitations: no limitations General appearance: alert, in no apparent distress Head exam: Present: atraumatic, normocephalic Eye exam: Present: normal appearance, PERRL ENT exam: Present: normal exam Neck exam: Present: normal inspection. Absent: tenderness, meningismus Respiratory exam: Present: normal lung sounds bilaterally, respiratory distress Cardiovascular Exam: Present: regular rate, normal rhythm GI/Abdominal exam: Present: soft. Absent: distended, tenderness, guarding Extremities exam: Present: other (No gross deformity of the left shoulder distal pulses intact) Neurological exam: Present: alert, oriented X3, motor sensory deficit (Left hemiparesis) Psychiatric exam: Present: normal affect, normal mood Skin exam: Present: warm, dry, intact Course Vital Signs 12/15/21 15:54 Temperature 98.1 F Pulse Rate 91 Respiratory 20 Rate Blood Pressure 129/71 O2 Sat by Pulse 94 L Oximetry Medical Decision Making - Medical Decision Making 85-year-old female with fall. Head CT is performed which is negative for intracranial hemorrhage, shows encephalomalacia from previous CVA on the right. Cervical spine is intact. Her shoulder has a minimally displaced left humeral neck fracture. She's placed in a sling in the emergency department. She will be returned to the rehabilitation Center. Disposition Clinical Impression: Fall, Fx humeral neck Disposition: HOME SELF-CARE Condition: Good Instructions (If sedation given, give patient instructions): Fall Prevention for Older Adults (ED), Proximal Humerus Fracture (ED) Is patient prescribed a controlled substance at d/c from ED?: No Referrals: Tuan Shafer DO [Primary Care Provider] - 1-2 days Lamar Marti DO [Doctor of Osteopathic Medicine] - 1-2 days Time of Disposition: 18:46
[2021-12-15 19:22] VITALS: BP 135/70; PULSE 82; TEMP 98
== END 2021-12-15 19:47 | disposition home or self-care (01) ==
LOC: EC 15:45
DX: S42.292A Other displaced fracture of upper end of left humerus, initial encounter for closed fracture (principal); K21.9 Gastro-esophageal reflux disease without esophagitis; E78.5 Hyperlipidemia, unspecified; I10 Essential (primary) hypertension; M19.90 Unspecified osteoarthritis, unspecified site; E07.9 Disorder of thyroid, unspecified; Z79.82 Long term (current) use of aspirin; Z86.73 Personal history of transient ischemic attack (TIA), and cerebral infarction without residual deficits; Z90.49 Acquired absence of other specified parts of digestive tract; Z90.710 Acquired absence of both cervix and uterus; W18.30XA Fall on same level, unspecified, initial encounter
CPT/HCPCS: 70450; 72125; 99284

== ENCOUNTER 2023-01-29 10:12 | Observation (INO) | payer MEDICARE, BC, OTHER ==
--- NOTE | 2023-01-29 10:57 | ED ---
General Adult HPI - General Chief complaint: Chest Pain Stated complaint: chest pain Time Seen by Provider: 01/29/23 10:42 - History of Present Illness Initial comments: Patient is an 87-year-old female presenting to the emergency room via EMS from [facility] with complaints of chest pain which is upper mid chest radiating posteriorly to her shoulder blades along with the shortness of breath nausea and vomiting. According to reports from EMS she received nitroglycerin and nebulized treatments for her symptoms without any improvement in symptoms earlier today. She has been wearing oxygen to assist with her shortness of breath recently. There are reports from EMS that she was also having hematuria however the daughter is unaware of this complaint. She denies any abdominal pain not directly related to nausea and vomiting, diarrhea, dysuria, headache, dizziness, diaphoresis, fevers or chills. She has a past medical history significant for CVA with left-sided hemiparesis, hypothyroidism, hypertension, hyperlipidemia, GERD; she is currently being treated for thrush at [facility]. - Related Data Home Medications Medication Instructions Recorded Confirmed amLODIPine [Norvasc] 5 mg PO DAILY 04/05/14 01/29/23 ALPRAZolam [Xanax] 0.25 mg PO BID 01/25/21 01/29/23 Acetaminophen Tab [Tylenol] 650 mg PO Q4H PRN 01/25/21 01/29/23 Aspirin 325 mg PO DAILY@0900 01/25/21 01/29/23 Hydrogen Peroxide [Hydrogen 1 applic TOPICAL Q1H 01/25/21 01/29/23 Peroxide 3%] Ipratropium-Albuterol Nebulize 3 ml INHALATION RT-Q6H 01/25/21 01/29/23 [Duoneb 0.5 mg-3 mg/3 ml Soln] Levothyroxine Sodium 25 mcg PO DAILY 01/25/21 01/29/23 Lidocaine 5% Cream 1 applic TOPICAL Q6H PRN 01/25/21 01/29/23 Multivitamins, Thera [Multivitamin 1 tab PO DAILY 01/25/21 01/29/23 (formulary)] Omeprazole 20 mg PO DAILY 01/25/21 01/29/23 Ondansetron [Zofran] 4 mg PO Q6H PRN 01/25/21 01/29/23 Sennosides [Senna] 8.6 mg PO BID 01/25/21 01/29/23 carvediloL [Coreg] 3.125 mg PO BID 01/25/21 01/29/23 lisinopriL 30 mg PO DAILY 01/25/21 01/29/23 polyethylene glycoL 3350 [Miralax] 17 gm PO DAILY 01/25/21 01/29/23 rOPINIRole HCL [Requip] 0.25 mg PO HS 01/25/21 01/29/23 Benzocaine [place] [Hurricaine [place]] 1 applic MUCOUS MEM Q6H PRN 01/29/23 01/29/23 Desoximetasone [Topicort 0.25%] 1 applic TOPICAL Q12H PRN 01/29/23 01/29/23 Docusate [Colace] 100 mg PO BID 01/29/23 01/29/23 HYDROcodone/APAP 10-325MG [[place] 1 tab PO Q4HR PRN 01/29/23 01/29/23 10-325] Hydrocortisone [Anusol-Hc] 1 applic RECTAL Q12H PRN 01/29/23 01/29/23 L.acidoph,Paracasei, B.lactis 1 cap PO DAILY 01/29/23 01/29/23 [Probiotic] Lactulose [Constulose] 20 gm PO DAILY PRN 01/29/23 01/29/23 Loperamide [Imodium] 2 - 4 mg PO QID PRN 01/29/23 01/29/23 Magnesium Hydroxide [Milk of 2,400 mg PO DAILY PRN 01/29/23 01/29/23 Magnesia] Menthol [Biofreeze] 1 applic TOPICAL TID 01/29/23 01/29/23 Nystatin 100,000 Unit/ml Susp 10 ml PO TID 01/29/23 01/29/23 [Mycostatin Oral Susp] Phenyleph/Mineral Oil/Petrolat 1 applic RECTAL Q8H PRN 01/29/23 01/29/23 [Preparation H Ointment] Triamcinolone 0.1% Cream [Kenalog 1 applicatio TOPICAL BID PRN 01/29/23 01/29/23 0.1% Cream] bisacodyL [Dulcolax] 10 mg RECTAL DAILY PRN 01/29/23 01/29/23 guaiFENesin SYRUP 100MG/5ML 200 mg PO Q6H PRN 01/29/23 01/29/23 [Robitussin] Previous Rx's Medication Instructions Recorded Atorvastatin [Lipitor] 40 mg PO HS tab 01/05/21 Allergies Allergy/AdvReac Type Severity Reaction Status Date / Time No Known Allergies Allergy Verified 01/29/23 11:25 Review of Systems ROS Statement: Those systems with pertinent positive or pertinent negative responses have been documented in the HPI. ROS Other: All systems not noted in ROS Statement are negative. Past Medical History Past Medical History: CVA/TIA, GERD/Reflux, Hyperlipidemia, Hypertension, Osteoarthritis (OA), Thyroid Disorder Additional Past Medical History / Comment(s): STATES AT 37 YRS OLD VOCAL CORD WAS SEVERED DURING REMOVAL OF THYROID (HX OF GOITER), MULTIPLE THROAT SURGERIES AFTERWARDS. SHE HAS TO INHALE AND BLOW OUT WHEN TALKING. STATES ALSO THAT ESOPHAGUS CLOSES PREMATURELY WHEN EATING AND CAUSES HER TO INHALE FOOD AND SALIVA CAUSING HER TO COUGH ., STRESS INCONTINENCE-WEARS PAD, TORN ROTATOR CUFF(sx), bridges. History of Any Multi-Drug Resistant Organisms: None Reported Past Surgical History: Appendectomy, Hysterectomy, Orthopedic Surgery Additional Past Surgical History / Comment(s): TOTAL RIGHT HIP, CATARACTS, THYROID REMOVED WITH SEVERED VOCAL CORD AND MULTIPLE THROAT SURGERIES AFTERWARDS, right shoulder surgery, rt rotator cuff repair, trach insertion, trach removal and closure, Past Anesthesia/Blood Transfusion Reactions: No Reported Reaction Past Psychological History: No Psychological Hx Reported Smoking Status: Never smoker Past Alcohol Use History: Occasional Past Drug Use History: None Reported - Past Family History Daughter(s) Family Medical History: Cancer Additional Family Medical History / Comment(s): 2 DAUGHTERS- LEUKEMIA AND LUNG CANCER Mother Family Medical History: COPD Additional Family Medical History / Comment(s): bronchits Father Family Medical History: Cancer Additional Family Medical History / Comment(s): leukemia General Exam - General Exam Comments Initial Comments: GENERAL: No acute distress, well developed, well nourished. HEENT: Normocephalic, atraumatic. Pupils equal, round, reactive to light. Voice hoarse. LUNGS: No respiratory distress. Fine bilateral anterior expiratory wheeze, no rales or rhonchi noted. No use of accessory muscles. HEART: Regular rate and rhythm without murmur, rub, or gallop. ABDOMEN: Normal bowel sounds. Soft, non-tender, non-distended. BACK: Normal inspection. EXTREMITIES: No edema. No tenderness. Left upper extremity flaccid, left lower extremity 3/5 NEUROLOGIC: Alert & oriented x 3. CN II-XII grossly intact. PSYCHIATRIC: Normal affect and behavior. DERMATOLOGIC: Skin intact, without rashes or lesions noted. Course Vital Signs 01/29/23 01/29/23 01/29/23 10:50 12:00 13:00 Temperature 98.4 F Pulse Rate 77 71 72 Respiratory 18 18 18 Rate Blood Pressure 101/63 104/55 118/62 O2 Sat by Pulse 99 99 100 Oximetry 01/29/23 01/29/23 14:00 16:33 Temperature 98 F Pulse Rate 75 71 Respiratory 18 18 Rate Blood Pressure 118/65 120/61 O2 Sat by Pulse 99 99 Oximetry Medical Decision Making - Medical Decision Making Was pt. sent in by a medical professional or institution (, PA, SAW MAN, urgent care, hospital, or group home...) When possible be specific @ -No Did you speak to anyone other than the patient for history (EMS, parent, family, police, friend...)? What history was obtained from this source @ -Daughter Did you review nursing and triage notes (agree or disagree)? Why? @ -I reviewed and agree with nursing and triage notes Were old charts reviewed (outside hosp., previous admission, EMS record, old EKG, old radiological studies, urgent care reports/EKG's, group home records)? Report findings @ -S, I reviewed most recent EKG on file from 2020 Differential Diagnosis (chest pain, altered mental status, abdominal pain women, abdominal pain men, vaginal bleeding, weakness, fever, dyspnea, syncope, h eadache, dizziness, GI bleed, back pain, seizure, CVA, palpatations, mental health, musculoskeletal)? @ -Differential Chest Pain: Stable Angina, Unstable Angina, STEMI, NSTEMI Aortic Dissection, Pneumothorax, Musculoskeletal, Esophageal Spasm GERD, Cholecystitis, Pancreatitis, Zoster, this is not meant to be an all-inclusive list. Differential Dyspnea: Coronary syndrome, arrhythmia, tamponade, asthma, COPD, pulmonary embolism, pneumonia, pneumothorax, pulmonary effusion, anaphylaxis, diabetic ketoacidosis, flailed chest, pulmonary contusion, diaphragmatic rupture, anemia, neuromuscular, this is not meant to be an all-inclusive list. EKG interpreted by me (3pts min.). @ -Sinus rhythm with first-degree AV block, ventricular rate 83 bpm, WI interval 210 ms, QRS duration 80 ms, QT/QTC 347/387 ms, PRT axes 55, 37, 62 X-rays interpreted by me (1pt min.). @ -None done CT interpreted by me (1pt min.). @ -CT chest with and [facility]: No pulmonary emboli, right lower lobe consolidation concerning for pneumonia and clinically coordinated. U/S interpreted by me (1pt. min.). @ -None done What testing was considered but not performed or refused? (CT, X-rays, U/S, labs)? Why? @ -Chest x-ray initially ordered but not completed prior to need for CT chest angiogram, chest x-ray cancels and proceed with CT chest. What meds were considered but not given or refused? Why? @ -None Did you discuss the management of the patient with other professionals (professionals i.e. , PA, SAW MAN, lab, RT, psych nurse, social media intern, ice puller, teacher, parking officer, community case manager)? Give summary @ -Yes, spoke with Dr. Johnson was [facility] regarding patient's presentation and workup recommending observation admission for further evaluation and treatment of chest pain, pneumonia and UTI. He is accepting of admission. Was smoking cessation discussed for >3mins.? @ -No Was critical care preformed (if so, how long)? @ -No Were there social determinants of health that impacted care today? How? (Homelessness, low income, unemployed, alcoholism, drug addiction, transportation, low edu. Level, literacy, decrease access to med. care, [facility], rehab)? @ -No Was there de-escalation of care discussed even if they declined (Discuss DNR or withdrawal of care, Hospice)? DNR status @ -No What co-morbidities impacted this encounter? (DM, HTN, Smoking, COPD, CAD, Cancer, CVA, ARF, Chemo, Hep., AIDS, mental health diagnosis, sleep apnea, morbid obesity)? @ -Hypertension, hyperlipidemia, CVA Was patient admitted / discharged? Hospital course, mention meds given and route, prescriptions, significant lab abnormalities, going to OR and other pertinent info. @ -87-year-old female presents to the emergency room via EMS from [facility] where she resides with complaints of chest pain ongoing since this morning along with generalized malaise for the last 3 days with shortness of breath requiring oxygen nausea and vomiting. Will begin workup for chest pain along with shortness of breath with EKG, chest x-ray, CBC, CMP, coags, amylase, lipase, troponin, magnesium, proBNP, d-dimer along with Covid test and urinalysis. EKG sinus rhythm with first-degree AV block. Laboratory studies results include CBC with mild anemia 10.6 WBCs high normal at 9.9 with elevated neutrophils 7.9 d-dimer mildly elevated at 0.64. Due to symptoms and elevated d-dimer will proceed with CTA of the chest chest x-ray has not been done at this time yet will cancel chest x-ray and proceed with CT of chest. Sodium level I30 potassium normal chloride low 95 BUN normal creatinine and normal glucose elevated at 150 magnesium normal 1.9 liver enzymes normal, proBNP within normal limits, amylase and lipase normal. Urinalysis demonstrates moderate bacteria with large leuko cyte Estrace positive for nitrates coated swabs negative. CT of the chest negative for pulmonary emboli. Consolidation concerning for the setting of shortness of breath with hypoxemia and chest pain. Findings discussed with patient and daughter at bedside. Petition admission for definitive department for chest pain along with IV antibiotics for pneumonia and urinary tract infection. She is agreeable to this plan. Spoke with Dr. Johnson on-call for [facility] regarding patient's presentation and workup. He is accepting of admission. Denies any further orders at this time. Will place admission orders along with serial troponins. Will draw blood cultures the setting of infection with antibiotic needed and start on Rocephin. Will admit patient to observation unit in stable condition under [facility] for further evaluation and treatment of chest pain, right lower lobe pneumonia and urinary tract infection. Undiagnosed new problem with uncertain prognosis? @ -No Drug Therapy requiring intensive monitoring for toxicity (Heparin, Nitro, Insulin, Cardizem)? @ -No Were any procedures done? @ -No Diagnosis/symptom? @ -Chest pain Acute, or Chronic, or Acute on Chronic? @ -Acute Uncomplicated (without systemic symptoms) or Complicated (systemic symptoms)? @ -Complicated Side effects of treatment? @ -No Exacerbation, Progression, or Severe Exacerbation? @ -No Poses a threat to life or bodily function? How? (Chest pain, USA, PA, pneumonia, PE, COPD, DKA, ARF, appy, cholecystitis, CVA, Diverticulitis, Homicidal, Suicidal, threat to staff... and all critical care pts) @ -Yes, high risk for ACS Diagnosis/symptom? @ -Right lower lobe pneumonia Acute, or Chronic, or Acute on Chronic? @ -Acute Uncomplicated (without systemic symptoms) or Complicated (systemic symptoms)? @ -Complicated Side effects of treatment? @ -none Exacerbation, Progression, or Severe Exacerbation] @ -no Poses a threat to life or bodily function? @ -Yes, increased risk for worsening hypoxemia and sepsis Diagnosis/symptom? @ -Urinary tract infection Acute, or Chronic, or Acute on Chronic? @ -Acute Uncomplicated (without systemic symptoms) or Complicated (systemic symptoms)? @ -Complicated Side effects of treatment? @ -none Exacerbation, Progression, or Severe Exacerbation] @ -no Poses a threat to life or bodily function? @ -Yes, high risk for urosepsis. Case discussed with Dr. Tuttle. - Lab Data Result diagrams: 01/29/23 11:22 01/29/23 11:22 Lab Results 01/29/23 01/29/23 01/29/23 Range/Units 11:22 11:22 11:22 WBC 9.9 (3.8-10.6) k/uL RBC 3.63 L (3.80-5.40) m/uL Hgb 10.6 L (11.4-16.0) gm/dL Hct 31.8 L (34.0-46.0) % MCV 87.5 (80.0-100.0) fL MCH 29.2 (25.0-35.0) pg MCHC 33.4 (31.0-37.0) g/dL RDW 13.3 (11.5-15.5) % Plt Count 356 (150-450) k/uL MPV 7.4 Neutrophils % 80 % Lymphocytes % 12 % Monocytes % 4 % Eosinophils % 1 % Basophils % 0 % Neutrophils # 7.9 H (1.3-7.7) k/uL Lymphocytes # 1.2 (1.0-4.8) k/uL Monocytes # 0.4 (0-1.0) k/uL Eosinophils # 0.1 (0-0.7) k/uL Basophils # 0.0 (0-0.2) k/uL PT 9.8 (9.0-12.0) sec INR 0.9 (<1.2) APTT 26.8 (22.0-30.0) sec D-Dimer 0.64 H (<0.60) mg/L FEU Sodium 130 L (137-145) mmol/L Potassium 4.5 (3.5-5.1) mmol/L Chloride 95 L (98-107) mmol/L Carbon Dioxide 28 (22-30) mmol/L Anion Gap 7 mmol/L BUN 15 (7-17) mg/dL Creatinine 0.67 (0.52-1.04) mg/dL Est GFR (CKD-EPI)AfAm >90 (>60 ml/min/1.73 sqM) Est GFR (CKD-EPI)NonAf 79 (>60 ml/min/1.73 sqM) Glucose 150 H (74-99) mg/dL Calcium 8.6 (8.4-10.2) mg/dL Magnesium 1.9 (1.6-2.3) mg/dL Total Bilirubin 0.5 (0.2-1.3) mg/dL AST 24 (14-36) U/L ALT 21 (4-34) U/L Alkaline Phosphatase 104 (38-126) U/L Troponin I (0.000-0.034) ng/mL NT-Pro-B Natriuret Pep pg/mL Total Protein 6.5 (6.3-8.2) g/dL Albumin 3.5 (3.5-5.0) g/dL Amylase 64 (30-110) U/L Lipase 49 (23-300) U/L Urine Color Urine Appearance (Clear) Urine pH (5.0-8.0) Ur Specific [place] (1.001-1.035) Urine Protein (Negative) Urine Glucose (UA) (Negative) Urine Ketones (Negative) Urine Blood (Negative) Urine Nitrite (Negative) Urine Bilirubin (Negative) Urine Urobilinogen (<2.0) mg/dL Ur Leukocyte Esterase (Negative) Urine RBC (0-5) /hpf Urine WBC (0-5) /hpf Urine WBC Clumps (None) /hpf Ur Squamous Epith Cells (0-4) /hpf Urine Bacteria (None) /hpf Hyaline Casts (0-2) /lpf Urine Mucus (None) /hpf Coronavirus (PCR) (Not Detectd) 01/29/23 01/29/23 01/29/23 Range/Units 11:22 11:22 11:50 WBC (3.8-10.6) k/uL RBC (3.80-5.40) m/uL Hgb (11.4-16.0) gm/dL Hct (34.0-46.0) % MCV (80.0-100.0) fL MCH (25.0-35.0) pg MCHC (31.0-37.0) g/dL RDW (11.5-15.5) % Plt Count (150-450) k/uL MPV Neutrophils % % Lymphocytes % % Monocytes % % Eosinophils % % Basophils % % Neutrophils # (1.3-7.7) k/uL Lymphocytes # (1.0-4.8) k/uL Monocytes # (0-1.0) k/uL Eosinophils # (0-0.7) k/uL Basophils # (0-0.2) k/uL PT (9.0-12.0) sec INR (<1.2) APTT (22.0-30.0) sec D-Dimer (<0.60) mg/L FEU Sodium (137-145) mmol/L Potassium (3.5-5.1) mmol/L Chloride (98-107) mmol/L Carbon Dioxide (22-30) mmol/L Anion Gap mmol/L BUN (7-17) mg/dL Creatinine (0.52-1.04) mg/dL Est GFR (CKD-EPI)AfAm (>60 ml/min/1.73 sqM) Est GFR (CKD-EPI)NonAf (>60 ml/min/1.73 sqM) Glucose (74-99) mg/dL Calcium (8.4-10.2) mg/dL Magnesium (1.6-2.3) mg/dL Total Bilirubin (0.2-1.3) mg/dL AST (14-36) U/L ALT (4-34) U/L Alkaline Phosphatase (38-126) U/L Troponin I <0.012 (0.000-0.034) ng/mL NT-Pro-B Natriuret Pep 520 pg/mL Total Protein (6.3-8.2) g/dL Albumin (3.5-5.0) g/dL Amylase (30-110) U/L Lipase (23-300) U/L Urine Color Urine Appearance (Clear) Urine pH (5.0-8.0) Ur Specific [place] (1.001-1.035) Urine Protein (Negative) Urine Glucose (UA) (Negative) Urine Ketones (Negative) Urine Blood (Negative) Urine Nitrite (Negative) Urine Bilirubin (Negative) Urine Urobilinogen (<2.0) mg/dL Ur Leukocyte Esterase (Negative) Urine RBC (0-5) /hpf Urine WBC (0-5) /hpf Urine WBC Clumps (None) /hpf Ur Squamous Epith Cells (0-4) /hpf Urine Bacteria (None) /hpf Hyaline Casts (0-2) /lpf Urine Mucus (None) /hpf Coronavirus (PCR) Not Detected (Not Detectd) 01/29/23 Range/Units 12:20 WBC (3.8-10.6) k/uL RBC (3.80-5.40) m/uL Hgb (11.4-16.0) gm/dL Hct (34.0-46.0) % MCV (80.0-100.0) fL MCH (25.0-35.0) pg MCHC (31.0-37.0) g/dL RDW (11.5-15.5) % Plt Count (150-450) k/uL MPV Neutrophils % % Lymphocytes % % Monocytes % % Eosinophils % % Basophils % % Neutrophils # (1.3-7.7) k/uL Lymphocytes # (1.0-4.8) k/uL Monocytes # (0-1.0) k/uL Eosinophils # (0-0.7) k/uL Basophils # (0-0.2) k/uL PT (9.0-12.0) sec INR (<1.2) APTT (22.0-30.0) sec D-Dimer (<0.60) mg/L FEU Sodium (137-145) mmol/L Potassium (3.5-5.1) mmol/L Chloride (98-107) mmol/L Carbon Dioxide (22-30) mmol/L Anion Gap mmol/L BUN (7-17) mg/dL Creatinine (0.52-1.04) mg/dL Est GFR (CKD-EPI)AfAm (>60 ml/min/1.73 sqM) Est GFR (CKD-EPI)NonAf (>60 ml/min/1.73 sqM) Glucose (74-99) mg/dL Calcium (8.4-10.2) mg/dL Magnesium (1.6-2.3) mg/dL Total Bilirubin (0.2-1.3) mg/dL AST (14-36) U/L ALT (4-34) U/L Alkaline Phosphatase (38-126) U/L Troponin I (0.000-0.034) ng/mL NT-Pro-B Natriuret Pep pg/mL Total Protein (6.3-8.2) g/dL Albumin (3.5-5.0) g/dL Amylase (30-110) U/L Lipase (23-300) U/L Urine Color Yellow Urine Appearance Cloudy H (Clear) Urine pH 7.5 (5.0-8.0) Ur Specific [place] 1.020 (1.001-1.035) Urine Protein Trace H (Negative) Urine Glucose (UA) Negative (Negative) Urine Ketones Negative (Negative) Urine Blood Negative (Negative) Urine Nitrite Positive H (Negative) Urine Bilirubin Negative (Negative) Urine Urobilinogen <2.0 (<2.0) mg/dL Ur Leukocyte Esterase Large H (Negative) Urine RBC 2 (0-5) /hpf Urine WBC >182 H (0-5) /hpf Urine WBC Clumps Many H (None) /hpf Ur Squamous Epith Cells <1 (0-4) /hpf Urine Bacteria Moderate H (None) /hpf Hyaline Casts 4 H (0-2) /lpf Urine Mucus Rare H (None) /hpf Coronavirus (PCR) (Not Detectd) - Radiology Data Radiology results: report reviewed, image reviewed Disposition Clinical Impression: Right lower lobe pneumonia, UTI (urinary tract infection), Chest pain Disposition: ADMITTED IP TO THIS [facility] Condition: Stable Is patient prescribed a controlled substance at d/c from ED?: No Time of Disposition: 14:34
[2023-01-29 11:46] LABS: INR 0.9 (<1.2); Partial Thromboplastin Time 26.8 sec (22.0-30.0); Prothrombin Time 9.8 sec (9.0-12.0)
[2023-01-29 11:50] LABS: ALT 21 U/L (4-34); AST 24 U/L (14-36); African American GFR (CKD) >90 (>60 ml/min/1.73 sqM); Albumin 3.5 g/dL (3.5-5.0); Alkaline Phosphatase 104 U/L (38-126); Amylase 64 U/L (30-110); Anion Gap 7 mmol/L; Blood Urea Nitrogen 15 mg/dL (7-17); Calcium 8.6 mg/dL (8.4-10.2); Carbon Dioxide 28 mmol/L (22-30); Chloride 95 mmol/L (98-107); Glucose 150 mg/dL (74-99); Lipase 49 U/L (23-300); Magnesium 1.9 mg/dL (1.6-2.3); Non-African American GFR(CKD) 79 (>60 ml/min/1.73 sqM); Potassium 4.5 mmol/L (3.5-5.1); Sodium 130 mmol/L (137-145); Total Bilirubin 0.5 mg/dL (0.2-1.3); Total Protein 6.5 g/dL (6.3-8.2)
[2023-01-29 12:58] LABS: Appearance,Urine Cloudy (Clear); Bacteria,Urine Moderate /hpf; Bilirubin,Urine Negative (Negative); Blood,Urine Negative (Negative); Color,Urine Yellow; Glucose,Urine (UA) Negative (Negative); Hyaline Casts,Urine 4 /lpf (0-2); Ketones,Urine Negative (Negative); Leukocyte Esterase,Urine Large (Negative); Mucus,Urine Rare /hpf; Nitrite,Urine Positive (Negative); PH, Urine 7.5 (5.0-8.0); Protein,Urine Trace (Negative); RBC,Urine 2 /hpf (0-5); Squamous Epithelial Cell,Urine <1 /hpf (0-4); Urobilinogen,Urine <2.0 mg/dL (<2.0); WBC,Urine >182 /hpf (0-5)
--- NOTE | 2023-01-29 13:32 | CT ---
EXAMINATION TYPE: CT angio chest DATE OF EXAM: 01/29/2023 COMPARISON: 09/27/2020 HISTORY: 87-year-old female chest pain, SOB TECHNIQUE: Contiguous axial scanning of the chest performed with IV Contrast, patient injected with 5 4 mL of Isovue 370. Coronal/sagittal MIP reconstructions performed. CT DLP: 181.4 mGycm Automated exposure control for dose reduction was used. FINDINGS: Heart normal size without pericardial effusion. No flattening of the interventricular septum or reflu x of contrast into the hepatic veins. Ectatic ascending aorta at 3.7 cm versus 2.6 cm, previously. Mild atherosclerotic arch calcifications with conventional arch vessel branching anatomy. Scattered nonenlarged and borderline to mildly enlarged mediastinal lymph nodes are present. A 1.4 cm lymph node right thoracic inlet is unchanged. Subcarinal node is 9 mm and right hilar nodes at 1.6 c m are new. Left hilar node measuring 1.0 cm. Satisfactory opacification of the pulmonary arterial system. No evidence for pulmonary embolus. Prominent volume loss and opacity throughout the right lower lobe with some asymmetric volume loss. Dependent opacity, likely atelectasis left lower lobe. Mild biapical pleural-parenchymal scarring. No pleural effusion seen. Visualized upper abdomen shows generalized fold thickening of the gastric fundus and proximal body, a xial image 140. Bones: No osseous destructive process. Degenerative change in both shoulders. IMPRESSION: 1. NO EVIDENCE FOR PULMONARY EMBOLUS. 2. ENLARGING MEDIASTINAL AND HILAR LYMPH NODES CURRENTLY MEASURING UP TO 1.6 CM. THESE MAY BE REACTIV E/POST INFLAMMATORY. 3 MONTH FOLLOW-UP CT CHEST TO ENSURE STABILITY/RESOLUTION. 3. VOLUME LOSS AND CONSOLIDATION RIGHT LOWER LOBE. CORRELATE FOR PNEUMONIA. THIS SHOULD ALSO BE REASS ESSED AT FOLLOW-UP. 4. POSSIBLE GASTRIC FOLD THICKENING OF THE FUNDUS AND PROXIMAL BODY. CORRELATE FOR ANY EPIGASTRIC GUY N THAT WOULD SUGGEST A GASTRITIS.
[2023-01-29] MEDS: ACETAMINOPHEN TAB 500 MG TAB PO PRN ×2 (13:36→20:41)
[2023-01-29] MEDS ORDERED: NALOXONE 0.4 MG/ML 1 ML VIAL IV PRN (14:31)
[2023-01-29] MEDS ORDERED: ACETAMINOPHEN TAB 325 MG TAB PO PRN (14:31)
[2023-01-29] MEDS ORDERED: cefTRIAXone IN SWFI 1,000 MG/10 ML SYRINGE IVP STA (14:33)
[2023-01-29] MEDS: SODIUM CHLORIDE 0.9% 1,000 ML IV SCH ×2 (14:51→23:23)
[2023-01-29 14:53] LABS: Basophils % (A) 0 %; Eosinophils # (A) 0.1 k/uL (0-0.7); Eosinophils % (A) 1 %; HCT 31.8 % (34.0-46.0); HGB 10.6 gm/dL (11.4-16.0); Lymphocytes # (A) 1.2 k/uL (1.0-4.8); Lymphocytes % (A) 12 %; MCH 29.2 pg (25.0-35.0); MCHC 33.4 g/dL (31.0-37.0); MCV 87.5 fL (80.0-100.0); Mean Platelet Volume 7.4; Monocytes # (A) 0.4 k/uL (0-1.0); Monocytes % (A) 4 %; Neutrophils # (A) 7.9 k/uL (1.3-7.7); Neutrophils % (A) 80 %; Platelet Count 356 k/uL (150-450); RBC 3.63 m/uL (3.80-5.40); RDW 13.3 % (11.5-15.5); WBC 9.9 k/uL (3.8-10.6)
[2023-01-29] MEDS ORDERED: bisacodyL 10 MG SUPP RECTAL PRN (15:36)
[2023-01-29] MEDS ORDERED: LIDOCAINE VISCOUS 2% 15 ML CUP MUCOUS MEM ONE (15:41)
--- NOTE | 2023-01-29 15:45 | P.HPIM ---
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 She claims that yesterday she started to develop burning chest, worse with intake of food. She had some difficulty swallowing and choking as well. She had some shortness of breath associated with that. She does use oxygen at the nursing facility. Her voice has not changed since her tracheostomy over 50 years ago. She denies any fevers, chills, abdominal pain, nausea, vomiting, diarrhea, constipation, or urinary complaints. She has urinary and bowel incontinence at baseline. She normally uses a wheelchair at the nursing facility. She denies any smoking, occasional alcohol use, denies any illicit drug use. In the ED, she was afebrile, pulse is 77, respiratory rate 18, blood pressure 101/63, saturating at 99% on 2 L. Lab work showed hemoglobin of 10.6, sodium 130, chloride 95, glucose 150, troponin negative, proBNP 520, d-dimer 0.64. Urinalysis positive for nitrites and leukocyte esterase, moderate bacteria. COVID-19 negative. CTA showed no evidence of PE, enlarging mediastinal and hilar lymph nodes at 1.6 cm, possible right lower lobe pneumonia, possible gastritis. EKG showed sinus rhythm with first-degree AV block. Patient admitted for further chest pain or shortness of breath or cough. Pertinent positives and negatives as discussed in HPI, a complete review of systems was performed and all other systems are negative. Patient seen and examined at bedside. Vital signs reviewed General: nontoxic, no distress, appears at stated age Derm: warm, dry Head: atraumatic, normocephalic, symmetric Eyes: EOMI, no lid lag, anicteric sclera, pupils equal round reactive to light ENT: Nose and ears atraumatic Neck: No thyromegaly, supple Mouth: no lip lesion, mucus membranes moist Cardiovascular: S1S2 reg, no murmur, no edema Lungs: clear to auscultation bilateral, no rhonchi, no rales, no wheeze, no accessory muscle use Abdominal: soft, nontender to palpation, no guarding, no appreciable organomegaly Ext: no gross muscle atrophy, muscle strength muscle strength 5 out of 5 in all 4 extremities, no contractures Neuro: CN II-XII grossly intact Psych: Alert, oriented, appropriate affect Assessment/Plan: Active: Chest pain, rule out ACS Gastritis Oral thrush Possible right lower lobe pneumonia Possible UTI First-degree AV block Mild hyponatremia Mild normocytic anemia -Continue to trend troponin, first troponin was negative -EKG personally interpreted, shows sinus rhythm with first-degree AV block, no ST-T wave changes -No active chest pain -Chest pain likely secondary to gastritis -Continue nystatin oral suspension for oral thrush, oral lidocaine for pain -Possible right lower lobe pneumonia, may be a component of aspiration -Patient is incontinent at baseline, unsure if having increased urinary frequency or urgency -Denies any dysuria -Continue ceftriaxone 1 g daily, urine cultures pending -Hyponatremia likely in the setting of dehydration, continue normal saline at 75 mL an hour, repeat BMP tomorrow -No active bleeding, repeat CBC tomorrow -Holding lisinopril as patient is blood pressure Chronic: Hypertension Hypothyroidism Dyslipidemia History of CVA The patient is admitted with an anticipated less than 2 midnight stay as observation status for evaluation of chest pain. Surrogate decision-maker: Daughter CODE STATUS: DNR/DNI DVT prophylaxis: Subcu heparin Anticipated discharge date: Pending clinical course Anticipated discharge place: Likely back to long-term A total of 65 minutes was spent on the care of this complex patient more than 50% of the time was spent in counseling and care coordination. Past Medical History Past Medical History: CVA/TIA, GERD/Reflux, Hyperlipidemia, Hypertension, Osteoarthritis (OA), Thyroid Disorder Additional Past Medical History / Comment(s): STATES AT 37 YRS OLD VOCAL CORD WAS SEVERED DURING REMOVAL OF THYROID (HX OF GOITER), MULTIPLE THROAT SURGERIES AFTERWARDS. SHE HAS TO INHALE AND BLOW OUT WHEN TALKING. STATES ALSO THAT ESOPHAGUS CLOSES PREMATURELY WHEN EATING AND CAUSES HER TO INHALE FOOD AND SALIVA CAUSING HER TO COUGH ., STRESS INCONTINENCE-WEARS PAD, TORN ROTATOR CUFF(sx), bridges. History of Any Multi-Drug Resistant Organisms: None Reported Past Surgical History: Appendectomy, Hysterectomy, Orthopedic Surgery Additional Past Surgical History / Comment(s): TOTAL RIGHT HIP, CATARACTS, THYROID REMOVED WITH SEVERED VOCAL CORD AND MULTIPLE THROAT SURGERIES AFTERWARDS, right shoulder surgery, rt rotator cuff repair, trach insertion, trach removal and closure, Past Anesthesia/Blood Transfusion Reactions: No Reported Reaction Past Psychological History: No Psychological Hx Reported Smoking Status: Never smoker Past Alcohol Use History: Occasional Past Drug Use History: None Reported - Past Family History Daughter(s) Family Medical History: Cancer Additional Family Medical History / Comment(s): 2 DAUGHTERS- LEUKEMIA AND LUNG CANCER Mother Family Medical History: COPD Additional Family Medical History / Comment(s): bronchits Father Family Medical History: Cancer Additional Family Medical History / Comment(s): leukemia Medications and Allergies Home Medications Medication Instructions Recorded Confirmed Type amLODIPine [Norvasc] 5 mg PO DAILY 04/05/14 01/29/23 History Atorvastatin [Lipitor] 40 mg PO HS tab 01/05/21 01/29/23 Rx ALPRAZolam [Xanax] 0.25 mg PO BID 01/25/21 01/29/23 History Acetaminophen Tab [Tylenol] 650 mg PO Q4H PRN 01/25/21 01/29/23 History Aspirin 325 mg PO DAILY@0900 01/25/21 01/29/23 History Hydrogen Peroxide [Hydrogen 1 applic TOPICAL Q1H 01/25/21 01/29/23 History Peroxide 3%] Ipratropium-Albuterol Nebulize 3 ml INHALATION RT-Q6H 01/25/21 01/29/23 History [Duoneb 0.5 mg-3 mg/3 ml Soln] Levothyroxine Sodium 25 mcg PO DAILY 01/25/21 01/29/23 History Lidocaine 5% Cream 1 applic TOPICAL Q6H PRN 01/25/21 01/29/23 History Multivitamins, Thera [Multivitamin 1 tab PO DAILY 01/25/21 01/29/23 History (formulary)] Omeprazole 20 mg PO DAILY 01/25/21 01/29/23 History Ondansetron [Zofran] 4 mg PO Q6H PRN 01/25/21 01/29/23 History Sennosides [Senna] 8.6 mg PO BID 01/25/21 01/29/23 History carvediloL [Coreg] 3.125 mg PO BID 01/25/21 01/29/23 History lisinopriL 30 mg PO DAILY 01/25/21 01/29/23 History polyethylene glycoL 3350 [Miralax] 17 gm PO DAILY 01/25/21 01/29/23 History rOPINIRole HCL [Requip] 0.25 mg PO HS 01/25/21 01/29/23 History Benzocaine [place] [Hurricaine [place]] 1 applic MUCOUS MEM Q6H PRN 01/29/23 01/29/23 History Desoximetasone [Topicort 0.25%] 1 applic TOPICAL Q12H PRN 01/29/23 01/29/23 History Docusate [Colace] 100 mg PO BID 01/29/23 01/29/23 History HYDROcodone/APAP 10-325MG [[place] 1 tab PO Q4HR PRN 01/29/23 01/29/23 History 10-325] Hydrocortisone [Anusol-Hc] 1 applic RECTAL Q12H PRN 01/29/23 01/29/23 History L.acidoph,Paracasei, B.lactis 1 cap PO DAILY 01/29/23 01/29/23 History [Probiotic] Lactulose [Constulose] 20 gm PO DAILY PRN 01/29/23 01/29/23 History Loperamide [Imodium] 2 - 4 mg PO QID PRN 01/29/23 01/29/23 History Magnesium Hydroxide [Milk of 2,400 mg PO DAILY PRN 01/29/23 01/29/23 History Magnesia] Menthol [Biofreeze] 1 applic TOPICAL TID 01/29/23 01/29/23 History Nystatin 100,000 Unit/ml Susp 10 ml PO TID 01/29/23 01/29/23 History [Mycostatin Oral Susp] Phenyleph/Mineral Oil/Petrolat 1 applic RECTAL Q8H PRN 01/29/23 01/29/23 History [Preparation H Ointment] Triamcinolone 0.1% Cream [Kenalog 1 applicatio TOPICAL BID PRN 01/29/23 01/29/23 History 0.1% Cream] bisacodyL [Dulcolax] 10 mg RECTAL DAILY PRN 01/29/23 01/29/23 History guaiFENesin SYRUP 100MG/5ML 200 mg PO Q6H PRN 01/29/23 01/29/23 History [Robitussin] Allergies Allergy/AdvReac Type Severity Reaction Status Date / Time No Known Allergies Allergy Verified 01/29/23 11:25 Physical Exam Vitals: Vital Signs Temp Pulse Resp BP Pulse Ox 01/29/23 14:00 98 F 75 18 118/65 99 01/29/23 13:00 72 18 118/62 100 01/29/23 12:00 71 18 104/55 99 01/29/23 10:50 98.4 F 77 18 101/63 99 Intake and Output 01/29/23 01/29/23 01/29/23 06:59 14:59 22:59 Other: Weight 43.998 kg Results CBC & Chem 7: 01/29/23 11:22 01/29/23 11:22 Labs: Abnormal Lab Results - Last 24 Hours (Table) 01/29/23 01/29/23 01/29/23 Range/Units 11:22 11:22 11:22 RBC 3.63 L (3.80-5.40) m/uL Hgb 10.6 L (11.4-16.0) gm/dL Hct 31.8 L (34.0-46.0) % Neutrophils # 7.9 H (1.3-7.7) k/uL D-Dimer 0.64 H (<0.60) mg/L FEU Sodium 130 L (137-145) mmol/L Chloride 95 L (98-107) mmol/L Glucose 150 H (74-99) mg/dL Urine Appearance (Clear) Urine Protein (Negative) Urine Nitrite (Negative) Ur Leukocyte Esterase (Negative) Urine WBC (0-5) /hpf Urine WBC Clumps (None) /hpf Urine Bacteria (None) /hpf Hyaline Casts (0-2) /lpf Urine Mucus (None) /hpf 01/29/23 Range/Units 12:20 RBC (3.80-5.40) m/uL Hgb (11.4-16.0) gm/dL Hct (34.0-46.0) % Neutrophils # (1.3-7.7) k/uL D-Dimer (<0.60) mg/L FEU Sodium (137-145) mmol/L Chloride (98-107) mmol/L Glucose (74-99) mg/dL Urine Appearance Cloudy H (Clear) Urine Protein Trace H (Negative) Urine Nitrite Positive H (Negative) Ur Leukocyte Esterase Large H (Negative) Urine WBC >182 H (0-5) /hpf Urine WBC Clumps Many H (None) /hpf Urine Bacteria Moderate H (None) /hpf Hyaline Casts 4 H (0-2) /lpf Urine Mucus Rare H (None) /hpf
[2023-01-29] MEDS: NYSTATIN 100,000 UNIT/ML SUSP 500,000 UNIT/5 ML CUP PO SCH ×2 (16:45→23:19)
[2023-01-29] MEDS: carvediloL 3.125 MG TAB PO SCH (16:46)
[2023-01-29] MEDS: HEPARIN SODIUM,PORCINE/PF 5,000 UNIT/0.5 ML SYRINGE SQ SCH ×2 (16:47→23:19)
[2023-01-29] MEDS ORDERED: ALBUTEROL NEBULIZED 2.5 MG/3 ML INHALATION PRN (18:40)
[2023-01-29] MEDS ORDERED: IPRATROPIUM 0.5 MG/2.5 ML NEBU INHALATION PRN (18:41)
[2023-01-29] MEDS: ALBUTEROL NEBULIZED 2.5 MG/3 ML INHALATION SCH (19:42)
[2023-01-29] MEDS: IPRATROPIUM 0.5 MG/2.5 ML NEBU INHALATION SCH (19:43)
[2023-01-29] MEDS ORDERED: IPRATROPIUM 0.5 MG/2.5 ML NEBU INHALATION SCH (20:00)
[2023-01-29] MEDS ORDERED: IPRATROPIUM-ALBUTEROL 3 ML NEB INHALATION SCH (20:00)
[2023-01-29] MEDS ORDERED: ALBUTEROL NEBULIZED 2.5 MG/3 ML INHALATION SCH (20:00)
[2023-01-29] MEDS: DOCUSATE 100 MG CAP PO SCH (20:43)
[2023-01-29] MEDS ORDERED: ATORVASTATIN 40 MG TAB PO SCH (21:00)
[2023-01-29] MEDS ORDERED: ALPRAZolam 0.25 MG TAB PO SCH (23:00)
[2023-01-29] MEDS ORDERED: MELATONIN 5 MG TABLET PO SCH (23:00)
[2023-01-29] MEDS ORDERED: ALPRAZolam 0.25 MG TAB PO PRN (23:09)
[2023-01-29] MEDS ORDERED: MELATONIN 5 MG TABLET PO ONE (23:10)
[2023-01-30 06:00] VITALS: RESP 16
[2023-01-30] MEDS: carvediloL 3.125 MG TAB PO SCH (06:20)
[2023-01-30] MEDS: ACETAMINOPHEN TAB 500 MG TAB PO PRN (06:27)
[2023-01-30] MEDS ORDERED: LEVOTHYROXINE 25 MCG TAB PO SCH (06:30)
[2023-01-30] MEDS: IPRATROPIUM 0.5 MG/2.5 ML NEBU INHALATION SCH ×2 (07:49→11:21)
[2023-01-30] MEDS: ALBUTEROL NEBULIZED 2.5 MG/3 ML INHALATION SCH ×2 (07:49→11:21)
[2023-01-30] MEDS: NYSTATIN 100,000 UNIT/ML SUSP 500,000 UNIT/5 ML CUP PO SCH (08:39)
[2023-01-30] MEDS: DOCUSATE 100 MG CAP PO SCH (08:40)
[2023-01-30] MEDS: HEPARIN SODIUM,PORCINE/PF 5,000 UNIT/0.5 ML SYRINGE SQ SCH (08:40)
[2023-01-30] MEDS ORDERED: PANTOPRAZOLE 40 MG TABLET PO SCH (09:00)
[2023-01-30] MEDS ORDERED: amLODIPine 5 MG TAB PO SCH (09:00)
[2023-01-30] MEDS ORDERED: MULTIVITAMINS, THERA 1 EACH TAB PO SCH (09:00)
[2023-01-30] MEDS ORDERED: ASPIRIN 81 MG PO SCH (09:00)
[2023-01-30] MEDS ORDERED: polyethylene glycoL 3350 17 GM POWD.PACK PO SCH (09:00)
[2023-01-30] MEDS ORDERED: ONDANSETRON 4 MG/2 ML VIAL IVP PRN (09:01)
[2023-01-30 09:04] LABS: Basophils # (A) 0.06 X 10*3/uL (0.00-0.10); Basophils % (A) 0.7 %; Eosinophils # (A) 0.14 X 10*3/uL (0.04-0.35); Eosinophils % (A) 1.6 %; HCT 30.3 % (37.2-46.3); HGB 9.5 g/dL (12.0-15.0); Immature Grans, Automated 0.2 %; Lymphocytes # (A) 1.71 X 10*3/uL (0.90-5.00); Lymphocytes % (A) 19.7 %; MCH 28.4 pg (27.0-32.0); MCHC 31.4 g/dL (32.0-37.0); MCV 90.4 fL (80.0-97.0); Mean Platelet Volume 11.7 fL (9.5-12.2); Monocytes % (A) 8.1 %; NRBC Per 100 WBC 0 /100 WBCS (0.0-0.0); Neutrophils # (A) 6.03 X 10*3/uL (1.80-7.70); Neutrophils % (A) 69.7 %; Platelet Count 293 X 10*3/uL (140-440); RBC 3.35 X 10*6/uL (4.10-5.20); RDW 13.3 % (11.5-14.5); WBC 8.66 X 10*3/uL (4.50-10.00)
[2023-01-30 09:27] LABS: African American GFR (CKD) 92.7 (60.0-200.0); Anion Gap 9.6 mmol/L (10.00-18.00); BUN/Creat Ratio 19.2 Ratio (12.00-20.00); Blood Urea Nitrogen 12.4 mg/dL (9.0-27.0); Calcium 8.7 mg/dL (8.7-10.3); Carbon Dioxide 25.1 mmol/L (20.0-27.5); Potassium 4.2 mmol/L (3.5-5.5)
[2023-01-30 11:27] VITALS: BMI 18.3
--- NOTE | 2023-01-30 12:36 | P.DS ---
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 Patient is also incontinent at baseline, is unsure if she is having increased urinary frequency or urgency. In the ED, she was afebrile, pulse is 77, respiratory rate 18, blood pressure 101/63, saturating at 99% on 2 L. Lab work showed hemoglobin of 10.6, sodium 130, chloride 95, glucose 150, troponin negative, proBNP 520, d-dimer 0.64. Urinalysis positive for nitrites and leukocyte esterase, moderate bacteria. COVID-19 negative. CTA showed no evidence of PE, enlarging mediastinal and hilar lymph nodes at 1.6 cm, possible right lower lobe pneumonia, possible gastritis. EKG showed sinus rhythm with first-degree AV block. Patient was admitted for further cardiac workup. Troponin was negative 3, ACS ruled out. Chest pain improved. Patient to be discharged back to nursing facility on short course of oral cefdinir for UTI. Chest pain likely secondary to gastritis. Continue PPI. Patient may need further workup for mild normocytic anemia. Aspirin was decreased to 81 mg daily. Patient seen and examined at bedside. Vital signs reviewed and stable. General: nontoxic, no distress, appears at stated age Derm: warm, dry Head: atraumatic, normocephalic, symmetric Eyes: EOMI, no lid lag, anicteric sclera, pupils equal round reactive to light ENT: Nose and ears atraumatic Neck: No thyromegaly, supple Mouth: no lip lesion, mucus membranes moist Cardiovascular: S1S2 reg, no murmur, no edema Lungs: clear to auscultation bilateral, no rhonchi, no rales, no wheeze, no accessory muscle use Abdominal: soft, nontender to palpation, no guarding, no appreciable organomegaly Ext: no gross muscle atrophy, muscle strength muscle strength 4 out of 5 in all 4 extremities, no contractures Neuro: CN II-XII grossly intact Psych: Alert, oriented, appropriate affect A total of 34 minutes of time were spent preparing this complex discharge summary. Patient was discharged on 01/30/23 at 12:30. Patient Condition at Discharge: Stable Plan - Discharge Summary New Discharge Prescriptions: New Aspirin 81 mg PO DAILY@0900 tab Cefdinir 300 mg PO Q12HR #8 cap Continue amLODIPine [Norvasc] 5 mg PO DAILY Atorvastatin [Lipitor] 40 mg PO HS tab Ondansetron [Zofran] 4 mg PO Q6H PRN PRN Reason: Nausea Hydrogen Peroxide [Hydrogen Peroxide 3%] 1 applic TOPICAL Q1H ALPRAZolam [Xanax] 0.25 mg PO BID Sennosides [Senna] 8.6 mg PO BID Levothyroxine Sodium 25 mcg PO DAILY Lidocaine 5% Cream 1 applic TOPICAL Q6H PRN PRN Reason: POSTERIOR NECK PAIN Triamcinolone 0.1% Cream [Kenalog 0.1% Cream] 1 applicatio TOPICAL BID PRN PRN Reason: Itching Desoximetasone [Topicort 0.25%] 1 applic TOPICAL Q12H PRN PRN Reason: Itching Nystatin 100,000 Unit/ml Susp [Mycostatin Oral Susp] 10 ml PO TID Loperamide [Imodium] 2 - 4 mg PO QID PRN PRN Reason: Diarrhea L.acidoph,Paracasei, B.lactis [Probiotic] 1 cap PO DAILY Phenyleph/Mineral Oil/Petrolat [Preparation H Ointment] 1 applic RECTAL Q8H PRN PRN Reason: Hemorrhoids Docusate [Colace] 100 mg PO BID Menthol [Biofreeze] 1 applic TOPICAL TID Acetaminophen Tab [Tylenol] 650 mg PO Q4H PRN PRN Reason: Pain Ipratropium-Albuterol Nebulize [Duoneb 0.5 mg-3 mg/3 ml Soln] 3 ml INHALATION RT-Q6H carvediloL [Coreg] 3.125 mg PO BID rOPINIRole HCL [Requip] 0.25 mg PO HS polyethylene glycoL 3350 [Miralax] 17 gm PO DAILY Omeprazole 20 mg PO DAILY Multivitamins, Thera [Multivitamin (formulary)] 1 tab PO DAILY Magnesium Hydroxide [Milk of Magnesia] 2,400 mg PO DAILY PRN PRN Reason: Constipation Benzocaine [place] [Hurricaine [place]] 1 applic MUCOUS MEM Q6H PRN PRN Reason: Sore Throat guaiFENesin [place] 100MG/5ML [Robitussin] 200 mg PO Q6H PRN PRN Reason: Congestion bisacodyL [Dulcolax] 10 mg RECTAL DAILY PRN PRN Reason: Constipation Hydrocortisone [Anusol-Hc] 1 applic RECTAL Q12H PRN PRN Reason: Hemorrhoids Discontinued Lactulose [Constulose] 20 gm PO DAILY PRN PRN Reason: Constipation HYDROcodone/APAP 10-325MG [[place] 10-325] 1 tab PO Q4HR PRN PRN Reason: Pain lisinopriL 30 mg PO DAILY Aspirin 325 mg PO DAILY@0900 Discharge Medication List amLODIPine [Norvasc] 5 mg PO DAILY 04/05/14 [History] Atorvastatin [Lipitor] 40 mg PO HS tab 01/05/21 [Rx] ALPRAZolam [Xanax] 0.25 mg PO BID 01/25/21 [History] Acetaminophen Tab [Tylenol] 650 mg PO Q4H PRN 01/25/21 [History] Hydrogen Peroxide [Hydrogen Peroxide 3%] 1 applic TOPICAL Q1H 01/25/21 [History] Ipratropium-Albuterol Nebulize [Duoneb 0.5 mg-3 mg/3 ml Soln] 3 ml INHALATION RT-Q6H 01/25/21 [History] Levothyroxine Sodium 25 mcg PO DAILY 01/25/21 [History] Lidocaine 5% Cream 1 applic TOPICAL Q6H PRN 01/25/21 [History] Multivitamins, Thera [Multivitamin (formulary)] 1 tab PO DAILY 01/25/21 [History] Omeprazole 20 mg PO DAILY 01/25/21 [History] Ondansetron [Zofran] 4 mg PO Q6H PRN 01/25/21 [History] Sennosides [Senna] 8.6 mg PO BID 01/25/21 [History] carvediloL [Coreg] 3.125 mg PO BID 01/25/21 [History] polyethylene glycoL 3350 [Miralax] 17 gm PO DAILY 01/25/21 [History] rOPINIRole HCL [Requip] 0.25 mg PO HS 01/25/21 [History] Benzocaine [place] [Hurricaine [place]] 1 applic MUCOUS MEM Q6H PRN 01/29/23 [History] Desoximetasone [Topicort 0.25%] 1 applic TOPICAL Q12H PRN 01/29/23 [History] Docusate [Colace] 100 mg PO BID 01/29/23 [History] Hydrocortisone [Anusol-Hc] 1 applic RECTAL Q12H PRN 01/29/23 [History] L.acidoph,Paracasei, B.lactis [Probiotic] 1 cap PO DAILY 01/29/23 [History] Loperamide [Imodium] 2 - 4 mg PO QID PRN 01/29/23 [History] Magnesium Hydroxide [Milk of Magnesia] 2,400 mg PO DAILY PRN 01/29/23 [History] Menthol [Biofreeze] 1 applic TOPICAL TID 01/29/23 [History] Nystatin 100,000 Unit/ml Susp [Mycostatin Oral Susp] 10 ml PO TID 01/29/23 [History] Phenyleph/Mineral Oil/Petrolat [Preparation H Ointment] 1 applic RECTAL Q8H PRN 01/29/23 [History] Triamcinolone 0.1% Cream [Kenalog 0.1% Cream] 1 applicatio TOPICAL BID PRN 01/29/23 [History] bisacodyL [Dulcolax] 10 mg RECTAL DAILY PRN 01/29/23 [History] guaiFENesin [place] 100MG/5ML [Robitussin] 200 mg PO Q6H PRN 01/29/23 [History] Aspirin 81 mg PO DAILY@0900 tab 01/30/23 [Rx] Cefdinir 300 mg PO Q12HR #8 cap 01/30/23 [Rx] Follow up Appointment(s)/Referral(s): None,Stated [REFERRING] - 1-2 days Patient Instructions/Handouts: Chest Pain (DC), Noncardiac Chest Pain (DC) Activity/Diet/Wound Care/Special Instructions: Please see PCP as soon as possible. You may need further workup for low blood counts. Discharge Disposition: TRANSFER TO [facility]/F
[2023-01-30 14:55] VITALS: BP 131/66; PULSE 91; TEMP 97.8
== END 2023-01-30 16:24 ==
LOC: EC 10:12 → 6NMEDSUR 13:39
PROVIDERS: ADMIT Student in an Organized Health Care Education/Training Program; ATTEND Student in an Organized Health Care Education/Training Program
DX: R07.89 Other chest pain (principal); R06.02 Shortness of breath; K29.70 Gastritis, unspecified, without bleeding; B37.0 Candidal stomatitis; N39.0 Urinary tract infection, site not specified; I44.0 Atrioventricular block, first degree; E87.1 Hypo-osmolality and hyponatremia; R15.9 Full incontinence of feces; Z20.822 Contact with and (suspected) exposure to COVID-19; D64.9 Anemia, unspecified; I69.354 Hemiplegia and hemiparesis following cerebral infarction affecting left non-dominant side; I10 Essential (primary) hypertension; E03.9 Hypothyroidism, unspecified; E78.5 Hyperlipidemia, unspecified; N39.3 Stress incontinence (female) (male); Z79.82 Long term (current) use of aspirin; Z79.890 Hormone replacement therapy; Z79.899 Other long term (current) drug therapy
CPT/HCPCS: 96361 ×2; 96365; 96366; 96372 ×3; 96375; 99285; 36415; 94640 ×3; 94760; 93005; 97162; 97166; 85379; 83880; 80053; 80048; 82150; 83690; 83735; 84484; 85025 ×2; 85610; 85730; 81001; 87040; 87086; 87077; 87186; 87635; 71275; G0378 ×2; J0696 ×2; Q9967; J1644 ×2

== ENCOUNTER 2023-10-25 20:56 | Emergency (ER) | payer MEDICARE, BC, OTHER ==
[2023-10-25 22:39] LABS: INR 0.9 (<1.2); Partial Thromboplastin Time 22.3 sec (22.0-30.0); Prothrombin Time 9.8 sec (10.0-12.5)
--- NOTE | 2023-10-25 22:45 | ED ---
Recheck HPI - General Chief Complaint: Recheck/Abnormal Lab/Rx Stated Complaint: Low Hemoglobin Time Seen by Provider: 10/25/23 21:20 Source: patient Mode of arrival: EMS Limitations: no limitations - History of Present Illness Initial Comments: Is an 87-year-old female who presented [facility] the emergency department [facility] on [facility] care. Apparently the patient had outpatient labs that revealed a hemoglobin of 6.5 and she was advised, hospital for blood transfusion. Patient has no complaints upon arrival. Cont acted patient's hospice to confirm the patient can receive care in the emergency department, she did consult with the patient's daughter to advise her that this care likely would not be covered by hospice and she may get a bill for it but it should likely be covered by the patient's Medicare. Daughter consented to plan for blood work and transfusion. - Related Data Home Medications Medication Instructions Recorded Confirmed amLODIPine [Norvasc] 5 mg PO DAILY 04/05/14 01/29/23 ALPRAZolam [Xanax] 0.25 mg PO BID 01/25/21 01/29/23 Acetaminophen Tab [Tylenol] 650 mg PO Q4H PRN 01/25/21 01/29/23 Hydrogen Peroxide [Hydrogen 1 applic TOPICAL Q1H 01/25/21 01/29/23 Peroxide 3%] Ipratropium-Albuterol Nebulize 3 ml INHALATION RT-Q6H 01/25/21 01/29/23 [Duoneb 0.5 mg-3 mg/3 ml Soln] Levothyroxine Sodium 25 mcg PO DAILY 01/25/21 01/29/23 Lidocaine 5% Cream 1 applic TOPICAL Q6H PRN 01/25/21 01/29/23 Multivitamins, Thera [Multivitamin 1 tab PO DAILY 01/25/21 01/29/23 (formulary)] Omeprazole 20 mg PO DAILY 01/25/21 01/29/23 Ondansetron [Zofran] 4 mg PO Q6H PRN 01/25/21 01/29/23 Sennosides [Senna] 8.6 mg PO BID 01/25/21 01/29/23 carvediloL [Coreg] 3.125 mg PO BID 01/25/21 01/29/23 polyethylene glycoL 3350 [Miralax] 17 gm PO DAILY 01/25/21 01/29/23 rOPINIRole HCL [Requip] 0.25 mg PO HS 01/25/21 01/29/23 Benzocaine Mangum [Hurricaine Mangum] 1 applic MUCOUS MEM Q6H PRN 01/29/23 01/29/23 Desoximetasone [Topicort 0.25%] 1 applic TOPICAL Q12H PRN 01/29/23 01/29/23 Docusate [Colace] 100 mg PO BID 01/29/23 01/29/23 Hydrocortisone [Anusol-Hc] 1 applic RECTAL Q12H PRN 01/29/23 01/29/23 L.acidoph,Paracasei, B.lactis 1 cap PO DAILY 01/29/23 01/29/23 [Probiotic] Loperamide [Imodium] 2 - 4 mg PO QID PRN 01/29/23 01/29/23 Magnesium Hydroxide [Milk of 2,400 mg PO DAILY PRN 01/29/23 01/29/23 Magnesia] Menthol [Biofreeze] 1 applic TOPICAL TID 01/29/23 01/29/23 Nystatin 100,000 Unit/ml Susp 10 ml PO TID 01/29/23 01/29/23 [Mycostatin Oral Susp] Phenyleph/Mineral Oil/Petrolat 1 applic RECTAL Q8H PRN 01/29/23 01/29/23 [Preparation H Ointment] Triamcinolone 0.1% Cream [Kenalog 1 applicatio TOPICAL BID PRN 01/29/23 01/29/23 0.1% Cream] bisacodyL [Dulcolax] 10 mg RECTAL DAILY PRN 01/29/23 01/29/23 guaiFENesin SYRUP 100MG/5ML 200 mg PO Q6H PRN 01/29/23 01/29/23 [Robitussin] Previous Rx's Medication Instructions Recorded Atorvastatin [Lipitor] 40 mg PO HS tab 01/05/21 Aspirin 81 mg PO DAILY@0900 tab 01/30/23 Cefdinir 300 mg PO Q12HR #8 cap 01/30/23 Allergies Allergy/AdvReac Type Severity Reaction Status Date / Time No Known Allergies Allergy Verified 10/25/23 21:18 Review of Systems ROS Statement: Those systems with pertinent positive or pertinent negative responses have been documented in the HPI. ROS Other: All systems not noted in ROS Statement are negative. Past Medical History Past Medical History: CVA/TIA, GERD/Reflux, Hyperlipidemia, Hypertension, Osteoarthritis (OA), Thyroid Disorder Additional Past Medical History / Comment(s): STATES AT 37 YRS OLD VOCAL CORD WAS SEVERED DURING REMOVAL OF THYROID (HX OF GOITER), MULTIPLE THROAT SURGERIES AFTERWARDS. SHE HAS TO INHALE AND BLOW OUT WHEN TALKING. STATES ALSO THAT ESOPHAGUS CLOSES PREMATURELY WHEN EATING AND CAUSES HER TO INHALE FOOD AND SALIVA CAUSING HER TO COUGH ., STRESS INCONTINENCE-WEARS PAD, TORN ROTATOR CUFF(sx), bridges. History of Any Multi-Drug Resistant Organisms: None Reported Past Surgical History: Appendectomy, Hysterectomy, Orthopedic Surgery Additional Past Surgical History / Comment(s): TOTAL RIGHT HIP, CATARACTS, THYROID REMOVED WITH SEVERED VOCAL CORD AND MULTIPLE THROAT SURGERIES AFTERWARDS, right shoulder surgery, rt rotator cuff repair, trach insertion, trach removal and closure, Past Anesthesia/Blood Transfusion Reactions: No Reported Reaction Past Psychological History: No Psychological Hx Reported Smoking Status: Never smoker Past Alcohol Use History: Occasional Past Drug Use History: None Reported - Past Family History Daughter(s) Family Medical History: Cancer Additional Family Medical History / Comment(s): 2 DAUGHTERS- LEUKEMIA AND LUNG CANCER Mother Family Medical History: COPD Additional Family Medical History / Comment(s): bronchits Father Family Medical History: Cancer Additional Family Medical History / Comment(s): leukemia General Exam Limitations: no limitations General appearance: alert Head exam: Present: atraumatic Eye exam: Present: PERRL ENT exam: Present: normal exam Respiratory exam: Absent: respiratory distress Cardiovascular Exam: Present: regular rate GI/Abdominal exam: Present: soft Rectal exam: Present: deferred Neurological exam: Present: alert Skin exam: Present: pallor Course Vital Signs 10/25/23 10/25/23 10/26/23 21:10 21:14 02:04 Temperature 97.8 F 97.8 F 98.6 F Pulse Rate 74 74 82 Respiratory 18 18 18 Rate Blood Pressure 156/79 156/79 145/72 O2 Sat by Pulse 95 95 96 Oximetry 10/26/23 10/26/23 10/26/23 02:15 02:35 04:02 Temperature 98.4 F 98.5 F 98.7 F Pulse Rate 79 78 74 Respiratory 18 18 18 Rate Blood Pressure 154/62 167/80 160/80 O2 Sat by Pulse 96 96 96 Oximetry 10/26/23 04:07 Temperature 98.7 F Pulse Rate 73 Respiratory 18 Rate Blood Pressure 160/80 O2 Sat by Pulse Oximetry Medical Decision Making - Medical Decision Making Was pt. sent in by a medical professional or institution (MICHAEL Hernandez, CORRESPONDENCE SPECIALIST, urgent care, hospital, or retirement...) When possible be specific @ -Yes Did you speak to anyone other than the patient for history (EMS, parent, family, police, friend...)? What history was obtained from this source @ -No Did you review nursing and triage notes (agree or disagree)? Why? @ -I reviewed and agree with nursing and triage notes Were old charts reviewed (outside hosp., previous admission, EMS record, old E KG, old radiological studies, urgent care reports/EKG's, retirement records)? Report findings @ -No old charts were reviewed Differential Diagnosis (chest pain, altered mental status, abdominal pain women, abdominal pain men, vaginal bleeding, weakness, fever, dyspnea, syncope, headache, dizziness, GI bleed, back pain, seizure, CVA, palpatations, mental hea lth)? @ -Anemia, lab error EKG interpreted by me (3pts min.). @ -As above X-rays interpreted by me (1pt min.). @ -None done CT interpreted by me (1pt min.). @ -None done U/S interpreted by me (1pt. min.). @ -None done What testing was considered but not performed or refused? (CT, X-rays, U/S, labs)? Why? @ -None What meds were considered but not given or refused? Why? @ -None Did you discuss the management of the patient with other professionals (professionals i.e. MICHAEL Hernandez, CORRESPONDENCE SPECIALIST, lab, RT, psych nurse, community mental health social worker, hook up driver, teacher, probation and parole officer, casework specialist)? Give summary @ -No Was smoking cessation discussed for >3mins.? @ -No Was critical care preformed (if so, how long)? @ -No Were there social determinants of health that impacted care today? How? (Homelessness, low income, unemployed, alcoholism, drug addiction, transportation, low edu. Level, literacy, decrease access to med. care, detention, rehab)? @ -No Was there de-escalation of care discussed even if they declined (Discuss DNR or withdrawal of care, Hospice)? DNR status @ -Patient is hospice - will remain hospice What co-morbidities impacted this encounter? (DM, HTN, Smoking, COPD, CAD, Cancer, CVA, ARF, Chemo, Hep., AIDS, mental health diagnosis, sleep apnea, morbid obesity)? @ -CVA Was patient admitted / discharged? Hospital course, mention meds given and route, prescriptions, significant lab abnormalities, going to OR and other pertinent info. @ -Discharge Patient was seen and evaluated outpatient labs reveal hemoglobin of 6.5, kidney function was within normal limits, repeat labs here with a low hemoglobin in the sevens one unit was transfused patient remained hemodynamically stable and was discharged home on hospice care. Undiagnosed new problem with uncertain prognosis? @ -No Drug Therapy requiring intensive monitoring for toxicity (Heparin, Nitro, Insulin, Cardizem)? @ -No Were any procedures done? @ -No Diagnosis/symptom? @ -Anemia Acute, or Chronic, or Acute on Chronic? @ -default Uncomplicated (without systemic symptoms) or Complicated (systemic symptoms)? @ -default Side effects of treatment? @ -No Exacerbation, Progression, or Severe Exacerbation? @ -No Poses a threat to life or bodily function? How? (Chest pain, [place], [place], pneumonia, PE, COPD, DKA, ARF, appy, cholecystitis, CVA, Diverticulitis, Homicidal, Suicidal, threat to staff... and all critical care pts) @ -Yes - Lab Data Result diagrams: 10/25/23 21:54 10/25/23 22:10 Lab Results 10/25/23 10/25/23 10/25/23 Range/Units 21:54 21:54 21:54 WBC 5.5 (3.8-10.6) k/uL RBC 3.13 L (3.80-5.40) m/uL Hgb 7.6 L (11.4-16.0) gm/dL Hct 24.9 L (34.0-46.0) % MCV 79.5 L (80.0-100.0) fL MCH 24.3 L (25.0-35.0) pg MCHC 30.6 L (31.0-37.0) g/dL RDW 16.1 H (11.5-15.5) % Plt Count 484 H (150-450) k/uL MPV 7.5 Neutrophils % 54 % Lymphocytes % 30 % Monocytes % 9 % Eosinophils % 4 % Basophils % 1 % Neutrophils # 3.0 (1.3-7.7) k/uL Lymphocytes # 1.7 (1.0-4.8) k/uL Monocytes # 0.5 (0-1.0) k/uL Eosinophils # 0.2 (0-0.7) k/uL Basophils # 0.0 (0-0.2) k/uL Hypochromasia Marked Anisocytosis Slight PT 9.8 L (10.0-12.5) sec INR 0.9 (<1.2) APTT 22.3 (22.0-30.0) sec Sodium (137-145) mmol/L Potassium (3.5-5.1) mmol/L Chloride (98-107) mmol/L Carbon Dioxide (22-30) mmol/L Anion Gap mmol/L BUN (7-17) mg/dL Creatinine (0.52-1.04) mg/dL Est GFR (CKD-EPI)AfAm (>60 ml/min/1.73 sqM) Est GFR (CKD-EPI)NonAf (>60 ml/min/1.73 sqM) Glucose (74-99) mg/dL Calcium (8.4-10.2) mg/dL Total Bilirubin (0.2-1.3) mg/dL AST (14-36) U/L ALT (4-34) U/L Alkaline Phosphatase (38-126) U/L Total Protein (6.3-8.2) g/dL Albumin (3.5-5.0) g/dL Blood Type O Negative Blood Type Recheck O Neg Bld Type Recheck Status No Antibody Screen NEGATIVE Crossmatch See Detail Spec Expiration Date 10/28/2023 - 235310/25/23 Range/Units 22:10 WBC (3.8-10.6) k/uL RBC (3.80-5.40) m/uL Hgb (11.4-16.0) gm/dL Hct (34.0-46.0) % MCV (80.0-100.0) fL MCH (25.0-35.0) pg MCHC (31.0-37.0) g/dL RDW (11.5-15.5) % Plt Count (150-450) k/uL MPV Neutrophils % % Lymphocytes % % Monocytes % % Eosinophils % % Basophils % % Neutrophils # (1.3-7.7) k/uL Lymphocytes # (1.0-4.8) k/uL Monocytes # (0-1.0) k/uL Eosinophils # (0-0.7) k/uL Basophils # (0-0.2) k/uL Hypochromasia Anisocytosis PT (10.0-12.5) sec INR (<1.2) APTT (22.0-30.0) sec Sodium 132 L (137-145) mmol/L Potassium 4.2 (3.5-5.1) mmol/L Chloride 97 L (98-107) mmol/L Carbon Dioxide 26 (22-30) mmol/L Anion Gap 9 mmol/L BUN 20 H (7-17) mg/dL Creatinine 0.63 (0.52-1.04) mg/dL Est GFR (CKD-EPI)AfAm >90 (>60 ml/min/1.73 sqM) Est GFR (CKD-EPI)NonAf 81 (>60 ml/min/1.73 sqM) Glucose 89 (74-99) mg/dL Calcium 8.5 (8.4-10.2) mg/dL Total Bilirubin 0.2 (0.2-1.3) mg/dL AST 24 (14-36) U/L ALT 16 (4-34) U/L Alkaline Phosphatase 138 H (38-126) U/L Total Protein 6.5 (6.3-8.2) g/dL Albumin 3.3 L (3.5-5.0) g/dL Blood Type Blood Type Recheck Bld Type Recheck Status Antibody Screen Crossmatch Spec Expiration Date Disposition Clinical Impression: Anemia Disposition: HOME SELF-CARE Condition: Serious Is patient prescribed a controlled substance at d/c from ED?: No Referrals: Tuan Shafer DO [Primary Care Provider] - 1-2 days
[2023-10-25 22:50] LABS: Anisocytosis Slight; Basophils % (A) 1 %; Eosinophils # (A) 0.2 k/uL (0-0.7); Eosinophils % (A) 4 %; HCT 24.9 % (34.0-46.0); HGB 7.6 gm/dL (11.4-16.0); Hypochromasia Marked; Lymphocytes # (A) 1.7 k/uL (1.0-4.8); Lymphocytes % (A) 30 %; MCH 24.3 pg (25.0-35.0); MCHC 30.6 g/dL (31.0-37.0); MCV 79.5 fL (80.0-100.0); Mean Platelet Volume 7.5; Monocytes # (A) 0.5 k/uL (0-1.0); Monocytes % (A) 9 %; Neutrophils % (A) 54 %; Platelet Count 484 k/uL (150-450); RBC 3.13 m/uL (3.80-5.40); RDW 16.1 % (11.5-15.5); WBC 5.5 k/uL (3.8-10.6)
[2023-10-25 23:07] LABS: ALT 16 U/L (4-34); AST 24 U/L (14-36); African American GFR (CKD) >90 (>60 ml/min/1.73 sqM); Albumin 3.3 g/dL (3.5-5.0); Alkaline Phosphatase 138 U/L (38-126); Anion Gap 9 mmol/L; Blood Urea Nitrogen 20 mg/dL (7-17); Calcium 8.5 mg/dL (8.4-10.2); Carbon Dioxide 26 mmol/L (22-30); Chloride 97 mmol/L (98-107); Glucose 89 mg/dL (74-99); Non-African American GFR(CKD) 81 (>60 ml/min/1.73 sqM); Potassium 4.2 mmol/L (3.5-5.1); Sodium 132 mmol/L (137-145); Total Bilirubin 0.2 mg/dL (0.2-1.3); Total Protein 6.5 g/dL (6.3-8.2)
[2023-10-26] MEDS ORDERED: ACETAMINOPHEN TAB 325 MG TAB PO STA (00:50)
[2023-10-26] MEDS ORDERED: MORPHINE SULFATE 4 MG/ML SYRINGE IVP STA (04:54)
[2023-10-26 06:33] VITALS: BP 171/81; PULSE 77; RESP 18; TEMP 98.2
== END 2023-10-26 06:23 | disposition home or self-care (01) ==
LOC: EC 20:56
DX: D64.9 Anemia, unspecified (principal); E07.9 Disorder of thyroid, unspecified; K21.9 Gastro-esophageal reflux disease without esophagitis; E78.5 Hyperlipidemia, unspecified; I10 Essential (primary) hypertension; M19.90 Unspecified osteoarthritis, unspecified site; Z79.1 Long term (current) use of non-steroidal anti-inflammatories (NSAID); Z79.899 Other long term (current) drug therapy; Z79.890 Hormone replacement therapy
CPT/HCPCS: 36415; 86900; 86901; 80053; 85025; 85610; 85730; 86850; 86920; 99284; 96374; 36430; P9016; J2270

== ENCOUNTER 2024-01-22 13:47 | Observation (INO) | payer MEDICARE, BC, OTHER ==
--- NOTE | 2024-01-22 14:23 | ED ---
General Adult HPI - General Chief complaint: Syncope Stated complaint: syncope Time Seen by Provider: 01/22/24 13:54 Source: patient, family, EMS, RN notes reviewed Mode of arrival: EMS Limitations: altered mental status, physical limitation - History of Present Illness Initial comments: Patient is a pleasant 88-year-old female presenting to the emergency department with a syncopal episode. Episode occurred prior to arrival. Patient had finished her eye exam. Patient states overall she feels well at this time. No headache or eye discomfort. No chest pain or dyspnea. Patient does have some mild abdominal discomfort however this is chronic and unchanged. Patient feels cold and this is also chronic and unchanged. 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 - Related Data Home Medications Medication Instructions Recorded Confirmed amLODIPine [Norvasc] 5 mg PO DAILY 04/05/14 01/29/23 ALPRAZolam [Xanax] 0.25 mg PO BID 01/25/21 01/29/23 Acetaminophen Tab [Tylenol] 650 mg PO Q4H PRN 01/25/21 01/29/23 Hydrogen Peroxide [Hydrogen 1 applic TOPICAL Q1H 01/25/21 01/29/23 Peroxide 3%] Ipratropium-Albuterol Nebulize 3 ml INHALATION RT-Q6H 01/25/21 01/29/23 [Duoneb 0.5 mg-3 mg/3 ml Soln] Levothyroxine Sodium 25 mcg PO DAILY 01/25/21 01/29/23 Lidocaine 5% Cream 1 applic TOPICAL Q6H PRN 01/25/21 01/29/23 Multivitamins, Thera [Multivitamin 1 tab PO DAILY 01/25/21 01/29/23 (formulary)] Omeprazole 20 mg PO DAILY 01/25/21 01/29/23 Ondansetron [Zofran] 4 mg PO Q6H PRN 01/25/21 01/29/23 Sennosides [Senna] 8.6 mg PO BID 01/25/21 01/29/23 carvediloL [Coreg] 3.125 mg PO BID 01/25/21 01/29/23 polyethylene glycoL 3350 [Miralax] 17 gm PO DAILY 01/25/21 01/29/23 rOPINIRole HCL [Requip] 0.25 mg PO HS 01/25/21 01/29/23 Benzocaine [place] [Hurricaine [place]] 1 applic MUCOUS MEM Q6H PRN 01/29/23 01/29/23 Desoximetasone [Topicort 0.25%] 1 applic TOPICAL Q12H PRN 01/29/23 01/29/23 Docusate [Colace] 100 mg PO BID 01/29/23 01/29/23 Hydrocortisone [Anusol-Hc] 1 applic RECTAL Q12H PRN 01/29/23 01/29/23 L.acidoph,Paracasei, B.lactis 1 cap PO DAILY 01/29/23 01/29/23 [Probiotic] Loperamide [Imodium] 2 - 4 mg PO QID PRN 01/29/23 01/29/23 Magnesium Hydroxide [Milk of 2,400 mg PO DAILY PRN 01/29/23 01/29/23 Magnesia] Menthol [Biofreeze] 1 applic TOPICAL TID 01/29/23 01/29/23 Nystatin 100,000 Unit/ml Susp 10 ml PO TID 01/29/23 01/29/23 [Mycostatin Oral Susp] Phenyleph/Mineral Oil/Petrolat 1 applic RECTAL Q8H PRN 01/29/23 01/29/23 [Preparation H Ointment] Triamcinolone 0.1% Cream [Kenalog 1 applicatio TOPICAL BID PRN 01/29/23 01/29/23 0.1% Cream] bisacodyL [Dulcolax] 10 mg RECTAL DAILY PRN 01/29/23 01/29/23 guaiFENesin SYRUP 100MG/5ML 200 mg PO Q6H PRN 01/29/23 01/29/23 [Robitussin] Previous Rx's Medication Instructions Recorded Atorvastatin [Lipitor] 40 mg PO HS tab 01/05/21 Aspirin 81 mg PO DAILY@0900 tab 01/30/23 Cefdinir 300 mg PO Q12HR #8 cap 01/30/23 Allergies Allergy/AdvReac Type Severity Reaction Status Date / Time No Known Allergies Allergy Verified 01/22/24 13:58 Review of Systems ROS Statement: Those systems with pertinent positive or pertinent negative responses have been documented in the HPI. ROS Other: All systems not noted in ROS Statement are negative. Constitutional: Denies: fever Eyes: Denies: eye pain ENT: Denies: ear pain Respiratory: Denies: cough, dyspnea Gastrointestinal: Reports: as per HPI Neurological: Reports: as per HPI Past Medical History Past Medical History: CVA/TIA, GERD/Reflux, Hyperlipidemia, Hypertension, Osteo arthritis (OA), Thyroid Disorder Additional Past Medical History / Comment(s): STATES AT 37 YRS OLD VOCAL CORD WAS SEVERED DURING REMOVAL OF THYROID (HX OF GOITER), MULTIPLE THROAT SURGERIES AFTERWARDS. SHE HAS TO INHALE AND BLOW OUT WHEN TALKING. STATES ALSO THAT ESOPHAGUS CLOSES PREMATURELY WHEN EATING AND CAUSES HER TO INHALE FOOD AND SALIVA CAUSING HER TO COUGH ., STRESS INCONTINENCE-WEARS PAD, TORN ROTATOR CUFF(sx), bridges. History of Any Multi-Drug Resistant Organisms: None Reported Past Surgical History: Appendectomy, Hysterectomy, Orthopedic Surgery Additional Past Surgical History / Comment(s): TOTAL RIGHT HIP, CATARACTS, THYROID REMOVED WITH SEVERED VOCAL CORD AND MULTIPLE THROAT SURGERIES AFTERWARDS, right shoulder surgery, rt rotator cuff repair, trach insertion, trach removal and closure, Past Anesthesia/Blood Transfusion Reactions: No Reported Reaction Past Psychological History: No Psychological Hx Reported Smoking Status: Never smoker Past Alcohol Use History: Occasional Past Drug Use History: None Reported - Past Family History Daughter(s) Family Medical History: Cancer Additional Family Medical History / Comment(s): 2 DAUGHTERS- LEUKEMIA AND LUNG CANCER Mother Family Medical History: COPD Additional Family Medical History / Comment(s): bronchits Father Family Medical History: Cancer Additional Family Medical History / Comment(s): leukemia General Exam Limitations: no limitations General appearance: alert, in no apparent distress Head exam: Present: atraumatic Eye exam: Present: normal appearance ENT exam: Present: normal oropharynx Neck exam: Present: normal inspection Respiratory exam: Present: normal lung sounds bilaterally Cardiovascular Exam: Present: regular rate, normal rhythm Expanded Peripheral pulses: 2+: Radial (R), Radial (L), Posterior Tibialis (R), Posterior Tibialis (L) GI/Abdominal exam: Present: soft. Absent: tenderness, pulsatile mass Extremities exam: Present: normal inspection Neurological exam: Present: alert, motor sensory deficit (Left upper and lower extremity weakness which they report is chronic and unchanged) Expanded Neurological exam: Present: protecting the airway Patient oriented to: Present: person, place. Absent: time Psychiatric exam: Present: normal affect, normal mood Skin exam: Present: normal color Course Vital Signs 01/22/24 01/22/24 01/22/24 13:53 14:01 16:00 Temperature 97.5 F L Pulse Rate 73 82 Respiratory 18 18 Rate Blood Pressure 150/80 153/69 O2 Sat by Pulse 95 97 Oximetry EKG Findings - EKG Results: EKG: interpreted by KIRIT (First-degree AV block AR 223), sinus rhythm, normal axis, normal QRS, normal ST/T Medical Decision Making - Medical Decision Making Was pt. sent in by a medical professional or institution (, PA, [employer], urgent care, hospital, or group home...) When possible be specific @ -Patient sent from eye doctor's office Did you speak to anyone other than the patient for history (EMS, parent, family, police, friend...)? What history was obtained from this source @ -Family is present and helps provide history as patient is a poor historian Did you review nursing and triage notes (agree or disagree)? Why? @ -I reviewed and agree with nursing and triage notes Were old charts reviewed (outside hosp., previous admission, EMS record, old EKG, old radiological studies, urgent care reports/EKG's, group home records)? Report findings @ -Previous chest x-ray reviewed Differential Diagnosis (chest pain, altered mental status, abdominal pain women, abdominal pain men, vaginal bleeding, weakness, fever, dyspnea, syncope, he adache, dizziness, GI bleed, back pain, seizure, CVA, palpatations, mental health, musculoskeletal)? @ -Differential Syncope: Valvular disease, hypertrophic cardiomyopathy, pulmonary embolism, tamponade, tachycardia, bradycardia, MT, hypovolemia, hemorrhage, dissection, anemia, intracranial hemorrhage, seizure, hypoglycemia, carbon monoxide poisoning, this is not meant to be an all-inclusive list. EKG interpreted by me (3pts min.). @ -As above X-rays interpreted by me (1pt min.). @ -Chest x-ray shows no acute process. Abdominal x-ray shows no acute process. CT interpreted by me (1pt min.). @ -CT brain shows no acute intercranial abnormality. Old infarct. U/S interpreted by me (1pt. min.). @ -None done What testing was considered but not performed or refused? (CT, X-rays, U/S, labs )? Why? @ -None What meds were considered but not given or refused? Why? @ -Patient requests a Commerce that she takes at home Did you discuss the management of the patient with other professionals (pr ofessionals i.e. , PA, [employer]ER, lab, RT, psych nurse, social work specialist, real estate operations manager, teacher, commanding officer homicide squad, pillowcase cleaner)? Give summary @ -Case discussed with Dr. Spann who will admit covering hospital call. Was smoking cessation discussed for >3mins.? @ -No Was critical care preformed (if so, how long)? @ -No Were there social determinants of health that impacted care today? How? (Homelessness, low income, unemployed, alcoholism, drug addiction, transportation, low edu. Level, literacy, decrease access to med. care, halfway, rehab)? @ -No Was there de-escalation of care discussed even if they declined (Discuss DNR or withdrawal of care, Hospice)? DNR status @ -No What co-morbidities impacted this encounter? (DM, HTN, Smoking, COPD, CAD, Cancer, CVA, ARF, Chemo, Hep., AIDS, mental health diagnosis, sleep apnea, morbid obesity)? @ -None Was patient admitted / discharged? Hospital course, mention meds given and route, prescriptions, significant lab abnormalities, going to OR and other pertinent info. @ -Patient reevaluated. Patient and family updated on results and plan. Patient will be admitted. Admission orders written. Undiagnosed new problem with uncertain prognosis? @ -No Drug Therapy requiring intensive monitoring for toxicity (Heparin, Nitro, Insulin, Cardizem)? @ -No Were any procedures done? @ -No Diagnosis/symptom? @ -Syncope Acute, or Chronic, or Acute on Chronic? @ -Acute Uncomplicated (without systemic symptoms) or Complicated (systemic symptoms)? @ -Default Side effects of treatment? @ -No Exacerbation, Progression, or Severe Exacerbation? @ -No Poses a threat to life or bodily function? How? (Chest pain, USA, MT, pneumonia, PE, COPD, DKA, ARF, appy, cholecystitis, CVA, Diverticulitis, Homicidal, Suicidal, threat to staff... and all critical care pts) @ -No - Lab Data Result diagrams: 01/22/24 14:00 01/22/24 14:00 Lab Results 01/22/24 01/22/24 01/22/24 Range/Units 14:00 14:00 14:00 WBC 7.1 (3.8-10.6) k/uL RBC 3.94 (3.80-5.40) m/uL Hgb 9.6 L (11.4-16.0) gm/dL Hct 31.4 L (34.0-46.0) % MCV 79.5 L (80.0-100.0) fL MCH 24.3 L (25.0-35.0) pg MCHC 30.6 L (31.0-37.0) g/dL RDW 17.7 H (11.5-15.5) % Plt Count 474 H (150-450) k/uL MPV 7.3 Neutrophils % 68 % Lymphocytes % 22 % Monocytes % 6 % Eosinophils % 2 % Basophils % 1 % Neutrophils # 4.8 (1.3-7.7) k/uL Lymphocytes # 1.5 (1.0-4.8) k/uL Monocytes # 0.4 (0-1.0) k/uL Eosinophils # 0.1 (0-0.7) k/uL Basophils # 0.0 (0-0.2) k/uL Hypochromasia Moderate Anisocytosis Slight Microcytosis Slight PT 10.0 (10.0-12.5) sec INR 0.9 (<1.2) APTT 20.0 L (22.0-30.0) sec Sodium 133 L (137-145) mmol/L Potassium 4.7 (3.5-5.1) mmol/L Chloride 100 (98-107) mmol/L Carbon Dioxide 26 (22-30) mmol/L Anion Gap 7 mmol/L BUN 25 H (7-17) mg/dL Creatinine 0.71 (0.52-1.04) mg/dL Est GFR (CKD-EPI)AfAm 88 (>60 ml/min/1.73 sqM) Est GFR (CKD-EPI)NonAf 77 (>60 ml/min/1.73 sqM) Glucose 96 (74-99) mg/dL Calcium 8.8 (8.4-10.2) mg/dL Magnesium 2.0 (1.6-2.3) mg/dL Total Bilirubin 0.5 (0.2-1.3) mg/dL AST 23 (14-36) U/L ALT 16 (4-34) U/L Alkaline Phosphatase 109 (38-126) U/L Troponin I (0.000-0.034) ng/mL Total Protein 6.9 (6.3-8.2) g/dL Albumin 3.6 (3.5-5.0) g/dL 01/22/24 Range/Units 14:00 WBC (3.8-10.6) k/uL RBC (3.80-5.40) m/uL Hgb (11.4-16.0) gm/dL Hct (34.0-46.0) % MCV (80.0-100.0) fL MCH (25.0-35.0) pg MCHC (31.0-37.0) g/dL RDW (11.5-15.5) % Plt Count (150-450) k/uL MPV Neutrophils % % Lymphocytes % % Monocytes % % Eosinophils % % Basophils % % Neutrophils # (1.3-7.7) k/uL Lymphocytes # (1.0-4.8) k/uL Monocytes # (0-1.0) k/uL Eosinophils # (0-0.7) k/uL Basophils # (0-0.2) k/uL Hypochromasia Anisocytosis Microcytosis PT (10.0-12.5) sec INR (<1.2) APTT (22.0-30.0) sec Sodium (137-145) mmol/L Potassium (3.5-5.1) mmol/L Chloride (98-107) mmol/L Carbon Dioxide (22-30) mmol/L Anion Gap mmol/L BUN (7-17) mg/dL Creatinine (0.52-1.04) mg/dL Est GFR (CKD-EPI)AfAm (>60 ml/min/1.73 sqM) Est GFR (CKD-EPI)NonAf (>60 ml/min/1.73 sqM) Glucose (74-99) mg/dL Calcium (8.4-10.2) mg/dL Magnesium (1.6-2.3) mg/dL Total Bilirubin (0.2-1.3) mg/dL AST (14-36) U/L ALT (4-34) U/L Alkaline Phosphatase (38-126) U/L Troponin I <0.012 (0.000-0.034) ng/mL Total Protein (6.3-8.2) g/dL Albumin (3.5-5.0) g/dL Disposition Clinical Impression: Syncope Disposition: ADMITTED IP TO THIS HOSP Is patient prescribed a controlled substance at d/c from ED?: No Referrals: Tuan Shafer DO [Primary Care Provider] - 1-2 days Time of Disposition: 17:39
[2024-01-22 14:56] LABS: Anisocytosis Slight; Basophils % (A) 1 %; Eosinophils # (A) 0.1 k/uL (0-0.7); Eosinophils % (A) 2 %; HCT 31.4 % (34.0-46.0); HGB 9.6 gm/dL (11.4-16.0); Hypochromasia Moderate; Lymphocytes # (A) 1.5 k/uL (1.0-4.8); Lymphocytes % (A) 22 %; MCH 24.3 pg (25.0-35.0); MCHC 30.6 g/dL (31.0-37.0); MCV 79.5 fL (80.0-100.0); Mean Platelet Volume 7.3; Microcytosis Slight; Monocytes # (A) 0.4 k/uL (0-1.0); Monocytes % (A) 6 %; Neutrophils # (A) 4.8 k/uL (1.3-7.7); Neutrophils % (A) 68 %; Platelet Count 474 k/uL (150-450); RBC 3.94 m/uL (3.80-5.40); RDW 17.7 % (11.5-15.5); WBC 7.1 k/uL (3.8-10.6)
--- NOTE | 2024-01-22 15:09 | CT ---
EXAMINATION TYPE: CT brain wo con CT DLP: 1095.2 mGycm, Automated exposure control for dose reduction was used. DATE OF EXAM: 01/22/2024 2:58 PM COMPARISON: 12/15/2021. CLINICAL INDICATION:Female, 88 years old with history of syncope, syncope episode TECHNIQUE: Brain: Axial CT images of the brain were obtained with coronal and sagittal reformats created and rev iewed. Contrast used: None. Oral contrast used: None. FINDINGS: Brain: Extra-axial spaces: No abnormal extra-axial fluid collections. Ventricular system: Dilatation in proportion to cerebral atrophy. Cerebral parenchyma: Remote right frontal lobe injury with encephalomalacia. Cerebral atrophy. No acu te intraparenchymal hemorrhage or mass effect. The nguyen-white junction is well differentiated. Cerebellum: Unremarkable. Mass effect: No evidence of midline shift. Intracranial vasculature: unremarkable Soft tissues: Normal. Calvarium/osseous structures: No depressed skull fracture. Paranasal sinuses and mastoid air cells: Mucosal thickening of the right maxillary sinus with near co mplete opacification. Visualized orbits: Bilateral aphakia. IMPRESSION: 1. No acute intracranial process. 2. Remote injury to the right frontal lobe with encephalomalacia. 3. Moderate right maxillary sinus paranasal sinus disease.
[2024-01-22 15:16] LABS: INR 0.9 (<1.2)
[2024-01-22 15:17] LABS: ALT 16 U/L (4-34); AST 23 U/L (14-36); African American GFR (CKD) 88 (>60 ml/min/1.73 sqM); Albumin 3.6 g/dL (3.5-5.0); Alkaline Phosphatase 109 U/L (38-126); Anion Gap 7 mmol/L; Blood Urea Nitrogen 25 mg/dL (7-17); Calcium 8.8 mg/dL (8.4-10.2); Carbon Dioxide 26 mmol/L (22-30); Chloride 100 mmol/L (98-107); Glucose 96 mg/dL (74-99); Non-African American GFR(CKD) 77 (>60 ml/min/1.73 sqM); Potassium 4.7 mmol/L (3.5-5.1); Sodium 133 mmol/L (137-145); Total Bilirubin 0.5 mg/dL (0.2-1.3); Total Protein 6.9 g/dL (6.3-8.2)
--- NOTE | 2024-01-22 16:06 | XR ---
EXAMINATION TYPE: XR chest 2V DATE OF EXAM: 01/22/2024 3:09 PM CLINICAL INDICATION:Female, 88 years old with history of syncope; [facility] COMPARISON: Chest radiographs from 01/25/2021 TECHNIQUE: XR chest 2V Frontal and lateral views of the chest. FINDINGS: Lungs/Pleura: There is no evidence of pleural effusion, focal consolidation, or pneumothorax. Pulmonary vascularity: Unremarkable. Heart/mediastinum: Cardiomediastinal silhouette is unremarkable. Musculoskeletal: No acute osseous pathology. IMPRESSION: No acute cardiopulmonary disease/process.
--- NOTE | 2024-01-22 16:08 | XR ---
EXAMINATION TYPE: XR abdomen 1V DATE OF EXAM: 01/22/2024 3:09 PM CLINICAL INDICATION:Female, 88 years old with history of abp; [facility] COMPARISON: None. TECHNIQUE: One radiographic view of the abdomen was obtained. FINDINGS: The bowel gas pattern is nonspecific without dilated loops of small or large bowel. There i s no evidence for organomegaly or pneumoperitoneum. The osseous structures are intact. No abnormal calcifications are present. Fecal material and gas are demonstrated throughout the colon and rectum. Right hip arthroplasty appears intact. Multilevel degeneration changes spine. Left hip degeneration with osteophyte reformation joint space tearing. IMPRESSION: Nonspecific bowel gas pattern without radiographic evidence for acute process.
[2024-01-22] MEDS ORDERED: NALOXONE 0.4 MG/ML 1 ML VIAL IV PRN (17:39)
[2024-01-22] MEDS: HYDROcodone/APAP 5-325MG 1 EACH TAB PO STA (18:29)
[2024-01-23] MEDS: HYDROcodone/APAP 5-325MG 1 EACH TAB PO PRN (02:09)
--- NOTE | 2024-01-23 02:24 | HP ---
HISTORY AND PHYSICAL CHIEF COMPLAINT: Syncope. HISTORY OF PRESENT ILLNESS: This 88-year-old woman with a past medical history of multiple medical problems including hypertension, hyperlipidemia, DJD, was apparently on hospice, but the patient was taken to eye doctor's appointment, and after finishing the eye exam, the patient was sitting in the chair. The patient slumped and passed out, and the patient taken to [facility] and admitted for evaluation. The patient apparently had previous similar episodes in [facility], which was treated with oral fluids. Otherwise, hemoglobin is 9.6. There is no history of any fever, rigors, chills at this time. The patient is mildly confused. PAST MEDICAL HISTORY: Reviewed and include hypertension, hyperlipidemia. Rest of the history is noted. HOME MEDICATIONS: Reviewed Requip. Rest of the medications reviewed, but they are not confirmed yet. The patient is on multitude of medications. ALLERGIES: None. FAMILY HISTORY: Could not be taken as the patient is confused. SOCIAL HISTORY: Could not be taken as the patient is confused. REVIEW OF SYSTEMS: Could not be taken as the patient is confused. PHYSICAL EXAMINATION: VITAL SIGNS: Pulse is 82, blood pressure 153/69, respirations 18. HEENT: Conjunctivae normal. NECK: No jugular venous distention. CARDIOVASCULAR: S1 and S2. No murmur. RESPIRATIONS: Breath sounds diminished at the bases. Few scattered rhonchi and crackles. ABDOMEN: Soft, nontender. LEGS: No edema. NERVOUS SYSTEM: Nonfocal. LABORATORY DATA: Hemoglobin 9.6, rest of the labs are noted. CT of the brain, which was done in the ER reviewed showed no acute process, right frontal encephalomalacia. Chest x-ray done in the ER showed no acute abnormality. Abdomen x-ray, nonspecific bowel gas pattern. Rest of the labs noted. ASSESSMENT: 1. Syncope for evaluation, rule out cardio syncope or neurogenic syncope. 2. Hypertension. 3. Hyperlipidemia. 4. Degenerative disk disease. 5. Gastroesophageal reflux disease. 6. Right frontal encephalomalacia. 7. History of goiter. RECOMMENDATIONS AND DISCUSSION: This 88-year-old woman presented with multiple complex medical issues, we will monitor the patient closely. I would recommend monitoring in Telemetry and Cardiology. Neurology consultation. The patient was apparently previously on hospice. I would finish the basic workup and keep the patient at least overnight and ensure stability. Currently, the patient will be no code, and once the patient is stable, the patient will be discharged back to the ECF. Prognosis guarded. Further recommendations to follow. See orders. I discussed with the family, the son and the [id number] at the bedside. LAUREN / SHANTA: [id number] /
[2024-01-23 08:21] LABS: Basophils # (A) 0.05 X 10*3/uL (0.00-0.10); Basophils % (A) 0.6 %; Eosinophils # (A) 0.18 X 10*3/uL (0.04-0.35); Eosinophils % (A) 2.2 %; HCT 28.5 % (37.2-46.3); HGB 8.4 g/dL (12.0-15.0); Lymphocytes # (A) 2.22 X 10*3/uL (0.90-5.00); Lymphocytes % (A) 27.6 %; MCH 23.6 pg (27.0-32.0); MCHC 29.5 g/dL (32.0-37.0); MCV 80.1 FL (80.0-97.0); Mean Platelet Volume 9.6 FL (9.5-12.2); Monocytes # (A) 0.87 X 10*3/uL (0.20-1.00); Monocytes % (A) 10.8 %; NRBC Per 100 WBC 0 X 10*3/uL (0.00-0.01); Neutrophils # (A) 4.72 X 10*3/uL (1.80-7.70); Neutrophils % (A) 58.7 %; Platelet Count 454 X 10*3/uL (140-440); RBC 3.56 X 10*6/uL (4.10-5.20); RDW 18.3 % (11.5-14.5); WBC 8.05 X 10*3/uL (4.50-10.00)
[2024-01-23 08:49] LABS: Blood Urea Nitrogen 18.3 mg/dL (9.0-27.0); Calcium 8.9 mg/dL (8.7-10.3); Carbon Dioxide 26.4 mmol/L (21.6-31.8); Chloride 99 mmol/L (96-109); Glucose 85 mg/dL (70-110); Potassium 4.3 mmol/L (3.5-5.5); Sodium 134 mmol/L (135-145)
[2024-01-23 09:42] VITALS: RESP 16
[2024-01-23] MEDS ORDERED: HYDROCORTISONE 2.5% RECTAL CREAM 30 GM TUBE RECTAL PRN (10:13)
[2024-01-23] MEDS ORDERED: ALPRAZolam 0.25 MG TAB PO PRN (10:13)
[2024-01-23] MEDS ORDERED: METHYL SALICYLATE-MENTHOL OINT (3 OZ TUBE) TOPICAL PRN (10:13)
[2024-01-23] MEDS ORDERED: LOPERAMIDE 2 MG CAP PO PRN (10:13)
[2024-01-23] MEDS ORDERED: NON FORMULARY DRUG (Phenyleph/Mineral Oil/Petrolat [Preparation H Ointment] 28 GM Oint.App RECTAL PRN (10:13)
[2024-01-23] MEDS ORDERED: ONDANSETRON 4 MG TAB PO PRN (10:13)
[2024-01-23] MEDS ORDERED: bisacodyL 10 MG SUPP RECTAL PRN (10:13)
[2024-01-23] MEDS ORDERED: HYOSCYAMINE SULFATE 0.125 MG TAB PO PRN (10:13)
[2024-01-23] MEDS ORDERED: guaiFENesin SYRUP 100MG/5ML 200 MG/10 ML CUP PO PRN (10:13)
[2024-01-23] MEDS: carvediloL 3.125 MG TAB PO SCH (11:54)
[2024-01-23] MEDS: PANTOPRAZOLE 40 MG TABLET PO SCH (11:54)
[2024-01-23] MEDS: DOCUSATE 100 MG CAP PO SCH (11:54)
[2024-01-23] MEDS: SENNOSIDES 8.6 MG TAB PO SCH (11:54)
[2024-01-23] MEDS: ASPIRIN 81 MG PO SCH (11:55)
[2024-01-23] MEDS: ALPRAZolam 0.25 MG TAB PO SCH (11:55)
[2024-01-23] MEDS: MAGNESIUM HYDROXIDE 2,400 MG/30 ML CUP PO PRN (11:57)
[2024-01-23] MEDS: LORATADINE 10 MG TAB PO SCH (11:57)
[2024-01-23] MEDS: polyethylene glycoL 3350 17 GM POWD.PACK PO SCH (12:00)
[2024-01-23] MEDS: LEVOTHYROXINE 25 MCG TAB PO SCH (12:03)
[2024-01-23] MEDS: amLODIPine 10 MG TAB PO SCH (12:08)
--- NOTE | 2024-01-23 13:14 | P.CRDCN ---
History of Present Illness History of present illness: HISTORY OF PRESENT ILLNESS: This is a 88-year-old female with a past medical history significant for dementia, CVA with residual left-sided weakness, hypertension, hyperlipidemia, and GERD. Patient follows in the office with Dr. Simon but has not been seen in the office since July 2022. We have been asked to see the patient in consultation for syncope. Patient examined at the bedside. Patient's family members at the bedside. Patient does have a history of dementia and is a poor historian. Majority of HPI was obtained from the patient's daughter at the bedside. Apparently, the patient was at an eye doctor appointment yesterday. She had finished her appointment and was sitting in a wheelchair waiting for her van to pick her up when she passed out. Patient send member states that she did have an episode similar about 3 weeks prior. She states the patient is usually laying up in bed and very rarely is in a sitting position. She states her blood pressures have been running within normal ranges at home. Patient's blood pressures here been elevated with a systolic between 140 and 170. She was started on 10 mg of amlodipine per primary medicine. Patient's hemoglobin is 8.4. The patient does have a history of anemia with a hemoglobin range between 710 in 2022. DIAGNOSTICS: - EKG reveals sinus mechanism with no signs of acute ischemia. - Chest xray negative for acute process. - Laboratory data: WBC 8.05. Hemoglobin 8.4. Platelet count 454. Sodium 134. Potassium 4.3. BUN 18. Creatinine 0.6. Troponin negative x 3. - Current home cardiac medications include carvedilol 3.125 mg twice a day and aspirin 81 mg daily. - Most recent echocardiogram obtained in November 2020 reveals ejection fraction 60 to 65%, trace MR, mild TR. - Cardiac catheterization history: 2018 revealing normal coronary arteries REVIEW OF SYSTEMS: At the time of my exam: CONSTITUTIONAL: Denies fever or chills. HEENT: Denies blurred vision, vision changes, or eye pain. Denies hemoptysis CARDIOVASCULAR: Denies chest pain. Denies orthopnea. Denies PND. Denies palpitations RESPIRATORY: Denies shortness of breath. GASTROINTESTINAL: Denies abdominal pain. Denies nausea or vomiting. HEMATOLOGIC: Denies bleeding disorders. GENITOURINARY: Denies any blood in urine. SKIN: Denies pruitis. Denies rash. PHYSICAL EXAM: VITAL SIGNS: Reviewed. GENERAL: Well-developed in no acute distress. HEENT: Head is normocephalic. Pupils are equal, round. Sclerae anicteric. Mucous membranes of the mouth are moist. Neck supple. No JVD or thyromegaly LUNGS: Respirations even and unlabored. Lungs essentially clear to auscultation bilaterally. HEART: Regular rate and rhythm. S1 and S2 heard. ABDOMEN: Soft. Nondistended. Nontender. EXTREMITIES: Normal range of motion. No clubbing or cyanosis. Peripheral pulses intact. No lower extremity edema NEUROLOGIC: Awake and alert. Oriented x 1. Hard of hearing. ASSESSMENT: Syncope, likely secondary to orthostatic changes History of CVA with residual left-sided weakness Hypertension Hyperlipidemia GERD Dementia PLAN: Obtain 2D echo to assess cardiac structure and function Continue home cardiac medications Decrease amlodipine to 5 mg daily Continue to monitor blood pressure If 2D echo does not reveal any significant abnormalities, we will sign off Nurse practitioner note has been reviewed by physician. Signing provider agrees with the documented findings, assessment, and plan of care documented by FAMILY LIVING EDUCATOR as a scribe. Past Medical History Past Medical History: CVA/TIA, GERD/Reflux, Hyperlipidemia, Hypertension, Osteoarthritis (OA), Thyroid Disorder Additional Past Medical History / Comment(s): STATES AT 37 YRS OLD VOCAL CORD WAS SEVERED DURING REMOVAL OF THYROID (HX OF GOITER), MULTIPLE THROAT SURGERIES AFTERWARDS. SHE HAS TO INHALE AND BLOW OUT WHEN TALKING. STATES ALSO THAT ESOPHAGUS CLOSES PREMATURELY WHEN EATING AND CAUSES HER TO INHALE FOOD AND S ALIVA CAUSING HER TO COUGH ., STRESS INCONTINENCE-WEARS PAD, TORN ROTATOR CUFF(sx), bridges. History of Any Multi-Drug Resistant Organisms: None Reported Past Surgical History: Appendectomy, Hysterectomy, Orthopedic Surgery Additional Past Surgical History / Comment(s): TOTAL RIGHT HIP, CATARACTS, THYROID REMOVED WITH SEVERED VOCAL CORD AND MULTIPLE THROAT SURGERIES AFTERWARDS, right shoulder surgery, rt rotator cuff repair, trach insertion, trach removal and closure, Past Anesthesia/Blood Transfusion Reactions: No Reported Reaction Past Psychological History: No Psychological Hx Reported Smoking Status: Never smoker Past Alcohol Use History: Occasional Past Drug Use History: None Reported - Past Family History Daughter(s) Family Medical History: Cancer Additional Family Medical History / Comment(s): 2 DAUGHTERS- LEUKEMIA AND LUNG CANCER Mother Family Medical History: COPD Additional Family Medical History / Comment(s): bronchits Father Family Medical History: Cancer Additional Family Medical History / Comment(s): leukemia Medications and Allergies Home Medications Medication Instructions Recorded Confirmed Type ALPRAZolam [Xanax] 0.25 mg PO Q12H 01/25/21 01/22/24 History Acetaminophen Tab [Tylenol] 650 mg PO Q4H PRN 01/25/21 01/22/24 History Ipratropium-Albuterol Nebulize 3 ml INHALATION RT-Q6H 01/25/21 01/22/24 History [Duoneb 0.5 mg-3 mg/3 ml Soln] Levothyroxine Sodium 25 mcg PO DAILY 01/25/21 01/22/24 History Omeprazole 20 mg PO BID 01/25/21 01/22/24 History Ondansetron [Zofran] 4 mg PO Q6H PRN 01/25/21 01/22/24 History Sennosides [Senna] 8.6 mg PO Q12H 01/25/21 01/22/24 History carvediloL [Coreg] 3.125 mg PO Q12H 01/25/21 01/22/24 History polyethylene glycoL 3350 [Miralax] 17 gm PO DAILY 01/25/21 01/22/24 History rOPINIRole HCL [Requip] 0.25 mg PO HS 01/25/21 01/22/24 History Docusate [Colace] 100 mg PO Q12H 01/29/23 01/22/24 History Hydrocortisone [Anusol-Hc] 1 applic RECTAL Q12H PRN 01/29/23 01/22/24 History Loperamide [Imodium] 2 mg PO Q6H PRN 01/29/23 01/22/24 History Magnesium Hydroxide [Milk of 2,400 mg PO DAILY PRN 01/29/23 01/22/24 History Magnesia] Menthol [Biofreeze] 1 applic TOPICAL Q6H PRN 01/29/23 01/22/24 History Phenyleph/Mineral Oil/Petrolat 1 applic RECTAL Q8H PRN 01/29/23 01/22/24 History [Preparation H Ointment] bisacodyL [Dulcolax] 10 mg RECTAL DAILY PRN 01/29/23 01/22/24 History guaiFENesin SYRUP 100MG/5ML 200 mg PO Q6H PRN 01/29/23 01/22/24 History [Robitussin] ALPRAZolam [Xanax] 0.25 mg PO Q8H PRN 01/22/24 01/22/24 History Aspirin 81 mg PO DAILY 01/22/24 01/22/24 History HYDROcodone/APAP 10-325MG [[place] 1 tab PO Q4HR PRN 01/22/24 01/22/24 History 10-325] Hyoscyamine Sulfate [Levsin] 0.125 mg PO Q4H PRN 01/22/24 01/22/24 History Loratadine [Claritin] 10 mg PO DAILY 01/22/24 01/22/24 History Morphine Sulfate [Morphine Sulfate 5 mg PO Q4H PRN 01/22/24 01/22/24 History Oral Soln Concentrate] Allergies Allergy/AdvReac Type Severity Reaction Status Date / Time No Known Allergies Allergy Verified 01/22/24 18:47 Physical Exam Vitals: Vital Signs Temp Pulse Resp BP Pulse Ox 01/23/24 09:20 78 16 190/79 95 01/23/24 06:05 79 17 161/102 96 01/23/24 04:00 72 17 155/68 95 01/23/24 02:00 84 17 155/70 93 L 01/23/24 01:00 78 17 171/94 95 01/23/24 00:56 85 18 165/85 95 01/22/24 23:00 97.9 F 81 18 161/78 97 01/22/24 22:00 83 18 136/72 99 01/22/24 21:00 74 18 144/63 99 01/22/24 20:00 98.7 F 90 18 172/95 97 01/22/24 18:29 64 18 164/90 94 L 01/22/24 16:00 82 18 153/69 97 01/22/24 14:01 97.5 F L 01/22/24 13:53 73 18 150/80 95 Results 01/23/24 05:24 01/23/24 05:24 Cardiac Enzymes 01/22/24 01/22/24 01/22/24 Range/Units 14:00 14:00 20:03 AST 23 (14-36) U/L Troponin I <0.012 <0.012 (0.000-0.034) ng/mL 01/22/24 Range/Units 23:42 AST (14-36) U/L Troponin I <0.012 (0.000-0.034) ng/mL Coagulation 01/22/24 Range/Units 14:00 PT 10.0 (10.0-12.5) sec APTT 20.0 L (22.0-30.0) sec CBC 01/22/24 01/23/24 Range/Units 14:00 05:24 WBC 7.1 8.05 (3.8-10.6) k/uL RBC 3.94 3.56 L (3.80-5.40) m/uL Hgb 9.6 L 8.4 L (11.4-16.0) gm/dL Hct 31.4 L 28.5 L (34.0-46.0) % Plt Count 474 H 454 H (150-450) k/uL Comprehensive Metabolic Panel 01/22/24 01/23/24 Range/Units 14:00 05:24 Sodium 133 L 134 L (137-145) mmol/L Potassium 4.7 4.3 (3.5-5.1) mmol/L Chloride 100 99 (98-107) mmol/L Carbon Dioxide 26 26.4 (22-30) mmol/L BUN 25 H 18.3 (7-17) mg/dL Creatinine 0.71 0.6 (0.52-1.04) mg/dL Glucose 96 85 (74-99) mg/dL Calcium 8.8 8.9 (8.4-10.2) mg/dL AST 23 (14-36) U/L ALT 16 (4-34) U/L Alkaline Phosphatase 109 (38-126) U/L Total Protein 6.9 (6.3-8.2) g/dL Albumin 3.6 (3.5-5.0) g/dL Current Medications Generic Name Dose Route Start Last Admin Trade Name Freq PRN Reason Stop Dose Admin Acetaminophen 650 mg 01/23/24 10:13 Acetaminophen Tab 325 Mg Tab PO Q4H PRN Pain Hydrocodone Bitart/Acetaminophen 1 each 01/23/24 01:38 01/23/24 09:29 Hydrocodone/Apap 5-325mg 1 Each Tab PO 1 each Q6HR PRN Administration Pain Albuterol/Ipratropium 3 ml 01/23/24 14:00 Ipratropium-Albuterol 3 Ml Neb INHALATION RT-Q6H [facility] Alprazolam 0.25 mg 01/23/24 10:15 Alprazolam 0.25 Mg Tab PO Q12H [facility] Alprazolam 0.25 mg 01/23/24 10:13 Alprazolam 0.25 Mg Tab PO Q8H PRN Anxiety Aspirin 81 mg 01/23/24 10:15 Aspirin 81 Mg PO DAILY [facility] Bisacodyl 10 mg 01/23/24 10:13 Bisacodyl 10 Mg Supp RECTAL DAILY PRN Constipation Carvedilol 3.125 mg 01/23/24 10:15 Carvedilol 3.125 Mg Tab PO Q12H [facility] Docusate Sodium 100 mg 01/23/24 10:15 Docusate 100 Mg Cap PO Q12H [facility] Guaifenesin 200 mg 01/23/24 10:13 Guaifenesin Syrup 100mg/5ml 200 Mg/10 Ml Cup PO Q6H PRN Cough Hydrocortisone 1 applic 01/23/24 10:13 Hydrocortisone 2.5% Rectal Cream 30 Gm Tube RECTAL Q12H PRN Hemorrhoids Hyoscyamine 0.125 mg 01/23/24 10:13 Hyoscyamine Sulfate 0.125 Mg Tab PO Q4H PRN Secretions Levothyroxine Sodium 25 mcg 01/23/24 10:15 Levothyroxine 25 Mcg Tab PO DAILY [facility] [place] Loperamide HCl 2 mg 01/23/24 10:13 Loperamide 2 Mg Cap PO Q6H PRN Diarrhea Loratadine 10 mg 01/23/24 10:15 Loratadine 10 Mg Tab PO DAILY [facility] [place] Magnesium Hydroxide 2,400 mg 01/23/24 10:13 Magnesium Hydroxide 2,400 Mg/30 Ml Cup PO DAILY PRN Constipation Methyl Salicylate 1 applic 01/23/24 10:13 Methyl Salicylate-Menthol Oint (3 Oz Tube) TOPICAL Q6H PRN NECK PAIN Naloxone HCl 0.2 mg 01/22/24 17:39 Naloxone 0.4 Mg/Ml 1 Ml Vial IV Q2M PRN Opioid Reversal Ondansetron HCl 4 mg 01/23/24 10:13 Ondansetron 4 Mg Tab PO Q6H PRN Nausea And Vomiting Pantoprazole Sodium 40 mg 01/23/24 10:15 Pantoprazole 40 Mg Tablet PO DAILY [facility] Polyethylene Glycol 17 gm 01/23/24 10:15 Polyethylene Glycol 3350 17 Gm Powd.Pack PO DAILY [facility] Ropinirole HCl 0.25 mg 01/23/24 21:00 Ropinirole Hcl 0.25 Mg Tab PO HS [facility] Senna 8.6 mg 01/23/24 10:15 Sennosides 8.6 Mg Tab PO Q12H [facility] 01/23/24 05:24 01/23/24 05:24
--- NOTE | 2024-01-23 13:56 | PN ---
PROGRESS NOTE DATE OF SERVICE: 01/23/2024 SUBJECTIVE: This is an 88-year-old woman, who was admitted with multiple episodes of syncope, was apparently on hospice in the [facility]. There was no definite diagnosis to hospice, but apparently the patient stopped eating for last couple of months and the family decided to proceed with hospice, but currently while the patient was in doctor's office, the patient passed out. The patient had previous history of passing out. The patient was admitted for further evaluation and treatment. Syncope workup is underway. Cardiology, Neurology evaluation in progress. PAST MEDICAL HISTORY: Reviewed. REVIEW OF SYSTEMS: Could not be taken as the patient is confused. PHYSICAL EXAMINATION: VITAL SIGNS: Pulse is 78, blood pressure 190/71, respirations 16. HEENT: Conjunctivae normal. NECK: No JVD. CARDIOVASCULAR: S1, S2. RESPIRATIONS: Breath sounds diminished at the bases. ABDOMEN: Soft, nontender. NERVOUS SYSTEM: Diffusely weak. LABORATORY DATA: At this time shows hemoglobin is 8.4, sodium 134, and orthostatic vitals are not available. CT scan, chest x-ray reviewed, within normal limits. No acute abnormality. ASSESSMENT: 1. Recurrent syncope for evaluation, rule out cardiac syncope, neurogenic syncope. 2. Hypertension. 3. Hyperlipidemia. 4. Degenerative joint disease. 5. Dementia. 6. Gastroesophageal reflux disease. 7. Right frontal encephalomalacia. 8. History of goiter. 9. No code, no CPR, no vent. RECOMMENDATIONS: Recommend to continue current management and continue symptomatic treatment. Currently, the patient is no code as mentioned earlier. We will pursue the workup and control the blood pressure. A single dose of Norvasc has been given. Monitor blood pressure closely. Cardiology, Neurology evaluation. I would also recommend orthostatic vitals. Prognosis guarded, which I discussed at length with the daughter, who understands and agrees with the current diagnostic and therapeutic plan, please note. MMODL / IJN: [id number] /
[2024-01-23] MEDS: levETIRAcetam 500 MG TAB PO SCH (14:02)
--- NOTE | 2024-01-23 14:14 | P.CNNES ---
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 History was obtained from the patient's daughter. According to the daughter is seems yesterday she was admitted her eye doctor office and the she passed out in which she slumped down unresponsive but did not have any drooling or jerk in of any extremity. Eyes was possibly close. No urinary or bowel incontinence. The episode lasted about 2 minutes. She was minimally post ictal confused. She had a similar presentation about 3 weeks ago. She does have underlying history of stroke from 4 years ago with residual significant weakness over the left side upper more than lower. No history of seizure. Patient feels she is doing better today. Per the daughter she had a stroke about 4 years ago and initially she was at [facility] and it was felt she had a clot so she was transferred to [facility] but at [facility] she did not have any thrombectomy because of her age. Some other workup during his hospital visit consisted of: Sodium is 133, glucose is 96, magnesium 2.0. CT head is reported as no acute intracranial process. Remote injury in the right frontal lobe with encephalomalacia. Moderate right maxillary paranasal sinus disease. I personally reviewed the CT and I agree there is no acute subacute stroke. Patient does have some inflammation over the right frontal. Review of Systems Review of system: The 12 point system was reviewed and apparent positive and negative per HPI. Past Medical History Past Medical History: CVA/TIA, GERD/Reflux, Hyperlipidemia, Hypertension, Osteoarthritis (OA), Thyroid Disorder Additional Past Medical History / Comment(s): STATES AT 37 YRS OLD VOCAL CORD WAS SEVERED DURING REMOVAL OF THYROID (HX OF GOITER), MULTIPLE THROAT SURGERIES AFTERWARDS. SHE HAS TO INHALE AND BLOW OUT WHEN TALKING. STATES ALSO THAT ES OPHAGUS CLOSES PREMATURELY WHEN EATING AND CAUSES HER TO INHALE FOOD AND SALIVA CAUSING HER TO COUGH ., STRESS INCONTINENCE-WEARS PAD, TORN ROTATOR CUFF(sx), bridges. History of Any Multi-Drug Resistant Organisms: None Reported Past Surgical History: Appendectomy, Hysterectomy, Orthopedic Surgery Additional Past Surgical History / Comment(s): TOTAL RIGHT HIP, CATARACTS, THYROID REMOVED WITH SEVERED VOCAL CORD AND MULTIPLE THROAT SURGERIES AFTERWARDS, right shoulder surgery, rt rotator cuff repair, trach insertion, trach removal and closure, Past Anesthesia/Blood Transfusion Reactions: No Reported Reaction Past Psychological History: No Psychological Hx Reported Smoking Status: Never smoker Past Alcohol Use History: Occasional Past Drug Use History: None Reported - Past Family History Daughter(s) Family Medical History: Cancer Additional Family Medical History / Comment(s): 2 DAUGHTERS- LEUKEMIA AND LUNG CANCER Mother Family Medical History: COPD Additional Family Medical History / Comment(s): bronchits Father Family Medical History: Cancer Additional Family Medical History / Comment(s): leukemia Medications and Allergies Home Medications Medication Instructions Recorded Confirmed Type ALPRAZolam [Xanax] 0.25 mg PO Q12H 01/25/21 01/22/24 History Acetaminophen Tab [Tylenol] 650 mg PO Q4H PRN 01/25/21 01/22/24 History Ipratropium-Albuterol Nebulize 3 ml INHALATION RT-Q6H 01/25/21 01/22/24 History [Duoneb 0.5 mg-3 mg/3 ml Soln] Levothyroxine Sodium 25 mcg PO DAILY 01/25/21 01/22/24 History Omeprazole 20 mg PO BID 01/25/21 01/22/24 History Ondansetron [Zofran] 4 mg PO Q6H PRN 01/25/21 01/22/24 History Sennosides [Senna] 8.6 mg PO Q12H 01/25/21 01/22/24 History carvediloL [Coreg] 3.125 mg PO Q12H 01/25/21 01/22/24 History polyethylene glycoL 3350 [Miralax] 17 gm PO DAILY 01/25/21 01/22/24 History rOPINIRole HCL [Requip] 0.25 mg PO HS 01/25/21 01/22/24 History Docusate [Colace] 100 mg PO Q12H 01/29/23 01/22/24 History Hydrocortisone [Anusol-Hc] 1 applic RECTAL Q12H PRN 01/29/23 01/22/24 History Loperamide [Imodium] 2 mg PO Q6H PRN 01/29/23 01/22/24 History Magnesium Hydroxide [Milk of 2,400 mg PO DAILY PRN 01/29/23 01/22/24 History Magnesia] Menthol [Biofreeze] 1 applic TOPICAL Q6H PRN 01/29/23 01/22/24 History Phenyleph/Mineral Oil/Petrolat 1 applic RECTAL Q8H PRN 01/29/23 01/22/24 History [Preparation H Ointment] bisacodyL [Dulcolax] 10 mg RECTAL DAILY PRN 01/29/23 01/22/24 History guaiFENesin SYRUP 100MG/5ML 200 mg PO Q6H PRN 01/29/23 01/22/24 History [Robitussin] ALPRAZolam [Xanax] 0.25 mg PO Q8H PRN 01/22/24 01/22/24 History Aspirin 81 mg PO DAILY 01/22/24 01/22/24 History HYDROcodone/APAP 10-325MG [[place] 1 tab PO Q4HR PRN 01/22/24 01/22/24 History 10-325] Hyoscyamine Sulfate [Levsin] 0.125 mg PO Q4H PRN 01/22/24 01/22/24 History Loratadine [Claritin] 10 mg PO DAILY 01/22/24 01/22/24 History Morphine Sulfate [Morphine Sulfate 5 mg PO Q4H PRN 01/22/24 01/22/24 History Oral Soln Concentrate] Allergies Allergy/AdvReac Type Severity Reaction Status Date / Time No Known Allergies Allergy Verified 01/22/24 18:47 Physical Examination - Vital Signs Vital Signs: Vital Signs Temp Pulse Resp BP Pulse Ox 01/23/24 12:37 85 16 146/80 91 L 01/23/24 09:20 78 16 190/79 95 01/23/24 06:05 79 17 161/102 96 01/23/24 04:00 72 17 155/68 95 01/23/24 02:00 84 17 155/70 93 L 01/23/24 01:00 78 17 171/94 95 01/23/24 00:56 85 18 165/85 95 01/22/24 23:00 97.9 F 81 18 161/78 97 01/22/24 22:00 83 18 136/72 99 01/22/24 21:00 74 18 144/63 99 01/22/24 20:00 98.7 F 90 18 172/95 97 01/22/24 18:29 64 18 164/90 94 L 01/22/24 16:00 82 18 153/69 97 01/22/24 14:01 97.5 F L GENERAL: The patient is lying in bed and is not in acute distress. NEUROLOGICAL: Higher mental function: The patient is awake, alert, oriented to self, place and month but not year. Patient is following commands. No aphasia and no neglect. Cranial nerves: The pupils are round, equal and reactive to light Visual dominguez are full to confrontation throughout. Extraocular movement is intact no nystagmus is noted. Facial sensation is normal to touch throughout. The facial strength is mildly left lower facial weakness. Hearing is mildly decreased bilaterally to hand rub. Tongue is midline and moved [id number] without any difficulty. 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 Motor: The strength is right sided 5 over 5. Left upper is 0/5. Left lower is 3-4/5. Has atrophy and spasticity over the left upper. Cerebellum: Normal finger to nose on right but left is not assessed since has significant weakness. Sensation: Sensation is mildly decreased to touch over the left side. Reflexes (right/left): Slightly brisk over the left. Plantars are mute bilaterally. Results - Laboratory Findings CBC and BMP: 01/23/24 05:24 01/23/24 05:24 Abnormal Lab Findings: Abnormal Labs 01/22/24 01/22/24 01/22/24 14:00 14:00 14:00 RBC Hgb 9.6 L Hct 31.4 L MCV 79.5 L MCH 24.3 L MCHC 30.6 L RDW 17.7 H Plt Count 474 H APTT 20.0 L Sodium 133 L BUN 25 H BUN/Creatinine Ratio 01/23/24 01/23/24 05:24 05:24 RBC 3.56 L Hgb 8.4 L Hct 28.5 L MCV MCH 23.6 L MCHC 29.5 L RDW 18.3 H Plt Count 454 H APTT Sodium 134 L BUN BUN/Creatinine Ratio 30.50 H Assessment and Plan Assessment: This is an 88-year-old woman who had the syncopal episode in which she was slumped down and yesterday while at her doctor's office. The episode lasted for 2 minutes with the post ictal confusion for a minute. She had a similar episode about 3 weeks ago. Syncopal episode: Rule out seizure especially with history of stroke which can the irritate the brain leading up to a seizure. History of stroke over the right frontal History of remote goiter status post resection as a result had the vocal cord injury and has hypophonia Hyperlipidemia Plan: I ordered a routine EEG I started the patient on Keppra 500 mg every 12 hours for concern of seizure especially with history of right frontal stroke that can irritate the brain and the is a result-induced seizures especially she is had to episode of loss of consciousness. Orthostatic vitals ordered and I'll not sure if it can be obtainable. Placed on seizure precautions seizure pads I notified the daughter that per the [place] DMV because of the sycopal episodes, to avoid driving for 6 month until no further episodes, avoid heights, avoids as swimming unassisted or using heavy machinery. Cardiology is consulted and they ordered 2-D echo Patient is on aspirin 81 mg daily. We'll defer the rest of the medical measure the primary and other specialists Upon discharge recommend the patient follow up with a neurologist in outpatient within 1-2 weeks. The plan discussed with the patient and her daughter was at bedside as well as the primary team DIPLOMA MAKER Thank you for the consultation. Time with Patient: Greater than 30
[2024-01-23] MEDS: ZINC OXIDE PASTE (Z-GUARD) 1 APPLIC TOPICAL SCH (14:34)
[2024-01-23] MEDS: IPRATROPIUM-ALBUTEROL 3 ML NEB INHALATION SCH (16:41)
--- NOTE | 2024-01-23 18:18 | CA ---
Transthoracic Echo Report Name: Krystyna Allen Age: 88 Gender: F : 1935 Exam Date: 01/23/2024 16:48 Exam Location: [facility] Ht (in): 64 Wt (lb): 103 Ordering Physician: Caryn Hull Attending/Referring Phys: [id number], Della Jelly Filter Tender Tiffanie Zhang RDCS Procedure CPT: Indications: LV function, syncope Cardiac Hx: Technical Quality: Fair Contrast 1: Total Dose (mL): Contrast 2: Total Dose (mL): MEASUREMENTS (Male / Female) Normal Values 2D ECHO LV Diastolic Diameter PLAX 3.8 cm 4.2 - 5.9 / 3.9 - 5.3 cm LV Systolic Diameter PLAX 2.6 cm IVS Diastolic Thickness 1.0 cm 0.6 - 1.0 / 0.6 - 0.9 cm LVPW Diastolic Thickness 0.9 cm 0.6 - 1.0 / 0.6 - 0.9 cm LV Relative Wall Thickness 0.5 RV Internal Dim ED PLAX 2.6 cm LA Systolic Diameter LX 2.8 cm 3.0 - 4.0 / 2.7 - 3.8 cm LV Diastolic Volume MOD 4C 44.6 cm??? LV Systolic Volume MOD 4C 22.5 cm??? LV Ejection Fraction MOD 4C 49.6 % LV Cardiac Index MOD 4C 1119.5 cm???/min???m??? LV Diastolic Length 4C 7.6 cm LV Systolic Length 4C 6.5 cm LA Volume 25.2 cm??? 18 - 58 / 22 - 52 cm??? LA Volume Index 17.5 cm???/m??? 16 - 28 cm???/m??? M-MODE Aortic Root Diameter MM 3.6 cm DOPPLER AV Peak Velocity 115.2 cm/s AV Peak Gradient 5.3 mmHg AI Peak Velocity 270.1 cm/s AI Peak Gradient 29.2 mmHg AI Pressure Half Time 395.6 ms LVOT Peak Velocity 139.2 cm/s LVOT Peak Gradient 7.8 mmHg MV Area PHT 3.8 cm??? Mitral E Point Velocity 69.2 cm/s Mitral A Point Velocity 175.1 cm/s Mitral E to A Ratio 0.4 MV Deceleration Time 201.3 ms TR Peak Velocity 221.1 cm/s TR Peak Gradient 19.5 mmHg Right Ventricular Systolic Press 23.9 mmHg FINDINGS Left Ventricle Left ventricular ejection fraction is estimated at 55-60 %. Left ventricular cavity size normal. Left ventricular wall thickness normal.Normal left ventricular systolic function with no obvious regional wall motion abnormalities. Right Ventricle Normal right ventricular size. Right ventricular systolic pressure within normal limits. Right Atrium Normal right atrial size. Left Atrium Normal left atrial size. Mitral Valve Structurally normal mitral valve. No mitral stenosis or prolapse. Mitral annular calcification.mild mitral regurgitation. Aortic Valve Trileaflet aortic valve. Aortic valve sclerosis. No aortic stenosis. Mild aortic regurgitation. Tricuspid Valve Structurally normal tricuspid valve. Mild tricuspid regurgitation. Pulmonic Valve Structurally normal pulmonic valve. No pulmonic regurgitation. Pericardium No pericardial effusion. Aorta Normal size aortic root and proximal ascending aorta. CONCLUSIONS 1. Normal left ventricle size and systolic function 2. Mild mitral, aortic and tricuspid regurgitation Previewed by: Dr. Melissa Hamilton MD (Electronically Signed) Final Date: 23 January 2024 18:17
--- NOTE | 2024-01-24 01:41 | EEG ---
ELECTROENCEPHALOGRAM REPORT CLINICAL HISTORY: This is an 88-year-old woman with syncopal spell. The video EEG is obtained to evaluate for seizure epileptiform activity. RELEVANT MEDICATION: The patient is on Xanax. EEG TYPE: A routine 21-channel EEG with video using the 10/20 electrode placement system. DESCRIPTION: Wakefulness is obtained. During awake state, the posterior-dominant rhythm consists of low voltage of 8 hertz activity. There is no physiological stage 2 sleep architecture. There is no focal slowing. Interictal and ictal is none. ACTIVATION PROCEDURE: Photic stimulation did not evoke a posterior driving response. There is no abnormality during the photic stimulation. Hyperventilation is not performed. CLINICAL INTERPRETATION: This is a normal routine EEG. There is no focal slowing, epileptiform discharge, or seizure on the EEG. A normal routine EEG does not rule out any underlying epilepsy. Clinical correlation is recommended. MMANGEL / SHANTA: [id number] / MTDD
[2024-01-24] MEDS: amLODIPine 5 MG TAB PO SCH (09:01)
--- NOTE | 2024-01-24 10:54 | P.PN ---
Subjective HISTORY OF PRESENT ILLNESS: This is a 88-year-old female with a past medical history significant for dementia, CVA with residual left-sided weakness, hypertension, hyperlipidemia, and GERD. Patient follows in the office with Dr. Simon but has not been seen in the office since July 2022. We have been asked to see the patient in consultation for syncope. Patient examined at the bedside. Patient's family members at the bedside. Patient does have a history of dementia and is a poor historian. Majority of HPI was obtained from the patient's daughter at the bedside. Apparently, the patient was at an eye doctor appointment yesterday. She had finished her appointment and was sitting in a wheelchair waiting for her van to pick her up when she passed out. Patient send member states that she did have an episode similar about 3 weeks prior. She states the patient is usually laying up in bed and very rarely is in a sitting position. She states her blood pressures have been running within normal ranges at home. Patient's blood press ures here been elevated with a systolic between 140 and 170. She was started on 10 mg of amlodipine per primary medicine. Patient's hemoglobin is 8.4. The patient does have a history of anemia with a hemoglobin range between 710 in 2022. DIAGNOSTICS: - EKG reveals sinus mechanism with no signs of acute ischemia. - Chest xray negative for acute process. - Laboratory data: WBC 8.05. Hemoglobin 8.4. Platelet count 454. Sodium 134. Potassium 4.3. BUN 18. Creatinine 0.6. Troponin negative x 3. - Current home cardiac medications include carvedilol 3.125 mg twice a day and aspirin 81 mg daily. - Most recent echocardiogram obtained in November 2020 reveals ejection fraction 60 to 65%, trace MR, mild TR. - Cardiac catheterization history: 2018 revealing normal coronary arteries 01/24/2024 Patient examined this morning at the bedside. There is no family present. Patient is very hard of hearing. She denies chest pain or pressure. She denies shortness of breath. Echocardiogram completed revealing ejection fraction 55 to 60% with no obvious regional wall motion abnormalities noted, mild mitral aortic and tricuspid regurgitation. Patient remains DNR. PHYSICAL EXAM: VITAL SIGNS: Reviewed. GENERAL: Well-developed in no acute distress. HEENT: Head is normocephalic. Pupils are equal, round. Sclerae anicteric. Mucous membranes of the mouth are moist. Neck supple. No JVD or thyromegaly LUNGS: Respirations even and unlabored. Lungs essentially clear to auscultation bilaterally. HEART: Regular rate and rhythm. S1 and S2 heard. ABDOMEN: Soft. Nondistended. Nontender. EXTREMITIES: Normal range of motion. No clubbing or cyanosis. Peripheral pulses intact. No lower extremity edema NEUROLOGIC: Awake and alert. Oriented x 1. Hard of hearing. ASSESSMENT: Syncope, likely secondary to orthostatic/postural changes History of CVA with residual left-sided weakness Hypertension Hyperlipidemia GERD Dementia PLAN: Continue current cardiac medications Patient is stable from a cardiac standpoint with no further inpatient recommendations We will sign off. Please reconsult if needed. Nurse practitioner note has been reviewed by physician. Signing provider agrees with the documented findings, assessment, and plan of care documented by SILK OPENER as a scribe. Objective - Vital Signs Vital signs: Vital Signs Temp 97.5 F L 01/24/24 06:57 Pulse 80 01/24/24 06:57 Resp 16 01/24/24 06:57 BP 168/80 01/24/24 06:57 Pulse Ox 96 01/24/24 06:57 FiO2 Intake & Output 01/23/24 01/24/24 01/24/24 18:59 06:59 18:59 Weight 46.72 kg Other: Voiding Method External Catheter # Voids 1 - Labs CBC & Chem 7: 01/23/24 05:24 01/23/24 05:24
[2024-01-24 11:55] LABS: Blood Urea Nitrogen 13.8 mg/dL (9.0-27.0); Calcium 9.2 mg/dL (8.7-10.3); Carbon Dioxide 27.3 mmol/L (21.6-31.8); Chloride 97 mmol/L (96-109); Glucose 87 mg/dL (70-110); Potassium 4.5 mmol/L (3.5-5.5); Sodium 135 mmol/L (135-145)
[2024-01-24 12:31] LABS: Basophils # (A) 0.04 X 10*3/uL (0.00-0.10); Basophils % (A) 0.5 %; Eosinophils # (A) 0.16 X 10*3/uL (0.04-0.35); Eosinophils % (A) 1.9 %; HCT 29.7 % (37.2-46.3); HGB 9.1 g/dL (12.0-15.0); Lymphocytes # (A) 1.67 X 10*3/uL (0.90-5.00); Lymphocytes % (A) 19.6 %; MCH 23.6 pg (27.0-32.0); MCHC 30.6 g/dL (32.0-37.0); MCV 77.1 FL (80.0-97.0); Mean Platelet Volume 10.6 FL (9.5-12.2); Monocytes # (A) 0.81 X 10*3/uL (0.20-1.00); Monocytes % (A) 9.5 %; NRBC Per 100 WBC 0 X 10*3/uL (0.00-0.01); Neutrophils # (A) 5.82 X 10*3/uL (1.80-7.70); Neutrophils % (A) 68.1 %; Platelet Count 395 X 10*3/uL (140-440); RBC 3.85 X 10*6/uL (4.10-5.20); RDW 18.6 % (11.5-14.5); WBC 8.53 X 10*3/uL (4.50-10.00)
--- NOTE | 2024-01-24 13:11 | P.DS ---
Providers Date of admission: 01/22/24 17:40 Expected date of discharge: 01/24/24 Attending physician: Gene Spann Consults: 01/22/24 16:30 Consult Physician Routine Consulting Provider: Vasquez Bowen Consult Reason/Comments: syncope Do you want consulting provider notified?: Yes Primary care physician: Tuan [facility] Course: Final diagnosis Recurrent syncopal episodes for evaluation, likely orthostatic with position changes Hypertension, uncontrolled Hyperlipidemia History of degenerative joint disease History of CVA with left-sided weakness History of dementia Gastroesophageal reflux disease Right frontal encephalomalacia History of goiter No code, no CPR, no vent Discharge disposition Patient is being discharged in a stable condition with guarded prognosis to [facility] with continued hospice services. Patient will follow-up with Dr. Shafer in the outpatient setting upon discharge. Patient is to continue with medications as prescribed and outpatient follow-up with cardiology as scheduled. Recommend neurology follow-up outpatient as well. Total time taken is greater than 35 minutes. Hospital course This is a 88-year-old female who was recently admitted with syncopal episodes x 2 at her eye doctor and sent here for further evaluation. Patient is a resident at [facility] and is maintained on hospice. Patient underwent cardiology evaluation with medication adjustments for blood pressure control as well as neurology workup and underwent EEG which was normal. Patient was started on Keppra initially although family discussed amongst themselves and do not prefer to keep her on Keppra. Patient has been instructed to follow-up with neurology outpatient. Patient to follow-up with cardiology outpatient and continue with blood pressure management. Patient has been cleared by consultations for discharge back to [facility]. Please refer to other consultation notes for further HPI. Currently no reports of chest pain, shortness of breath, or palpitations. Patient is afebrile. No reports of nausea or vomiting and patient is tolerating diet. Patient is eating very little and this has been ongoing over the last few weeks per daughter at the bedside. Patient will be going to [facility] today with continued hospice services. Overall prognosis guarded. Physical exam: Gen: This is a 88-year-old female who was asleep although arousable, alert and oriented x 1-2, thin built, elderly appearing HEENT: Head is atraumatic, normocephalic. Pupils equal, round. Sclerae is anicteric. NECK: Supple. No JVD. No lymphadenopathy. No thyromegaly. LUNGS: Diminished breath sounds bilaterally otherwise clear to auscultation. No wheezes or rhonchi. No intercostal retractions. HEART: S1, S2 are muffled ABDOMEN: Soft. Bowel sounds are present. No masses. No tenderness. EXTREMITIES: No pedal edema. No calf tenderness. NEUROLOGICAL: Patient is alert and oriented x1-2, baseline. Cranial nerves 2 through 12 are grossly intact. Diffusely weak, mostly bedbound per family Please refer to medication reconciliation sheet for a list of medications. The impression and plan of care has been dictated by Hayley Phelps, Nurse Practitioner as directed. Dr. Zana MD I have performed a history and examination and MDM of this patient, discussed the same with the dictator, and agree with the dictator's assessment and plan as written ,documented as a scribe. Based on total visit time, I have performed more than 50% of the visit. Patient Condition at Discharge: Stable Plan - Discharge Summary Discharge Rx Participant: No New Discharge Prescriptions: New amLODIPine [Norvasc] 5 mg PO DAILY tab Continue Ondansetron [Zofran] 4 mg PO Q6H PRN PRN Reason: Nausea And Vomiting Sennosides [Senna] 8.6 mg PO Q12H Levothyroxine Sodium 25 mcg PO DAILY Loperamide [Imodium] 2 mg PO Q6H PRN PRN Reason: Diarrhea Phenyleph/Mineral Oil/Petrolat [Preparation H Ointment] 1 applic RECTAL Q8H PRN PRN Reason: Hemorrhoids Docusate [Colace] 100 mg PO Q12H Menthol [Biofreeze] 1 applic TOPICAL Q6H PRN PRN Reason: NECK PAIN HYDROcodone/APAP 10-325MG [[place] 10-325] 1 tab PO Q4HR PRN #4 tab PRN Reason: Pain Acetaminophen Tab [Tylenol] 650 mg PO Q4H PRN PRN Reason: Pain Ipratropium-Albuterol Nebulize [Duoneb 0.5 mg-3 mg/3 ml Soln] 3 ml INHALATION RT-Q6H carvediloL [Coreg] 3.125 mg PO Q12H rOPINIRole HCL [Requip] 0.25 mg PO HS polyethylene glycoL 3350 [Miralax] 17 gm PO DAILY Omeprazole 20 mg PO BID Magnesium Hydroxide [Milk of Magnesia] 2,400 mg PO DAILY PRN PRN Reason: Constipation guaiFENesin SYRUP 100MG/5ML [Robitussin] 200 mg PO Q6H PRN PRN Reason: Cough bisacodyL [Dulcolax] 10 mg RECTAL DAILY PRN PRN Reason: Constipation Hydrocortisone [Anusol-Hc] 1 applic RECTAL Q12H PRN PRN Reason: Hemorrhoids Hyoscyamine Sulfate [Levsin] 0.125 mg PO Q4H PRN PRN Reason: Secretions Loratadine [Claritin] 10 mg PO DAILY Aspirin 81 mg PO DAILY Morphine Sulfate [Morphine Sulfate Oral Soln Concentrate] 5 mg PO Q4H PRN #5 ml PRN Reason: Pain ALPRAZolam [Xanax] 0.25 mg PO Q12H #2 tab ALPRAZolam [Xanax] 0.25 mg PO Q8H PRN #2 tab PRN Reason: Anxiety Discharge Medication List Acetaminophen Tab [Tylenol] 650 mg PO Q4H PRN 01/25/21 [History] Ipratropium-Albuterol Nebulize [Duoneb 0.5 mg-3 mg/3 ml Soln] 3 ml INHALATION RT-Q6H 01/25/21 [History] Levothyroxine Sodium 25 mcg PO DAILY 01/25/21 [History] Omeprazole 20 mg PO BID 01/25/21 [History] Ondansetron [Zofran] 4 mg PO Q6H PRN 01/25/21 [History] Sennosides [Senna] 8.6 mg PO Q12H 01/25/21 [History] carvediloL [Coreg] 3.125 mg PO Q12H 01/25/21 [History] polyethylene glycoL 3350 [Miralax] 17 gm PO DAILY 01/25/21 [History] rOPINIRole HCL [Requip] 0.25 mg PO HS 01/25/21 [History] Docusate [Colace] 100 mg PO Q12H 01/29/23 [History] Hydrocortisone [Anusol-Hc] 1 applic RECTAL Q12H PRN 01/29/23 [History] Loperamide [Imodium] 2 mg PO Q6H PRN 01/29/23 [History] Magnesium Hydroxide [Milk of Magnesia] 2,400 mg PO DAILY PRN 01/29/23 [History] Menthol [Biofreeze] 1 applic TOPICAL Q6H PRN 01/29/23 [History] Phenyleph/Mineral Oil/Petrolat [Preparation H Ointment] 1 applic RECTAL Q8H PRN 01/29/23 [History] bisacodyL [Dulcolax] 10 mg RECTAL DAILY PRN 01/29/23 [History] guaiFENesin SYRUP 100MG/5ML [Robitussin] 200 mg PO Q6H PRN 01/29/23 [History] Aspirin 81 mg PO DAILY 01/22/24 [History] Hyoscyamine Sulfate [Levsin] 0.125 mg PO Q4H PRN 01/22/24 [History] Loratadine [Claritin] 10 mg PO DAILY 01/22/24 [History] ALPRAZolam [Xanax] 0.25 mg PO Q12H #2 tab 01/24/24 [Rx] ALPRAZolam [Xanax] 0.25 mg PO Q8H PRN #2 tab 01/24/24 [Rx] HYDROcodone/APAP 10-325MG [[place] 10-325] 1 tab PO Q4HR PRN #4 tab 01/24/24 [Rx] Morphine Sulfate [Morphine Sulfate Oral Soln Concentrate] 5 mg PO Q4H PRN #5 ml 01/24/24 [Rx] amLODIPine [Norvasc] 5 mg PO DAILY tab 01/24/24 [Rx] Follow up Appointment(s)/Referral(s): Tuan Shafer DO [Primary Care Provider] - 1-2 days Valerie Evans MD [Medical Doctor] - 1 Week Patient Instructions/Handouts: Seizure/Epilepsy Discharge Instructions & Follow-Up Activity/Diet/Wound Care/Special Instructions: Patient will be returning to [facility] Activity as tolerated Follow-up primary care provider on discharge Follow-up neurology outpatient in 1 to 2 weeks Continue with medications as prescribed Patient is continued on hospice and will continue Discharge Disposition: TRANSFER TO SNF/ECF
--- NOTE | 2024-01-24 15:04 | P.PN ---
Subjective Progress Note Date: 01/24/24 I am following up with the patient and the no further syncopal episode. No seizure-like activity. The daughter clarified that the patient is for the most part is bedbound and that to episode that she has syncope is a when she was a was moved from a sitting at 2 more upright position. Daughter's requesting for the Keppra to be discontinued. Objective - Vital Signs Vital signs: Vital Signs Temp 97.5 F L 01/24/24 06:57 Pulse 80 01/24/24 06:57 Resp 16 01/24/24 06:57 BP 168/80 01/24/24 06:57 Pulse Ox 96 01/24/24 06:57 FiO2 Intake & Output 01/23/24 01/24/24 01/24/24 18:59 06:59 18:59 Weight 46.72 kg Other: Voiding Method External Catheter External Catheter # Voids 1 - Exam General: Lying in bed and is not in acute distress. Neuro: Limited since sleeping. Has mild left lower facial weakenss. Some other workup during his hospital visit consisted of: Orthostatic vitals: Supine 176/85 and sitting 162/81. Sodium is 133, glucose is 96, magnesium 2.0. CT head is reported as no acute intracranial process. Remote injury in the right frontal lobe with encephalomalacia. Moderate right maxillary paranasal sinus disease. I personally reviewed the CT and I agree there is no acute subacute stroke. Patient does have some inflammation over the right frontal. Routine EEG is normal. There is no focal slowing, epileptiform discharges or seizure on the EEG. 2D echo: Normal left ventricle sizre and systolic function. Mild mitral, aortic and tricuspid regurgitation. - Labs CBC & Chem 7: 01/24/24 06:14 01/24/24 06:14 Labs: Abnormal Lab Results - Last 24 Hours (Table) 01/24/24 01/24/24 Range/Units 06:14 06:14 RBC 3.85 L (4.10-5.20) X 10*6/uL Hgb 9.1 L (12.0-15.0) g/dL Hct 29.7 L (37.2-46.3) % MCV 77.1 L (80.0-97.0) FL MCH 23.6 L (27.0-32.0) pg MCHC 30.6 L (32.0-37.0) g/dL RDW 18.6 H (11.5-14.5) % Creatinine 0.5 L (0.6-1.5) mg/dL BUN/Creatinine Ratio 27.60 H (12.00-20.00) Ratio Assessment and Plan Assessment: This is an 88-year-old woman who had the syncopal episode in which she was slumped down and yesterday while at her doctor's office. The episode lasted for 2 minutes with the post ictal confusion for a minute. She had a similar episode about 3 weeks ago. Per the daughter she stated that these episodes happen from supine to more upright position Syncopal episode:Unclear etiology but possible orthostatic. 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 Patient orthostatic from supine to sitting was negative. The daughter has requested for the Keppra to be discontinued. She stated that the she'll have her nursing facility keep an eye and I recommended that she has any further episodes consider restarting antiepileptic drug. Placed on seizure precautions seizure pads I notified the daughter that per the [place] DMV because of the sycopal episodes, to avoid driving for 6 month until no further episodes, avoid heights, avoids as swimming unassisted or using heavy machinery. Cardiology is consulted and they ordered 2-D echo Patient is on aspirin 81 mg daily. We'll defer the rest of the medical measure the primary and other specialists Upon discharge recommend the patient follow up with a neurologist in outpatient within 1-2 weeks. The plan discussed with the patient's daughter and primary team. There is no further neurological work-up. Will sign off. Please reconsult if needed. Time with Patient: Less than 30
[2024-01-24] MEDS: ACETAMINOPHEN TAB 325 MG TAB PO PRN (15:28)
[2024-01-24 15:29] VITALS: BP 122/67; PULSE 84; TEMP 97.9
[2024-01-24 15:30] VITALS: BMI 17.6
== END 2024-01-24 16:11 ==
LOC: EC 13:47 → 6NMEDSUR 17:40
PROVIDERS: ADMIT Hospitalist; ATTEND Hospitalist
DX: R55 Syncope and collapse (principal); R56.9 Unspecified convulsions; I10 Essential (primary) hypertension; E78.5 Hyperlipidemia, unspecified; F03.90 Unspecified dementia, unspecified severity, without behavioral disturbance, psychotic disturbance, mood disturbance, and anxiety; K21.9 Gastro-esophageal reflux disease without esophagitis; G93.89 Other specified disorders of brain; I69.354 Hemiplegia and hemiparesis following cerebral infarction affecting left non-dominant side; I25.10 Atherosclerotic heart disease of native coronary artery without angina pectoris; I26.99 Other pulmonary embolism without acute cor pulmonale; Z79.82 Long term (current) use of aspirin; Z79.899 Other long term (current) drug therapy; Z80.6 Family history of leukemia; Z82.5 Family history of asthma and other chronic lower respiratory diseases; Z90.710 Acquired absence of both cervix and uterus; D64.9 Anemia, unspecified
CPT/HCPCS: 99285; 36415; 94640; 95816; 93005; 93306; 80053; 80048 ×2; 83735; 84484; 85025 ×3; 85610; 85730; 71046; 74018; 70450; G0378 ×3